=== PATIENT | female | born 1970 | race Caucasian/White ===

== ENCOUNTER 2020-01-05 20:17 | Emergency (ER) | payer OTHER, SELFPAY ==
--- NOTE | 2020-01-05 20:26 | XR_ITS ---
EXAMINATION: XR CHEST CLINICAL INFORMATION: Pain COMPARISON: Chest x-ray 05/19/2011 TECHNIQUE: Frontal view of the chest was obtained. FINDINGS: Cardiac silhouette is normal in size. The lungs are well aerated. There is no lobar consolidation. No pleural effusion or pneumothorax. XR/XR chest 1V IMPRESSION: Stable examination demonstrating no acute pulmonary pathology.
--- NOTE | 2020-01-05 20:27 | ECG_ITS ---
Test Reason : CP Blood Pressure : / mmHG Vent. Rate : 082 BPM Atrial Rate : 082 BPM P-R Int : 112 ms QRS Dur : 080 ms QT Int : 390 ms P-R-T Axes : 057 054 009 degrees QTc Int : 455 ms Normal sinus rhythm ST depression in Inferior leads Abnormal ECG When compared with ECG of 27-MAY-2019 14:55, Heart rate has decreased Referred By: Sudha Rouse Electronically Signed By:REHANA LARSEN MD
[2020-01-05 20:28] VITALS: BP 156/78; BP 170/100; PULSE 81; PULSE 90; RESP 16; TEMP 36.9; O2SAT 100; O2SAT 98; BMI 22.3
--- NOTE | 2020-01-05 20:35 | ED_ITS ---
HPI - SOB/Dyspnea General Chief Complaint: Anxiety Stated Complaint: covid anxiety Time Seen by Provider: 01/05/20 20:26 Source: EMS Mode of arrival: EMS Limitations: other (vague historian) History of Present Illness MD elicited complaint: shortness of breath, cough, chest pain and anxiety Onset (ago): day(s) (3) Context: anxiety and other (very stressed out with multiple family members who have COVID) Timing: constant Severity: moderate Exacerbating factors: stress and talking Relieving factors: nothing Associated symptoms: chest pain Treatment prior to arrival: none Related Data Previous Rx's Medication Instructions Recorded escitalopram oxalate 5 mg tablet 5 mg PO DAILY #30 tab 12/02/19 lorazepam [Ativan] 1 mg PO BID PRN #10 tab 01/05/20 Allergies Allergy/AdvReac Type Severity Reaction Status Date / Time NSAIDS (Non-Steroidal Allergy Intermediate RASH Verified 01/05/20 20:37 Anti-Inflamma [NSAIDS (NON-STEROIDAL ANTI-INFLAMMA] aspirin [ASPIRIN] Allergy Mild HIVES Verified 01/05/20 20:37 ibuprofen Allergy Unknown hives Verified 07/15/19 00:00 Review of Systems Review of Systems: Constitutional : No Weight loss, No Fever, No Chills ENT/Mouth : No sore throat, No Rhinorrhea Eyes: No Eye Pain, No Swelling Cardiovascular : pos Chest Pain, pos SOB, no Dyspnea on Exertion, No Orthopnea, No Edema, No Palpitations Respiratory : No Cough, No Sputum Gastrointestinal : pos Nausea, No Vomiting, No Diarrhea, No abdominal Pain, No Hematochezia, No Melena Genitourinary : No Dysuria, No Urinary Frequency Musculoskeletal : No joint pain, No Myalgias, No Joint Swelling Skin : No Skin Lesions, No rash Neuro : No Weakness, No Numbness, No Dizziness, No Headache Psych : pos Anxiety/Panic, No Depression Heme/Lymph: No Bruising, No Lymphadenopathy Endocrine : No Polyuria, No Polydipsia All other systems reviewed and are negative FOR[facility]LY [facility] Past Medical History Attestation statement: The following information was validated with the patient. Medical History (Updated 01/05/20 @ 21:44 by Sudha Rouse DO) Anxiety Migraines Panic attacks Social History Social History (Updated 01/05/20 @ 20:45 by Sudha Rouse DO) Smoking Status: Current every day smoker Use of substances other than those prescribed or required for medical reasons: No Advance Directives: No Advance Directives Information Provided: No Physical Exam Vital Signs: Vital Signs: Last Vital Signs Temp 98.4 F 01/05/20 20:28 Pulse 81 01/05/20 20:28 Resp 16 01/05/20 20:28 BP 156/78 H 01/05/20 20:28 Pulse Ox 98 01/05/20 20:28 Body Mass Index 22.3 Appearance: Alert. Oriented X3. No acute distress. Anxious Eyes: Pupils equal, round and reactive to light. ENT: Pharynx normal. Neck: Normal inspection. Neck supple. CVS: Normal heart rate and rhythm. Pulses normal. Respiratory: No respiratory distress. Breath sounds normal. Abdomen: Soft and nontender. Skin: Skin warm and dry. Normal skin color. Normal skin turgor. Extremities: No lower extremity edema. No calf ttp Neuro: Oriented X 3. No motor deficit. No sensory deficit. Course Course Course Narrative: no acute findings, feels better, stable for DC MDM - SOB/Dyspnea MDM Narrative Medical decision making narrative: 49 yo female c/o dyspnea and chest pain states that she suffers from panic attacks and this is typical of her presentation she is PERC negative at this time, will need labs, EKG, troponin x 1, CXR and PO ativan for anxiety, dispo per results and findings. Lab Data Result diagrams: 01/05/20 20:45 01/05/20 20:45 Labs: Lab Results 01/05/20 01/05/20 01/05/20 Range/Units 20:45 20:45 20:45 WBC 12.1 H (4.8-10.8) X10*3/uL RBC 3.62 L (4.20-5.50) X10*6/uL Hgb 12.3 (12.0-16.0) g/dl Hct 36.9 L (37-47) % MCV 101.9 H (80-98) fL MCH 34.0 H (27.0-33.0) pg MCHC 33.3 (31.0-35.0) g/dl RDW 13.2 (11.0-16.0) % Plt Count 198 (160-400) X10*3/uL MPV 10.6 (9.4-12.3) fL Immature Gran % (Auto) 0.4 (0.0-0.4) % Neut % (Auto) 70.1 (45-73) % Lymph % (Auto) 17.3 L (20-40) % [place] % (Auto) 11.3 H (2-11) % Eos % (Auto) 0.2 (0-4) % Baso % (Auto) 0.7 (0-2) % Lymph # (Auto) 2.1 (1.2-4.9) X10*3/uL [place] # (Auto) 1.4 H (0.1-1.2) X10*3/uL Eos # (Auto) 0.0 (0.0-0.4) X10*3/uL Baso # (Auto) 0.1 (0.0-0.2) X10*3/uL Abs Immat Gran (auto) 0.05 H (0.00-0.03) X10*3/uL Absolute Neuts (auto) 8.5 H (2.0-8.3) X10*3/uL Absolute Nucleated RBC 0.000 (0.0-0.012) X10*3/uL Nucleated RBC % (auto) 0.0 (0.0-0.2) /100WBC Hold Blue Top SEE NOTE Sodium 145 (135-145) mmol/L Potassium 3.7 (3.3-5.1) mmol/l Chloride 108 (96-108) mmol/L Carbon Dioxide 25 (22-29) mmol/L Anion Gap 16 (12-20) BUN 11 (9-16) mg/dL Creatinine 0.65 (0.5-1.4) mg/dL Estim Creat Clear Calc 87.6 Estimated GFR > 60 Random Glucose 143 H (60-115) mg/dL Calcium 9.1 (8.4-10.2) mg/dL Troponin I High Sens (<3.5-17.0) ng/L Coronavirus (PCR) (Negative) Influenza Type A (PCR) (Negative) Influenza Type B (PCR) (Negative) RSV RNA Qual (PCR) (Negative) 01/05/20 01/05/20 Range/Units 20:45 20:50 WBC (4.8-10.8) X10*3/uL RBC (4.20-5.50) X10*6/uL Hgb (12.0-16.0) g/dl Hct (37-47) % MCV (80-98) fL MCH (27.0-33.0) pg MCHC (31.0-35.0) g/dl RDW (11.0-16.0) % Plt Count (160-400) X10*3/uL MPV (9.4-12.3) fL Immature Gran % (Auto) (0.0-0.4) % Neut % (Auto) (45-73) % Lymph % (Auto) (20-40) % [place] % (Auto) (2-11) % Eos % (Auto) (0-4) % Baso % (Auto) (0-2) % Lymph # (Auto) (1.2-4.9) X10*3/uL [place] # (Auto) (0.1-1.2) X10*3/uL Eos # (Auto) (0.0-0.4) X10*3/uL Baso # (Auto) (0.0-0.2) X10*3/uL Abs Immat Gran (auto) (0.00-0.03) X10*3/uL Absolute Neuts (auto) (2.0-8.3) X10*3/uL Absolute Nucleated RBC (0.0-0.012) X10*3/uL Nucleated RBC % (auto) (0.0-0.2) /100WBC Hold Blue Top Sodium (135-145) mmol/L Potassium (3.3-5.1) mmol/l Chloride (96-108) mmol/L Carbon Dioxide (22-29) mmol/L Anion Gap (12-20) BUN (9-16) mg/dL Creatinine (0.5-1.4) mg/dL Estim Creat Clear Calc Estimated GFR Random Glucose (60-115) mg/dL Calcium (8.4-10.2) mg/dL Troponin I High Sens < 3.5 (<3.5-17.0) ng/L Coronavirus (PCR) NEGATIVE (Negative) Influenza Type A (PCR) NEGATIVE (Negative) Influenza Type B (PCR) NEGATIVE (Negative) RSV RNA Qual (PCR) NEGATIVE (Negative) ECG Data Attestation: I personally reviewed and interpreted this ECG as follows: ECG interpretation date: 01/05/20 ECG interpretation time: 20:45 Interpretation: Rate: 82 Rhythm: NSR Dodge: normal Normal P waves. Normal CHUCKIE. Normal QRS complex. ST T wave : normal qTC: normal prior studies: no acute ischemia The study has been interpreted contemporaneously by me. . Discharge Plan Discharge Clinical Impression: Acute anxiety Chest pain Qualifiers: Chest pain type: unspecified Qualified Code(s): R07.9 - Chest pain, unspecified Patient Disposition: Home, Self-Care Instructions: Chest Pain (ED), Anxiety (ED) Additional Instructions: return to ED for any worsening symptoms or concerns Prescriptions: New lorazepam [Ativan] 1 mg tablet 1 mg PO BID PRN (Reason: anxiety) Qty: 10 RF: 0 No Action escitalopram oxalate 5 mg tablet 5 mg PO DAILY Qty: 30 RF: 5 Referrals: Physician,Unknown [Primary Care Provider] - 5 days Stand Alone Forms: Work/School Release
[2020-01-05] MEDS: LORazepam 1 MG TABLET PO (20:47)
[2020-01-05 20:58] LABS: Basophils Absolute Auto 0.1 X10*3/uL (0.0-0.2); Basophils Percent Auto 0.7 % (0-2); Eosinophils Percent Auto 0.2 % (0-4); Hematocrit 36.9 % (37-47); Hemoglobin 12.3 g/dl (12.0-16.0); Imm Gran Abs Auto 0.05 X10*3/uL (0.00-0.03); Imm Gran Pct Auto 0.4 % (0.0-0.4); Lymphocytes Absolute Auto 2.1 X10*3/uL (1.2-4.9); Lymphocytes Percent Auto 17.3 % (20-40); MANUAL DIFF FLAG NO; Mean Corpuscular HGB Conc 33.3 g/dl (31.0-35.0); Mean Corpuscular Volume 101.9 fL (80-98); Mean Platelet Volume 10.6 fL (9.4-12.3); Monocytes Absolute Auto 1.4 X10*3/uL (0.1-1.2); Monocytes Percent Auto 11.3 % (2-11); Neutrophils Absolute Auto 8.5 X10*3/uL (2.0-8.3); Neutrophils Percent Auto 70.1 % (45-73); Platelet Count 198 X10*3/uL (160-400); Red Blood Count 3.62 X10*6/uL (4.20-5.50); Red Cell Distribution Width 13.2 % (11.0-16.0); White Blood Count 12.1 X10*3/uL (4.8-10.8)
--- NOTE | 2020-01-05 21:04 | PC.NURSE ---
EKG, labs and Covid swab obtained and sent. Pt resting in bed with eyes closed, talking to herself. When this nurse asked pt what she was doing, pt replied praying for my family.
[2020-01-05 21:17] LABS: Anion Gap 16 (12-20); Blood Urea Nitrogen 11 mg/dL (9-16); Calcium 9.1 mg/dL (8.4-10.2); Carbon Dioxide 25 mmol/L (22-29); Chloride 108 mmol/L (96-108); Creatinine Clr Calc Pharmacy 87.6; Estimated Glomerular Filt Rate > 60; Glucose Random 143 mg/dL (60-115); Potassium 3.7 mmol/l (3.3-5.1); Sodium 145 mmol/L (135-145)
[2020-01-05 21:25] LABS: Troponin-I High Sensitivity < 3.5 ng/L (<3.5-17.0)
[2020-01-05 21:38] LABS: Influenza A PCR NEGATIVE (Negative); Influenza B PCR NEGATIVE (Negative); Resp Syncy Virus RNA Qual PCR NEGATIVE (Negative); SARS COV2 PCR INHOUSE NEGATIVE (Negative)
[2020-01-05 22:01] VITALS: BP 126/65; PULSE 97; RESP 16; O2SAT 98
== END 2020-01-05 22:07 | disposition home or self-care (01) ==
PROVIDERS: Emergency Provider Emergency Medicine
DX: F43.0 Acute stress reaction (principal); R07.9 Chest pain, unspecified; Z79.899 Other long term (current) drug therapy
CPT/HCPCS: 0241U; 36415; 71045; 80048; 84484; 85025; 93005; 99283

== ENCOUNTER 2020-04-20 20:41 | Emergency (ER) | payer OTHER, SELFPAY ==
[2020-04-20 20:47] VITALS: BP 129/81; PULSE 105; RESP 18; TEMP 36.5; O2SAT 98
[2020-04-20 20:58] VITALS: BP 108/67; PULSE 107; RESP 16; TEMP 37.2; O2SAT 99; BMI 28.3
--- NOTE | 2020-04-20 21:48 | ED.PSYCH ---
HPI - Psych General Chief Complaint: ETOH/Substance Use Stated Complaint: crisis etoh Time Seen by Provider: 04/20/20 21:48 Source: patient Mode of arrival: EMS Limitations: no limitations History of Present Illness HPI Narrative: Patient had few drinks tonight was at sister's house wanted to take her daughter home started fighting with her sister police came who gave her the choice to be arrested or go to the hospital ,patient chose to come to the hospital complaint: anxiety and substance abuse Related Data Previous Rx's Medication Instructions Recorded escitalopram oxalate 5 mg tablet 5 mg PO DAILY #30 tab 12/02/19 lorazepam [Ativan] 1 mg PO BID PRN #10 tab 01/05/20 Allergies Allergy/AdvReac Type Severity Reaction Status Date / Time NSAIDS (Non-Steroidal Allergy Intermediate RASH Verified 01/05/20 20:37 Anti-Inflamma [NSAIDS (NON-STEROIDAL ANTI-INFLAMMA] aspirin [ASPIRIN] Allergy Mild HIVES Verified 01/05/20 20:37 ibuprofen Allergy Unknown hives Verified 07/15/19 00:00 Review of Systems Review of Systems: Constitutional : No Fever, No Chills ENT/Mouth : No Ear Pain, No Nasal Congestion, No sore throat Eyes: No Eye Pain, No Swelling, No Redness Cardiovascular : No Chest Pain, No SOB Respiratory : No Cough, No Sputum, No Dyspnea Gastrointestinal : No Nausea, No Vomiting, No Diarrhea, No Hematochezia, No Melena Genitourinary : No Dysuria, No Urinary Frequency, No Hematuria Musculoskeletal : No Myalgias Skin : No Skin Lesions, No rash Neuro : No Weakness, No Numbness, No Paresthesias, No Dizziness, No Headache Psych : positive Anxiety, -ve Depression,-ve SI/HI Heme/Lymph: No Lymphadenopathy Endocrine : No Polyuria, No Polydipsia PMFSH Past Medical History Medical History Anxiety Migraines Panic attacks Social History Social History Smoking Status: Current every day smoker Advance Directives: No Physical Exam Vital Signs: Vital Signs: Last Vital Signs Temp 98.9 F 04/20/20 20:58 Pulse 107 H 04/20/20 20:58 Resp 16 04/20/20 20:58 BP 108/67 04/20/20 20:58 Pulse Ox 99 04/20/20 20:58 Body Mass Index 28.3 Appearance: Alert. Oriented X3. No acute distress. Patient, cooperative ETOH+ Eyes: Pupils equal, round and reactive to light. ENT: Pharynx normal. Neck: Normal inspection. Neck supple. CVS: Normal heart rate and rhythm. Pulses normal. Respiratory: No respiratory distress. Breath sounds normal. Abdomen: Soft and nontender. Bowel sounds are present, no mass palpable, no CVA tenderness Skin: Skin warm and dry. Normal skin color. Normal skin turgor. Extremities: No lower extremity edema. Neuro: Oriented X 3. No motor deficit. No sensory deficit. Steady gait MDM - Psych MDM Narrative Medical decision making narrative: Patient with slight alcohol intoxication but walking in steady gait sober clinically, denies any suicidal ideation discharge patient home feels safe to go home Differential Diagnosis Differential diagnosis: Likely acute anxiety and alcohol intoxication Discharge Plan Discharge Clinical Impression: Alcohol abuse Patient Disposition: Home, Self-Care Instructions: Abuse of Alcohol (ED) Additional Instructions: Follow-up with your PCP. Follow up with detox Prescriptions: No Action escitalopram oxalate 5 mg tablet 5 mg PO DAILY Qty: 30 RF: 5 lorazepam [Ativan] 1 mg tablet 1 mg PO BID PRN (Reason: anxiety) Qty: 10 RF: 0
[2020-04-20 22:00] VITALS: BP 110/70; PULSE 90; RESP 16; TEMP 36.7; O2SAT 99
== END 2020-04-20 23:59 | disposition home or self-care (01) ==
PROVIDERS: Emergency Provider Internal Medicine; PCP Internal Medicine
DX: F10.120 Alcohol abuse with intoxication, uncomplicated (principal); Y90.9 Presence of alcohol in blood, level not specified
CPT/HCPCS: 99284

== ENCOUNTER 2020-04-26 17:01 | Inpatient (IN) | payer OTHER, SELFPAY ==
--- NOTE | ~2020-04-26 | CT_ITS ---
EXAMINATION: CT HEAD WITHOUT CONTRAST CLINICAL INFORMATION: Subacute head injury COMPARISON: 01/11/2016 TECHNIQUE: Contiguous axial imaging was performed from the skull base to vertex without intravenous administration of contrast. This CT examination was performed using dose optimization techniques as appropriate, variously including the following: *Automated exposure control *Adjustment of mA and/or kV according to patient size (this includes techniques or standardized protocols for targeted exams where dose is matched to indication/reason for exam; i.e. extremities or head) *Use of iterative reconstruction technique DLP: 606 mGy-cm FINDINGS: There is no evidence of acute intracranial hemorrhage or territorial infarction. No abnormal mass effect or midline shift is seen. Wahl to white matter differentiation is well preserved. No extra-axial fluid collections are identified. The ventricles are normal in size. There is no abnormal attenuation within the brain parenchyma. The osseous structures and soft tissues are normal. The mastoid air cells and visualized portions of the paranasal sinuses are well aerated. CT/CT head/brain wo con IMPRESSION: No acute intracranial pathology.
--- NOTE | ~2020-04-26 | CT_ITS ---
EXAMINATION: CT ABDOMEN AND PELVIS WITHOUT CONTRAST CLINICAL INFORMATION: Bilateral flank pain with nausea. Recent UTI COMPARISON: CT abdomen pelvis 07/17/2009 TECHNIQUE: Multidetector volumetric imaging was performed from the superior aspect of the liver through the pubic symphysis. Sagittal and coronal reformatted images were obtained on the technologist's workstation. This CT examination was performed using dose optimization techniques as appropriate, variously including the following: *Automated exposure control *Adjustment of mA and/or kV according to patient size (this includes techniques or standardized protocols for targeted exams where dose is matched to indication/reason for exam; i.e. extremities or head) *Use of iterative reconstruction technique DLP: 532 mGy-cm FINDINGS: LUNG BASES: The visualized lung bases are unremarkable. LIVER, GALLBLADDER, AND BILIARY TREE: The liver border is nodular with hypertrophy of the left lobe. No bile duct dilatation is seen although evaluation is suboptimal because of lack of IV contrast. A recanalized umbilical vein appears to be present. No liver masses are detected. One tiny punctate punctate calcification seen in the liver which could represent a granuloma. A worrisome liver mass is not seen. Patient status post cholecystectomy with a surgical clips in the gallbladder fossa. PANCREAS: Unremarkable. SPLEEN: Unremarkable. ADRENAL GLANDS: Unremarkable. KIDNEYS AND URETERS: The kidneys are normal in size, shape, and attenuation. No hydronephrosis, hydroureter, or calculi seen. No perinephric stranding. BLADDER: The bladder wall is symmetrically thickened which is consistent with the given history of recent cystitis. GASTROINTESTINAL TRACT: A small hiatal hernia is present. Moderately large stool burden is present in the colon. The small and large bowel are otherwise unremarkable. The appendix is unremarkable. ABDOMINAL WALL: No significant hernia is appreciated. Small periumbilical hernia seen containing only fat. LYMPH NODES: No retroperitoneal lymphadenopathy is seen. VASCULAR: Unremarkable. PELVIC VISCERA: An anteverted uterus is present. An abnormal adnexal mass is not seen. No ascites is present. OSSEOUS STRUCTURES: Unremarkable. Mild degenerative changes present in the spine most marked at L4-L5. CT/CT abdomen pelvis wo con IMPRESSION: 1. An etiology for the patient's bilateral flank pain and nausea is not been found. 2. Evidence of cirrhosis with nodular liver and recanalized umbilical vein. 3. Symmetric thickening of bladder wall consistent with given history of cystitis 4. Other incidental findings as described above.
[2020-04-26 17:15] VITALS: BP 138/88; PULSE 98; RESP 18; TEMP 36.9; O2SAT 100
[2020-04-26 17:18] VITALS: BP 138/88; PULSE 93; RESP 18; TEMP 36.9; O2SAT 100; BMI 24.7
--- NOTE | 2020-04-26 17:50 | ED.PSYCH ---
HPI - Psych General Chief Complaint: Psychiatric Symptoms Stated Complaint: PSYCHOSIS,-SI,-HI,+SELF HARM Time Seen by Provider: 04/26/20 17:18 Source: patient Mode of arrival: EMS Limitations: no limitations History of Present Illness HPI Narrative: Patient is brought to emergency room by EMS. According to EMS, the family called them because the patient has been displaying erratic behavior, violent towards family, talking to herself, sitting in the dark 4 hours, not sleeping or eating. Patient states that she denies suicidal or homicidal ideation. When asked why patient was brought to the emergency room, she states that she had a panic attack. Related Data Previous Rx's Medication Instructions Recorded escitalopram oxalate 5 mg tablet 5 mg PO DAILY #30 tab 12/02/19 lorazepam [Ativan] 1 mg PO BID PRN #10 tab 01/05/20 Allergies Allergy/AdvReac Type Severity Reaction Status Date / Time NSAIDS (Non-Steroidal Allergy Intermediate RASH Verified 01/05/20 20:37 Anti-Inflamma [NSAIDS (NON-STEROIDAL ANTI-INFLAMMA] aspirin [ASPIRIN] Allergy Mild HIVES Verified 01/05/20 20:37 ibuprofen Allergy Unknown hives Verified 07/15/19 00:00 Review of Systems Review of Systems: Constitutional : No Weight loss, No Fever, No Chills, No Night Sweats, No Fatigue, No Malaise ENT/Mouth : No Hearing loss, No Ear Pain, No Nasal Congestion, No Sinus Pain, No Hoarseness, No sore throat, No Rhinorrhea, No Swallowing Difficulty Eyes: No Eye Pain, No Swelling, No Redness, No Foreign Body, No Discharge, No Vision Changes Cardiovascular : No Chest Pain, No SOB, No Dyspnea on Exertion, No Orthopnea, No Edema, No Palpitations Respiratory : No Cough, No Sputum, No Wheezing, No Smoke Exposure, No Dyspnea Gastrointestinal : No Nausea, No Vomiting, No Diarrhea, No Constipation, No abdominal Pain, No Hematochezia, No Melena Genitourinary : no irregular bleeding, No Dysuria, No Urinary Frequency, No Hematuria, No Urinary Incontinence, No Urgency, No Flank Pain, No Urinary Flow Changes, No Hesitancy Musculoskeletal : No joint pain, No Myalgias, No Joint Swelling Skin : No Skin Lesions, No rash Neuro : No Weakness, No Numbness, No Paresthesias, No Loss of Consciousness, No Dizziness, No Headache Psych : Complaining of anxiety, panic attack, denies suicidal homicidal ideation, denies depression Heme/Lymph: No Bruising, No Bleeding,No Lymphadenopathy Endocrine : No Polyuria, No Polydipsia, No Temperature Intolerance PMFSH Past Medical History Medical History Anxiety Migraines Panic attacks Social History Social History Smoking Status: Current every day smoker Advance Directives: No Advance Directives Information Provided: No Physical Exam Vital Signs: Vital Signs: Last Vital Signs Temp 98.5 F 04/26/20 17:18 Pulse 93 04/26/20 17:18 Resp 18 04/26/20 17:18 BP 138/88 04/26/20 17:18 Pulse Ox 100 04/26/20 17:18 Body Mass Index 24.7 Appearance: Alert. Oriented X3. Seems anxious Eyes: Pupils equal, round and reactive to light. ENT: Pharynx normal. Neck: Normal inspection. Neck supple. No lymph nodes noted. No crepitus CVS: Normal heart rate and rhythm. Pulses normal. Normal S1 and S2 Respiratory: No respiratory distress. Breath sounds normal. No Wheezing. No rales Abdomen: Soft and nontender. No rigidity. No distention. good BS x4 Skin: Skin warm and dry. Normal skin color. Normal skin turgor. Extremities: No lower extremity edema. No lower extremity edema. No Lacerations. No Rash Neuro: Oriented X 3. No motor deficit. No sensory deficit. Moving all extermities. No slurred speech Psych: Patient has rapid pressured speech. Discharge Plan Discharge Prescriptions: No Action escitalopram oxalate 5 mg tablet 5 mg PO DAILY Qty: 30 RF: 5 lorazepam [Ativan] 1 mg tablet 1 mg PO BID PRN (Reason: anxiety) Qty: 10 RF: 0
[2020-04-26 18:35] LABS: MANUAL DIFF FLAG NO
[2020-04-26 18:37] LABS: Basophils Percent Auto 0.3 % (0-2); Eosinophils Percent Auto 0.2 % (0-4); Hematocrit 32.8 % (37-47); Hemoglobin 10.9 g/dl (12.0-16.0); Imm Gran Abs Auto 0.04 X10*3/uL (0.00-0.03); Imm Gran Pct Auto 0.3 % (0.0-0.4); Lymphocytes Absolute Auto 1.7 X10*3/uL (1.2-4.9); Lymphocytes Percent Auto 13.4 % (20-40); Mean Corpuscular HGB Conc 33.2 g/dl (31.0-35.0); Mean Corpuscular Hemoglobin 32.5 pg (27.0-33.0); Mean Corpuscular Volume 97.9 fL (80-98); Mean Platelet Volume 9.9 fL (9.4-12.3); Neutrophils Absolute Auto 9.7 X10*3/uL (2.0-8.3); Neutrophils Percent Auto 77.8 % (45-73); Platelet Count 173 X10*3/uL (160-400); Red Blood Count 3.35 X10*6/uL (4.20-5.50); Red Cell Distribution Width 13.5 % (11.0-16.0); White Blood Count 12.5 X10*3/uL (4.8-10.8)
[2020-04-26 18:44] LABS: INTERNATIONAL NORM RATIO 1.3 (0.9-1.1); Prothrombin Time 15.2 SEC (10.8-13.0)
[2020-04-26 18:59] LABS: Ammonia 38 umol/L (13-55)
[2020-04-26 19:06] LABS: Ethanol < 10 mg/dL
[2020-04-26 19:09] LABS: Alanine Aminotransferase 15 U/L (0-31); Albumin Level 3.6 g/dL (3.5-5.0); Alkaline Phosphatase 119 U/L (39-117); Anion Gap 14 (12-20); Aspartate Amino Transferase 31 U/L (5-31); Bilirubin Direct 0.4 mg/dL (0.0-0.5); Blood Urea Nitrogen 23 mg/dL (9-16); Carbon Dioxide 24 mmol/L (22-29); Chloride 108 mmol/L (96-108); Creatinine Clr Calc Pharmacy 80.2; Estimated Glomerular Filt Rate > 60; Glucose Random 101 mg/dL (60-115); Potassium 3.6 mmol/L (3.3-5.1); Sodium 142 mmol/L (135-145); Total Protein 7.1 g/dL (6.5-8.0)
--- NOTE | 2020-04-26 19:52 | PC.NURSE ---
THIS RN SPOKE W/ MARIA FERNANDA AT [facility] WHO ADVISED THEY ARE AWARE OF PT, THIS RN FAXED INFO AND ADVISED PT IS NOW MEDICALLY CLEARED READY FOR EVAL.
[2020-04-26 22:56] VITALS: BP 137/64; PULSE 95; RESP 17; TEMP 36.8; O2SAT 97
[2020-04-26 23:14] LABS: COVID-19 Test Negative (Negative)
--- NOTE | 2020-04-26 23:15 | PC.NURSE ---
Patient just got transferred from main ED, medically cleared per report, patient ambulated without any gait deficit, calm and quiet, attempted provide urine sample but couldn't, covid swabbed pending result, N faxed/called/spoke with Andree, no ETA, will continue to monitor.
--- NOTE | 2020-04-27 07:36 | PC.NURSE ---
Report received from JOSETTE Kaur. Pt resting, resp unlabored.
[2020-04-27 08:47] LABS: Magnesium 1.5 mg/dL (1.6-2.6)
[2020-04-27 08:55] VITALS: BP 113/63; PULSE 86; RESP 15; TEMP 36.7; O2SAT 97
[2020-04-27 10:00] VITALS: RESP 20
[2020-04-27] MEDS: Magnesium Oxide 400 MG TABLET PO (10:07)
--- NOTE | 2020-04-27 11:12 | PC.NURSE ---
CARE team in w/ pt. Pt awakened prior- pt drowsy, pleasant. Denies SI at this time, reports having multiple stressors at home.
[2020-04-27 12:00] VITALS: RESP 20
[2020-04-27 14:00] VITALS: RESP 20
[2020-04-27 16:00] VITALS: RESP 20
--- NOTE | 2020-04-27 17:37 | PC.NURSE ---
Pt awake, alert- went to ct scan and bach w/o concern. Pt able to give urine sample.
[2020-04-27 18:00] VITALS: RESP 20
--- NOTE | 2020-04-27 18:19 | MHC.CARE ---
Patient assessed by the CARE team, will require inpatient psychiatric care. Accepted to [facility] pending insurance authorization. Provider updatd, patient informed of plan.
[2020-04-27 18:56] LABS: Amphetamine Screen Urine Not Detected (Not Detect); Barbiturates, Urine Not Detected (Not Detect); Benzodiazepines Screen Urine Not Detected (Not Detect); Cannabinoid Screen Urine Not Detected (Not Detect); Cocaine Screen Urine Not Detected (Not Detect); Opiate Screen Urine Not Detected (Not Detect); Phencyclidine Screen Urine Not Detected (Not Detect)
--- NOTE | 2020-04-27 19:15 | PC.NURSE ---
Pt notified that she has been accepted to . Pt appears confused, asking 'do I have an infection?' Explained to pt that this will be inpatient psychiatric stay. Pt asked 'have you talked to my sister?' No further concerns or questions at this time.
[2020-04-27 19:29] LABS: Glucose Urine UA NEG (NEG); Leukocyte Esterase Urine NEG (NEG); Nitrite Urine POS (NEG); Specific Gravity - Urine 1.025 (1.005-1.025); Urine Blood NEG (NEG); Urine Ketones NEG (NEG); Urine Protein NEG (NEG-TRACE)
[2020-04-27 19:30] LABS: Appearance Urine HAZY; Color Urine YELLOW
[2020-04-27 19:38] LABS: Bacteria Urine 3+ /LPF; Granular Casts Urine 0-2 /LPF; RBC Urine 0 /HPF (0); Squamous Epithelial Cell Urine 3+ /LPF
[2020-04-27] MEDS: Nitrofurantoin Monohyd/M-Cryst 100 MG CAPSULE PO (22:49)
[2020-04-28] MEDS: hydrOXYzine HCL 25 MG TABLET PO ×2 (00:42→16:13)
[2020-04-28] MEDS: traZODone HCL 50 MG TABLET PO (00:42)
[2020-04-28 00:53] VITALS: BP 123/68; PULSE 70; RESP 16; TEMP 36.1; O2SAT 99
--- NOTE | 2020-04-28 02:07 | PC.ADMIT ---
Pt is a 49 yo female admitted to at 2345 with a dx of brief psychotic disorder after signing a CV. Per CARE Team assessment, pt brought to [facility] ED via ambulance for eval after family called 911 due to pt's erratic behavior. pt has been making threats directed at family members, not sleeping, sitting in dark self dialoguing. Pt's sister provided hx of erratic behavior including loss of custody of pt's daughter, inpatient detox for ETOH abuse in 2019, neglect of personal appearance. Per pt sister, pt experiencing delusions including owning her apartment building. Pt denied current use of ETOH. Pt reported occasional use of cigarettes and requested Nicotine gum. Pt dx with UTI while in ED. Denied HI/SI/SA/AH/VH. Confirmed will seek staff if experiencing HI/SI. Reported hx of panic attacks. VSS. Home meds confirmed with pharmacy. Orders submitted by on-call provider and pt placed on Q15 safety checks.
[2020-04-28 06:20] VITALS: BP 117/67; PULSE 66; RESP 16; TEMP 36.9; O2SAT 97
[2020-04-28] MEDS: Nitrofurantoin Monohyd/M-Cryst 100 MG CAPSULE PO ×2 (08:50→20:30)
[2020-04-28] MEDS: LORazepam 1 MG TABLET PO (16:12)
[2020-04-28] MEDS: OLANZapine 5 MG TABLET PO (16:13)
[2020-04-28 18:00] VITALS: BP 122/66; PULSE 83; TEMP 35.9
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
[2020-04-28] MEDS: Ferrous Sulfate 324 MG TABLET.DR PO (20:29)
[2020-04-28] MEDS: OLANZapine 10 MG TABLET PO (20:30)
[2020-04-28] MEDS: lamoTRIgine 25 MG TABLET PO (20:30)
[2020-04-29 06:25] VITALS: BP 81/50; PULSE 70; RESP 16; TEMP 36.6; O2SAT 98
[2020-04-29 08:37] LABS: Iron 59 mcg/dL (30-160); Percent Iron Saturation 20 % (15-50); Total Iron Binding Capacity 299 mcg/dL (228-428); Unsaturated Iron Binding 240 ug/dL
[2020-04-29 08:58] LABS: Thyroid Stimulating Hormone 2.21 uIU/mL (0.32-4.0)
[2020-04-29] MEDS: Ferrous Sulfate 324 MG TABLET.DR PO (10:13)
[2020-04-29] MEDS: Nitrofurantoin Monohyd/M-Cryst 100 MG CAPSULE PO ×2 (10:13→20:55)
--- NOTE | 2020-04-29 13:08 | P.PNPSI_ITS ---
Subjective Subjective Date of Service: 04/29/20 Reason For Visit: PSYCHOSIS Interim History: Pt slighly more coherent. She denies VH/AH but appears internally preoccupied. She reports feeling tired she reports waking up frequently at night. She denies SI/HI. Per nursing, pt visible in the unit, social with select peers. At times with marked derailment and disorganization, Needs support with ADLs due to gross disorganization. MSE Appearance: casually groomed, poor hygiene, in NAD Behavior: calm, cooperative Psychomotor: no agitation or retardation noted Speech: clear, normal rate/rhythm/volume, spontaneous TP: disorganized TC: guarded, poverty of thought Mood: tired Affect:blunted, constricted AH/VH:+AH Delusions:paranoid Insight/judgment:impaired x 2. Memory/cog: alert, impaired secondary to psychiatric symptoms. Medication Compliance: Yes Side effects from medications: Yes (constipation) Attending Groups: Intermittent Review of Systems Review of Systems Constitutional : No Weight loss, No Fever, No Chills, No Night Sweats, No Fatigue, No Malaise ENT/Mouth : No Hearing loss, No Ear Pain, No Nasal Congestion, No Sinus Pain, No Hoarseness, No sore throat, No Rhinorrhea, No Swallowing Difficulty Eyes: No Eye Pain, No Swelling, No Redness, No Foreign Body, No Discharge, No Vision Changes Cardiovascular : No Chest Pain, No SOB, No Dyspnea on Exertion, No Orthopnea, No Edema, No Palpitations Respiratory : No Cough, No Sputum, No Wheezing, No Smoke Exposure, No Dyspnea Gastrointestinal : No Nausea, No Vomiting, No Diarrhea, No Constipation, No abdominal Pain, No Hematochezia, No Melena Genitourinary : no irregular bleeding, No Dysuria, No Urinary Frequency, No Hematuria, No Urinary Incontinence, No Urgency, No Flank Pain, No Urinary Flow Changes, No Hesitancy Musculoskeletal : No joint pain, No Myalgias, No Joint Swelling Skin : No Skin Lesions, No rash Neuro : No Weakness, No Numbness, No Paresthesias, No Loss of Consciousness, No Dizziness, No Headache Psych : Complaining of anxiety, panic attack, denies suicidal homicidal ideation, denies depression Heme/Lymph: No Bruising, No Bleeding,No Lymphadenopathy Endocrine : No Polyuria, No Polydipsia, No Temperature Intolerance Reports behavioral changes and Reports paresthesias (reports hx paralysi s/parasthesis, questions CVA, TIA-denies hx of care+ TBI) Psychiatric: Reports abnormal sleep pattern, Reports anxiety, Reports behavioral changes, Reports depression, Reports difficulty concentrating, Reports auditory hallucinations, Reports panic attacks and Reports paranoia Diagnostics Vital Signs (24Hr): Vital Signs - 24 hr 04/28/20 18:00 04/29/20 06:25 Temperature 96.7 F L 98 F Pulse Rate 83 70 Respiratory Rate 16 Blood Pressure 122/66 81/50 L Pulse Oximetry 98 Body Mass Index 24.7 Labs Results: 04/26/20 18:30 04/26/20 18:31 Labs: Laboratory Results - last 48 hr 04/27/20 04/27/20 04/29/20 17:26 17:26 07:57 Iron 59 TIBC 299 % Saturation 20 Unsat Iron Binding 240 TSH 2.21 Urine Color YELLOW Urine Appearance HAZY Urine pH 6.0 Ur Specific [place] 1.025 Urine Protein NEG Urine Glucose (UA) NEG Urine Ketones NEG Urine Blood NEG Urine Nitrite POS H Ur Leukocyte Esterase NEG Urine RBC 0 Urine WBC 5-9 H Ur Squamous Epith Cells 3+ Urine Bacteria 3+ Granular Casts 0-2 Urine Opiates Screen Not Detected Ur Barbiturates Screen Not Detected Ur Phencyclidine Scrn Not Detected Ur Amphetamines Screen Not Detected U Benzodiazepines Scrn Not Detected Urine Cocaine Screen Not Detected U Marijuana (THC) Screen Not Detected Imaging Radiology Impressions: ITS Impressions Head CT 04/27/20 16:47 IMPRESSION: No acute intracranial pathology. Medications Medications Current Medications Generic Name Dose Route Start Last Admin Trade Name Traeq PRN Reason Stop Dose Admin Acetaminophen 650 mg 04/27/20 23:01 Acetaminophen 325 Mg Tablet PO Q6H PRN Headache/Pain Mild Scale (1-3) Al Hydroxide/Mg Hydroxide 30 ml 04/27/20 23:01 Magnesium Hydrox/Alum Hydrox 30 Ml Oral.Susp PO Q6H PRN Heartburn/Nausea Docusate Sodium 100 mg 04/28/20 18:35 Docusate Sodium 100 Mg Capsule PO BID PRN Constipation Ferrous Sulfate 324 mg 04/28/20 18:45 04/29/20 10:13 Ferrous Sulfate 324 Mg Tablet.Dr PO 324 mg DAILY ANANT Administration Hydroxyzine HCl 25 mg 04/27/20 23:01 04/28/20 16:13 Hydroxyzine Hcl 25 Mg Tablet PO 25 mg Q6H PRN Administration Anxiety Lamotrigine 25 mg 04/28/20 21:00 04/28/20 20:30 Lamotrigine 25 Mg Tablet PO 25 mg BEDTIME ANANT Administration Lorazepam 1 mg 04/28/20 12:51 04/28/20 16:12 Lorazepam 1 Mg Tablet PO 1 mg Q4H PRN Administration agitation Magnesium Hydroxide 30 ml 04/27/20 23:01 Milk Of Magnesia 30 Ml Oral.Susp PO DAILY PRN Constipation Multivitamins/Minerals 1 tab 04/29/20 09:00 04/29/20 10:13 Multivitamin With Minerals Tablet PO 1 tab DAILY ANANT Administration Nicotine Polacrilex 4 mg 04/28/20 18:41 Nicotine Polacrilex 2 Mg Gum BUCCAL Q2H PRN Nicotine Cravings Nitrofurantoin Macrocrystals 100 mg 04/27/20 22:45 04/29/20 10:13 Nitrofurantoin Monohyd/M-Cryst 100 Mg Capsule PO 05/04/20 09:01 100 mg BID ANANT Administration Olanzapine 5 mg 04/28/20 12:51 04/28/20 16:13 Olanzapine 5 Mg Tablet PO 5 mg Q4H PRN Administration psychosis, agitation Olanzapine 10 mg 04/28/20 21:00 04/28/20 20:30 Olanzapine 10 Mg Tablet PO 10 mg BEDTIME ANANT Administration Trazodone HCl 50 mg 04/27/20 23:01 04/28/20 00:42 Trazodone Hcl 50 Mg Tablet PO 50 mg BEDTIME PRN Administration Insomnia Allergies Allergies Allergy/AdvReac Type Severity Reaction Status Date / Time NSAIDS (Non-Steroidal Allergy Intermediate RASH Verified 01/05/20 20:37 Anti-Inflamma [NSAIDS (NON-STEROIDAL ANTI-INFLAMMA] aspirin [ASPIRIN] Allergy Mild HIVES Verified 01/05/20 20:37 ibuprofen Allergy Unknown hives Verified 07/15/19 00:00 Assessment & Plan Assessment & Plan (1) Bipolar disorder with psychotic features: Status: Acute Code(s): F31.9 - Bipolar disorder, unspecified Assessment and Plan: Continue per primary team: Lamictal 25 mg daily- to help pt calm during the day Olanzapine 10 mg HS- to help pt calm during the day, mgt of anxiety Greater than 50% of the session was spent on counseling and/or coordination of care Reason for contiued inpatient stay Substantial Risk for: inability to function
[2020-04-29] MEDS: polyethylene glycoL 3350 17 GM POWD.PACK PO (14:27)
[2020-04-29 19:00] VITALS: BP 123/70; PULSE 106; TEMP 36.6
[2020-04-29] MEDS: Milk of Magnesia 30 ML ORAL.SUSP PO (19:31)
[2020-04-29] MEDS: Nicotine Polacrilex 2 MG GUM 4 MG BUCCAL (19:46)
[2020-04-29] MEDS: OLANZapine 10 MG TABLET PO (20:55)
[2020-04-29] MEDS: lamoTRIgine 25 MG TABLET PO (20:55)
[2020-04-29] MEDS: traZODone HCL 50 MG TABLET PO (20:59)
[2020-04-30 06:35] VITALS: BP 107/56; PULSE 86; RESP 16; TEMP 36.7; O2SAT 97
[2020-04-30] MEDS: polyethylene glycoL 3350 17 GM POWD.PACK PO (09:38)
[2020-04-30] MEDS: OLANZapine 5 MG TABLET PO (09:38)
[2020-04-30] MEDS: Nitrofurantoin Monohyd/M-Cryst 100 MG CAPSULE PO ×2 (09:39→22:02)
[2020-04-30] MEDS: Ferrous Sulfate 324 MG TABLET.DR PO (09:39)
--- NOTE | 2020-04-30 10:54 | P.PNPSI_ITS ---
Subjective Subjective Date of Service: 04/30/20 Reason For Visit: PSYCHOSIS Interim History: Pt continues to present slighly more coherent in that thought process is more linear. She denies VH/AH but appears internally preoccupied. She reports feeling tired she reports waking up frequently at night. She denies SI/HI. Per nursing, pt visible in the unit, social with select peers. At times with marked derailment and disorganization, Needs support with ADLs due to gross disorganization. MSE Appearance: casually groomed, poor hygiene, in NAD Behavior: calm, cooperative Psychomotor: no agitation or retardation noted Speech: clear, normal rate/rhythm/volume, spontaneous TP: disorganized TC: guarded, poverty of thought Mood: tired Affect:blunted, constricted AH/VH:+AH Delusions:paranoid Insight/judgment:impaired x 2. Memory/cog: alert, impaired secondary to psychiatric symptoms. Review of Systems Review of Systems Constitutional : No Weight loss, No Fever, No Chills, No Night Sweats, No Fatigue, No Malaise ENT/Mouth : No Hearing loss, No Ear Pain, No Nasal Congestion, No Sinus Pain, No Hoarseness, No sore throat, No Rhinorrhea, No Swallowing Difficulty Eyes: No Eye Pain, No Swelling, No Redness, No Foreign Body, No Discharge, No Vision Changes Cardiovascular : No Chest Pain, No SOB, No Dyspnea on Exertion, No Orthopnea, No Edema, No Palpitations Respiratory : No Cough, No Sputum, No Wheezing, No Smoke Exposure, No Dyspnea Gastrointestinal : No Nausea, No Vomiting, No Diarrhea, No Constipation, No abdominal Pain, No Hematochezia, No Melena Genitourinary : no irregular bleeding, No Dysuria, No Urinary Frequency, No Hematuria, No Urinary Incontinence, No Urgency, No Flank Pain, No Urinary Flow Changes, No Hesitancy Musculoskeletal : No joint pain, No Myalgias, No Joint Swelling Skin : No Skin Lesions, No rash Neuro : No Weakness, No Numbness, No Paresthesias, No Loss of Consciousness, No Dizziness, No Headache Psych : Complaining of anxiety, panic attack, denies suicidal homicidal gurinder ation, denies depression Heme/Lymph: No Bruising, No Bleeding,No Lymphadenopathy Endocrine : No Polyuria, No Polydipsia, No Temperature Intolerance Reports behavioral changes and Reports paresthesias (reports hx paralysis/parasthesis, questions CVA, TIA-denies hx of care+ TBI) Psychiatric: Reports abnormal sleep pattern, Reports anxiety, Reports behavioral changes, Reports depression, Reports difficulty concentrating, Reports auditory hallucinations, Reports panic attacks and Reports paranoia Diagnostics Vital Signs (24Hr): Vital Signs - 24 hr 04/29/20 19:00 04/30/20 06:35 Temperature 97.9 F 98.0 F Pulse Rate 106 H 86 Respiratory Rate 16 Blood Pressure 123/70 107/56 L Pulse Oximetry 97 Body Mass Index 24.7 Labs Results: 04/26/20 18:30 04/26/20 18:31 Labs: Laboratory Results - last 48 hr 04/29/20 07:57 Iron 59 TIBC 299 % Saturation 20 Unsat Iron Binding 240 TSH 2.21 Imaging Radiology Impressions: ITS Impressions Head CT 04/27/20 16:47 IMPRESSION: No acute intracranial pathology. Medications Medications Current Medications Generic Name Dose Route Start Last Admin Trade Name Freq PRN Reason Stop Dose Admin Acetaminophen 650 mg 04/27/20 23:01 Acetaminophen 325 Mg Tablet PO Q6H PRN Headache/Pain Mild Scale (1-3) Al Hydroxide/Mg Hydroxide 30 ml 04/27/20 23:01 Magnesium Hydrox/Alum Hydrox 30 Ml Oral.Susp PO Q6H PRN Heartburn/Nausea Docusate Sodium 100 mg 04/28/20 18:35 Docusate Sodium 100 Mg Capsule PO BID PRN Constipation Ferrous Sulfate 324 mg 04/28/20 18:45 04/30/20 09:39 Ferrous Sulfate 324 Mg Tablet.Dr PO 324 mg DAILY ANANT Administration Hydroxyzine HCl 25 mg 04/27/20 23:01 04/28/20 16:13 Hydroxyzine Hcl 25 Mg Tablet PO 25 mg Q6H PRN Administration Anxiety Lamotrigine 25 mg 04/28/20 21:00 04/29/20 20:55 Lamotrigine 25 Mg Tablet PO 25 mg BEDTIME ANANT Administration Lorazepam 1 mg 04/28/20 12:51 04/28/20 16:12 Lorazepam 1 Mg Tablet PO 1 mg Q4H PRN Administration agitation Magnesium Hydroxide 30 ml 04/27/20 23:01 04/29/20 19:31 Milk Of Magnesia 30 Ml Oral.Susp PO 30 ml DAILY PRN Administration Constipation Multivitamins/Minerals 1 tab 04/29/20 09:00 04/30/20 09:39 Multivitamin With Minerals Tablet PO 1 tab DAILY ANANT Administration Nicotine Polacrilex 4 mg 04/28/20 18:41 04/29/20 19:46 Nicotine Polacrilex 2 Mg Gum BUCCAL 4 mg Q2H PRN Administration Nicotine Cravings Nitrofurantoin Macrocrystals 100 mg 04/27/20 22:45 04/30/20 09:39 Nitrofurantoin Monohyd/M-Cryst 100 Mg Capsule PO 05/04/20 09:01 100 mg BID ANANT Administration Olanzapine 5 mg 04/28/20 12:51 04/28/20 16:13 Olanzapine 5 Mg Tablet PO 5 mg Q4H PRN Administration psychosis, agitation Olanzapine 10 mg 04/28/20 21:00 04/29/20 20:55 Olanzapine 10 Mg Tablet PO 10 mg BEDTIME ANANT Administration Olanzapine 5 mg 04/30/20 09:00 04/30/20 09:38 Olanzapine 5 Mg Tablet PO 5 mg DAILY ANANT Administration Polyethylene Glycol 17 gm 04/29/20 13:15 04/30/20 09:38 Polyethylene Glycol 3350 17 Gm Powd.Pack PO 17 gm DAILY ANANT Administration Trazodone HCl 50 mg 04/27/20 23:01 04/29/20 20:59 Trazodone Hcl 50 Mg Tablet PO 50 mg BEDTIME PRN Administration Insomnia Allergies Allergies Allergy/AdvReac Type Severity Reaction Status Date / Time NSAIDS (Non-Steroidal Allergy Intermediate RASH Verified 01/05/20 20:37 Anti-Inflamma [NSAIDS (NON-STEROIDAL ANTI-INFLAMMA] aspirin [ASPIRIN] Allergy Mild HIVES Verified 01/05/20 20:37 ibuprofen Allergy Unknown hives Verified 07/15/19 00:00 Assessment & Plan Assessment & Plan (1) Bipolar disorder with psychotic features: Status: Acute Code(s): F31.9 - Bipolar disorder, unspecified Assessment and Plan: Continue per primary team: Lamictal 25 mg daily- to help pt calm during the day Olanzapine 10 mg HS- to help pt calm during the day, mgt of anxiety Greater than 50% of the session was spent on counseling and/or coordination of care Reason for contiued inpatient stay Substantial Risk for: harm to self and inability to function
[2020-04-30] MEDS: Nicotine Polacrilex 2 MG GUM 4 MG BUCCAL (13:04)
[2020-04-30] MEDS: hydrOXYzine HCL 25 MG TABLET PO (13:31)
[2020-04-30 18:20] VITALS: BP 137/77; PULSE 99; TEMP 36.7
[2020-04-30] MEDS: OLANZapine 10 MG TABLET PO (22:01)
[2020-04-30] MEDS: traZODone HCL 50 MG TABLET PO (22:01)
[2020-04-30] MEDS: lamoTRIgine 25 MG TABLET PO (22:02)
[2020-05-01 04:06] LABS: Folate 12.2 ng/mL (> or = 4.0); Vitamin B12 574 pg/mL (200-900)
[2020-05-01 06:20] VITALS: BP 110/57; PULSE 85; RESP 16; TEMP 36.8; O2SAT 97
[2020-05-01] MEDS: Nitrofurantoin Monohyd/M-Cryst 100 MG CAPSULE PO ×2 (08:32→21:16)
[2020-05-01] MEDS: polyethylene glycoL 3350 17 GM POWD.PACK PO (08:32)
[2020-05-01] MEDS: Ferrous Sulfate 324 MG TABLET.DR PO ×2 (08:32→21:15)
[2020-05-01] MEDS: OLANZapine 5 MG TABLET PO (08:32)
[2020-05-01] MEDS: Acetaminophen 325 MG TABLET 650 MG PO (08:36)
--- NOTE | 2020-05-01 11:28 | PC.NURSE ---
Pt signed a 3-Day Notice on Monday 05/01 up on 05/04.
[2020-05-01] MEDS: Nicotine Polacrilex 2 MG GUM 4 MG BUCCAL ×2 (12:22→14:27)
--- NOTE | 2020-05-01 17:32 | HO.PSYCHPN ---
Subjective Subjective Date of Service: 05/01/20 Reason For Visit: PSYCHOSIS Subjective Notes: 3 Day (05/04/20) Interim History: Three day notice filed. Reports she needs prescriptions for Ambien, Klonopin, Percocet for sleep, anxiety and pain mgt. She will share minimal detail regarding symptoms. Guarded, difficult to understand at times, speech is soft.Appears to be placing effort into symptom mgt, stating that she needs to prove to her family that she is OK in leaving on . Medication Compliance: Yes Side effects from medications: No Attending Groups: No Review of Systems Review of Systems Yes all other systems are reviewed and are negative (reports pain but not specific) Reports behavioral changes and Reports confusion Psychiatric: Reports anxiety, Reports behavioral changes, Reports confusion, Reports depression, Reports difficulty concentrating, Reports anhedonia, Reports mood swings, Reports paranoia and Reports suicidal ideation (denies) Mental Status Exam Mental Status Exam Patient Appearance: Fatigued Patient Orientation: Person and Place Level of Consciousness: Alert Patient Behavior: Guarded, Talkative, Suspicious, Anxious, Fearful, Resistive to Care, Avoidant, Fatigued, Distractible, Isolative and Good Eye Contact Mood Description: Suspicious, Withdrawn, Constricted, Fearful, Anxious, Blunted, Nervous and Apprehensive Affect Description: Blunted Patient Cognition Impaired: No Ability to Follow Directions: Fair Speech Pattern: Spontaneous Speech and Soft-Spoken Memory Description: Episodic Impaired Hallucinations: Auditory Delusions: Paranoid Ideation Thought Process: Distracted Thought Content: positive for Circumstantial and positive for Preoccupation Depressive Symptoms: Increased Irritability, Isolating-Friends/Family, Increased Fatigue and Loss of Energy Abnormal Motor Activity Signs and Symptoms: Restlessness Judgement: Fair Diagnostics Vital Signs (24Hr): Vital Signs - 24 hr 04/30/20 18:20 05/01/20 06:20 Temperature 98.0 F 98.3 F Pulse Rate 99 85 Respiratory Rate 16 Blood Pressure 137/77 110/57 L Pulse Oximetry 97 Body Mass Index 24.7 Labs Results: 04/26/20 18:30 04/26/20 18:31 Labs: Laboratory Results - last 48 hr 04/29/20 07:57 Vitamin B12 574 Folate 12.2 Imaging Radiology Impressions: [facility] Impressions Head CT 04/27/20 16:47 IMPRESSION: No acute intracranial pathology. Medications Medications Current Medications Generic Name Dose Route Start Last Admin Trade Name Traeq PRN Reason Stop Dose Admin Acetaminophen 650 mg 04/27/20 23:01 05/01/20 08:36 Acetaminophen 325 Mg Tablet PO 650 mg Q6H PRN Administration Headache/Pain Mild Scale (1-3) Al Hydroxide/Mg Hydroxide 30 ml 04/27/20 23:01 Magnesium Hydrox/Alum Hydrox 30 Ml Oral.Susp PO Q6H PRN Heartburn/Nausea Docusate Sodium 100 mg 04/28/20 18:35 Docusate Sodium 100 Mg Capsule PO BID PRN Constipation Ferrous Sulfate 324 mg 04/28/20 18:45 05/01/20 08:32 Ferrous Sulfate 324 Mg Tablet. PO 324 mg DAILY ANANT Administration Hydroxyzine HCl 25 mg 04/27/20 23:01 04/30/20 13:31 Hydroxyzine Hcl 25 Mg Tablet PO 25 mg Q6H PRN Administration Anxiety Lamotrigine 25 mg 04/28/20 21:00 04/30/20 22:02 Lamotrigine 25 Mg Tablet PO 25 mg BEDTIME ANANT Administration Lorazepam 1 mg 04/28/20 12:51 04/28/20 16:12 Lorazepam 1 Mg Tablet PO 1 mg Q4H PRN Administration agitation Magnesium Hydroxide 30 ml 04/27/20 23:01 04/29/20 19:31 Milk Of Magnesia 30 Ml Oral.Susp PO 30 ml DAILY PRN Administration Constipation Multivitamins/Minerals 1 tab 04/29/20 09:00 05/01/20 08:32 Multivitamin With Minerals Tablet PO 1 tab DAILY ANANT Administration Nicotine Polacrilex 4 mg 04/28/20 18:41 05/01/20 14:27 Nicotine Polacrilex 2 Mg Gum BUCCAL 4 mg Q2H PRN Administration Nicotine Cravings Nitrofurantoin Macrocrystals 100 mg 04/27/20 22:45 05/01/20 08:32 Nitrofurantoin Monohyd/M-Cryst 100 Mg Capsule PO 05/04/20 09:01 100 mg BID ANANT Administration Olanzapine 5 mg 04/28/20 12:51 04/28/20 16:13 Olanzapine 5 Mg Tablet PO 5 mg Q4H PRN Administration psychosis, agitation Olanzapine 10 mg 04/28/20 21:00 04/30/20 22:01 Olanzapine 10 Mg Tablet PO 10 mg BEDTIME ANANT Administration Olanzapine 5 mg 04/30/20 09:00 05/01/20 08:32 Olanzapine 5 Mg Tablet PO 5 mg DAILY ANANT Administration Polyethylene Glycol 17 gm 04/29/20 13:15 05/01/20 08:32 Polyethylene Glycol 3350 17 Gm Powd.Pack PO 17 gm DAILY ANANT Administration Trazodone HCl 50 mg 04/27/20 23:01 04/30/20 22:01 Trazodone Hcl 50 Mg Tablet PO 50 mg BEDTIME PRN Administration Insomnia Allergies Allergies Allergy/AdvReac Type Severity Reaction Status Date / Time NSAIDS (Non-Steroidal Allergy Intermediate RASH Verified 01/05/20 20:37 Anti-Inflamma [NSAIDS (NON-STEROIDAL ANTI-INFLAMMA] aspirin [ASPIRIN] Allergy Mild HIVES Verified 01/05/20 20:37 ibuprofen Allergy Unknown hives Verified 07/15/19 00:00 Assessment & Plan Assessment & Plan (1) Bipolar disorder with psychotic features: Status: Acute Code(s): F31.9 - Bipolar disorder, unspecified Assessment and Plan: -Increase Olanzapine to 15 mg hs -Gabapentin 300 mg bid for anxiety mgt. Greater than 50% of the session was spent on counseling and/or coordination of care Reason for contiued inpatient stay Substantial Risk for: harm to self, harm to others, inability to function and rapid decompensation
[2020-05-01 19:40] VITALS: BP 152/72; PULSE 100; TEMP 36.8
[2020-05-01] MEDS: lamoTRIgine 25 MG TABLET PO (21:15)
[2020-05-01] MEDS: traZODone HCL 50 MG TABLET PO (21:15)
[2020-05-01] MEDS: Docusate Sodium 100 MG CAPSULE PO (21:15)
[2020-05-01] MEDS: Gabapentin 300 MG CAPSULE PO (21:16)
[2020-05-01] MEDS: OLANZapine 7.5 MG TABLET 15 MG PO (21:16)
[2020-05-01] MEDS: Milk of Magnesia 30 ML ORAL.SUSP PO (21:19)
[2020-05-02 06:25] VITALS: BP 136/64; PULSE 97; RESP 16; TEMP 36.9; O2SAT 99
[2020-05-02] MEDS: Nitrofurantoin Monohyd/M-Cryst 100 MG CAPSULE PO ×2 (09:00→22:02)
[2020-05-02] MEDS: OLANZapine 5 MG TABLET PO (09:00)
[2020-05-02] MEDS: Ferrous Sulfate 324 MG TABLET.DR PO ×2 (09:00→16:44)
[2020-05-02] MEDS: Gabapentin 300 MG CAPSULE PO ×2 (09:00→22:02)
[2020-05-02] MEDS: polyethylene glycoL 3350 17 GM POWD.PACK PO (09:00)
[2020-05-02] MEDS: Nicotine Polacrilex 2 MG GUM 4 MG BUCCAL ×2 (09:10→13:15)
[2020-05-02] MEDS: Acetaminophen 325 MG TABLET 650 MG PO ×2 (09:10→16:44)
--- NOTE | 2020-05-02 16:00 | HO.PSYCHPN ---
Subjective Subjective Date of Service: 05/02/20 Reason For Visit: PSYCHOSIS Interim History: Reports increases in anxiety, depression and insomnia-continues to request Ambien, Klonopin, percocet. Reports walking helps anxiety sx. On a scale of 10, reports anxiety is 10/10 and depression 5/10. Also report arthritis pain. Difficult to understand at times. No overt psychosis noted. Denies SI, HI. Reports appetite is intact. Medication Compliance: Yes Side effects from medications: No Attending Groups: No Review of Systems Musculoskeletal: Reports other (arthritis pain) Reports behavioral changes Psychiatric: Reports abnormal sleep pattern, Reports anxiety, Reports behavioral changes, Reports depression, Reports difficulty concentrating and Reports suicidal ideation (denies) Mental Status Exam Mental Status Exam Patient Appearance: Disheveled Patient Orientation: Person, Place and Situation Level of Consciousness: Alert Patient Behavior: Guarded, Talkative, Cooperative, Passive, Suspicious and Good Eye Contact Mood Description: Withdrawn, Depressed and Anxious Affect Description: Flat Patient Cognition Impaired: No Ability to Follow Directions: Good Speech Pattern: Spontaneous Speech, Soft-Spoken and Mumbled Memory Description: Episodic Impaired Hallucinations: None Delusions: Paranoid Ideation Thought Process: Rumination Thought Content: positive for [place] and positive for Circumstantial Depressive Symptoms: Increased Anxiety, Increased Irritability, Difficulty Sleeping, Muscle Pain, Isolating-Friends/Family, Thoughts of /Suicide (denies SI plan, intent) and Loss of Energy Judgement: Fair Diagnostics Vital Signs (24Hr): Vital Signs - 24 hr 05/01/20 19:40 05/02/20 06:25 Temperature 98.2 F 98.5 F Pulse Rate 100 97 Respiratory Rate 16 Blood Pressure 152/72 H 136/64 Pulse Oximetry 99 Body Mass Index 24.7 Labs Results: 04/26/20 18:30 04/26/20 18:31 Labs: Laboratory Results - last 48 hr 04/29/20 07:57 Vitamin B12 574 Folate 12.2 Imaging Radiology Impressions: [facility] Impressions Head CT 04/27/20 16:47 IMPRESSION: No acute intracranial pathology. Medications Medications Current Medications Generic Name Dose Route Start Last Admin Trade Name Freq PRN Reason Stop Dose Admin Acetaminophen 650 mg 04/27/20 23:01 05/02/20 09:10 Acetaminophen 325 Mg Tablet PO 650 mg Q6H PRN Administration Headache/Pain Mild Scale (1-3) Al Hydroxide/Mg Hydroxide 30 ml 04/27/20 23:01 Magnesium Hydrox/Alum Hydrox 30 Ml Oral.Susp PO Q6H PRN Heartburn/Nausea Docusate Sodium 100 mg 04/28/20 18:35 05/01/20 21:15 Docusate Sodium 100 Mg Capsule PO 100 mg BID PRN Administration Constipation Ferrous Sulfate 324 mg 05/01/20 18:15 05/02/20 09:00 Ferrous Sulfate 324 Mg Tablet.Dr PO 324 mg BIDWM ANANT Administration Gabapentin 300 mg 05/01/20 21:00 05/02/20 09:00 Gabapentin 300 Mg Capsule PO 300 mg BID ANANT Administration Hydroxyzine HCl 25 mg 04/27/20 23:01 04/30/20 13:31 Hydroxyzine Hcl 25 Mg Tablet PO 25 mg Q6H PRN Administration Anxiety Lamotrigine 25 mg 04/28/20 21:00 05/01/20 21:15 Lamotrigine 25 Mg Tablet PO 25 mg BEDTIME ANANT Administration Lorazepam 1 mg 04/28/20 12:51 04/28/20 16:12 Lorazepam 1 Mg Tablet PO 1 mg Q4H PRN Administration agitation Magnesium Hydroxide 30 ml 04/27/20 23:01 05/01/20 21:19 Milk Of Magnesia 30 Ml Oral.Susp PO 30 ml DAILY PRN Administration Constipation Multivitamins/Minerals 1 tab 04/29/20 09:00 05/02/20 09:00 Multivitamin With Minerals Tablet PO 1 tab DAILY ANANT Administration Nicotine Polacrilex 4 mg 04/28/20 18:41 05/02/20 13:15 Nicotine Polacrilex 2 Mg Gum BUCCAL 4 mg Q2H PRN Administration Nicotine Cravings Nitrofurantoin Macrocrystals 100 mg 04/27/20 22:45 05/02/20 09:00 Nitrofurantoin Monohyd/M-Cryst 100 Mg Capsule PO 05/04/20 09:01 100 mg BID ANANT Administration Olanzapine 5 mg 04/28/20 12:51 04/28/20 16:13 Olanzapine 5 Mg Tablet PO 5 mg Q4H PRN Administration psychosis, agitation Olanzapine 5 mg 04/30/20 09:00 05/02/20 09:00 Olanzapine 5 Mg Tablet PO 5 mg DAILY ANANT Administration Olanzapine 15 mg 05/01/20 21:00 05/01/20 21:16 Olanzapine 7.5 Mg Tablet PO 15 mg BEDTIME ANANT Administration Polyethylene Glycol 17 gm 04/29/20 13:15 05/02/20 09:00 Polyethylene Glycol 3350 17 Gm Powd.Pack PO 17 gm DAILY ANANT Administration Trazodone HCl 50 mg 04/27/20 23:01 05/01/20 21:15 Trazodone Hcl 50 Mg Tablet PO 50 mg BEDTIME PRN Administration Insomnia Allergies Allergies Allergy/AdvReac Type Severity Reaction Status Date / Time NSAIDS (Non-Steroidal Allergy Intermediate RASH Verified 01/05/20 20:37 Anti-Inflamma [NSAIDS (NON-STEROIDAL ANTI-INFLAMMA] aspirin [ASPIRIN] Allergy Mild HIVES Verified 01/05/20 20:37 ibuprofen Allergy Unknown hives Verified 07/15/19 00:00 Assessment & Plan Assessment & Plan (1) Bipolar disorder with psychotic features: Status: Acute Code(s): F31.9 - Bipolar disorder, unspecified Assessment and Plan: -Klonopin 0.5 mg bid -Mirtazapine 7.5 mg hs Greater than 50% of the session was spent on counseling and/or coordination of care Reason for contiued inpatient stay Substantial Risk for: harm to self, harm to others, inability to function and rapid decompensation
[2020-05-02] MEDS: LORazepam 1 MG TABLET PO (16:44)
[2020-05-02] MEDS: hydrOXYzine HCL 25 MG TABLET PO (18:52)
[2020-05-02 19:56] VITALS: BP 122/69; PULSE 109; TEMP 37.2
[2020-05-02] MEDS: clonazePAM 0.5 MG TABLET PO (22:01)
[2020-05-02] MEDS: OLANZapine 7.5 MG TABLET 15 MG PO (22:01)
[2020-05-02] MEDS: lamoTRIgine 25 MG TABLET PO (22:01)
[2020-05-02] MEDS: Mirtazapine 7.5 MG TABLET PO (22:01)
[2020-05-03 06:00] VITALS: BP 100/56; PULSE 95; TEMP 36.4
[2020-05-03] MEDS: polyethylene glycoL 3350 17 GM POWD.PACK PO (08:43)
[2020-05-03] MEDS: Nitrofurantoin Monohyd/M-Cryst 100 MG CAPSULE PO ×2 (08:44→20:32)
[2020-05-03] MEDS: Gabapentin 300 MG CAPSULE PO ×2 (08:44→20:32)
[2020-05-03] MEDS: clonazePAM 0.5 MG TABLET PO ×2 (08:44→20:32)
[2020-05-03] MEDS: Ferrous Sulfate 324 MG TABLET.DR PO ×2 (08:44→17:29)
[2020-05-03] MEDS: OLANZapine 5 MG TABLET PO (08:44)
[2020-05-03] MEDS: Ibuprofen 800 MG TABLET PO (12:52)
[2020-05-03] MEDS: Nicotine Polacrilex 2 MG GUM 4 MG BUCCAL ×2 (14:22→19:06)
--- NOTE | 2020-05-03 17:05 | HO.PSYCHPN ---
Subjective Subjective Date of Service: 05/03/20 Reason For Visit: PSYCHOSIS Subjective Notes: 3 Day Interim History: Pt reports she is considering remaining in hospital to complete treatment. She is beginning to experience relief with current regime, albeit complex (lamictal, olanzapine, gabapentin, mirtazapine, klonopin in small doses). Believes her brother will come to pick her up tomorrow-wants his opinion as to if she should remain. Believes she has an apartment to go to, however, family states this is not the case. Today pain is the issue-asked team for ibuprofen with documented allergy-calls to PCP validates allergy with hives-discussed with pt who reports she takes ibuprofen at home and takes benadryl with it to manage allergic sx. Education provided as to risks of potentiating an allergic response once know. Pt will reconsider. Order for ibuprofen discontinued. Soft spoken, clearer today with tangential content, appears to have fixed delusions. TDN expires 05/04. Medication Compliance: Yes Side effects from medications: No Attending Groups: No Review of Systems Musculoskeletal: Reports myalgias and Reports other (reports generalized pain) Reports behavioral changes and Reports confusion Psychiatric: Reports anxiety, Reports behavioral changes, Reports confusion, Reports depression, Reports difficulty concentrating, Reports irritability, Reports mood swings, Reports paranoia, Reports hallucinations and Reports suicidal ideation (denies) Mental Status Exam Mental Status Exam Patient Appearance: Fatigued and Disheveled Patient Orientation: Person, Place, Time and Situation Level of Consciousness: Alert Patient Behavior: Cooperative, Anxious, Fearful, Fatigued, Distractible and Good Eye Contact Mood Description: Anxious Affect Description: Flat Patient Cognition Impaired: No Ability to Follow Directions: Good Speech Pattern: Spontaneous Speech, Soft-Spoken and Mumbled Memory Description: Episodic Impaired Hallucinations: None (denies) Delusions: Paranoid Ideation and Present Thought Process: Illogical, Distracted, Rumination and Goal Oriented Thought Content: positive for [place], positive for Circumstantial, positive for Perseveration, positive for Preoccupation, positive for Thought Blocking and positive for Suicidal Ideation (denies) Depressive Symptoms: Increased Anxiety, Diff. Making Decisions, Difficulty Sleeping, Sleeping More Than Usual, Loss of Int. in Activity and Low Self Esteem Abnormal Motor Activity Signs and Symptoms: Restlessness Judgement: Fair Diagnostics Vital Signs (24Hr): Vital Signs - 24 hr 05/02/20 19:56 05/03/20 06:00 Temperature 98.9 F 97.6 F Pulse Rate 109 H 95 Blood Pressure 122/69 100/56 L Body Mass Index 24.7 Labs Results: 04/26/20 18:30 04/26/20 18:31 Imaging Radiology Impressions: [facility] Impressions Head CT 04/27/20 16:47 IMPRESSION: No acute intracranial pathology. Medications Medications Current Medications Generic Name Dose Route Start Last Admin Trade Name Fremiguelina PRN Reason Stop Dose Admin Acetaminophen 650 mg 04/27/20 23:01 05/02/20 16:44 Acetaminophen 325 Mg Tablet PO 650 mg Q6H PRN Administration Headache/Pain Mild Scale (1-3) Al Hydroxide/Mg Hydroxide 30 ml 04/27/20 23:01 Magnesium Hydrox/Alum Hydrox 30 Ml Oral.Susp PO Q6H PRN Heartburn/Nausea Clonazepam 0.5 mg 05/02/20 21:00 05/03/20 08:44 Clonazepam 0.5 Mg Tablet PO 0.5 mg BID ANANT Administration Docusate Sodium 100 mg 04/28/20 18:35 05/01/20 21:15 Docusate Sodium 100 Mg Capsule PO 100 mg BID PRN Administration Constipation Ferrous Sulfate 324 mg 05/01/20 18:15 05/03/20 08:44 Ferrous Sulfate 324 Mg Tablet.Dr PO 324 mg BIDWM ANANT Administration Gabapentin 300 mg 05/01/20 21:00 05/03/20 08:44 Gabapentin 300 Mg Capsule PO 300 mg BID ANANT Administration Hydroxyzine HCl 25 mg 04/27/20 23:01 05/02/20 18:52 Hydroxyzine Hcl 25 Mg Tablet PO 25 mg Q6H PRN Administration Anxiety Ibuprofen 800 mg 05/03/20 11:03 05/03/20 12:52 Ibuprofen 800 Mg Tablet PO 800 mg Q8H PRN Administration Pain, Mild (Pain Scale 1-3) Lamotrigine 25 mg 04/28/20 21:00 05/02/20 22:01 Lamotrigine 25 Mg Tablet PO 25 mg BEDTIME ANANT Administration Lorazepam 1 mg 04/28/20 12:51 05/02/20 16:44 Lorazepam 1 Mg Tablet PO 1 mg Q4H PRN Administration agitation Magnesium Hydroxide 30 ml 04/27/20 23:01 05/01/20 21:19 Milk Of Magnesia 30 Ml Oral.Susp PO 30 ml DAILY PRN Administration Constipation Mirtazapine 7.5 mg 05/02/20 21:00 05/02/20 22:01 Mirtazapine 7.5 Mg Tablet PO 7.5 mg BEDTIME ANANT Administration Multivitamins/Minerals 1 tab 04/29/20 09:00 05/03/20 08:43 Multivitamin With Minerals Tablet PO 1 tab DAILY ANANT Administration Nicotine Polacrilex 4 mg 04/28/20 18:41 05/03/20 14:22 Nicotine Polacrilex 2 Mg Gum BUCCAL 4 mg Q2H PRN Administration Nicotine Cravings Nitrofurantoin Macrocrystals 100 mg 04/27/20 22:45 05/03/20 08:44 Nitrofurantoin Monohyd/M-Cryst 100 Mg Capsule PO 05/04/20 09:01 100 mg BID ANANT Administration Olanzapine 5 mg 04/28/20 12:51 04/28/20 16:13 Olanzapine 5 Mg Tablet PO 5 mg Q4H PRN Administration psychosis, agitation Olanzapine 5 mg 04/30/20 09:00 05/03/20 08:44 Olanzapine 5 Mg Tablet PO 5 mg DAILY ANANT Administration Olanzapine 15 mg 05/01/20 21:00 05/02/20 22:01 Olanzapine 7.5 Mg Tablet PO 15 mg BEDTIME ANANT Administration Polyethylene Glycol 17 gm 04/29/20 13:15 05/03/20 08:43 Polyethylene Glycol 3350 17 Gm Powd.Pack PO 17 gm DAILY ANANT Administration Trazodone HCl 50 mg 04/27/20 23:01 05/01/20 21:15 Trazodone Hcl 50 Mg Tablet PO 50 mg BEDTIME PRN Administration Insomnia Allergies Allergies Allergy/AdvReac Type Severity Reaction Status Date / Time NSAIDS (Non-Steroidal Allergy Intermediate RASH Verified 01/05/20 20:37 Anti-Inflamma [NSAIDS (NON-STEROIDAL ANTI-INFLAMMA] aspirin [ASPIRIN] Allergy Mild HIVES Verified 01/05/20 20:37 ibuprofen Allergy Unknown hives Verified 07/15/19 00:00 Assessment & Plan Assessment & Plan (1) Bipolar disorder with psychotic features: Status: Acute Code(s): F31.9 - Bipolar disorder, unspecified Assessment and Plan: Encouraged pt to remain in hospital and complete her course of care. No changes today. Greater than 50% of the session was spent on counseling and/or coordination of care Reason for contiued inpatient stay Substantial Risk for: harm to self, inability to function, rapid decompensation and med/psych decompensation
[2020-05-03 18:00] VITALS: BP 115/58; PULSE 107; RESP 18; TEMP 36.7; O2SAT 97
[2020-05-03] MEDS: Mirtazapine 7.5 MG TABLET PO (20:32)
[2020-05-03] MEDS: lamoTRIgine 25 MG TABLET PO (20:32)
[2020-05-03] MEDS: OLANZapine 7.5 MG TABLET 15 MG PO (20:32)
[2020-05-03] MEDS: traZODone HCL 50 MG TABLET PO ×2 (20:37→21:49)
[2020-05-04] MEDS: traZODone HCL 50 MG TABLET PO ×2 (00:36→20:39)
[2020-05-04] MEDS: hydrOXYzine HCL 25 MG TABLET PO (00:36)
[2020-05-04 06:20] VITALS: BP 105/51; PULSE 109; RESP 16; TEMP 37.2; O2SAT 98
[2020-05-04] MEDS: Gabapentin 300 MG CAPSULE PO ×2 (09:10→20:27)
[2020-05-04] MEDS: Nitrofurantoin Monohyd/M-Cryst 100 MG CAPSULE PO (09:11)
[2020-05-04] MEDS: Ferrous Sulfate 324 MG TABLET.DR PO ×2 (09:11→16:21)
[2020-05-04] MEDS: polyethylene glycoL 3350 17 GM POWD.PACK PO (09:11)
[2020-05-04] MEDS: clonazePAM 0.5 MG TABLET PO ×2 (09:11→20:28)
[2020-05-04] MEDS: OLANZapine 5 MG TABLET PO (09:11)
[2020-05-04] MEDS: Acetaminophen 325 MG TABLET 650 MG PO ×2 (09:22→20:46)
[2020-05-04] MEDS: Nicotine Polacrilex 2 MG GUM 4 MG BUCCAL (09:24)
[2020-05-04 15:23] LABS: Alanine Aminotransferase 26 U/L (0-31); Albumin Level 3.1 g/dL (3.5-5.0); Alkaline Phosphatase 110 U/L (39-117); Anion Gap 13 (12-20); Aspartate Amino Transferase 48 U/L (5-31); Bilirubin Total 0.4 mg/dL (0.0-1.0); Blood Urea Nitrogen 9 mg/dL (9-16); Calcium 8.1 mg/dL (8.4-10.2); Carbon Dioxide 25 mmol/L (22-29); Chloride 106 mmol/L (96-108); Creatinine Clr Calc Pharmacy 82.3; Estimated Glomerular Filt Rate > 60; Glucose Random 199 mg/dL (60-115); Sodium 140 mmol/L (135-145); Total Protein 5.9 g/dL (6.5-8.0)
[2020-05-04] MEDS: LORazepam 1 MG TABLET PO (16:20)
[2020-05-04 16:30] VITALS: BP 142/67; PULSE 96; TEMP 36.7
--- NOTE | 2020-05-04 17:47 | P.PNPSI_ITS ---
Subjective Subjective Date of Service: 05/04/20 Reason For Visit: PSYCHOSIS Subjective Notes: Section 7 Interim History: Pt reports wanting to go home. Believes her brother will pick her up today, however, she has not seen her brother in a few years. Reality testing is poor. Believes she still has custody of her daughter and lives with her. Met with pt and Cheri Roth reveiwed pt's family concerns about her symptoms and resulting behaviors which pt denies and believes are misinterpretations. Discussion of retraction of TDN and option for civil commitment hearing. Pt prefers to have a foot and ankle surgeon involved. As a result will file paperwork for consideration of civil commitment Medication Compliance: Yes Side effects from medications: No Attending Groups: No Review of Systems Musculoskeletal: Reports back pain Reports behavioral changes Psychiatric: Reports anxiety (reports some relief with medicine changes), Reports behavioral changes, Reports panic attacks and Reports hallucinations Mental Status Exam Mental Status Exam Patient Appearance: Disheveled Patient Orientation: Person and Place Level of Consciousness: Alert Patient Behavior: Talkative, Cooperative, Suspicious, Anxious, Fatigued, Distractible, Confused and Good Eye Contact Mood Description: Withdrawn, Anxious and Flat Affect Description: Flat Patient Cognition Impaired: Yes Ability to Follow Directions: Good Speech Pattern: Spontaneous Speech, Soft-Spoken and Mumbled Memory Description: Episodic Impaired Hallucinations: None (no sx observed in meeting today) Delusions: Present Perceptual Disturbances: Derealization Thought Process: Distracted and Rumination Thought Content: positive for [place], positive for Circumstantial and positive for Thought Blocking Depressive Symptoms: Increased Anxiety, Difficulty Sleeping (reports some improvement), Increased Fatigue and Difficulty Concentrating Judgement: Poor Diagnostics Vital Signs (24Hr): Vital Signs - 24 hr 05/03/20 18:00 05/04/20 06:20 Temperature 98.1 F 98.9 F Pulse Rate 107 H 109 H Respiratory Rate 18 16 Blood Pressure 115/58 L 105/51 L Pulse Oximetry 97 98 Body Mass Index 24.7 Labs Results: 04/26/20 18:30 05/04/20 14:40 Labs: Laboratory Results - last 48 hr 05/04/20 14:40 Sodium 140 Potassium 4.0 Chloride 106 Carbon Dioxide 25 Anion Gap 13 BUN 9 D Creatinine 0.75 Estim Creat Clear Calc 82.3 Estimated GFR > 60 Random Glucose 199 H D Calcium 8.1 L D Total Bilirubin 0.4 AST 48 H D ALT 26 Alkaline Phosphatase 110 Total Protein 5.9 L Albumin 3.1 L Imaging Radiology Impressions: ITS Impressions Head CT 04/27/20 16:47 IMPRESSION: No acute intracranial pathology. Medications Medications Current Medications Generic Name Dose Route Start Last Admin Trade Name Freq PRN Reason Stop Dose Admin Acetaminophen 650 mg 04/27/20 23:01 05/04/20 09:22 Acetaminophen 325 Mg Tablet PO 650 mg Q6H PRN Administration Headache/Pain Mild Scale (1-3) Al Hydroxide/Mg Hydroxide 30 ml 04/27/20 23:01 Magnesium Hydrox/Alum Hydrox 30 Ml Oral.Susp PO Q6H PRN Heartburn/Nausea Clonazepam 0.5 mg 05/02/20 21:00 05/04/20 09:11 Clonazepam 0.5 Mg Tablet PO 0.5 mg BID ANANT Administration Docusate Sodium 100 mg 04/28/20 18:35 05/01/20 21:15 Docusate Sodium 100 Mg Capsule PO 100 mg BID PRN Administration Constipation Ferrous Sulfate 324 mg 05/01/20 18:15 05/04/20 16:21 Ferrous Sulfate 324 Mg Tablet. PO 324 mg BIDWM ANANT Administration Gabapentin 300 mg 05/01/20 21:00 05/04/20 09:10 Gabapentin 300 Mg Capsule PO 300 mg BID ANANT Administration Hydroxyzine HCl 25 mg 04/27/20 23:01 05/04/20 00:36 Hydroxyzine Hcl 25 Mg Tablet PO 25 mg Q6H PRN Administration Anxiety Lamotrigine 25 mg 04/28/20 21:00 05/03/20 20:32 Lamotrigine 25 Mg Tablet PO 25 mg BEDTIME ANANT Administration Lorazepam 1 mg 04/28/20 12:51 05/04/20 16:20 Lorazepam 1 Mg Tablet PO 1 mg Q4H PRN Administration agitation Magnesium Hydroxide 30 ml 04/27/20 23:01 05/01/20 21:19 Milk Of Magnesia 30 Ml Oral.Susp PO 30 ml DAILY PRN Administration Constipation Mirtazapine 7.5 mg 05/02/20 21:00 05/03/20 20:32 Mirtazapine 7.5 Mg Tablet PO 7.5 mg BEDTIME ANANT Administration Multivitamins/Minerals 1 tab 04/29/20 09:00 05/04/20 09:11 Multivitamin With Minerals Tablet PO 1 tab DAILY ANANT Administration Nicotine Polacrilex 4 mg 04/28/20 18:41 05/04/20 09:24 Nicotine Polacrilex 2 Mg Gum BUCCAL 4 mg Q2H PRN Administration Nicotine Cravings Olanzapine 5 mg 04/28/20 12:51 04/28/20 16:13 Olanzapine 5 Mg Tablet PO 5 mg Q4H PRN Administration psychosis, agitation Olanzapine 5 mg 04/30/20 09:00 05/04/20 09:11 Olanzapine 5 Mg Tablet PO 5 mg DAILY ANANT Administration Olanzapine 15 mg 05/01/20 21:00 05/03/20 20:32 Olanzapine 7.5 Mg Tablet PO 15 mg BEDTIME ANANT Administration Polyethylene Glycol 17 gm 04/29/20 13:15 05/04/20 09:11 Polyethylene Glycol 3350 17 Gm Powd.Pack PO 17 gm DAILY ANANT Administration Trazodone HCl 50 mg 04/27/20 23:01 05/04/20 00:36 Trazodone Hcl 50 Mg Tablet PO 50 mg BEDTIME PRN Administration Insomnia Allergies Allergies Allergy/AdvReac Type Severity Reaction Status Date / Time NSAIDS (Non-Steroidal Allergy Intermediate RASH Verified 01/05/20 20:37 Anti-Inflamma [NSAIDS (NON-STEROIDAL ANTI-INFLAMMA] aspirin [ASPIRIN] Allergy Mild HIVES Verified 01/05/20 20:37 ibuprofen Allergy Unknown hives Verified 07/15/19 00:00 Assessment & Plan Assessment & Plan (1) Bipolar disorder with psychotic features: Status: Acute Code(s): F31.9 - Bipolar disorder, unspecified Greater than 50% of the session was spent on counseling and/or coordination of care Reason for contiued inpatient stay Substantial Risk for: harm to self, harm to others, inability to function, rapid decompensation and med/psych decompensation
[2020-05-04] MEDS: Mirtazapine 7.5 MG TABLET PO (20:27)
[2020-05-04] MEDS: lamoTRIgine 25 MG TABLET PO (20:28)
[2020-05-04] MEDS: OLANZapine 7.5 MG TABLET 15 MG PO (20:30)
[2020-05-05 06:40] VITALS: BP 101/53; PULSE 98; RESP 20; TEMP 37.1; O2SAT 98
[2020-05-05] MEDS: polyethylene glycoL 3350 17 GM POWD.PACK PO (09:52)
[2020-05-05] MEDS: clonazePAM 0.5 MG TABLET PO ×2 (09:52→21:20)
[2020-05-05] MEDS: Gabapentin 300 MG CAPSULE PO ×2 (09:52→21:20)
[2020-05-05] MEDS: Ferrous Sulfate 324 MG TABLET.DR PO ×2 (09:52→16:35)
[2020-05-05] MEDS: OLANZapine 5 MG TABLET PO (09:53)
[2020-05-05 14:26] LABS: MANUAL DIFF FLAG NO
[2020-05-05 14:30] LABS: Basophils Percent Auto 0.4 % (0-2); Eosinophils Absolute Auto 0.3 X10*3/uL (0.0-0.4); Eosinophils Percent Auto 3.8 % (0-4); Hematocrit 29.6 % (37-47); Hemoglobin 9.7 g/dl (12.0-16.0); Imm Gran Abs Auto 0.05 X10*3/uL (0.00-0.03); Imm Gran Pct Auto 0.6 % (0.0-0.4); Lymphocytes Absolute Auto 1.4 X10*3/uL (1.2-4.9); Lymphocytes Percent Auto 15.5 % (20-40); Mean Corpuscular HGB Conc 32.8 g/dl (31.0-35.0); Mean Corpuscular Hemoglobin 33.1 pg (27.0-33.0); Mean Platelet Volume 10.7 fL (9.4-12.3); Monocytes Absolute Auto 1.3 X10*3/uL (0.1-1.2); Monocytes Percent Auto 14.6 % (2-11); Neutrophils Absolute Auto 5.8 X10*3/uL (2.0-8.3); Neutrophils Percent Auto 65.1 % (45-73); Platelet Count 120 X10*3/uL (160-400); Red Blood Count 2.93 X10*6/uL (4.20-5.50); Red Cell Distribution Width 13.6 % (11.0-16.0); White Blood Count 8.9 X10*3/uL (4.8-10.8)
[2020-05-05] MEDS: Nicotine Polacrilex 2 MG GUM 4 MG BUCCAL (15:24)
--- NOTE | 2020-05-05 15:52 | P.PNPSI_ITS ---
Subjective Subjective Date of Service: 05/05/20 Reason For Visit: PSYCHOSIS Subjective Notes: Section 7 Interim History: Focus today is concern for her daughter. She states she does not recall not living with her child. She reviews her responsibilities as a mother. She reports her family has not been truthful regarding what they have said regarding her behaviors/symptoms/issues of concern, citing jealousy and spite for these reports. Rationale is that she is wealthy, famous, with famous contacts which they do not have. Reports back/flank pain-recent UTI-labs and consult from hospitalist ordered. Medication Compliance: Yes Side effects from medications: No Attending Groups: No Review of Systems Genitourinary: Reports flank pain Musculoskeletal: Reports back pain Reports behavioral changes, Reports confusion and Reports memory loss Psychiatric: Reports abnormal sleep pattern, Reports anxiety, Reports behavioral changes, Reports confusion, Reports depression, Reports difficulty concentrating, Reports auditory hallucinations, Reports memory loss and Reports paranoia Mental Status Exam Mental Status Exam Patient Appearance: Disheveled Patient Orientation: Person, Place and Time Level of Consciousness: Alert Patient Behavior: Cooperative, Suspicious, Restless, Anxious, Fatigued, Distrac tible, Isolative and Good Eye Contact Mood Description: Depressed and Anxious Affect Description: Flat Patient Cognition Impaired: Yes Ability to Follow Directions: Good Speech Pattern: Perseverating, Garbled, Spontaneous Speech and Soft-Spoken Memory Description: Remote Impaired and Episodic Impaired Hallucinations: None Delusions: Being Controlled, Paranoid Ideation, Grandiose and Present Perceptual Disturbances: Derealization Thought Process: Racing, Illogical, Distracted and Rumination Thought Content: positive for [place], positive for Circumstantial, positive for Perseveration, positive for Preoccupation and positive for Thought Blocking Depressive Symptoms: Increased Anxiety, Loss of Int. in Activity, Isolating- Friends/Family, Unhappiness, Increased Fatigue, Low Self Esteem and Difficulty Concentrating Abnormal Motor Activity Signs and Symptoms: Restlessness Judgement: Poor Diagnostics Vital Signs (24Hr): Vital Signs - 24 hr 05/04/20 16:30 05/05/20 06:40 Temperature 98.0 F 98.7 F Pulse Rate 96 98 Respiratory Rate 20 Blood Pressure 142/67 H 101/53 L Pulse Oximetry 98 Body Mass Index 24.7 Labs Results: 05/05/20 14:19 05/04/20 14:40 Labs: Laboratory Results - last 48 hr 05/04/20 05/05/20 14:40 14:19 WBC 8.9 RBC 2.93 L Hgb 9.7 L Hct 29.6 L MCV 101.0 H MCH 33.1 H MCHC 32.8 RDW 13.6 Plt Count 120 L D MPV 10.7 Immature Gran % (Auto) 0.6 H Neut % (Auto) 65.1 Lymph % (Auto) 15.5 L [place] % (Auto) 14.6 H Eos % (Auto) 3.8 Baso % (Auto) 0.4 Lymph # (Auto) 1.4 [place] # (Auto) 1.3 H Eos # (Auto) 0.3 Baso # (Auto) 0.0 Abs Immat Gran (auto) 0.05 H Absolute Neuts (auto) 5.8 Absolute Nucleated RBC 0.000 Nucleated RBC % (auto) 0.0 Sodium 140 Potassium 4.0 Chloride 106 Carbon Dioxide 25 Anion Gap 13 BUN 9 D Creatinine 0.75 Estim Creat Clear Calc 82.3 Estimated GFR > 60 Random Glucose 199 H D Calcium 8.1 L D Total Bilirubin 0.4 AST 48 H D ALT 26 Alkaline Phosphatase 110 Total Protein 5.9 L Albumin 3.1 L Imaging Radiology Impressions: ITS Impressions Head CT 04/27/20 16:47 IMPRESSION: No acute intracranial pathology. Medications Medications Current Medications Generic Name Dose Route Start Last Admin Trade Name Freq PRN Reason Stop Dose Admin Acetaminophen 650 mg 04/27/20 23:01 05/04/20 20:46 Acetaminophen 325 Mg Tablet PO 650 mg Q6H PRN Administration Headache/Pain Mild Scale (1-3) Al Hydroxide/Mg Hydroxide 30 ml 04/27/20 23:01 Magnesium Hydrox/Alum Hydrox 30 Ml Oral.Susp PO Q6H PRN Heartburn/Nausea Clonazepam 0.5 mg 05/02/20 21:00 05/05/20 09:52 Clonazepam 0.5 Mg Tablet PO 0.5 mg BID ANANT Administration Docusate Sodium 100 mg 04/28/20 18:35 05/01/20 21:15 Docusate Sodium 100 Mg Capsule PO 100 mg BID PRN Administration Constipation Ferrous Sulfate 324 mg 05/01/20 18:15 05/05/20 09:52 Ferrous Sulfate 324 Mg Tablet.Dr PO 324 mg BIDWM ANANT Administration Gabapentin 300 mg 05/01/20 21:00 05/05/20 09:52 Gabapentin 300 Mg Capsule PO 300 mg BID ANANT Administration Hydroxyzine HCl 25 mg 04/27/20 23:01 05/04/20 00:36 Hydroxyzine Hcl 25 Mg Tablet PO 25 mg Q6H PRN Administration Anxiety Lamotrigine 25 mg 04/28/20 21:00 05/04/20 20:28 Lamotrigine 25 Mg Tablet PO 25 mg BEDTIME ANANT Administration Lorazepam 1 mg 04/28/20 12:51 05/04/20 16:20 Lorazepam 1 Mg Tablet PO 1 mg Q4H PRN Administration agitation Magnesium Hydroxide 30 ml 04/27/20 23:01 05/01/20 21:19 Milk Of Magnesia 30 Ml Oral.Susp PO 30 ml DAILY PRN Administration Constipation Mirtazapine 7.5 mg 05/02/20 21:00 05/04/20 20:27 Mirtazapine 7.5 Mg Tablet PO 7.5 mg BEDTIME ANANT Administration Multivitamins/Minerals 1 tab 04/29/20 09:00 05/05/20 09:52 Multivitamin With Minerals Tablet PO 1 tab DAILY ANANT Administration Nicotine Polacrilex 4 mg 04/28/20 18:41 05/05/20 15:24 Nicotine Polacrilex 2 Mg Gum BUCCAL 4 mg Q2H PRN Administration Nicotine Cravings Olanzapine 5 mg 04/28/20 12:51 04/28/20 16:13 Olanzapine 5 Mg Tablet PO 5 mg Q4H PRN Administration psychosis, agitation Olanzapine 5 mg 04/30/20 09:00 05/05/20 09:53 Olanzapine 5 Mg Tablet PO 5 mg DAILY ANANT Administration Olanzapine 15 mg 05/01/20 21:00 05/04/20 20:30 Olanzapine 7.5 Mg Tablet PO 15 mg BEDTIME ANANT Administration Polyethylene Glycol 17 gm 04/29/20 13:15 05/05/20 09:52 Polyethylene Glycol 3350 17 Gm Powd.Pack PO 17 gm DAILY ANANT Administration Trazodone HCl 50 mg 04/27/20 23:01 05/04/20 20:39 Trazodone Hcl 50 Mg Tablet PO 50 mg BEDTIME PRN Administration Insomnia Allergies Allergies Allergy/AdvReac Type Severity Reaction Status Date / Time NSAIDS (Non-Steroidal Allergy Intermediate RASH Verified 01/05/20 20:37 Anti-Inflamma [NSAIDS (NON-STEROIDAL ANTI-INFLAMMA] aspirin [ASPIRIN] Allergy Mild HIVES Verified 01/05/20 20:37 ibuprofen Allergy Unknown hives Verified 07/15/19 00:00 Assessment & Plan Assessment & Plan (1) Bipolar disorder with psychotic features: Status: Acute Code(s): F31.9 - Bipolar disorder, unspecified Assessment and Plan: - Medical eval for flank pain, hospitalist consult, labs. Greater than 50% of the session was spent on counseling and/or coordination of care Patient educated on: medication risk/benefits and therapeutic strategies Informed Consent: further education needed Reason for contiued inpatient stay Substantial Risk for: harm to self, harm to others, inability to function, rapid decompensation and med/psych decompensation
[2020-05-05] MEDS: LORazepam 1 MG TABLET PO (16:35)
[2020-05-05] MEDS: Acetaminophen 325 MG TABLET 650 MG PO (16:35)
--- NOTE | 2020-05-05 16:59 | P.CONIM_ITS ---
History of Present Illness Data of Consult Service Date: 05/05/20 Requesting physician: Catherine Portillo Primary Care Provider: Arielle Jon MD [facility] Reason for consult: Flank pain, recent UTI This is a 49-year-old female admitted to for management of psychosis. The hospitalists were asked to see her in consultation due to flank pain. She had a urinalysis done on April 27 which was suggestive of UTI. Her urine culture grew pansensitive E coli. She was treated with a 7 day course of nitrofurantoin. She states that she never had dysuria or polyuria but that she noticed a strong odor of her urine. Since yesterday she reports bilateral upper abdominal pain radiating around to her back. She has had some nausea and an episode of vomiting. She has been afebrile. CBC drawn today shows no leukocytosis. Review of Systems Review of Systems: Yes all other systems are reviewed and are negative Constitutional: Constitutional: Denies chills and Denies fever(s) Comments: sometimes feels hot at night Cardiovascular: Cardiovascular: Denies chest pain and Denies palpitations Respiratory: Respiratory: Denies cough Gastrointestinal: Gastrointestinal: Reports nausea and Reports vomiting Endocrine: Endocrine: Denies palpitations ON LICENSE OF [facility] Medical History (Updated 05/05/20 @ 17:13 by SUSAN Hebert) Anemia Anxiety Bipolar disorder with psychotic features Migraines Panic attacks TBI (traumatic brain injury) Urinary tract infection Functional capacity: independent ambulation Family History (Updated 05/05/20 @ 17:07 by SUSAN Hebert) Other Heart disease Family history: reviewed and not pertinent Surgical History (Updated 05/05/20 @ 17:07 by SUSAN Hebert) Hx laparoscopic cholecystectomy Social History Household Members: Other Housing: Apartment Smoking Status: Light tobacco smoker Tobacco Type: Cigarette Packs Per Day: 0 Cigarettes Per Day: 2 Second Hand Smoke Exposure: Yes service: No Sexual orientation: Straight/Heterosexual Meds Allergies Allergy/AdvReac Type Severity Reaction Status Date / Time NSAIDS (Non-Steroidal Allergy Intermediate RASH Verified 01/05/20 20:37 Anti-Inflamma [NSAIDS (NON-STEROIDAL ANTI-INFLAMMA] aspirin [ASPIRIN] Allergy Mild HIVES Verified 01/05/20 20:37 ibuprofen Allergy Unknown hives Verified 07/15/19 00:00 Active Medications: Current Medications Generic Name Dose Route Start Last Admin Trade Name Isabell PRN Reason Stop Dose Admin Acetaminophen 650 mg 04/27/20 23:01 05/05/20 16:35 Acetaminophen 325 Mg Tablet PO 650 mg Q6H PRN Administration Headache/Pain Mild Scale (1-3) Al Hydroxide/Mg Hydroxide 30 ml 04/27/20 23:01 Magnesium Hydrox/Alum Hydrox 30 Ml Oral.Susp PO Q6H PRN Heartburn/Nausea Clonazepam 0.5 mg 05/02/20 21:00 05/05/20 09:52 Clonazepam 0.5 Mg Tablet PO 0.5 mg BID ANANT Administration Docusate Sodium 100 mg 04/28/20 18:35 05/01/20 21:15 Docusate Sodium 100 Mg Capsule PO 100 mg BID PRN Administration Constipation Ferrous Sulfate 324 mg 05/01/20 18:15 05/05/20 16:35 Ferrous Sulfate 324 Mg Tablet.Dr PO 324 mg BIDWM ANANT Administration Gabapentin 300 mg 05/01/20 21:00 05/05/20 09:52 Gabapentin 300 Mg Capsule PO 300 mg BID ANANT Administration Hydroxyzine HCl 25 mg 04/27/20 23:01 05/04/20 00:36 Hydroxyzine Hcl 25 Mg Tablet PO 25 mg Q6H PRN Administration Anxiety Lamotrigine 25 mg 04/28/20 21:00 05/04/20 20:28 Lamotrigine 25 Mg Tablet PO 25 mg BEDTIME ANANT Administration Lorazepam 1 mg 04/28/20 12:51 05/05/20 16:35 Lorazepam 1 Mg Tablet PO 1 mg Q4H PRN Administration agitation Magnesium Hydroxide 30 ml 04/27/20 23:01 05/01/20 21:19 Milk Of Magnesia 30 Ml Oral.Susp PO 30 ml DAILY PRN Administration Constipation Mirtazapine 7.5 mg 05/02/20 21:00 05/04/20 20:27 Mirtazapine 7.5 Mg Tablet PO 7.5 mg BEDTIME ANANT Administration Multivitamins/Minerals 1 tab 04/29/20 09:00 05/05/20 09:52 Multivitamin With Minerals Tablet PO 1 tab DAILY ANANT Administration Nicotine Polacrilex 4 mg 04/28/20 18:41 05/05/20 15:24 Nicotine Polacrilex 2 Mg Gum BUCCAL 4 mg Q2H PRN Administration Nicotine Cravings Olanzapine 5 mg 04/28/20 12:51 04/28/20 16:13 Olanzapine 5 Mg Tablet PO 5 mg Q4H PRN Administration psychosis, agitation Olanzapine 5 mg 04/30/20 09:00 05/05/20 09:53 Olanzapine 5 Mg Tablet PO 5 mg DAILY ANANT Administration Olanzapine 15 mg 05/01/20 21:00 05/04/20 20:30 Olanzapine 7.5 Mg Tablet PO 15 mg BEDTIME ANANT Administration Polyethylene Glycol 17 gm 04/29/20 13:15 05/05/20 09:52 Polyethylene Glycol 3350 17 Gm Powd.Pack PO 17 gm DAILY ANANT Administration Trazodone HCl 50 mg 04/27/20 23:01 05/04/20 20:39 Trazodone Hcl 50 Mg Tablet PO 50 mg BEDTIME PRN Administration Insomnia Physical Exam Vital Signs and Narrative: Vital Signs: Last Vital Signs Temp 98.7 F 05/05/20 06:40 Pulse 98 05/05/20 06:40 Resp 20 05/05/20 06:40 BP 101/53 L 05/05/20 06:40 Pulse Ox 98 05/05/20 06:40 Body Mass Index 24.7 Const: General: alert and awake Nutritional Appearance: well nourished Orientation/consciousness: patient oriented x3 HENMT: Head: Yes normocephalic and Yes atraumatic Eyes: Sclerae: sclerae normal Chest: Chest palpation & inspection: normal inspection of the chest Resp: Effort & Inspection: normal respiratory effort and no respiratory distress Auscultation: clear to auscultation bilaterally Cardio: Rate: regular rate Rhythm: regular rhythm Heart sounds: Murmur heart sound present systolic GI: Other: abdomen is soft and non-distended, no guarding, no rebound, pt Palpation (GI): Soft to palpation : Other: does not flinch/withdraw to pain, but verbalizes pain bilaterally when assessing for CVAT Skin: General skin exam: no rashes or lesions noted Neuro: General: patient oriented x3 Cranial nerves: Yes CN's II-XII intact bilaterally and Yes Bilaterally intact EOM present Extrem: General: Yes normal to inspection Results Labs CBC and Chem 7: 05/05/20 14:19 05/04/20 14:40 Labs: Laboratory Results - last 24 hr 05/05/20 14:19 MCV 101.0 H MCH 33.1 H MCHC 32.8 RDW 13.6 Plt Count 120 L D MPV 10.7 Immature Gran % (Auto) 0.6 H Neut % (Auto) 65.1 Lymph % (Auto) 15.5 L [place] % (Auto) 14.6 H Eos % (Auto) 3.8 Baso % (Auto) 0.4 Lymph # (Auto) 1.4 [place] # (Auto) 1.3 H Eos # (Auto) 0.3 Baso # (Auto) 0.0 Abs Immat Gran (auto) 0.05 H Absolute Neuts (auto) 5.8 Absolute Nucleated RBC 0.000 Nucleated RBC % (auto) 0.0 Assessment and Plan (1) Flank pain: Status: Acute This is a 49-year-old female admitted to for management of psychosis recently treated for UTI now with flank pain Flank pain Recent UTI treated appropriately No fever or leukocytosis. Kidney function wnl -tylenol for pain control -will get CT to r/o kidney stones Thank you for allowing us to participate in the care of this patient.
[2020-05-05 18:00] VITALS: BP 132/74; PULSE 117; RESP 16; TEMP 36.5
[2020-05-05 18:39] LABS: Albumin Level 3.1 g/dL (3.5-5.0); Anion Gap 15 (12-20); Blood Urea Nitrogen 9 mg/dL (9-16); C Reactive Protein 0.37 mg/dL (< or = 0.50); Calcium 8.3 mg/dL (8.4-10.2); Carbon Dioxide 23 mmol/L (22-29); Chloride 105 mmol/L (96-108); Creatinine Clr Calc Pharmacy 90.8; Estimated Glomerular Filt Rate > 60; Glucose Random 168 mg/dL (60-115); Phosphorus 4.2 mg/dL (2.7-4.5); Sodium 139 mmol/L (135-145); Uric Acid 3.9 mg/dL (2.4-5.7)
[2020-05-05 19:32] LABS: Erythrocyte Sedimentation Rate 30 MM/HR (0-20)
[2020-05-05] MEDS: lamoTRIgine 25 MG TABLET PO (21:20)
[2020-05-05] MEDS: Mirtazapine 7.5 MG TABLET PO (21:20)
[2020-05-05] MEDS: OLANZapine 7.5 MG TABLET 15 MG PO (21:20)
[2020-05-05] MEDS: traZODone HCL 50 MG TABLET PO (21:22)
[2020-05-05] MEDS: Milk of Magnesia 30 ML ORAL.SUSP PO (22:03)
--- NOTE | 2020-05-06 | ECG_ITS ---
Test Reason : tachycardia Blood Pressure : / mmHG Vent. Rate : 125 BPM Atrial Rate : 125 BPM P-R Int : 124 ms QRS Dur : 080 ms QT Int : 328 ms P-R-T Axes : 059 038 -09 degrees QTc Int : 473 ms Sinus tachycardia Possible Left atrial enlargement Nonspecific ST and T wave abnormality Borderline ECG No significant changes when compared with the previous EKG of 05 jan 2020 Referred By: Catherine Portillo Electronically Signed By:ELIER LOPEZ
[2020-05-06 09:16] VITALS: BP 149/65; PULSE 133; RESP 18; TEMP 36.7; O2SAT 99
[2020-05-06] MEDS: Gabapentin 300 MG CAPSULE PO ×2 (09:17→21:37)
[2020-05-06] MEDS: polyethylene glycoL 3350 17 GM POWD.PACK PO (09:17)
[2020-05-06] MEDS: Ferrous Sulfate 324 MG TABLET.DR PO ×2 (09:17→20:05)
[2020-05-06] MEDS: OLANZapine 5 MG TABLET PO (09:17)
[2020-05-06] MEDS: clonazePAM 0.5 MG TABLET PO ×2 (09:17→21:37)
[2020-05-06 10:06] VITALS: BP 142/80; PULSE 130; RESP 16
[2020-05-06] MEDS: Nicotine Polacrilex 2 MG GUM 4 MG BUCCAL ×3 (10:06→21:46)
--- NOTE | 2020-05-06 15:36 | P.PNPSI_ITS ---
Subjective Subjective Date of Service: 05/06/20 Reason For Visit: PSYCHOSIS Subjective Notes: Section 7 Interim History: Visable on the unit-Interactive with peers and team. Wanting to go home. Discussed court process and she verabalized understanding. Does not recall that she does not have custody of her daughter and does not recall process with DCF-asking questions about this and wanting to have her sister give information as well. Medication Compliance: Yes Side effects from medications: No Attending Groups: No Review of Systems Cardiovascular: Reports other (tachycardia 125 QTc 473) Reports behavioral changes and Reports memory loss Psychiatric: Reports anxiety, Reports behavioral changes, Reports depression, Reports difficulty concentrating, Reports auditory hallucinations, Reports hopelessness, Reports irritability, Reports memory loss, Reports visual hallucinations and Reports hallucinations Mental Status Exam Mental Status Exam Patient Appearance: Fatigued Patient Orientation: Person, Place and Situation Level of Consciousness: Alert Patient Behavior: Talkative, Passive and Anxious Mood Description: Anxious Affect Description: Anxious Patient Cognition Impaired: No Ability to Follow Directions: Good Speech Pattern: Spontaneous Speech Memory Description: Remote Impaired and Episodic Impaired Hallucinations: None (denies) Delusions: Present Thought Process: Distracted and Rumination Thought Content: positive for [place], positive for Circumstantial and positive for Perseveration Depressive Symptoms: Increased Anxiety Judgement: Poor Diagnostics Vital Signs (24Hr): Vital Signs - 24 hr 05/05/20 18:00 05/06/20 09:16 05/06/20 10:06 Temperature 97.7 F 98.0 F Pulse Rate 117 H 133 H 130 H Respiratory Rate 16 18 16 Blood Pressure 132/74 149/65 H 142/80 H Pulse Oximetry 99 Body Mass Index 24.7 Labs Results: 05/06/20 17:34 05/05/20 17:54 Labs: Laboratory Results - last 48 hr 05/05/20 05/05/20 05/05/20 14:19 17:54 17:54 WBC 8.9 RBC 2.93 L Hgb 9.7 L Hct 29.6 L MCV 101.0 H MCH 33.1 H MCHC 32.8 RDW 13.6 Plt Count 120 L D MPV 10.7 Immature Gran % (Auto) 0.6 H Neut % (Auto) 65.1 Lymph % (Auto) 15.5 L [place] % (Auto) 14.6 H Eos % (Auto) 3.8 Baso % (Auto) 0.4 Lymph # (Auto) 1.4 [place] # (Auto) 1.3 H Eos # (Auto) 0.3 Baso # (Auto) 0.0 Abs Immat Gran (auto) 0.05 H Absolute Neuts (auto) 5.8 Absolute Nucleated RBC 0.000 Nucleated RBC % (auto) 0.0 ESR 30 H Sodium 139 Potassium 4.0 Chloride 105 Carbon Dioxide 23 Anion Gap 15 BUN 9 Creatinine 0.68 Estim Creat Clear Calc 90.8 Estimated GFR > 60 Random Glucose 168 H Uric Acid 3.9 Calcium 8.3 L Phosphorus 4.2 Total Creatine Kinase 87 C-Reactive Protein 0.37 Albumin 3.1 L Imaging Radiology Impressions: ITS Impressions Head CT 04/27/20 16:47 IMPRESSION: No acute intracranial pathology. Abdomen/Pelvis CT 05/05/20 19:04 IMPRESSION: 1. An etiology for the patient's bilateral flank pain and nausea is not been found. 2. Evidence of cirrhosis with nodular liver and recanalized umbilical vein. 3. Symmetric thickening of bladder wall consistent with given history of cystitis 4. Other incidental findings as described above. Medications Medications Current Medications Generic Name Dose Route Start Last Admin Trade Name Freq PRN Reason Stop Dose Admin Acetaminophen 650 mg 04/27/20 23:01 05/05/20 16:35 Acetaminophen 325 Mg Tablet PO 650 mg Q6H PRN Administration Headache/Pain Mild Scale (1-3) Al Hydroxide/Mg Hydroxide 30 ml 04/27/20 23:01 Magnesium Hydrox/Alum Hydrox 30 Ml Oral.Susp PO Q6H PRN Heartburn/Nausea Clonazepam 0.5 mg 05/02/20 21:00 05/06/20 09:17 Clonazepam 0.5 Mg Tablet PO 0.5 mg BID ANANT Administration Docusate Sodium 100 mg 04/28/20 18:35 05/01/20 21:15 Docusate Sodium 100 Mg Capsule PO 100 mg BID PRN Administration Constipation Ferrous Sulfate 324 mg 05/01/20 18:15 05/06/20 09:17 Ferrous Sulfate 324 Mg Tablet. PO 324 mg BIDWM ANANT Administration Gabapentin 300 mg 05/01/20 21:00 05/06/20 09:17 Gabapentin 300 Mg Capsule PO 300 mg BID ANANT Administration Hydroxyzine HCl 25 mg 04/27/20 23:01 05/04/20 00:36 Hydroxyzine Hcl 25 Mg Tablet PO 25 mg Q6H PRN Administration Anxiety Lamotrigine 25 mg 04/28/20 21:00 05/05/20 21:20 Lamotrigine 25 Mg Tablet PO 25 mg BEDTIME ANANT Administration Lorazepam 1 mg 04/28/20 12:51 05/05/20 16:35 Lorazepam 1 Mg Tablet PO 1 mg Q4H PRN Administration agitation Magnesium Hydroxide 30 ml 04/27/20 23:01 05/05/20 22:03 Milk Of Magnesia 30 Ml Oral.Susp PO 30 ml DAILY PRN Administration Constipation Mirtazapine 7.5 mg 05/02/20 21:00 05/05/20 21:20 Mirtazapine 7.5 Mg Tablet PO 7.5 mg BEDTIME ANANT Administration Multivitamins/Minerals 1 tab 04/29/20 09:00 05/06/20 09:17 Multivitamin With Minerals Tablet PO 1 tab DAILY ANANT Administration Nicotine Polacrilex 4 mg 04/28/20 18:41 05/06/20 14:32 Nicotine Polacrilex 2 Mg Gum BUCCAL 4 mg Q2H PRN Administration Nicotine Cravings Olanzapine 5 mg 04/28/20 12:51 04/28/20 16:13 Olanzapine 5 Mg Tablet PO 5 mg Q4H PRN Administration psychosis, agitation Olanzapine 5 mg 04/30/20 09:00 05/06/20 09:17 Olanzapine 5 Mg Tablet PO 5 mg DAILY ANANT Administration Olanzapine 15 mg 05/01/20 21:00 05/05/20 21:20 Olanzapine 7.5 Mg Tablet PO 15 mg BEDTIME ANANT Administration Polyethylene Glycol 17 gm 04/29/20 13:15 05/06/20 09:17 Polyethylene Glycol 3350 17 Gm Powd.Pack PO 17 gm DAILY ANANT Administration Trazodone HCl 50 mg 04/27/20 23:01 05/05/20 21:22 Trazodone Hcl 50 Mg Tablet PO 50 mg BEDTIME PRN Administration Insomnia Allergies Allergies Allergy/AdvReac Type Severity Reaction Status Date / Time NSAIDS (Non-Steroidal Allergy Intermediate RASH Verified 01/05/20 20:37 Anti-Inflamma [NSAIDS (NON-STEROIDAL ANTI-INFLAMMA] aspirin [ASPIRIN] Allergy Mild HIVES Verified 01/05/20 20:37 ibuprofen Allergy Unknown hives Verified 07/15/19 00:00 Assessment & Plan Assessment & Plan (1) Bipolar disorder with psychotic features: Status: Acute Code(s): F31.9 - Bipolar disorder, unspecified Greater than 50% of the session was spent on counseling and/or coordination of care Reason for contiued inpatient stay Substantial Risk for: harm to self, harm to others, inability to function, rapid decompensation and med/psych decompensation
[2020-05-06 17:42] LABS: Basophils Absolute Auto 0.1 X10*3/uL (0.0-0.2); Basophils Percent Auto 0.5 % (0-2); Eosinophils Absolute Auto 0.3 X10*3/uL (0.0-0.4); Hematocrit 26.7 % (37-47); Hemoglobin 8.8 g/dl (12.0-16.0); Imm Gran Abs Auto 0.04 X10*3/uL (0.00-0.03); Imm Gran Pct Auto 0.4 % (0.0-0.4); Lymphocytes Absolute Auto 1.4 X10*3/uL (1.2-4.9); Lymphocytes Percent Auto 13.9 % (20-40); MANUAL DIFF FLAG SCAN; Mean Platelet Volume 10.4 fL (9.4-12.3); Monocytes Absolute Auto 1.5 X10*3/uL (0.1-1.2); Monocytes Percent Auto 15.8 % (2-11); Neutrophils Absolute Auto 6.4 X10*3/uL (2.0-8.3); Neutrophils Percent Auto 66.4 % (45-73); Platelet Count 127 X10*3/uL (160-400); Red Blood Count 2.67 X10*6/uL (4.20-5.50); Red Cell Distribution Width 13.7 % (11.0-16.0); SCAN SMEAR FLAG 1; White Blood Count 9.7 X10*3/uL (4.8-10.8)
[2020-05-06 18:00] VITALS: BP 144/72; PULSE 123; RESP 18; TEMP 36.9; O2SAT 100
[2020-05-06 18:29] LABS: SLIDE REVIEW VERIFIED
[2020-05-06] MEDS: OLANZapine 7.5 MG TABLET 15 MG PO (21:37)
[2020-05-06] MEDS: lamoTRIgine 25 MG TABLET PO (21:37)
[2020-05-06] MEDS: Mirtazapine 7.5 MG TABLET PO (21:37)
[2020-05-07 06:00] VITALS: BP 114/86; PULSE 75; RESP 16; TEMP 36.3; O2SAT 96
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
[2020-05-07] MEDS: Ferrous Sulfate 324 MG TABLET.DR PO ×2 (09:13→16:45)
[2020-05-07] MEDS: OLANZapine 5 MG TABLET PO (09:13)
[2020-05-07] MEDS: clonazePAM 0.5 MG TABLET PO ×2 (09:13→21:43)
[2020-05-07] MEDS: Gabapentin 300 MG CAPSULE PO ×2 (09:13→21:43)
[2020-05-07] MEDS: polyethylene glycoL 3350 17 GM POWD.PACK PO (09:13)
[2020-05-07] MEDS: Docusate Sodium 100 MG CAPSULE PO ×2 (09:19→21:55)
[2020-05-07] MEDS: Nicotine Polacrilex 2 MG GUM 4 MG BUCCAL ×3 (10:45→21:56)
[2020-05-07] MEDS: Milk of Magnesia 30 ML ORAL.SUSP PO (13:44)
[2020-05-07] MEDS: Acetaminophen 325 MG TABLET 650 MG PO ×2 (13:45→21:43)
[2020-05-07 16:18] LABS: UPreg QC Valid YES; Urine Pregnancy NEGATIVE (NEGATIVE)
[2020-05-07 16:37] LABS: Amphetamine Screen Urine Not Detected (Not Detect); Barbiturates, Urine Not Detected (Not Detect); Benzodiazepines Screen Urine Not Detected (Not Detect); Cannabinoid Screen Urine Not Detected (Not Detect); Cocaine Screen Urine Not Detected (Not Detect); Opiate Screen Urine Not Detected (Not Detect); Phencyclidine Screen Urine Not Detected (Not Detect)
[2020-05-07] MEDS: LORazepam 1 MG TABLET PO (16:45)
--- NOTE | 2020-05-07 17:37 | PM.EVENT ---
Event Note Date of Service: 05/07/20 Event Note: Follow up H/H trending down. h/o anemia by history. no active bleeding noted. Macrocytic anemia. will check b12, folate thrombocytopenia cirrhosis on ct scan documented h/o etoh use outpatient GI eval for cirrhosis if not done in past
[2020-05-07 18:00] VITALS: BP 158/82; PULSE 96; TEMP 36.8
[2020-05-07] MEDS: Mirtazapine 7.5 MG TABLET PO (21:43)
[2020-05-07] MEDS: lamoTRIgine 25 MG TABLET PO (21:43)
[2020-05-07] MEDS: OLANZapine 7.5 MG TABLET 15 MG PO (21:44)
[2020-05-07] MEDS: traZODone HCL 50 MG TABLET PO (21:45)
[2020-05-08 06:20] VITALS: BP 102/51; PULSE 114; RESP 18; TEMP 36.9; O2SAT 96
[2020-05-08] MEDS: OLANZapine 5 MG TABLET PO (09:11)
[2020-05-08] MEDS: Ferrous Sulfate 324 MG TABLET.DR PO ×2 (09:11→18:16)
[2020-05-08] MEDS: Gabapentin 300 MG CAPSULE PO ×2 (09:11→21:58)
[2020-05-08] MEDS: polyethylene glycoL 3350 17 GM POWD.PACK PO (09:11)
[2020-05-08] MEDS: clonazePAM 0.5 MG TABLET PO ×2 (09:11→21:59)
[2020-05-08] MEDS: Acetaminophen 325 MG TABLET 650 MG PO ×2 (09:26→22:01)
[2020-05-08 09:55] LABS: Folate > 20.0 ng/mL (> or = 4.0); Vitamin B12 542 pg/mL (200-900)
--- NOTE | 2020-05-08 17:49 | P.PNPSI_ITS ---
Subjective Subjective Date of Service: 05/08/20 Reason For Visit: PSYCHOSIS Subjective Notes: Conditional Voluntary Interim History: Pt reporting relief of anxiety, improved sleep. Medical eval continues for anemia-macrocytic, thrombocytopenia, ?cirrhosis per hospitalist thoughts. Continues with delusions regarding family. Denies flank pain today Medication Compliance: Yes Side effects from medications: No Attending Groups: No Review of Systems Reports confusion and Reports memory loss Psychiatric: Reports confusion, Reports depression, Reports difficulty concentrating, Reports memory loss, Reports paranoia and Reports suicidal idea tion (denies) Mental Status Exam Mental Status Exam Patient Appearance: Fatigued Patient Orientation: Person and Place Level of Consciousness: Alert Patient Behavior: Talkative, Suspicious and Good Eye Contact Mood Description: Depressed Affect Description: Flat Patient Cognition Impaired: Yes Ability to Follow Directions: Good Speech Pattern: Perseverating, Spontaneous Speech, Soft-Spoken, Mumbled and Poor Articulation Memory Description: Remote Impaired and Episodic Impaired Hallucinations: None Delusions: Paranoid Ideation and Present Thought Process: Illogical, Distracted and Rumination Thought Content: positive for [place], positive for Circumstantial, positive for Perseveration, positive for Preoccupation, positive for Thought Blocking and positive for Suicidal Ideation (denies) Depressive Symptoms: Isolating-Friends/Family, Unhappiness and Back Pain Judgement: Poor Diagnostics Vital Signs (24Hr): Vital Signs - 24 hr 05/07/20 18:00 05/08/20 06:20 Temperature 98.3 F 98.4 F Pulse Rate 96 114 H Respiratory Rate 18 Blood Pressure 158/82 H 102/51 L Pulse Oximetry 96 Body Mass Index 24.7 Labs Results: 05/06/20 17:34 05/05/20 17:54 Labs: Laboratory Results - last 48 hr 05/06/20 05/07/20 05/07/20 17:34 15:59 15:59 Smear Tech's Comments VERIFIED Vitamin B12 Folate Urine Test NEGATIVE Urine Opiates Screen Not Detected Ur Barbiturates Screen Not Detected Ur Phencyclidine Scrn Not Detected Ur Amphetamines Screen Not Detected U Benzodiazepines Scrn Not Detected Urine Cocaine Screen Not Detected U Marijuana (THC) Screen Not Detected 05/07/20 18:04 Smear Tech's Comments Vitamin B12 542 Folate > 20.0 Urine Test Urine Opiates Screen Ur Barbiturates Screen Ur Phencyclidine Scrn Ur Amphetamines Screen U Benzodiazepines Scrn Urine Cocaine Screen U Marijuana (THC) Screen Imaging Radiology Impressions: ITS Impressions Head CT 04/27/20 16:47 IMPRESSION: No acute intracranial pathology. Abdomen/Pelvis CT 05/05/20 19:04 IMPRESSION: 1. An etiology for the patient's bilateral flank pain and nausea is not been found. 2. Evidence of cirrhosis with nodular liver and recanalized umbilical vein. 3. Symmetric thickening of bladder wall consistent with given history of cystitis 4. Other incidental findings as described above. Medications Medications Current Medications Generic Name Dose Route Start Last Admin Trade Name Freq PRN Reason Stop Dose Admin Acetaminophen 650 mg 04/27/20 23:01 05/08/20 09:26 Acetaminophen 325 Mg Tablet PO 650 mg Q6H PRN Administration Headache/Pain Mild Scale (1-3) Al Hydroxide/Mg Hydroxide 30 ml 04/27/20 23:01 Magnesium Hydrox/Alum Hydrox 30 Ml Oral.Susp PO Q6H PRN Heartburn/Nausea Clonazepam 0.5 mg 05/02/20 21:00 05/08/20 09:11 Clonazepam 0.5 Mg Tablet PO 0.5 mg BID ANANT Administration Docusate Sodium 100 mg 04/28/20 18:35 05/07/20 21:55 Docusate Sodium 100 Mg Capsule PO 100 mg BID PRN Administration Constipation Ferrous Sulfate 324 mg 05/01/20 18:15 05/08/20 09:11 Ferrous Sulfate 324 Mg Tablet.Dr PO 324 mg BIDWM ANANT Administration Gabapentin 300 mg 05/01/20 21:00 05/08/20 09:11 Gabapentin 300 Mg Capsule PO 300 mg BID ANANT Administration Hydroxyzine HCl 25 mg 04/27/20 23:01 05/04/20 00:36 Hydroxyzine Hcl 25 Mg Tablet PO 25 mg Q6H PRN Administration Anxiety Lamotrigine 25 mg 04/28/20 21:00 05/07/20 21:43 Lamotrigine 25 Mg Tablet PO 25 mg BEDTIME ANANT Administration Lorazepam 1 mg 04/28/20 12:51 05/07/20 16:45 Lorazepam 1 Mg Tablet PO 1 mg Q4H PRN Administration agitation Magnesium Hydroxide 30 ml 04/27/20 23:01 05/07/20 13:44 Milk Of Magnesia 30 Ml Oral.Susp PO 30 ml DAILY PRN Administration Constipation Mirtazapine 7.5 mg 05/02/20 21:00 05/07/20 21:43 Mirtazapine 7.5 Mg Tablet PO 7.5 mg BEDTIME ANANT Administration Multivitamins/Minerals 1 tab 04/29/20 09:00 05/08/20 09:11 Multivitamin With Minerals Tablet PO 1 tab DAILY ANANT Administration Nicotine Polacrilex 4 mg 04/28/20 18:41 05/07/20 21:56 Nicotine Polacrilex 2 Mg Gum BUCCAL 4 mg Q2H PRN Administration Nicotine Cravings Olanzapine 5 mg 04/28/20 12:51 04/28/20 16:13 Olanzapine 5 Mg Tablet PO 5 mg Q4H PRN Administration psychosis, agitation Olanzapine 5 mg 04/30/20 09:00 05/08/20 09:11 Olanzapine 5 Mg Tablet PO 5 mg DAILY ANANT Administration Olanzapine 15 mg 05/01/20 21:00 05/07/20 21:44 Olanzapine 7.5 Mg Tablet PO 15 mg BEDTIME ANANT Administration Polyethylene Glycol 17 gm 04/29/20 13:15 05/08/20 09:11 Polyethylene Glycol 3350 17 Gm Powd.Pack PO 17 gm DAILY ANANT Administration Trazodone HCl 50 mg 04/27/20 23:01 05/07/20 21:45 Trazodone Hcl 50 Mg Tablet PO 50 mg BEDTIME PRN Administration Insomnia Allergies Allergies Allergy/AdvReac Type Severity Reaction Status Date / Time NSAIDS (Non-Steroidal Allergy Intermediate RASH Verified 01/05/20 20:37 Anti-Inflamma [NSAIDS (NON-STEROIDAL ANTI-INFLAMMA] aspirin [ASPIRIN] Allergy Mild HIVES Verified 01/05/20 20:37 ibuprofen Allergy Unknown hives Verified 07/15/19 00:00 Assessment & Plan Assessment & Plan (1) Bipolar disorder with psychotic features: Status: Acute Code(s): F31.9 - Bipolar disorder, unspecified (2) Anemia: Status: Acute Code(s): D64.9 - Anemia, unspecified Greater than 50% of the session was spent on counseling and/or coordination of care Reason for contiued inpatient stay Substantial Risk for: harm to self, harm to others, inability to function and rapid decompensation
[2020-05-08 18:00] VITALS: BP 139/77; PULSE 120; TEMP 36.8
[2020-05-08] MEDS: Mirtazapine 7.5 MG TABLET PO (21:58)
[2020-05-08] MEDS: lamoTRIgine 25 MG TABLET PO (21:58)
[2020-05-08] MEDS: OLANZapine 7.5 MG TABLET 15 MG PO (21:58)
[2020-05-08] MEDS: traZODone HCL 50 MG TABLET PO (22:06)
[2020-05-08] MEDS: Milk of Magnesia 30 ML ORAL.SUSP PO (22:43)
[2020-05-09 06:45] VITALS: BP 98/50; PULSE 108; RESP 20; TEMP 36; O2SAT 95
[2020-05-09] MEDS: polyethylene glycoL 3350 17 GM POWD.PACK PO (08:45)
[2020-05-09] MEDS: OLANZapine 5 MG TABLET PO (08:46)
[2020-05-09] MEDS: clonazePAM 0.5 MG TABLET PO ×2 (08:46→20:07)
[2020-05-09] MEDS: Ferrous Sulfate 324 MG TABLET.DR PO ×2 (08:46→17:27)
[2020-05-09] MEDS: Gabapentin 300 MG CAPSULE PO ×2 (08:46→20:07)
[2020-05-09] MEDS: Acetaminophen 325 MG TABLET 650 MG PO ×2 (09:54→16:01)
--- NOTE | 2020-05-09 13:21 | P.CNGI_ITS ---
History of Present Illness Data of Consult Service Date: 05/09/20 Primary Care Provider: Arielle Jon MD HPI Reason for consult: anemia 49 yr old f initially admitted with erratic behavior and psychosis, also found to have UTI During admission HGB noted to go down from 10 to around 8-9 g/dl, imaging with evidence of nodular liver suggestive of cirrhosis iron sat normal, B12 and folate also normal LFT minimally raised transaminases she takes motrin most days for many years for pain, not on PPI she has mild nausea and epigastric pain and discomfort for months denies dysphagia weight is stable appetite is good food does not affect symptoms she has noted dark stools last few dasy, no rectal bleeding denies alcohol abuse Review of Systems Review of Systems: Constitutional : No Weight loss, No Fever, No Chills, No Night Sweats, No Fatigue, No Malaise ENT/Mouth : No Hearing loss, No Ear Pain, No Nasal Congestion, No Sinus Pain, No Hoarseness, No sore throat, No Rhinorrhea, No Swallowing Difficulty Eyes: No Eye Pain, No Swelling, No Redness, No Foreign Body, No Discharge, No Vision Changes Cardiovascular : No Chest Pain, No SOB, No Dyspnea on Exertion, No Orthopnea, No Edema, No Palpitations Respiratory : No Cough, No Sputum, No Wheezing, No Smoke Exposure, No Dyspnea Gastrointestinal : No Nausea, No Vomiting, No Diarrhea, No Constipation, No abdominal Pain, No Hematochezia, No Melena Genitourinary : no irregular bleeding, No Dysuria, No Urinary Frequency, No Hematuria, No Urinary Incontinence, No Urgency, No Flank Pain, No Urinary Flow Changes, No Hesitancy Musculoskeletal : No joint pain, No Myalgias, No Joint Swelling Skin : No Skin Lesions, No rash Neuro : No Weakness, No Numbness, No Paresthesias, No Loss of Consciousness, No Dizziness, No Headache Psych : Complaining of anxiety, panic attack, denies suicidal homicidal ideation, denies depression Heme/Lymph: No Bruising, No Bleeding,No Lymphadenopathy Endocrine : No Polyuria, No Polydipsia, No Temperature Intolerance Yes all other systems are reviewed and are negative Constitutional: Constitutional: Reports body ache(s), Denies chills, Reports difficulty sleeping, Reports fatigue, Denies fever(s) and Reports lethargy Cardiovascular: Cardiovascular: Denies chest pain, Reports pedal edema, Denies palpitations and Reports other (resolved tachycardia from 05/06/20) Respiratory: Respiratory: Denies cough Gastrointestinal: Gastrointestinal: Reports nausea and Reports vomiting Musculoskeletal: Musculoskeletal: Reports back pain, Reports myalgias and Reports other (reports generalized pain) Neurologic: Reports behavioral changes, Reports confusion, Reports memory loss and Reports paresthesias (reports hx paralysis/parasthesis, questions CVA, TIA- denies hx of care+ TBI) Psychiatric: Psychiatric: Reports abnormal sleep pattern (reports improvement), Reports anxiety, Reports behavioral changes, Reports confusion, Reports depression, Reports difficulty concentrating, Reports auditory hallucinations, Reports hopelessness, Reports irritability, Reports anhedonia, Reports memory loss, Reports mood swings, Reports panic attacks, Reports paranoia, Reports visual hallucinations, Reports hallucinations and Reports suicidal ideation (denies) Endocrine: Endocrine: Reports fatigue and Denies palpitations PMFSH Past Medical History Medical History Anemia Anxiety Bipolar disorder with psychotic features Migraines Panic attacks TBI (traumatic brain injury) Urinary tract infection Functional capacity: independent ambulation Family History Family History Other Heart disease Family history: reviewed and not pertinent Surgical History Surgical History Hx laparoscopic cholecystectomy Social History Social History Household Members: Other Housing: Apartment Smoking Status: Light tobacco smoker Tobacco Type: Cigarette Packs Per Day: 0 Cigarettes Per Day: 2 Second Hand Smoke Exposure: Yes service: No Sexual orientation: Straight/Heterosexual Meds Allergies Allergy/AdvReac Type Severity Reaction Status Date / Time NSAIDS (Non-Steroidal Allergy Intermediate RASH Verified 01/05/20 20:37 Anti-Inflamma [NSAIDS (NON-STEROIDAL ANTI-INFLAMMA] aspirin [ASPIRIN] Allergy Mild HIVES Verified 01/05/20 20:37 ibuprofen Allergy Unknown hives Verified 07/15/19 00:00 Active Medications: Current Medications Generic Name Dose Route Start Last Admin Trade Name Freq PRN Reason Stop Dose Admin Acetaminophen 650 mg 04/27/20 23:01 05/09/20 09:54 Acetaminophen 325 Mg Tablet PO 650 mg Q6H PRN Administration Headache/Pain Mild Scale (1-3) Al Hydroxide/Mg Hydroxide 30 ml 04/27/20 23:01 Magnesium Hydrox/Alum Hydrox 30 Ml Oral.Susp PO Q6H PRN Heartburn/Nausea Benzocaine 1 appl 05/08/20 19:36 05/08/20 22:01 Benzocaine 10 % Oral Gel 9 Gm Tube MUCOUS MEM 1 appl QID PRN Administration Pain, Moderate (Pain Scale 4-6 Protocol Clonazepam 0.5 mg 05/02/20 21:00 05/09/20 08:46 Clonazepam 0.5 Mg Tablet PO 0.5 mg BID ANANT Administration Docusate Sodium 100 mg 04/28/20 18:35 05/07/20 21:55 Docusate Sodium 100 Mg Capsule PO 100 mg BID PRN Administration Constipation Ferrous Sulfate 324 mg 05/01/20 18:15 05/09/20 08:46 Ferrous Sulfate 324 Mg Tablet.Dr PO 324 mg BIDWM ANANT Administration Gabapentin 300 mg 05/01/20 21:00 05/09/20 08:46 Gabapentin 300 Mg Capsule PO 300 mg BID ANANT Administration Hydroxyzine HCl 25 mg 04/27/20 23:01 05/04/20 00:36 Hydroxyzine Hcl 25 Mg Tablet PO 25 mg Q6H PRN Administration Anxiety Lamotrigine 25 mg 04/28/20 21:00 05/08/20 21:58 Lamotrigine 25 Mg Tablet PO 25 mg BEDTIME ANANT Administration Lorazepam 1 mg 04/28/20 12:51 05/07/20 16:45 Lorazepam 1 Mg Tablet PO 1 mg Q4H PRN Administration agitation Magnesium Hydroxide 30 ml 04/27/20 23:01 05/08/20 22:43 Milk Of Magnesia 30 Ml Oral.Susp PO 30 ml DAILY PRN Administration Constipation Mirtazapine 7.5 mg 05/02/20 21:00 05/08/20 21:58 Mirtazapine 7.5 Mg Tablet PO 7.5 mg BEDTIME ANANT Administration Multivitamins/Minerals 1 tab 04/29/20 09:00 05/09/20 08:46 Multivitamin With Minerals Tablet PO 1 tab DAILY ANANT Administration Nicotine Polacrilex 4 mg 04/28/20 18:41 05/07/20 21:56 Nicotine Polacrilex 2 Mg Gum BUCCAL 4 mg Q2H PRN Administration Nicotine Cravings Olanzapine 5 mg 04/28/20 12:51 04/28/20 16:13 Olanzapine 5 Mg Tablet PO 5 mg Q4H PRN Administration psychosis, agitation Olanzapine 5 mg 04/30/20 09:00 05/09/20 08:46 Olanzapine 5 Mg Tablet PO 5 mg DAILY ANANT Administration Olanzapine 15 mg 05/01/20 21:00 05/08/20 21:58 Olanzapine 7.5 Mg Tablet PO 15 mg BEDTIME ANANT Administration Polyethylene Glycol 17 gm 04/29/20 13:15 05/09/20 08:45 Polyethylene Glycol 3350 17 Gm Powd.Pack PO 17 gm DAILY ANANT Administration Trazodone HCl 50 mg 04/27/20 23:01 05/08/20 22:06 Trazodone Hcl 50 Mg Tablet PO 50 mg BEDTIME PRN Administration Insomnia Physical Exam Vital Signs: Vital Signs: Last Vital Signs Temp 96.8 F 05/09/20 06:45 Pulse 108 H 05/09/20 06:45 Resp 20 05/09/20 06:45 BP 98/50 L 05/09/20 06:45 Pulse Ox 95 05/09/20 06:45 Body Mass Index 24.7 Const: General: alert, awake and confusion Nutritional Appearance: well nourished Orientation/consciousness: patient oriented x3 and confusion HENMT: Head: Yes normocephalic and Yes atraumatic Eyes: Sclerae: sclerae normal Chest: Chest palpation & inspection: normal inspection of the chest Resp: Effort & Inspection: normal respiratory effort and no respiratory distress Auscultation: clear to auscultation bilaterally Cardio: Rate: regular rate Rhythm: regular rhythm Heart sounds: Murmur heart sound present systolic GI: Other: abdomen is soft and non-distended, no guarding, no rebound, mild epigastirc tenderness Palpation (GI): Soft to palpation Skin: General skin exam: no rashes or lesions noted Neuro: General: patient oriented x3 and confusion Cranial nerves: Yes CN's II-XII intact bilaterally and Yes Bilaterally intact EOM present Extrem: General: Yes normal to inspection Results Labs CBC & Chem 7: 05/06/20 17:34 05/05/20 17:54 Microbiology Microbiology Results: Microbiology 05/07/20 15:59 Urine clean catch - Clean Catch Midstream Urine Culture - Final 05/04/20 Unknown Urine clean catch - Clean Catch Midstream Urine Culture - Final 04/27/20 17:26 Urine clean catch - Clean Catch Midstream Urine Culture - Final Escherichia coli Assessment and Plan (1) Anemia: Status: Acute 1/ Macrocytic anemia, possible cirrhosis 2/ possible melena and epigastric pain, may have PUD, gastritis PLAN: 1/ EGD tomorrow for assessment of sx, NPO after midnight 2/ o/p w/u of cirrhosis inlc viral screens etc-can f/u with me in the office after d/c and EGD tomorrow
--- NOTE | 2020-05-09 14:55 | HO.PSYCHPN ---
Subjective Subjective Date of Service: 05/09/20 Reason For Visit: PSYCHOSIS Subjective Notes: Section 7 Interim History: Pt reports dental pain, Left side, molar. Afebrile. Seen by GI team will have EGD on 05/10. Discussed with pt possible retraction of TDN. She reports she did talk with an personal injury attorney today and wants to go to court to prove to her family she is not ill-but is accepting of all treatment. Remains fixed on custody of her daughter, stating custody was never changed-she does not recall this ever happening. Reports ongoing improvement with sleep and anxiety. Satisfied with medications and their efficacy at this point she reports. Review of Systems Reports dental pain Comments: Endoscopy scheduled for 05/10/20. Mental Status Exam Mental Status Exam Patient Appearance: Fatigued and Disheveled Patient Orientation: Person, Place, Time and Situation Level of Consciousness: Alert Patient Behavior: Appropriate, Talkative, Cooperative, Suspicious, Fatigued, Distractible and Good Eye Contact Diagnostics Vital Signs (24Hr): Vital Signs - 24 hr 05/08/20 18:00 05/09/20 06:45 Temperature 98.2 F 96.8 F Pulse Rate 120 H 108 H Respiratory Rate 20 Blood Pressure 139/77 98/50 L Pulse Oximetry 95 Body Mass Index 24.7 Labs Results: 05/06/20 17:34 05/05/20 17:54 Labs: Laboratory Results - last 48 hr 05/07/20 05/07/20 05/07/20 15:59 15:59 18:04 Vitamin B12 542 Folate > 20.0 Urine Test NEGATIVE Urine Opiates Screen Not Detected Ur Barbiturates Screen Not Detected Ur Phencyclidine Scrn Not Detected Ur Amphetamines Screen Not Detected U Benzodiazepines Scrn Not Detected Urine Cocaine Screen Not Detected U Marijuana (THC) Screen Not Detected Imaging Radiology Impressions: ITS Impressions Head CT 04/27/20 16:47 IMPRESSION: No acute intracranial pathology. Abdomen/Pelvis CT 05/05/20 19:04 IMPRESSION: 1. An etiology for the patient's bilateral flank pain and nausea is not been found. 2. Evidence of cirrhosis with nodular liver and recanalized umbilical vein. 3. Symmetric thickening of bladder wall consistent with given history of cystitis 4. Other incidental findings as described above. Medications Medications Current Medications Generic Name Dose Route Start Last Admin Trade Name Freq PRN Reason Stop Dose Admin Acetaminophen 650 mg 04/27/20 23:01 05/09/20 09:54 Acetaminophen 325 Mg Tablet PO 650 mg Q6H PRN Administration Headache/Pain Mild Scale (1-3) Al Hydroxide/Mg Hydroxide 30 ml 04/27/20 23:01 Magnesium Hydrox/Alum Hydrox 30 Ml Oral.Susp PO Q6H PRN Heartburn/Nausea Benzocaine 1 appl 05/08/20 19:36 05/08/20 22:01 Benzocaine 10 % Oral Gel 9 Gm Tube MUCOUS MEM 1 appl QID PRN Administration Pain, Moderate (Pain Scale 4-6 Protocol Clonazepam 0.5 mg 05/02/20 21:00 05/09/20 08:46 Clonazepam 0.5 Mg Tablet PO 0.5 mg BID ANANT Administration Docusate Sodium 100 mg 04/28/20 18:35 05/07/20 21:55 Docusate Sodium 100 Mg Capsule PO 100 mg BID PRN Administration Constipation Ferrous Sulfate 324 mg 05/01/20 18:15 05/09/20 08:46 Ferrous Sulfate 324 Mg Tablet. PO 324 mg BIDWM ANANT Administration Gabapentin 300 mg 05/01/20 21:00 05/09/20 08:46 Gabapentin 300 Mg Capsule PO 300 mg BID ANANT Administration Hydroxyzine HCl 25 mg 04/27/20 23:01 05/04/20 00:36 Hydroxyzine Hcl 25 Mg Tablet PO 25 mg Q6H PRN Administration Anxiety Lamotrigine 25 mg 04/28/20 21:00 05/08/20 21:58 Lamotrigine 25 Mg Tablet PO 25 mg BEDTIME ANANT Administration Lorazepam 1 mg 04/28/20 12:51 05/07/20 16:45 Lorazepam 1 Mg Tablet PO 1 mg Q4H PRN Administration agitation Magnesium Hydroxide 30 ml 04/27/20 23:01 05/08/20 22:43 Milk Of Magnesia 30 Ml Oral.Susp PO 30 ml DAILY PRN Administration Constipation Mirtazapine 7.5 mg 05/02/20 21:00 05/08/20 21:58 Mirtazapine 7.5 Mg Tablet PO 7.5 mg BEDTIME ANANT Administration Multivitamins/Minerals 1 tab 04/29/20 09:00 05/09/20 08:46 Multivitamin With Minerals Tablet PO 1 tab DAILY ANANT Administration Nicotine Polacrilex 4 mg 04/28/20 18:41 05/07/20 21:56 Nicotine Polacrilex 2 Mg Gum BUCCAL 4 mg Q2H PRN Administration Nicotine Cravings Olanzapine 5 mg 04/28/20 12:51 04/28/20 16:13 Olanzapine 5 Mg Tablet PO 5 mg Q4H PRN Administration psychosis, agitation Olanzapine 5 mg 04/30/20 09:00 05/09/20 08:46 Olanzapine 5 Mg Tablet PO 5 mg DAILY ANANT Administration Olanzapine 15 mg 05/01/20 21:00 05/08/20 21:58 Olanzapine 7.5 Mg Tablet PO 15 mg BEDTIME ANANT Administration Polyethylene Glycol 17 gm 04/29/20 13:15 05/09/20 08:45 Polyethylene Glycol 3350 17 Gm Powd.Pack PO 17 gm DAILY ANANT Administration Trazodone HCl 50 mg 04/27/20 23:01 05/08/20 22:06 Trazodone Hcl 50 Mg Tablet PO 50 mg BEDTIME PRN Administration Insomnia Allergies Allergies Allergy/AdvReac Type Severity Reaction Status Date / Time NSAIDS (Non-Steroidal Allergy Intermediate RASH Verified 01/05/20 20:37 Anti-Inflamma [NSAIDS (NON-STEROIDAL ANTI-INFLAMMA] aspirin [ASPIRIN] Allergy Mild HIVES Verified 01/05/20 20:37 ibuprofen Allergy Unknown hives Verified 07/15/19 00:00 Assessment & Plan Assessment & Plan (1) Bipolar disorder with psychotic features: Status: Acute Code(s): F31.9 - Bipolar disorder, unspecified Assessment and Plan: Continue current medications (2) Anemia: Status: Acute Code(s): D64.9 - Anemia, unspecified Assessment and Plan: Seen by GI delivery consultant which is appreciated- endoscopy scheduled for 05/10. (3) Pain, dental: Status: Acute Code(s): K08.89 - Other specified disorders of teeth and supporting structures Assessment and Plan: Tylenol prn Amoxicillin 500 mg bid x 5 days Greater than 50% of the session was spent on counseling and/or coordination of care Reason for contiued inpatient stay Substantial Risk for: harm to others, inability to function, rapid decompensation and med/psych decompensation
[2020-05-09] MEDS: Docusate Sodium 100 MG CAPSULE PO (15:07)
[2020-05-09] MEDS: Nicotine Polacrilex 2 MG GUM 4 MG BUCCAL (15:07)
[2020-05-09] MEDS: Amoxicillin 500 MG CAPSULE PO (17:26)
[2020-05-09 18:00] VITALS: BP 126/60; PULSE 105; TEMP 37.1
[2020-05-09] MEDS: lamoTRIgine 25 MG TABLET PO (20:07)
[2020-05-09] MEDS: traZODone HCL 50 MG TABLET PO ×2 (20:07→21:43)
[2020-05-09] MEDS: OLANZapine 7.5 MG TABLET 15 MG PO (20:07)
[2020-05-09] MEDS: Mirtazapine 7.5 MG TABLET PO (20:07)
[2020-05-10 06:35] VITALS: BP 127/65; PULSE 122; RESP 18; TEMP 36.2; O2SAT 95
[2020-05-10] MEDS: Acetaminophen 325 MG TABLET 650 MG PO ×2 (06:54→21:34)
[2020-05-10] MEDS: Amoxicillin 500 MG CAPSULE PO ×2 (09:10→21:23)
[2020-05-10] MEDS: clonazePAM 0.5 MG TABLET PO ×2 (09:10→21:23)
[2020-05-10] MEDS: Ferrous Sulfate 324 MG TABLET.DR PO ×2 (09:10→17:24)
[2020-05-10] MEDS: Gabapentin 300 MG CAPSULE PO ×2 (09:10→21:23)
[2020-05-10] MEDS: OLANZapine 5 MG TABLET PO (09:10)
[2020-05-10] MEDS: Lidocaine 4 % Patch ADH..PATCH 1 PATCH TRANSDERMA (09:13)
[2020-05-10] MEDS: Nicotine Polacrilex 2 MG GUM 4 MG BUCCAL ×3 (09:30→23:58)
--- NOTE | 2020-05-10 12:24 | P.PNPSI_ITS ---
Subjective Subjective Date of Service: 05/10/20 Reason For Visit: PSYCHOSIS Subjective Notes: Section 7 Interim History: Court date postponed until 05/23/20. Endoscopy completed. Pt remains delusional-asking to go home-believes she lives in an apartment with her daughter. Reality testing attempted-pt states we are mistaken, family is mistaken. Believes she has an apartment, is , and her daughter lives with her. Attending groups prior to endoscopy. Reports some improvement in symptoms-sleep has increased. Anxiety decreased. Medication Compliance: Yes Side effects from medications: No Attending Groups: Yes Review of Systems Gastrointestinal: Reports other (endoscopy today) Reports memory loss Psychiatric: Reports abnormal sleep pattern, Reports anxiety, Reports depression, Reports memory loss, Reports hallucinations and Reports suicidal ideation (denies) Mental Status Exam Mental Status Exam Patient Appearance: Fatigued Patient Orientation: Person, Place, Time and Situation Level of Consciousness: Alert Patient Behavior: Talkative Mood Description: Withdrawn and Anxious Affect Description: Flat Patient Cognition Impaired: No Ability to Follow Directions: Good Speech Pattern: Spontaneous Speech, Soft-Spoken and Mumbled Memory Description: Remote Impaired and Episodic Impaired Hallucinations: None Delusions: Present Thought Process: Illogical, Distracted and Rumination Thought Content: positive for [place], positive for Circumstantial, positive for Perseveration, positive for Preoccupation and positive for Disorganized Depressive Symptoms: Difficulty Sleeping and Thoughts of /Suicide (denies) Abnormal Motor Activity Signs and Symptoms: Restlessness Judgement: Poor Diagnostics Vital Signs (24Hr): Vital Signs - 24 hr 05/09/20 18:00 05/10/20 06:35 Temperature 98.7 F 97.2 F Pulse Rate 105 H 122 H Respiratory Rate 18 Blood Pressure 126/60 127/65 Pulse Oximetry 95 Body Mass Index 24.7 Labs Results: 05/06/20 17:34 05/05/20 17:54 Imaging Radiology Impressions: ITS Impressions Head CT 04/27/20 16:47 IMPRESSION: No acute intracranial pathology. Abdomen/Pelvis CT 05/05/20 19:04 IMPRESSION: 1. An etiology for the patient's bilateral flank pain and nausea is not been found. 2. Evidence of cirrhosis with nodular liver and recanalized umbilical vein. 3. Symmetric thickening of bladder wall consistent with given history of cystitis 4. Other incidental findings as described above. Medications Medications Current Medications Generic Name Dose Route Start Last Admin Trade Name Isabell PRN Reason Stop Dose Admin Acetaminophen 650 mg 04/27/20 23:01 05/10/20 06:54 Acetaminophen 325 Mg Tablet PO 650 mg Q6H PRN Administration Headache/Pain Mild Scale (1-3) Al Hydroxide/Mg Hydroxide 30 ml 04/27/20 23:01 Magnesium Hydrox/Alum Hydrox 30 Ml Oral.Susp PO Q6H PRN Heartburn/Nausea Amoxicillin 500 mg 05/10/20 08:00 05/10/20 09:10 Amoxicillin 500 Mg Capsule PO 05/15/20 19:59 500 mg Q12H ANANT Administration Benzocaine 1 appl 05/08/20 19:36 05/08/20 22:01 Benzocaine 10 % Oral Gel 9 Gm Tube MUCOUS MEM 1 appl QID PRN Administration Pain, Moderate (Pain Scale 4-6 Protocol Clonazepam 0.5 mg 05/02/20 21:00 05/10/20 09:10 Clonazepam 0.5 Mg Tablet PO 0.5 mg BID ANANT Administration Docusate Sodium 100 mg 04/28/20 18:35 05/09/20 15:07 Docusate Sodium 100 Mg Capsule PO 100 mg BID PRN Administration Constipation Ferrous Sulfate 324 mg 05/01/20 18:15 05/10/20 09:10 Ferrous Sulfate 324 Mg Tablet.Dr PO 324 mg BIDWM ANANT Administration Gabapentin 300 mg 05/01/20 21:00 05/10/20 09:10 Gabapentin 300 Mg Capsule PO 300 mg BID ANANT Administration Hydroxyzine HCl 25 mg 04/27/20 23:01 05/04/20 00:36 Hydroxyzine Hcl 25 Mg Tablet PO 25 mg Q6H PRN Administration Anxiety Lamotrigine 25 mg 04/28/20 21:00 05/09/20 20:07 Lamotrigine 25 Mg Tablet PO 25 mg BEDTIME ANANT Administration Lidocaine 1 patch 05/10/20 09:00 05/10/20 09:13 Lidocaine 4 % Patch Adh..Patch TRANSDERMA 1 patch DAILY ANANT Administration Protocol Lorazepam 1 mg 04/28/20 12:51 05/07/20 16:45 Lorazepam 1 Mg Tablet PO 1 mg Q4H PRN Administration agitation Magnesium Hydroxide 30 ml 04/27/20 23:01 05/08/20 22:43 Milk Of Magnesia 30 Ml Oral.Susp PO 30 ml DAILY PRN Administration Constipation Mirtazapine 7.5 mg 05/02/20 21:00 05/09/20 20:07 Mirtazapine 7.5 Mg Tablet PO 7.5 mg BEDTIME ANANT Administration Multivitamins/Minerals 1 tab 04/29/20 09:00 05/10/20 09:10 Multivitamin With Minerals Tablet PO 1 tab DAILY ANANT Administration Nicotine Polacrilex 4 mg 04/28/20 18:41 05/10/20 09:30 Nicotine Polacrilex 2 Mg Gum BUCCAL 4 mg Q2H PRN Administration Nicotine Cravings Olanzapine 5 mg 04/28/20 12:51 04/28/20 16:13 Olanzapine 5 Mg Tablet PO 5 mg Q4H PRN Administration psychosis, agitation Olanzapine 5 mg 04/30/20 09:00 05/10/20 09:10 Olanzapine 5 Mg Tablet PO 5 mg DAILY ANANT Administration Olanzapine 15 mg 05/01/20 21:00 05/09/20 20:07 Olanzapine 7.5 Mg Tablet PO 15 mg BEDTIME ANANT Administration Polyethylene Glycol 17 gm 04/29/20 13:15 05/10/20 09:14 Polyethylene Glycol 3350 17 Gm Powd.Pack PO Not Given DAILY ANANT Trazodone HCl 50 mg 04/27/20 23:01 05/09/20 21:43 Trazodone Hcl 50 Mg Tablet PO 50 mg BEDTIME PRN Administration Insomnia Allergies Allergies Allergy/AdvReac Type Severity Reaction Status Date / Time NSAIDS (Non-Steroidal Allergy Intermediate RASH Verified 01/05/20 20:37 Anti-Inflamma [NSAIDS (NON-STEROIDAL ANTI-INFLAMMA] aspirin [ASPIRIN] Allergy Mild HIVES Verified 01/05/20 20:37 ibuprofen Allergy Unknown hives Verified 07/15/19 00:00 Assessment & Plan Assessment & Plan (1) Bipolar disorder with psychotic features: Status: Acute Code(s): F31.9 - Bipolar disorder, unspecified (2) Anemia: Status: Acute Code(s): D64.9 - Anemia, unspecified Greater than 50% of the session was spent on counseling and/or coordination of care Reason for contiued inpatient stay Substantial Risk for: harm to others, inability to function and rapid decompe nsation
--- NOTE | 2020-05-10 13:20 | P.CONAN_ITS ---
[facility] Active Problems Active Problems: All Active Problems (Updated 05/09/20 @ 17:16 by Catherine Smiley APRN) Pain, dental (Acute) Flank pain (Acute) Bipolar disorder with psychotic features (Acute) Anemia (Acute) Brief psychotic disorder (Acute) Past Medical History Medical History Anemia Anxiety Bipolar disorder with psychotic features Migraines Panic attacks TBI (traumatic brain injury) Urinary tract infection Functional capacity: independent ambulation Family History Family History Other Heart disease Surgical History Surgical History Hx laparoscopic cholecystectomy Social History Social History Household Members: Other Housing: Apartment Smoking Status: Current some day smoker Tobacco Type: Cigarette Packs Per Day: 0 Cigarettes Per Day: 1 Second Hand Smoke Exposure: Yes Use of substances other than those prescribed or required for medical reasons: No service: No Sexual orientation: Straight/Heterosexual Meds Allergies Allergy/AdvReac Type Severity Reaction Status Date / Time NSAIDS (Non-Steroidal Allergy Intermediate RASH Verified 01/05/20 20:37 Anti-Inflamma [NSAIDS (NON-STEROIDAL ANTI-INFLAMMA] aspirin [ASPIRIN] Allergy Mild HIVES Verified 01/05/20 20:37 ibuprofen Allergy Unknown hives Verified 07/15/19 00:00 Active Medications: Current Medications Generic Name Dose Route Start Last Admin Trade Name Traeq PRN Reason Stop Dose Admin Acetaminophen 650 mg 04/27/20 23:01 05/10/20 06:54 Acetaminophen 325 Mg Tablet PO 650 mg Q6H PRN Administration Headache/Pain Mild Scale (1-3) Al Hydroxide/Mg Hydroxide 30 ml 04/27/20 23:01 Magnesium Hydrox/Alum Hydrox 30 Ml Oral.Susp PO Q6H PRN Heartburn/Nausea Amoxicillin 500 mg 05/10/20 08:00 05/10/20 09:10 Amoxicillin 500 Mg Capsule PO 05/15/20 19:59 500 mg Q12H ANANT Administration Benzocaine 1 appl 05/08/20 19:36 05/08/20 22:01 Benzocaine 10 % Oral Gel 9 Gm Tube MUCOUS MEM 1 appl QID PRN Administration Pain, Moderate (Pain Scale 4-6 Protocol Clonazepam 0.5 mg 05/02/20 21:00 05/10/20 09:10 Clonazepam 0.5 Mg Tablet PO 0.5 mg BID ANANT Administration Docusate Sodium 100 mg 04/28/20 18:35 05/09/20 15:07 Docusate Sodium 100 Mg Capsule PO 100 mg BID PRN Administration Constipation Ferrous Sulfate 324 mg 05/01/20 18:15 05/10/20 09:10 Ferrous Sulfate 324 Mg Tablet.Dr PO 324 mg BIDWM ANANT Administration Gabapentin 300 mg 05/01/20 21:00 05/10/20 09:10 Gabapentin 300 Mg Capsule PO 300 mg BID ANANT Administration Hydroxyzine HCl 25 mg 04/27/20 23:01 05/04/20 00:36 Hydroxyzine Hcl 25 Mg Tablet PO 25 mg Q6H PRN Administration Anxiety Lamotrigine 25 mg 04/28/20 21:00 05/09/20 20:07 Lamotrigine 25 Mg Tablet PO 25 mg BEDTIME ANANT Administration Lidocaine 1 patch 05/10/20 09:00 05/10/20 09:13 Lidocaine 4 % Patch Adh..Patch TRANSDERMA 1 patch DAILY ANANT Administration Protocol Lorazepam 1 mg 04/28/20 12:51 05/07/20 16:45 Lorazepam 1 Mg Tablet PO 1 mg Q4H PRN Administration agitation Magnesium Hydroxide 30 ml 04/27/20 23:01 05/08/20 22:43 Milk Of Magnesia 30 Ml Oral.Susp PO 30 ml DAILY PRN Administration Constipation Mirtazapine 7.5 mg 05/02/20 21:00 05/09/20 20:07 Mirtazapine 7.5 Mg Tablet PO 7.5 mg BEDTIME ANANT Administration Multivitamins/Minerals 1 tab 04/29/20 09:00 05/10/20 09:10 Multivitamin With Minerals Tablet PO 1 tab DAILY ANANT Administration Nicotine Polacrilex 4 mg 04/28/20 18:41 05/10/20 09:30 Nicotine Polacrilex 2 Mg Gum BUCCAL 4 mg Q2H PRN Administration Nicotine Cravings Olanzapine 5 mg 04/28/20 12:51 04/28/20 16:13 Olanzapine 5 Mg Tablet PO 5 mg Q4H PRN Administration psychosis, agitation Olanzapine 5 mg 04/30/20 09:00 05/10/20 09:10 Olanzapine 5 Mg Tablet PO 5 mg DAILY ANANT Administration Olanzapine 15 mg 05/01/20 21:00 05/09/20 20:07 Olanzapine 7.5 Mg Tablet PO 15 mg BEDTIME ANANT Administration Polyethylene Glycol 17 gm 04/29/20 13:15 05/10/20 09:14 Polyethylene Glycol 3350 17 Gm Powd.Pack PO Not Given DAILY ANANT Trazodone HCl 50 mg 04/27/20 23:01 05/09/20 21:43 Trazodone Hcl 50 Mg Tablet PO 50 mg BEDTIME PRN Administration Insomnia Exam Exam Date and Time: May 10, 2020 1320 Height,Weight and Vital Signs: Height 5 ft 3 in Weight 63.503 kg Last Vital Signs Temp 97.2 F 05/10/20 06:35 Pulse 122 H 05/10/20 06:35 Resp 18 05/10/20 06:35 BP 127/65 05/10/20 06:35 Pulse Ox 95 05/10/20 06:35 Pertinent Lab Results Pertinent Lab Results: Laboratory Tests 04/26/20 04/26/20 04/26/20 18:30 18:30 18:31 WBC 12.5 H RBC 3.35 L Hgb 10.9 L Hct 32.8 L MCV 97.9 MCH 32.5 MCHC 33.2 RDW 13.5 Plt Count 173 MPV 9.9 Immature Gran % (Auto) 0.3 Neut % (Auto) 77.8 H Lymph % (Auto) 13.4 L [place] % (Auto) 8.0 Eos % (Auto) 0.2 Baso % (Auto) 0.3 Lymph # (Auto) 1.7 [place] # (Auto) 1.0 Eos # (Auto) 0.0 Baso # (Auto) 0.0 Abs Immat Gran (auto) 0.04 H Absolute Neuts (auto) 9.7 H Absolute Nucleated RBC 0.000 Nucleated RBC % (auto) 0.0 Smear Tech's Comments ESR PT 15.2 H INR 1.3 H Sodium 142 Potassium 3.6 Chloride 108 Carbon Dioxide 24 Anion Gap 14 BUN 23 H D Creatinine 0.77 Estim Creat Clear Calc 80.2 Estimated GFR > 60 Random Glucose 101 Uric Acid Calcium 9.0 Phosphorus Magnesium 1.5 L Iron TIBC % Saturation Unsat Iron Binding Total Bilirubin 1.0 Direct Bilirubin 0.4 AST 31 ALT 15 Alkaline Phosphatase 119 H Ammonia Total Creatine Kinase C-Reactive Protein Total Protein 7.1 Albumin 3.6 Vitamin B12 Folate TSH Urine Color Urine Appearance Urine pH Ur Specific [place] Urine Protein Urine Glucose (UA) Urine Ketones Urine Blood Urine Nitrite Ur Leukocyte Esterase Urine RBC Urine WBC Ur Squamous Epith Cells Urine Bacteria Granular Casts Urine Test Urine Opiates Screen Ur Barbiturates Screen Ur Phencyclidine Scrn Ur Amphetamines Screen U Benzodiazepines Scrn Urine Cocaine Screen U Marijuana (THC) Screen Ethyl Alcohol COVID-19 ([facility]) COVID-19 Clin Com 04/26/20 04/26/20 04/26/20 18:31 18:31 22:50 WBC RBC Hgb Hct MCV MCH MCHC RDW Plt Count MPV Immature Gran % (Auto) Neut % (Auto) Lymph % (Auto) [place] % (Auto) Eos % (Auto) Baso % (Auto) Lymph # (Auto) [place] # (Auto) Eos # (Auto) Baso # (Auto) Abs Immat Gran (auto) Absolute Neuts (auto) Absolute Nucleated RBC Nucleated RBC % (auto) Smear Tech's Comments ESR PT INR Sodium Potassium Chloride Carbon Dioxide Anion Gap BUN Creatinine Estim Creat Clear Calc Estimated GFR Random Glucose Uric Acid Calcium Phosphorus Magnesium Iron TIBC % Saturation Unsat Iron Binding Total Bilirubin Direct Bilirubin AST ALT Alkaline Phosphatase Ammonia 38 Total Creatine Kinase C-Reactive Protein Total Protein Albumin Vitamin B12 Folate TSH Urine Color Urine Appearance Urine pH Ur Specific [place] Urine Protein Urine Glucose (UA) Urine Ketones Urine Blood Urine Nitrite Ur Leukocyte Esterase Urine RBC Urine WBC Ur Squamous Epith Cells Urine Bacteria Granular Casts Urine Test Urine Opiates Screen Ur Barbiturates Screen Ur Phencyclidine Scrn Ur Amphetamines Screen U Benzodiazepines Scrn Urine Cocaine Screen U Marijuana (THC) Screen Ethyl Alcohol < 10 COVID-19 ([facility]) Negative COVID-19 Clin Com See Note 04/27/20 04/27/20 04/29/20 17:26 17:26 07:57 WBC RBC Hgb Hct MCV MCH MCHC RDW Plt Count MPV Immature Gran % (Auto) Neut % (Auto) Lymph % (Auto) [place] % (Auto) Eos % (Auto) Baso % (Auto) Lymph # (Auto) [place] # (Auto) Eos # (Auto) Baso # (Auto) Abs Immat Gran (auto) Absolute Neuts (auto) Absolute Nucleated RBC Nucleated RBC % (auto) Smear Tech's Comments ESR PT INR Sodium Potassium Chloride Carbon Dioxide Anion Gap BUN Creatinine Estim Creat Clear Calc Estimated GFR Random Glucose Uric Acid Calcium Phosphorus Magnesium Iron 59 TIBC 299 % Saturation 20 Unsat Iron Binding 240 Total Bilirubin Direct Bilirubin AST ALT Alkaline Phosphatase Ammonia Total Creatine Kinase C-Reactive Protein Total Protein Albumin Vitamin B12 Folate TSH 2.21 Urine Color YELLOW Urine Appearance HAZY Urine pH 6.0 Ur Specific [place] 1.025 Urine Protein NEG Urine Glucose (UA) NEG Urine Ketones NEG Urine Blood NEG Urine Nitrite POS H Ur Leukocyte Esterase NEG Urine RBC 0 Urine WBC 5-9 H Ur Squamous Epith Cells 3+ Urine Bacteria 3+ Granular Casts 0-2 Urine Test Urine Opiates Screen Not Detected Ur Barbiturates Screen Not Detected Ur Phencyclidine Scrn Not Detected Ur Amphetamines Screen Not Detected U Benzodiazepines Scrn Not Detected Urine Cocaine Screen Not Detected U Marijuana (THC) Screen Not Detected Ethyl Alcohol COVID-19 ([facility]OL[place]) COVID-19 PositiveID Com 04/29/20 05/04/20 05/05/20 07:57 14:40 14:19 WBC 8.9 RBC 2.93 L Hgb 9.7 L Hct 29.6 L MCV 101.0 H MCH 33.1 H MCHC 32.8 RDW 13.6 Plt Count 120 L D MPV 10.7 Immature Gran % (Auto) 0.6 H Neut % (Auto) 65.1 Lymph % (Auto) 15.5 L [place] % (Auto) 14.6 H Eos % (Auto) 3.8 Baso % (Auto) 0.4 Lymph # (Auto) 1.4 [place] # (Auto) 1.3 H Eos # (Auto) 0.3 Baso # (Auto) 0.0 Abs Immat Gran (auto) 0.05 H Absolute Neuts (auto) 5.8 Absolute Nucleated RBC 0.000 Nucleated RBC % (auto) 0.0 Smear Tech's Comments ESR PT INR Sodium 140 Potassium 4.0 Chloride 106 Carbon Dioxide 25 Anion Gap 13 BUN 9 D Creatinine 0.75 Estim Creat Clear Calc 82.3 Estimated GFR > 60 Random Glucose 199 H D Uric Acid Calcium 8.1 L D Phosphorus Magnesium Iron TIBC % Saturation Unsat Iron Binding Total Bilirubin 0.4 Direct Bilirubin AST 48 H D ALT 26 Alkaline Phosphatase 110 Ammonia Total Creatine Kinase C-Reactive Protein Total Protein 5.9 L Albumin 3.1 L Vitamin B12 574 Folate 12.2 TSH Urine Color Urine Appearance Urine pH Ur Specific [place] Urine Protein Urine Glucose (UA) Urine Ketones Urine Blood Urine Nitrite Ur Leukocyte Esterase Urine RBC Urine WBC Ur Squamous Epith Cells Urine Bacteria Granular Casts Urine Test Urine Opiates Screen Ur Barbiturates Screen Ur Phencyclidine Scrn Ur Amphetamines Screen U Benzodiazepines Scrn Urine Cocaine Screen U Marijuana (THC) Screen Ethyl Alcohol COVID-19 ([facility]) COVID-19 Clin Com 05/05/20 05/05/20 05/06/20 17:54 17:54 17:34 WBC 9.7 RBC 2.67 L Hgb 8.8 L Hct 26.7 L MCV 100.0 H MCH 33.0 MCHC 33.0 RDW 13.7 Plt Count 127 L MPV 10.4 Immature Gran % (Auto) 0.4 Neut % (Auto) 66.4 Lymph % (Auto) 13.9 L [place] % (Auto) 15.8 H Eos % (Auto) 3.0 Baso % (Auto) 0.5 Lymph # (Auto) 1.4 [place] # (Auto) 1.5 H Eos # (Auto) 0.3 Baso # (Auto) 0.1 Abs Immat Gran (auto) 0.04 H Absolute Neuts (auto) 6.4 Absolute Nucleated RBC 0.000 Nucleated RBC % (auto) 0.0 Smear Tech's Comments VERIFIED ESR 30 H PT INR Sodium 139 Potassium 4.0 Chloride 105 Carbon Dioxide 23 Anion Gap 15 BUN 9 Creatinine 0.68 Estim Creat Clear Calc 90.8 Estimated GFR > 60 Random Glucose 168 H Uric Acid 3.9 Calcium 8.3 L Phosphorus 4.2 Magnesium Iron TIBC % Saturation Unsat Iron Binding Total Bilirubin Direct Bilirubin AST ALT Alkaline Phosphatase Ammonia Total Creatine Kinase 87 C-Reactive Protein 0.37 Total Protein Albumin 3.1 L Vitamin B12 Folate TSH Urine Color Urine Appearance Urine pH Ur Specific [place] Urine Protein Urine Glucose (UA) Urine Ketones Urine Blood Urine Nitrite Ur Leukocyte Esterase Urine RBC Urine WBC Ur Squamous Epith Cells Urine Bacteria Granular Casts Urine Test Urine Opiates Screen Ur Barbiturates Screen Ur Phencyclidine Scrn Ur Amphetamines Screen U Benzodiazepines Scrn Urine Cocaine Screen U Marijuana (THC) Screen Ethyl Alcohol COVID-19 ([facility]) COVID-19 Clin Com 05/07/20 05/07/2005/07/21 15:59 15:59 18:04 WBC RBC Hgb Hct MCV MCH MCHC RDW Plt Count MPV Immature Gran % (Auto) Neut % (Auto) Lymph % (Auto) [place] % (Auto) Eos % (Auto) Baso % (Auto) Lymph # (Auto) [place] # (Auto) Eos # (Auto) Baso # (Auto) Abs Immat Gran (auto) Absolute Neuts (auto) Absolute Nucleated RBC Nucleated RBC % (auto) Smear Tech's Comments ESR PT INR Sodium Potassium Chloride Carbon Dioxide Anion Gap BUN Creatinine Estim Creat Clear Calc Estimated GFR Random Glucose Uric Acid Calcium Phosphorus Magnesium Iron TIBC % Saturation Unsat Iron Binding Total Bilirubin Direct Bilirubin AST ALT Alkaline Phosphatase Ammonia Total Creatine Kinase C-Reactive Protein Total Protein Albumin Vitamin B12 542 Folate > 20.0 TSH Urine Color Urine Appearance Urine pH Ur Specific [place] Urine Protein Urine Glucose (UA) Urine Ketones Urine Blood Urine Nitrite Ur Leukocyte Esterase Urine RBC Urine WBC Ur Squamous Epith Cells Urine Bacteria Granular Casts Urine Test NEGATIVE Urine Opiates Screen Not Detected Ur Barbiturates Screen Not Detected Ur Phencyclidine Scrn Not Detected Ur Amphetamines Screen Not Detected U Benzodiazepines Scrn Not Detected Urine Cocaine Screen Not Detected U Marijuana (THC) Screen Not Detected Ethyl Alcohol COVID-19 (ABIMBOL[place]) COVID-19 Clin Com
[2020-05-10] MEDS: LORazepam 1 MG TABLET PO (17:24)
[2020-05-10 17:30] VITALS: BP 120/65; PULSE 106; TEMP 36.5; O2SAT 98
[2020-05-10] MEDS: OLANZapine 7.5 MG TABLET 15 MG PO (21:23)
[2020-05-10] MEDS: Mirtazapine 7.5 MG TABLET PO (21:23)
[2020-05-10] MEDS: lamoTRIgine 25 MG TABLET PO (21:23)
[2020-05-10] MEDS: Docusate Sodium 100 MG CAPSULE PO (21:34)
[2020-05-10] MEDS: Milk of Magnesia 30 ML ORAL.SUSP PO (21:34)
[2020-05-10] MEDS: traZODone HCL 50 MG TABLET PO ×2 (21:38→23:55)
[2020-05-11 06:26] VITALS: BP 97/59; PULSE 106; RESP 18; TEMP 35.7; O2SAT 97
[2020-05-11] MEDS: OLANZapine 5 MG TABLET PO (08:53)
[2020-05-11] MEDS: Ferrous Sulfate 324 MG TABLET.DR PO ×2 (08:53→16:04)
[2020-05-11] MEDS: clonazePAM 0.5 MG TABLET PO ×2 (08:53→20:29)
[2020-05-11] MEDS: Gabapentin 300 MG CAPSULE PO ×2 (08:53→20:29)
[2020-05-11] MEDS: Amoxicillin 500 MG CAPSULE PO ×2 (08:54→20:28)
[2020-05-11] MEDS: Lidocaine 4 % Patch ADH..PATCH 1 PATCH TRANSDERMA (09:43)
[2020-05-11] MEDS: polyethylene glycoL 3350 17 GM POWD.PACK PO (10:05)
[2020-05-11] MEDS: LORazepam 1 MG TABLET PO (14:50)
[2020-05-11] MEDS: Acetaminophen 325 MG TABLET 650 MG PO (14:50)
[2020-05-11] MEDS: hydrOXYzine HCL 25 MG TABLET PO (16:04)
[2020-05-11 18:00] VITALS: BP 131/61; PULSE 121; TEMP 36.6
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
[2020-05-11] MEDS: OLANZapine 7.5 MG TABLET 15 MG PO (20:28)
[2020-05-11] MEDS: Mirtazapine 7.5 MG TABLET PO (20:29)
[2020-05-11] MEDS: lamoTRIgine 25 MG TABLET PO (20:29)
[2020-05-11] MEDS: traZODone HCL 50 MG TABLET PO (21:58)
[2020-05-12 06:00] VITALS: BP 123/60; PULSE 109; TEMP 36.6
[2020-05-12] MEDS: Acetaminophen 325 MG TABLET 650 MG PO ×2 (06:36→17:15)
[2020-05-12] MEDS: Ferrous Sulfate 324 MG TABLET.DR PO ×2 (09:05→16:27)
[2020-05-12] MEDS: OLANZapine 5 MG TABLET PO (09:05)
[2020-05-12] MEDS: Lidocaine 4 % Patch ADH..PATCH 1 PATCH TRANSDERMA (09:05)
[2020-05-12] MEDS: Amoxicillin 500 MG CAPSULE PO ×2 (09:05→20:57)
[2020-05-12] MEDS: Gabapentin 300 MG CAPSULE PO ×2 (09:05→20:57)
[2020-05-12] MEDS: polyethylene glycoL 3350 17 GM POWD.PACK PO (09:05)
--- NOTE | 2020-05-12 12:44 | P.PNPSI_ITS ---
Subjective Subjective Date of Service: 05/12/20 Reason For Visit: PSYCHOSIS Subjective Notes: Section 7 Interim History: Anxiety 08/19-focus is on welfare of her daughter, going home. Denies depressive sx, denies perceptual alterations. Sleeping with Trazodone. Discussed medication changes. For anxiety, Klonopin 0.5 mg bid, increase Lamictal to 50 mg daily, Haldol 2 mg hs. Review of GI testing-initiated Omeprazole 20 mg daily, sucralfate 1 gram bid ac, propranolol 5 mg bid. Pt concurs with changes-focus is on wanting to go home to see her daughter. She has no recollection of not having custody and not living with her daughter along with no recollection of not having an apartment any longer. Medication Compliance: Yes Side effects from medications: No Attending Groups: No Review of Systems Musculoskeletal: Reports other (L foot cramps she reports once in a while.) Psychiatric: Reports anxiety, Reports difficulty concentrating, Reports panic attacks, Reports homicidal ideation (denies) and Reports suicidal ideation (denies) Mental Status Exam Mental Status Exam Patient Appearance: Fatigued Patient Orientation: Person, Place, Time and Situation Level of Consciousness: Alert Patient Behavior: Talkative Mood Description: Withdrawn Affect Description: Flat Patient Cognition Impaired: Yes Ability to Follow Directions: Good Speech Pattern: Garbled, Spontaneous Speech, Soft-Spoken and Mumbled Memory Description: Remote Impaired and Episodic Impaired Hallucinations: None Delusions: Present (fixed) Thought Process: Distracted Thought Content: positive for [place], positive for Circumstantial, positive for Suicidal Ideation (denies) and positive for Homicidal Ideation (denies) Depressive Symptoms: Increased Anxiety, Muscle Pain (foot cramping) and Back Pain Judgement: Fair Diagnostics Vital Signs (24Hr): Vital Signs - 24 hr 05/11/20 18:00 05/12/20 06:00 Temperature 98 F 97.8 F Pulse Rate 121 H 109 H Blood Pressure 131/61 123/60 Body Mass Index 24.7 Labs Results: 05/06/20 17:34 05/05/20 17:54 Imaging Radiology Impressions: ITS Impressions Head CT 04/27/20 16:47 IMPRESSION: No acute intracranial pathology. Abdomen/Pelvis CT 05/05/20 19:04 IMPRESSION: 1. An etiology for the patient's bilateral flank pain and nausea is not been found. 2. Evidence of cirrhosis with nodular liver and recanalized umbilical vein. 3. Symmetric thickening of bladder wall consistent with given history of cystitis 4. Other incidental findings as described above. Medications Medications Current Medications Generic Name Dose Route Start Last Admin Trade Name Freq PRN Reason Stop Dose Admin Acetaminophen 650 mg 04/27/20 23:01 05/12/20 06:36 Acetaminophen 325 Mg Tablet PO 650 mg Q6H PRN Administration Headache/Pain Mild Scale (1-3) Al Hydroxide/Mg Hydroxide 30 ml 04/27/20 23:01 Magnesium Hydrox/Alum Hydrox 30 Ml Oral.Susp PO Q6H PRN Heartburn/Nausea Amoxicillin 500 mg 05/10/20 08:00 05/12/20 09:05 Amoxicillin 500 Mg Capsule PO 05/15/20 19:59 500 mg Q12H ANANT Administration Benzocaine 1 appl 05/08/20 19:36 05/10/20 21:41 Benzocaine 10 % Oral Gel 9 Gm Tube MUCOUS MEM 1 appl QID PRN Administration Pain, Moderate (Pain Scale 4-6 Protocol Docusate Sodium 100 mg 04/28/20 18:35 05/10/20 21:34 Docusate Sodium 100 Mg Capsule PO 100 mg BID PRN Administration Constipation Ferrous Sulfate 324 mg 05/01/20 18:15 05/12/20 09:05 Ferrous Sulfate 324 Mg Tablet. PO 324 mg BIDWM ANANT Administration Gabapentin 300 mg 05/01/20 21:00 05/12/20 09:05 Gabapentin 300 Mg Capsule PO 300 mg BID ANANT Administration Hydroxyzine HCl 25 mg 04/27/20 23:01 05/11/20 16:04 Hydroxyzine Hcl 25 Mg Tablet PO 25 mg Q6H PRN Administration Anxiety Lactated Ringer's 1,000 mls @ 50 mls/hr 05/10/20 13:30 05/12/20 09:06 Lr IVCONT Not Given .Q20H ANANT Lamotrigine 25 mg 04/28/20 21:00 05/11/20 20:29 Lamotrigine 25 Mg Tablet PO 25 mg BEDTIME ANANT Administration Lidocaine 1 patch 05/10/20 09:00 05/12/20 09:05 Lidocaine 4 % Patch Adh..Patch TRANSDERMA 1 patch DAILY ANANT Administration Protocol Magnesium Hydroxide 30 ml 04/27/20 23:01 05/10/20 21:34 Milk Of Magnesia 30 Ml Oral.Susp PO 30 ml DAILY PRN Administration Constipation Mirtazapine 7.5 mg 05/02/20 21:00 05/11/20 20:29 Mirtazapine 7.5 Mg Tablet PO 7.5 mg BEDTIME ANANT Administration Multivitamins/Minerals 1 tab 04/29/20 09:00 05/12/20 09:05 Multivitamin With Minerals Tablet PO 1 tab DAILY ANANT Administration Nicotine Polacrilex 4 mg 04/28/20 18:41 05/10/20 23:58 Nicotine Polacrilex 2 Mg Gum BUCCAL 4 mg Q2H PRN Administration Nicotine Cravings Olanzapine 5 mg 04/28/20 12:51 04/28/20 16:13 Olanzapine 5 Mg Tablet PO 5 mg Q4H PRN Administration psychosis, agitation Olanzapine 5 mg 04/30/20 09:00 05/12/20 09:05 Olanzapine 5 Mg Tablet PO 5 mg DAILY ANANT Administration Olanzapine 15 mg 05/01/20 21:00 05/11/20 20:28 Olanzapine 7.5 Mg Tablet PO 15 mg BEDTIME ANANT Administration Polyethylene Glycol 17 gm 04/29/20 13:15 05/12/20 09:05 Polyethylene Glycol 3350 17 Gm Powd.Pack PO 17 gm DAILY ANANT Administration Trazodone HCl 50 mg 04/27/20 23:01 05/11/20 21:58 Trazodone Hcl 50 Mg Tablet PO 50 mg BEDTIME PRN Administration Insomnia Allergies Allergies Allergy/AdvReac Type Severity Reaction Status Date / Time NSAIDS (Non-Steroidal Allergy Intermediate RASH Verified 01/05/20 20:37 Anti-Inflamma [NSAIDS (NON-STEROIDAL ANTI-INFLAMMA] aspirin [ASPIRIN] Allergy Mild HIVES Verified 01/05/20 20:37 ibuprofen Allergy Unknown hives Verified 07/15/19 00:00 Assessment & Plan Assessment & Plan (1) Schizoaffective disorder: Status: Acute Code(s): F25.9 - Schizoaffective disorder, unspecified Greater than 50% of the session was spent on counseling and/or coordination of care Reason for contiued inpatient stay Substantial Risk for: harm to others and rapid decompensation
[2020-05-12] MEDS: clonazePAM 0.5 MG TABLET PO ×2 (13:38→20:58)
[2020-05-12] MEDS: Nicotine Polacrilex 2 MG GUM 4 MG BUCCAL (13:41)
[2020-05-12] MEDS: Sucralfate 1 GM TABLET PO (16:27)
[2020-05-12] MEDS: Milk of Magnesia 30 ML ORAL.SUSP PO (17:18)
[2020-05-12 19:10] VITALS: BP 130/62; PULSE 113; TEMP 36.9
[2020-05-12] MEDS: Mirtazapine 7.5 MG TABLET PO (20:57)
[2020-05-12] MEDS: OLANZapine 7.5 MG TABLET 15 MG PO (20:57)
[2020-05-12] MEDS: HaloperidoL 1 MG TABLET 2 MG PO (20:57)
[2020-05-12] MEDS: traZODone HCL 50 MG TABLET PO (21:05)
[2020-05-12 21:09] VITALS: BP 90/53; PULSE 118
[2020-05-13 06:25] VITALS: BP 103/58; PULSE 105; RESP 16; TEMP 37.2; O2SAT 98
[2020-05-13] MEDS: Omeprazole 20 MG CAPSULE.DR PO (06:50)
[2020-05-13 08:36] VITALS: BP 142/68; PULSE 112
[2020-05-13] MEDS: Propranolol HCL 10 MG TABLET 5 MG PO ×2 (08:36→20:23)
[2020-05-13] MEDS: Gabapentin 300 MG CAPSULE PO ×2 (08:36→20:26)
[2020-05-13] MEDS: OLANZapine 5 MG TABLET PO (08:36)
[2020-05-13] MEDS: Ferrous Sulfate 324 MG TABLET.DR PO ×2 (08:37→17:10)
[2020-05-13] MEDS: clonazePAM 0.5 MG TABLET PO ×2 (08:37→20:25)
[2020-05-13] MEDS: Lidocaine 4 % Patch ADH..PATCH 1 PATCH TRANSDERMA (08:37)
[2020-05-13] MEDS: Amoxicillin 500 MG CAPSULE PO ×2 (08:37→20:24)
[2020-05-13] MEDS: Sucralfate 1 GM TABLET PO ×2 (08:37→17:10)
[2020-05-13] MEDS: lamoTRIgine 25 MG TABLET 50 MG PO (08:37)
[2020-05-13] MEDS: polyethylene glycoL 3350 17 GM POWD.PACK PO (08:38)
[2020-05-13] MEDS: Acetaminophen 325 MG TABLET 650 MG PO ×2 (09:32→17:16)
[2020-05-13] MEDS: Nicotine Polacrilex 2 MG GUM 4 MG BUCCAL ×2 (13:38→15:42)
[2020-05-13] MEDS: hydrOXYzine HCL 25 MG TABLET PO (17:16)
[2020-05-13 20:15] VITALS: BP 121/73; PULSE 101; TEMP 36.9
[2020-05-13 20:23] VITALS: BP 121/73; PULSE 101
[2020-05-13] MEDS: OLANZapine 7.5 MG TABLET 15 MG PO (20:24)
[2020-05-13] MEDS: HaloperidoL 1 MG TABLET 2 MG PO (20:25)
[2020-05-13] MEDS: Mirtazapine 7.5 MG TABLET PO (20:25)
[2020-05-13] MEDS: traZODone HCL 50 MG TABLET PO (20:26)
[2020-05-13] MEDS: Docusate Sodium 100 MG CAPSULE PO (20:30)
[2020-05-13] MEDS: Milk of Magnesia 30 ML ORAL.SUSP PO (20:30)
--- NOTE | 2020-05-13 20:52 | HO.PSYCHPN ---
Subjective Subjective Date of Service: 05/13/20 Reason For Visit: PSYCHOSIS Subjective Notes: Section 7 Interim History: Angie kept largely to herself with no acute concerns. She was in behavioral control. Medication Compliance: Yes Side effects from medications: No Attending Groups: No Review of Systems Acute medical concerns: No Medical Review of Systems: unchanged Review of Systems Review of Systems Yes all other systems are reviewed and are negative Mental Status Exam Mental Status Exam Patient Appearance: Disheveled Level of Consciousness: Appropriate Patient Behavior: Suspicious Mood Description: Suspicious and Withdrawn Affect Description: Suspicious and Withdrawn Patient Cognition Impaired: No Ability to Follow Directions: Fair Speech Pattern: Clear Memory Description: Intact Hallucinations: None Delusions: Present Thought Process: Rumination Thought Content: positive for Circumstantial, positive for Perseveration, negative for Suicidal Ideation and negative for Homicidal Ideation Judgement: Poor Diagnostics Vital Signs (24Hr): Vital Signs - 24 hr 05/12/20 21:09 05/13/20 06:25 05/13/20 08:36 Temperature 98.9 F Pulse Rate 118 H 105 H 112 H Respiratory Rate 16 Blood Pressure 90/53 L 103/58 L 142/68 H Pulse Oximetry 98 05/13/20 20:23 Temperature Pulse Rate 101 H Respiratory Rate Blood Pressure 121/73 Pulse Oximetry Body Mass Index 24.7 Labs Results: 05/06/20 17:34 05/05/20 17:54 Imaging Radiology Impressions: ITS Impressions Head CT 04/27/20 16:47 IMPRESSION: No acute intracranial pathology. Abdomen/Pelvis CT 05/05/20 19:04 IMPRESSION: 1. An etiology for the patient's bilateral flank pain and nausea is not been found. 2. Evidence of cirrhosis with nodular liver and recanalized umbilical vein. 3. Symmetric thickening of bladder wall consistent with given history of cystitis 4. Other incidental findings as described above. Medications Medications Current Medications Generic Name Dose Route Start Last Admin Trade Name Freq PRN Reason Stop Dose Admin Acetaminophen 650 mg 04/27/20 23:01 05/13/20 17:16 Acetaminophen 325 Mg Tablet PO 650 mg Q6H PRN Administration Headache/Pain Mild Scale (1-3) Al Hydroxide/Mg Hydroxide 30 ml 04/27/20 23:01 Magnesium Hydrox/Alum Hydrox 30 Ml Oral.Susp PO Q6H PRN Heartburn/Nausea Amoxicillin 500 mg 05/10/20 08:00 05/13/20 20:24 Amoxicillin 500 Mg Capsule PO 05/15/20 19:59 500 mg Q12H ANANT Administration Benzocaine 1 appl 05/08/20 19:36 05/13/20 09:33 Benzocaine 10 % Oral Gel 9 Gm Tube MUCOUS MEM 1 appl QID PRN Administration Pain, Moderate (Pain Scale 4-6 Protocol Clonazepam 0.5 mg 05/12/20 13:30 05/13/20 20:25 Clonazepam 0.5 Mg Tablet PO 0.5 mg BID ANANT Administration Docusate Sodium 100 mg 04/28/20 18:35 05/13/20 20:30 Docusate Sodium 100 Mg Capsule PO 100 mg BID PRN Administration Constipation Ferrous Sulfate 324 mg 05/01/20 18:15 05/13/20 17:10 Ferrous Sulfate 324 Mg Tablet.Dr PO 324 mg BIDWM ANANT Administration Gabapentin 300 mg 05/01/20 21:00 05/13/20 20:26 Gabapentin 300 Mg Capsule PO 300 mg BID ANANT Administration Haloperidol 2 mg 05/12/20 21:00 05/13/20 20:25 Haloperidol 1 Mg Tablet PO 2 mg BEDTIME ANANT Administration Hydroxyzine HCl 25 mg 04/27/20 23:01 05/13/20 17:16 Hydroxyzine Hcl 25 Mg Tablet PO 25 mg Q6H PRN Administration Anxiety Lamotrigine 50 mg 05/13/20 09:00 05/13/20 08:37 Lamotrigine 25 Mg Tablet PO 50 mg DAILY ANANT Administration Lidocaine 1 patch 05/10/20 09:00 05/13/20 08:37 Lidocaine 4 % Patch Adh..Patch TRANSDERMA 1 patch DAILY ANANT Administration Protocol Magnesium Hydroxide 30 ml 04/27/20 23:01 05/13/20 20:30 Milk Of Magnesia 30 Ml Oral.Susp PO 30 ml DAILY PRN Administration Constipation Mirtazapine 7.5 mg 05/02/20 21:00 05/13/20 20:25 Mirtazapine 7.5 Mg Tablet PO 7.5 mg BEDTIME ANANT Administration Multivitamins/Minerals 1 tab 04/29/20 09:00 05/13/20 08:37 Multivitamin With Minerals Tablet PO 1 tab DAILY ANANT Administration Nicotine Polacrilex 4 mg 04/28/20 18:41 05/13/20 15:42 Nicotine Polacrilex 2 Mg Gum BUCCAL 4 mg Q2H PRN Administration Nicotine Cravings Olanzapine 5 mg 04/28/20 12:51 04/28/20 16:13 Olanzapine 5 Mg Tablet PO 5 mg Q4H PRN Administration psychosis, agitation Olanzapine 5 mg 04/30/20 09:00 05/13/20 08:36 Olanzapine 5 Mg Tablet PO 5 mg DAILY ANANT Administration Olanzapine 15 mg 05/01/20 21:00 05/13/20 20:24 Olanzapine 7.5 Mg Tablet PO 15 mg BEDTIME ANANT Administration Omeprazole 20 mg 05/13/20 06:30 05/13/20 06:50 Omeprazole 20 Mg Capsule.Dr PO 20 mg DAILY@0630 ANANT Administration Polyethylene Glycol 17 gm 04/29/20 13:15 05/13/20 08:38 Polyethylene Glycol 3350 17 Gm Powd.Pack PO 17 gm DAILY ANANT Administration Propranolol HCl 5 mg 05/12/20 21:00 05/13/20 20:23 Propranolol Hcl 10 Mg Tablet PO 5 mg BID ANANT Administration Protocol Sucralfate 1 gm 05/12/20 16:30 05/13/20 17:10 Sucralfate 1 Gm Tablet PO 1 gm BIDAC ANANT Administration Trazodone HCl 50 mg 04/27/20 23:01 05/13/20 20:26 Trazodone Hcl 50 Mg Tablet PO 50 mg BEDTIME PRN Administration Insomnia Allergies Allergies Allergy/AdvReac Type Severity Reaction Status Date / Time NSAIDS (Non-Steroidal Allergy Intermediate RASH Verified 01/05/20 20:37 Anti-Inflamma [NSAIDS (NON-STEROIDAL ANTI-INFLAMMA] aspirin [ASPIRIN] Allergy Mild HIVES Verified 01/05/20 20:37 ibuprofen Allergy Unknown hives Verified 07/15/19 00:00 Assessment & Plan Assessment & Plan (1) Schizoaffective disorder: Status: Acute Code(s): F25.9 - Schizoaffective disorder, unspecified Assessment and Plan: CT current treatment plan with no changes Greater than 50% of the session was spent on counseling and/or coordination of care Patient educated on: diagnosis and medication risk/benefits Informed Consent: does not understand Reason for contiued inpatient stay Substantial Risk for: inability to function and rapid decompensation
[2020-05-14] MEDS: Omeprazole 20 MG CAPSULE.DR PO (06:42)
[2020-05-14 06:45] VITALS: BP 101/55; PULSE 99; RESP 18; TEMP 37.1; O2SAT 97
[2020-05-14 08:33] VITALS: BP 127/70; PULSE 98
[2020-05-14] MEDS: OLANZapine 5 MG TABLET PO (08:33)
[2020-05-14] MEDS: Propranolol HCL 10 MG TABLET 5 MG PO (08:33)
[2020-05-14] MEDS: Ferrous Sulfate 324 MG TABLET.DR PO ×2 (08:33→17:46)
[2020-05-14] MEDS: clonazePAM 0.5 MG TABLET PO ×2 (08:33→20:41)
[2020-05-14] MEDS: Amoxicillin 500 MG CAPSULE PO ×2 (08:33→20:41)
[2020-05-14] MEDS: Gabapentin 300 MG CAPSULE PO ×2 (08:33→20:41)
[2020-05-14] MEDS: Sucralfate 1 GM TABLET PO ×2 (08:33→17:46)
[2020-05-14] MEDS: Lidocaine 4 % Patch ADH..PATCH 1 PATCH TRANSDERMA (08:34)
[2020-05-14] MEDS: polyethylene glycoL 3350 17 GM POWD.PACK PO (08:34)
[2020-05-14] MEDS: lamoTRIgine 25 MG TABLET 50 MG PO (08:43)
[2020-05-14] MEDS: Nicotine Polacrilex 2 MG GUM 4 MG BUCCAL (11:56)
[2020-05-14 12:08] LABS: Basophils Absolute Auto 0.1 X10*3/uL (0.0-0.2); Basophils Percent Auto 0.5 % (0-2); Eosinophils Absolute Auto 0.5 X10*3/uL (0.0-0.4); Eosinophils Percent Auto 5.5 % (0-4); Hematocrit 28.4 % (37-47); Hemoglobin 9.3 g/dl (12.0-16.0); Imm Gran Abs Auto 0.04 X10*3/uL (0.00-0.03); Imm Gran Pct Auto 0.4 % (0.0-0.4); Lymphocytes Absolute Auto 1.8 X10*3/uL (1.2-4.9); Lymphocytes Percent Auto 18.3 % (20-40); MANUAL DIFF FLAG SCAN; Mean Corpuscular HGB Conc 32.7 g/dl (31.0-35.0); Mean Corpuscular Hemoglobin 32.9 pg (27.0-33.0); Mean Corpuscular Volume 100.4 fL (80-98); Mean Platelet Volume 9.5 fL (9.4-12.3); Monocytes Absolute Auto 1.5 X10*3/uL (0.1-1.2); Monocytes Percent Auto 15.6 % (2-11); Neutrophils Absolute Auto 5.8 X10*3/uL (2.0-8.3); Neutrophils Percent Auto 59.7 % (45-73); Platelet Count 221 X10*3/uL (160-400); Red Blood Count 2.83 X10*6/uL (4.20-5.50); Red Cell Distribution Width 13.9 % (11.0-16.0); SCAN SMEAR FLAG 1; White Blood Count 9.7 X10*3/uL (4.8-10.8)
[2020-05-14 12:28] LABS: SLIDE REVIEW VERIFIED
[2020-05-14 12:38] LABS: Alanine Aminotransferase 20 U/L (0-31); Alkaline Phosphatase 120 U/L (39-117); Anion Gap 10 (12-20); Aspartate Amino Transferase 39 U/L (5-31); Bilirubin Total 0.4 mg/dL (0.0-1.0); Blood Urea Nitrogen 14 mg/dL (9-16); Calcium 8.4 mg/dL (8.4-10.2); Carbon Dioxide 25 mmol/L (22-29); Chloride 107 mmol/L (96-108); Creatinine Clr Calc Pharmacy 83.4; Estimated Glomerular Filt Rate > 60; Glucose Random 95 mg/dL (60-115); Potassium 4.3 mmol/L (3.3-5.1); Sodium 138 mmol/L (135-145); Total Protein 6.1 g/dL (6.5-8.0)
--- NOTE | 2020-05-14 17:24 | HO.PSYCHPN ---
Subjective Subjective Date of Service: 05/14/20 Reason For Visit: PSYCHOSIS Subjective Notes: Section 7 Interim History: Angie kept largely to herself with no acute concerns. She was in behavioral control. She complains of bilateral swelling of her legs. She has no CP, SOB, and no joint pain. She has pitting edema to knees. There is no tenderness in the calf. There is no inflammation. Albumin was low on admission. Medication Compliance: Yes Side effects from medications: No Attending Groups: Intermittent Review of Systems Acute medical concerns: Yes Leg edema Review of Systems Review of Systems Yes all other systems are reviewed and are negative Constitutional: Reports body ache(s), Denies chills, Reports difficulty sleeping, Reports fatigue, Denies fever(s) and Reports lethargy Reports dental pain Cardiovascular: Denies chest pain, Reports pedal edema, Denies palpitations and Reports other (resolved tachycardia from 05/06/20) Respiratory: Denies cough Gastrointestinal: Reports nausea, Reports vomiting and Reports other (endoscopy today) Musculoskeletal: Reports back pain, Reports myalgias and Reports other (L foot cramps she reports once in a while.) Reports behavioral changes, Reports confusion, Reports memory loss and Reports paresthesias (reports hx paralysis/parasthesis, questions CVA, TIA-denies hx of care+ TBI) Psychiatric: Reports abnormal sleep pattern, Reports anxiety, Reports behavioral changes, Reports confusion, Reports depression, Reports difficulty concentrating, Reports auditory hallucinations, Reports hopelessness, Reports irritability, Reports anhedonia, Reports memory loss, Reports mood swings, Reports panic attacks, Reports paranoia, Reports visual hallucinations, Reports hallucinations, Reports homicidal ideation (denies) and Reports suicidal ideation (denies) Endocrine: Reports fatigue and Denies palpitations Mental Status Exam Mental Status Exam Patient Appearance: Well Grooomed Patient Orientation: Person, Place, Time and Situation Level of Consciousness: Appropriate Patient Behavior: Appropriate and Suspicious Mood Description: Calm, Suspicious and Withdrawn Affect Description: Calm, Suspicious and Withdrawn Patient Cognition Impaired: No Ability to Follow Directions: Fair Speech Pattern: Clear Memory Description: Intact Delusions: Present Thought Content: positive for Circumstantial, negative for Suicidal Ideation and negative for Homicidal Ideation Diagnostics Vital Signs (24Hr): Vital Signs - 24 hr 05/13/20 20:15 05/13/20 20:23 05/14/20 06:45 Temperature 98.4 F 98.8 F Pulse Rate 101 H 101 H 99 Respiratory Rate 18 Blood Pressure 121/73 121/73 101/55 L Pulse Oximetry 97 05/14/20 08:33 Temperature Pulse Rate 98 Respiratory Rate Blood Pressure 127/70 Pulse Oximetry Body Mass Index 24.7 Labs Results: 05/14/20 11:52 05/14/20 11:52 Labs: Laboratory Results - last 48 hr 05/14/20 05/14/20 11:52 11:52 WBC 9.7 RBC 2.83 L Hgb 9.3 L Hct 28.4 L MCV 100.4 H MCH 32.9 MCHC 32.7 RDW 13.9 Plt Count 221 D MPV 9.5 Immature Gran % (Auto) 0.4 Neut % (Auto) 59.7 Lymph % (Auto) 18.3 L Nicholas % (Auto) 15.6 H Eos % (Auto) 5.5 H Baso % (Auto) 0.5 Lymph # (Auto) 1.8 Nicholas # (Auto) 1.5 H Eos # (Auto) 0.5 H Baso # (Auto) 0.1 Abs Immat Gran (auto) 0.04 H Absolute Neuts (auto) 5.8 Absolute Nucleated RBC 0.000 Nucleated RBC % (auto) 0.0 Smear Tech's Comments VERIFIED Sodium 138 Potassium 4.3 Chloride 107 Carbon Dioxide 25 Anion Gap 10 L BUN 14 D Creatinine 0.74 Estim Creat Clear Calc 83.4 Estimated GFR > 60 Random Glucose 95 D Calcium 8.4 Total Bilirubin 0.4 AST 39 H ALT 20 Alkaline Phosphatase 120 H Total Protein 6.1 L Albumin 3.0 L Imaging Radiology Impressions: ITS Impressions Head CT 04/27/20 16:47 IMPRESSION: No acute intracranial pathology. Abdomen/Pelvis CT 05/05/20 19:04 IMPRESSION: 1. An etiology for the patient's bilateral flank pain and nausea is not been found. 2. Evidence of cirrhosis with nodular liver and recanalized umbilical vein. 3. Symmetric thickening of bladder wall consistent with given history of cystitis 4. Other incidental findings as described above. Medications Medications Current Medications Generic Name Dose Route Start Last Admin Trade Name Freq PRN Reason Stop Dose Admin Acetaminophen 650 mg 04/27/20 23:01 05/13/20 17:16 Acetaminophen 325 Mg Tablet PO 650 mg Q6H PRN Administration Headache/Pain Mild Scale (1-3) Al Hydroxide/Mg Hydroxide 30 ml 04/27/20 23:01 Magnesium Hydrox/Alum Hydrox 30 Ml Oral.Susp PO Q6H PRN Heartburn/Nausea Amoxicillin 500 mg 05/10/20 08:00 05/14/20 08:33 Amoxicillin 500 Mg Capsule PO 05/15/20 19:59 500 mg Q12H ANANT Administration Benzocaine 1 appl 05/08/20 19:36 05/13/20 09:33 Benzocaine 10 % Oral Gel 9 Gm Tube MUCOUS MEM 1 appl QID PRN Administration Pain, Moderate (Pain Scale 4-6 Protocol Clonazepam 0.5 mg 05/12/20 13:30 05/14/20 08:33 Clonazepam 0.5 Mg Tablet PO 0.5 mg BID ANANT Administration Docusate Sodium 100 mg 04/28/20 18:35 05/13/20 20:30 Docusate Sodium 100 Mg Capsule PO 100 mg BID PRN Administration Constipation Ferrous Sulfate 324 mg 05/01/20 18:15 05/14/20 08:33 Ferrous Sulfate 324 Mg Tablet. PO 324 mg BIDWM ANANT Administration Gabapentin 300 mg 05/01/20 21:00 05/14/20 08:33 Gabapentin 300 Mg Capsule PO 300 mg BID ANANT Administration Haloperidol 2 mg 05/12/20 21:00 05/13/20 20:25 Haloperidol 1 Mg Tablet PO 2 mg BEDTIME ANANT Administration Hydroxyzine HCl 25 mg 04/27/20 23:01 05/13/20 17:16 Hydroxyzine Hcl 25 Mg Tablet PO 25 mg Q6H PRN Administration Anxiety Lamotrigine 50 mg 05/13/20 09:00 05/14/20 08:43 Lamotrigine 25 Mg Tablet PO 50 mg DAILY ANANT Administration Lidocaine 1 patch 05/10/20 09:00 05/14/20 08:34 Lidocaine 4 % Patch Adh..Patch TRANSDERMA 1 patch DAILY ANANT Administration Protocol Magnesium Hydroxide 30 ml 04/27/20 23:01 05/13/20 20:30 Milk Of Magnesia 30 Ml Oral.Susp PO 30 ml DAILY PRN Administration Constipation Mirtazapine 7.5 mg 05/02/20 21:00 05/13/20 20:25 Mirtazapine 7.5 Mg Tablet PO 7.5 mg BEDTIME ANANT Administration Multivitamins/Minerals 1 tab 04/29/20 09:00 05/14/20 08:33 Multivitamin With Minerals Tablet PO 1 tab DAILY ANANT Administration Nicotine Polacrilex 4 mg 04/28/20 18:41 05/14/20 11:56 Nicotine Polacrilex 2 Mg Gum BUCCAL 4 mg Q2H PRN Administration Nicotine Cravings Olanzapine 5 mg 04/28/20 12:51 04/28/20 16:13 Olanzapine 5 Mg Tablet PO 5 mg Q4H PRN Administration psychosis, agitation Olanzapine 5 mg 04/30/20 09:00 05/14/20 08:33 Olanzapine 5 Mg Tablet PO 5 mg DAILY ANANT Administration Olanzapine 15 mg 05/01/20 21:00 05/13/20 20:24 Olanzapine 7.5 Mg Tablet PO 15 mg BEDTIME ANANT Administration Omeprazole 20 mg 05/13/20 06:30 05/14/20 06:42 Omeprazole 20 Mg Capsule. PO 20 mg DAILY@0630 ANANT Administration Polyethylene Glycol 17 gm 04/29/20 13:15 05/14/20 08:34 Polyethylene Glycol 3350 17 Gm Powd.Pack PO 17 gm DAILY ANANT Administration Propranolol HCl 5 mg 05/12/20 21:00 05/14/20 08:33 Propranolol Hcl 10 Mg Tablet PO 5 mg BID ANANT Administration Protocol Sucralfate 1 gm 05/12/20 16:30 05/14/20 08:33 Sucralfate 1 Gm Tablet PO 1 gm BIDAC ANANT Administration Trazodone HCl 50 mg 04/27/20 23:01 05/13/20 20:26 Trazodone Hcl 50 Mg Tablet PO 50 mg BEDTIME PRN Administration Insomnia Allergies Allergies Allergy/AdvReac Type Severity Reaction Status Date / Time NSAIDS (Non-Steroidal Allergy Intermediate RASH Verified 01/05/20 20:37 Anti-Inflamma [NSAIDS (NON-STEROIDAL ANTI-INFLAMMA] aspirin [ASPIRIN] Allergy Mild HIVES Verified 01/05/20 20:37 ibuprofen Allergy Unknown hives Verified 07/15/19 00:00 Assessment & Plan Assessment & Plan (1) Schizoaffective disorder: Status: Acute Code(s): F25.9 - Schizoaffective disorder, unspecified Assessment and Plan: CT current treatment plan with no changes Check labs TASNEEM stockings Greater than 50% of the session was spent on counseling and/or coordination of care Patient educated on: diagnosis and medication risk/benefits Informed Consent: further education needed Reason for contiued inpatient stay Substantial Risk for: inability to function, rapid decompensation and med/psych decompensation
[2020-05-14] MEDS: Acetaminophen 325 MG TABLET 650 MG PO (17:50)
[2020-05-14 20:35] VITALS: BP 98/52; PULSE 101; TEMP 36.9
[2020-05-14] MEDS: OLANZapine 7.5 MG TABLET 15 MG PO (20:40)
[2020-05-14] MEDS: HaloperidoL 1 MG TABLET 2 MG PO (20:41)
[2020-05-14] MEDS: Mirtazapine 7.5 MG TABLET PO (20:42)
[2020-05-14] MEDS: traZODone HCL 50 MG TABLET PO (20:47)
[2020-05-15] MEDS: Omeprazole 20 MG CAPSULE.DR PO (06:11)
[2020-05-15 06:20] VITALS: BP 103/56; PULSE 102; RESP 16; TEMP 36.6; O2SAT 98
[2020-05-15] MEDS: Acetaminophen 325 MG TABLET 650 MG PO ×3 (06:31→20:43)
[2020-05-15] MEDS: hydrOXYzine HCL 25 MG TABLET PO (06:31)
[2020-05-15] MEDS: OLANZapine 5 MG TABLET PO ×2 (06:31→09:08)
[2020-05-15 08:49] VITALS: BP 121/59
[2020-05-15] MEDS: polyethylene glycoL 3350 17 GM POWD.PACK PO (09:07)
[2020-05-15] MEDS: Lidocaine 4 % Patch ADH..PATCH 1 PATCH TRANSDERMA (09:07)
[2020-05-15] MEDS: Amoxicillin 500 MG CAPSULE PO (09:07)
[2020-05-15] MEDS: Gabapentin 300 MG CAPSULE PO ×2 (09:07→20:42)
[2020-05-15] MEDS: Sucralfate 1 GM TABLET PO ×2 (09:07→16:43)
[2020-05-15] MEDS: Propranolol HCL 10 MG TABLET 5 MG PO (09:08)
[2020-05-15] MEDS: Ferrous Sulfate 324 MG TABLET.DR PO ×2 (09:08→16:43)
[2020-05-15] MEDS: lamoTRIgine 25 MG TABLET 50 MG PO (09:08)
[2020-05-15] MEDS: clonazePAM 0.5 MG TABLET PO ×2 (09:08→20:42)
[2020-05-15] MEDS: Nicotine Polacrilex 2 MG GUM 4 MG BUCCAL ×2 (14:20→19:27)
--- NOTE | 2020-05-15 15:35 | P.PNPSI_ITS ---
Subjective Subjective Date of Service: 05/15/20 Reason For Visit: PSYCHOSIS Subjective Notes: Section 7 Interim History: Angie has declined a family meeting to begin to sort out issues with family and identify needs which she will require family involvement. She believes she will be able to live with her daughter and sister, which appears to be a fixed delusion. Family has decided that she cannot return to any of their homes, so she is essentially homeless at this time. Several medical complaints- dental pain, believes she may have gout, hernia, BLE declined to wear TEDS. Compliant with medications, reports regime is helpful, useful and she is finding relief with this, however, asking for Ambien and increase in benzodiazepine for sleep/anxiety mgt. Medication Compliance: Yes Side effects from medications: No (denies) Attending Groups: Intermittent Review of Systems Reports dental pain Cardiovascular: Reports leg edema (BLE Edema) and Reports other (hypotension 98/52-will discontinue Propranolol trial) Reports behavioral changes and Reports memory loss Psychiatric: Reports anxiety, Reports behavioral changes, Reports difficulty concentrating, Reports irritability and Reports memory loss Mental Status Exam Mental Status Exam Patient Appearance: Disheveled Patient Orientation: Person and Place Level of Consciousness: Alert Patient Behavior: Talkative, Anxious, Fatigued, Distractible and Good Eye Contact Mood Description: Calm, Withdrawn and Anxious Affect Description: Flat Patient Cognition Impaired: No Ability to Follow Directions: Good Speech Pattern: Perseverating, Garbled, Monotone, Spontaneous Speech, Soft- Spoken, Mumbled and Poor Articulation Memory Description: Intermediate Impaired and Episodic Impaired Hallucinations: None Delusions: Present Thought Process: Illogical Thought Content: positive for [place], positive for Circumstantial, positive for Perseveration, positive for Poverty of Content, positive for Suicidal Ideation (denies) and positive for Homicidal Ideation (denies) Depressive Symptoms: Increased Anxiety, Diff. Making Decisions, Loss of Int. in Activity, Isolating-Friends/Family and Loss of Energy Abnormal Motor Activity Signs and Symptoms: Restlessness Judgement: Poor Diagnostics Vital Signs (24Hr): Vital Signs - 24 hr 05/14/20 20:35 05/15/20 06:20 05/15/20 08:49 Temperature 98.4 F 98 F Pulse Rate 101 H 102 H Respiratory Rate 16 Blood Pressure 98/52 L 103/56 L 121/59 L Pulse Oximetry 98 Body Mass Index 24.7 Labs Results: 05/14/20 11:52 05/14/20 11:52 Labs: Laboratory Results - last 48 hr 05/14/20 05/14/20 11:52 11:52 WBC 9.7 RBC 2.83 L Hgb 9.3 L Hct 28.4 L MCV 100.4 H MCH 32.9 MCHC 32.7 RDW 13.9 Plt Count 221 D MPV 9.5 Immature Gran % (Auto) 0.4 Neut % (Auto) 59.7 Lymph % (Auto) 18.3 L [place] % (Auto) 15.6 H Eos % (Auto) 5.5 H Baso % (Auto) 0.5 Lymph # (Auto) 1.8 [place] # (Auto) 1.5 H Eos # (Auto) 0.5 H Baso # (Auto) 0.1 Abs Immat Gran (auto) 0.04 H Absolute Neuts (auto) 5.8 Absolute Nucleated RBC 0.000 Nucleated RBC % (auto) 0.0 Smear Tech's Comments VERIFIED Sodium 138 Potassium 4.3 Chloride 107 Carbon Dioxide 25 Anion Gap 10 L BUN 14 D Creatinine 0.74 Estim Creat Clear Calc 83.4 Estimated GFR > 60 Random Glucose 95 D Calcium 8.4 Total Bilirubin 0.4 AST 39 H ALT 20 Alkaline Phosphatase 120 H Total Protein 6.1 L Albumin 3.0 L Imaging Radiology Impressions: ITS Impressions Head CT 04/27/20 16:47 IMPRESSION: No acute intracranial pathology. Abdomen/Pelvis CT 05/05/20 19:04 IMPRESSION: 1. An etiology for the patient's bilateral flank pain and nausea is not been found. 2. Evidence of cirrhosis with nodular liver and recanalized umbilical vein. 3. Symmetric thickening of bladder wall consistent with given history of cystitis 4. Other incidental findings as described above. Medications Medications Current Medications Generic Name Dose Route Start Last Admin Trade Name Freq PRN Reason Stop Dose Admin Acetaminophen 650 mg 04/27/20 23:01 05/15/20 14:47 Acetaminophen 325 Mg Tablet PO 650 mg Q6H PRN Administration Headache/Pain Mild Scale (1-3) Al Hydroxide/Mg Hydroxide 30 ml 04/27/20 23:01 Magnesium Hydrox/Alum Hydrox 30 Ml Oral.Susp PO Q6H PRN Heartburn/Nausea Amoxicillin 500 mg 05/10/20 08:00 05/15/20 09:07 Amoxicillin 500 Mg Capsule PO 05/15/20 19:59 500 mg Q12H ANANT Administration Benzocaine 1 appl 05/08/20 19:36 05/13/20 09:33 Benzocaine 10 % Oral Gel 9 Gm Tube MUCOUS MEM 1 appl QID PRN Administration Pain, Moderate (Pain Scale 4-6 Protocol Clonazepam 0.5 mg 05/12/20 13:30 05/15/20 09:08 Clonazepam 0.5 Mg Tablet PO 0.5 mg BID ANANT Administration Docusate Sodium 100 mg 04/28/20 18:35 05/13/20 20:30 Docusate Sodium 100 Mg Capsule PO 100 mg BID PRN Administration Constipation Ferrous Sulfate 324 mg 05/01/20 18:15 05/15/20 09:08 Ferrous Sulfate 324 Mg Tablet. PO 324 mg BIDWM ANANT Administration Gabapentin 300 mg 05/01/20 21:00 05/15/20 09:07 Gabapentin 300 Mg Capsule PO 300 mg BID ANANT Administration Haloperidol 2 mg 05/12/20 21:00 05/14/20 20:41 Haloperidol 1 Mg Tablet PO 2 mg BEDTIME ANANT Administration Hydroxyzine HCl 25 mg 04/27/20 23:01 05/15/20 06:31 Hydroxyzine Hcl 25 Mg Tablet PO 25 mg Q6H PRN Administration Anxiety Lamotrigine 50 mg 05/13/20 09:00 05/15/20 09:08 Lamotrigine 25 Mg Tablet PO 50 mg DAILY ANANT Administration Lidocaine 1 patch 05/10/20 09:00 05/15/20 09:07 Lidocaine 4 % Patch Adh..Patch TRANSDERMA 1 patch DAILY ANANT Administration Protocol Magnesium Hydroxide 30 ml 04/27/20 23:01 05/13/20 20:30 Milk Of Magnesia 30 Ml Oral.Susp PO 30 ml DAILY PRN Administration Constipation Mirtazapine 7.5 mg 05/02/20 21:00 05/14/20 20:42 Mirtazapine 7.5 Mg Tablet PO 7.5 mg BEDTIME ANANT Administration Multivitamins/Minerals 1 tab 04/29/20 09:00 05/15/20 09:07 Multivitamin With Minerals Tablet PO 1 tab DAILY ANANT Administration Nicotine Polacrilex 4 mg 04/28/20 18:41 05/15/20 14:20 Nicotine Polacrilex 2 Mg Gum BUCCAL 4 mg Q2H PRN Administration Nicotine Cravings Olanzapine 5 mg 04/28/20 12:51 05/15/20 06:31 Olanzapine 5 Mg Tablet PO 5 mg Q4H PRN Administration psychosis, agitation Olanzapine 5 mg 04/30/20 09:00 05/15/20 09:08 Olanzapine 5 Mg Tablet PO 5 mg DAILY ANANT Administration Olanzapine 15 mg 05/01/20 21:00 05/14/20 20:40 Olanzapine 7.5 Mg Tablet PO 15 mg BEDTIME ANANT Administration Omeprazole 20 mg 05/13/20 06:30 05/15/20 06:11 Omeprazole 20 Mg Capsule. PO 20 mg DAILY@0630 ANANT Administration Polyethylene Glycol 17 gm 04/29/20 13:15 05/15/20 09:07 Polyethylene Glycol 3350 17 Gm Powd.Pack PO 17 gm DAILY ANANT Administration Propranolol HCl 5 mg 05/12/20 21:00 05/15/20 09:08 Propranolol Hcl 10 Mg Tablet PO 5 mg BID ANANT Administration Protocol Sucralfate 1 gm 05/12/20 16:30 05/15/20 09:07 Sucralfate 1 Gm Tablet PO 1 gm BIDAC ANANT Administration Trazodone HCl 50 mg 04/27/20 23:01 05/14/20 20:47 Trazodone Hcl 50 Mg Tablet PO 50 mg BEDTIME PRN Administration Insomnia Allergies Allergies Allergy/AdvReac Type Severity Reaction Status Date / Time NSAIDS (Non-Steroidal Allergy Intermediate RASH Verified 01/05/20 20:37 Anti-Inflamma [NSAIDS (NON-STEROIDAL ANTI-INFLAMMA] aspirin [ASPIRIN] Allergy Mild HIVES Verified 01/05/20 20:37 ibuprofen Allergy Unknown hives Verified 07/15/19 00:00 Assessment & Plan Assessment & Plan (1) Schizoaffective disorder: Status: Acute Code(s): F25.9 - Schizoaffective disorder, unspecified Assessment and Plan: Today, pt has several medical issues she has discussed-dental pain-currently on antibiotic treatment; hernia-will follow with OP GI appt, concern about having gout-uric acid level WNL, BLE Edema-agrees to wear TASNEEM Stockings. Continue current regime. Greater than 50% of the session was spent on counseling and/or coordination of care Reason for contiued inpatient stay Substantial Risk for: harm to self, harm to others, inability to function and rapid decompensation
[2020-05-15 16:40] LABS: Uric Acid 5.3 mg/dL (2.4-5.7)
[2020-05-15 16:45] VITALS: BP 127/64; PULSE 97; TEMP 36.8
[2020-05-15] MEDS: HaloperidoL 1 MG TABLET 2 MG PO (20:42)
[2020-05-15] MEDS: Mirtazapine 7.5 MG TABLET PO (20:42)
[2020-05-15] MEDS: OLANZapine 7.5 MG TABLET 15 MG PO (20:42)
[2020-05-15] MEDS: traZODone HCL 50 MG TABLET PO (20:48)
[2020-05-15] MEDS: Magnesium Hydrox/Alum Hydrox 30 ML ORAL.SUSP PO (21:10)
[2020-05-16] MEDS: traZODone HCL 50 MG TABLET PO ×2 (03:15→22:31)
[2020-05-16] MEDS: Omeprazole 20 MG CAPSULE.DR PO (06:17)
[2020-05-16 06:30] VITALS: BP 101/51; PULSE 106; RESP 20; TEMP 37.4; O2SAT 96
[2020-05-16 08:46] LABS: Estimated Average Glucose 91 mg/dL; Hemoglobin A1c % 4.8 %
[2020-05-16 09:09] LABS: Cholesterol 132 mg/dL; Glucose Fasting 135 mg/dL (60-99); HDL Cholesterol 50 mg/dL; LDL Cholesterol Calculated 64 mg/dl; Triglycerides 92 mg/dL
[2020-05-16] MEDS: OLANZapine 5 MG TABLET PO (09:18)
[2020-05-16] MEDS: Sucralfate 1 GM TABLET PO ×2 (09:19→19:42)
[2020-05-16] MEDS: polyethylene glycoL 3350 17 GM POWD.PACK PO (09:19)
[2020-05-16] MEDS: clonazePAM 0.5 MG TABLET PO ×2 (09:19→22:29)
[2020-05-16] MEDS: lamoTRIgine 25 MG TABLET 50 MG PO (09:19)
[2020-05-16] MEDS: Lidocaine 4 % Patch ADH..PATCH 1 PATCH TRANSDERMA (09:19)
[2020-05-16] MEDS: Ferrous Sulfate 324 MG TABLET.DR PO ×2 (09:19→19:43)
[2020-05-16] MEDS: Gabapentin 300 MG CAPSULE PO ×2 (09:19→22:30)
[2020-05-16] MEDS: Acetaminophen 325 MG TABLET 650 MG PO (09:24)
[2020-05-16] MEDS: Nicotine Polacrilex 2 MG GUM 4 MG BUCCAL (14:21)
[2020-05-16] MEDS: hydrOXYzine HCL 25 MG TABLET PO (14:23)
--- NOTE | 2020-05-16 17:02 | HO.PSYCHPN ---
Subjective Subjective Date of Service: 05/16/20 Reason For Visit: PSYCHOSIS Subjective Notes: Section 7 Interim History: Pt discussed wanting discharge and planning to live with sister Yessica and her daughter. Reviewed with pt that Yessica has custody of her daughter and will not be able to allow her to live there and other relatives have declined to have her stay with them. Pt unaccepting of this-discussed court process for 05/23-pt states her consumer attorney told her she may leave the hospital and return for court. Education provided. Pt denies SI, HI. She reports anxiety 11/19 due to not being with her daughter. Denies depressive sx. Review of labs-uric acid level is WNL-pt compliant with TEDS stockings. Discussed potential discharge and pt being homeless. With current psychiatric and medical issues needing care encouraged pt to remain to complete her care and attempt to negotiate with her family. She declines. Medication Compliance: Yes Side effects from medications: No Attending Groups: No Review of Systems Reports behavioral changes Psychiatric: Reports anxiety, Reports behavioral changes, Reports irritability, Reports hallucinations, Reports homicidal ideation (denies) and Reports suicidal ideation (denies) Mental Status Exam Mental Status Exam Patient Appearance: Disheveled Patient Orientation: Person and Place Level of Consciousness: Alert Patient Behavior: Guarded, Talkative, Suspicious, Anxious, Fatigued and Isolative Mood Description: Withdrawn and Depressed Affect Description: Flat Patient Cognition Impaired: Yes Ability to Follow Directions: Fair Speech Pattern: Spontaneous Speech, Soft-Spoken and Mumbled Memory Description: Remote Impaired and Episodic Impaired Delusions: Paranoid Ideation and Present Thought Process: Illogical Thought Content: positive for [place], positive for Circumstantial and positive for Perseveration Depressive Symptoms: Increased Anxiety, Isolating-Friends/Family, Increased Fatigue and Loss of Energy Judgement: Poor Diagnostics Vital Signs (24Hr): Vital Signs - 24 hr 05/16/20 06:30 Temperature 99.3 F Pulse Rate 106 H Respiratory Rate 20 Blood Pressure 101/51 L Pulse Oximetry 96 Body Mass Index 24.7 Labs Results: 05/14/20 11:52 05/14/20 11:52 Labs: Laboratory Results - last 48 hr 05/15/20 05/16/20 05/16/20 16:07 08:07 08:07 Fasting Glucose 135 H Estimat Average Glucose 91 Hemoglobin A1c % 4.8 Uric Acid 5.3 Triglycerides 92 Cholesterol 132 LDL Cholesterol, Calc 64 HDL Cholesterol 50 Imaging Radiology Impressions: ITS Impressions Head CT 04/27/20 16:47 IMPRESSION: No acute intracranial pathology. Abdomen/Pelvis CT 05/05/20 19:04 IMPRESSION: 1. An etiology for the patient's bilateral flank pain and nausea is not been found. 2. Evidence of cirrhosis with nodular liver and recanalized umbilical vein. 3. Symmetric thickening of bladder wall consistent with given history of cystitis 4. Other incidental findings as described above. Medications Medications Current Medications Generic Name Dose Route Start Last Admin Trade Name Freq PRN Reason Stop Dose Admin Acetaminophen 650 mg 04/27/20 23:01 05/16/20 09:24 Acetaminophen 325 Mg Tablet PO 650 mg Q6H PRN Administration Headache/Pain Mild Scale (1-3) Al Hydroxide/Mg Hydroxide 30 ml 04/27/20 23:01 05/15/20 21:10 Magnesium Hydrox/Alum Hydrox 30 Ml Oral.Susp PO 30 ml Q6H PRN Administration Heartburn/Nausea Benzocaine 1 appl 05/08/20 19:36 05/13/20 09:33 Benzocaine 10 % Oral Gel 9 Gm Tube MUCOUS MEM 1 appl QID PRN Administration Pain, Moderate (Pain Scale 4-6 Protocol Clonazepam 0.5 mg 05/12/20 13:30 05/16/20 09:19 Clonazepam 0.5 Mg Tablet PO 0.5 mg BID ANANT Administration Docusate Sodium 100 mg 04/28/20 18:35 05/13/20 20:30 Docusate Sodium 100 Mg Capsule PO 100 mg BID PRN Administration Constipation Ferrous Sulfate 324 mg 05/01/20 18:15 05/16/20 09:19 Ferrous Sulfate 324 Mg Tablet. PO 324 mg BIDWM ANANT Administration Gabapentin 300 mg 05/01/20 21:00 05/16/20 09:19 Gabapentin 300 Mg Capsule PO 300 mg BID ANANT Administration Haloperidol 2 mg 05/12/20 21:00 05/15/20 20:42 Haloperidol 1 Mg Tablet PO 2 mg BEDTIME ANANT Administration Hydroxyzine HCl 25 mg 04/27/20 23:01 05/16/20 14:23 Hydroxyzine Hcl 25 Mg Tablet PO 25 mg Q6H PRN Administration Anxiety Lamotrigine 50 mg 05/13/20 09:00 05/16/20 09:19 Lamotrigine 25 Mg Tablet PO 50 mg DAILY ANANT Administration Lidocaine 1 patch 05/10/20 09:00 05/16/20 09:19 Lidocaine 4 % Patch Adh..Patch TRANSDERMA 1 patch DAILY ANANT Administration Protocol Magnesium Hydroxide 30 ml 04/27/20 23:01 05/13/20 20:30 Milk Of Magnesia 30 Ml Oral.Susp PO 30 ml DAILY PRN Administration Constipation Mirtazapine 7.5 mg 05/02/20 21:00 05/15/20 20:42 Mirtazapine 7.5 Mg Tablet PO 7.5 mg BEDTIME ANANT Administration Multivitamins/Minerals 1 tab 04/29/20 09:00 05/16/20 09:18 Multivitamin With Minerals Tablet PO 1 tab DAILY ANANT Administration Nicotine Polacrilex 4 mg 04/28/20 18:41 05/16/20 14:21 Nicotine Polacrilex 2 Mg Gum BUCCAL 4 mg Q2H PRN Administration Nicotine Cravings Olanzapine 5 mg 04/28/20 12:51 05/15/20 06:31 Olanzapine 5 Mg Tablet PO 5 mg Q4H PRN Administration psychosis, agitation Olanzapine 5 mg 04/30/20 09:00 05/16/20 09:18 Olanzapine 5 Mg Tablet PO 5 mg DAILY ANANT Administration Olanzapine 15 mg 05/01/20 21:00 05/15/20 20:42 Olanzapine 7.5 Mg Tablet PO 15 mg BEDTIME ANANT Administration Omeprazole 20 mg 05/13/20 06:30 05/16/20 06:17 Omeprazole 20 Mg Capsule. PO 20 mg DAILY@0630 ANANT Administration Polyethylene Glycol 17 gm 04/29/20 13:15 05/16/20 09:19 Polyethylene Glycol 3350 17 Gm Powd.Pack PO 17 gm DAILY ANANT Administration Sucralfate 1 gm 05/12/20 16:30 05/16/20 09:19 Sucralfate 1 Gm Tablet PO 1 gm BIDAC ANANT Administration Trazodone HCl 50 mg 04/27/20 23:01 05/16/20 03:15 Trazodone Hcl 50 Mg Tablet PO 50 mg BEDTIME PRN Administration Insomnia Allergies Allergies Allergy/AdvReac Type Severity Reaction Status Date / Time NSAIDS (Non-Steroidal Allergy Intermediate RASH Verified 01/05/20 20:37 Anti-Inflamma [NSAIDS (NON-STEROIDAL ANTI-INFLAMMA] aspirin [ASPIRIN] Allergy Mild HIVES Verified 01/05/20 20:37 ibuprofen Allergy Unknown hives Verified 07/15/19 00:00 Assessment & Plan Assessment & Plan (1) Schizoaffective disorder: Status: Acute Code(s): F25.9 - Schizoaffective disorder, unspecified Greater than 50% of the session was spent on counseling and/or coordination of care Reason for contiued inpatient stay Substantial Risk for: harm to others, inability to function and rapid decompensation
[2020-05-16] MEDS: diphenhydrAMINE HCL 25 MG TABLET 50 MG PO (21:56)
[2020-05-16 22:09] VITALS: BP 123/57; PULSE 68; TEMP 36.8; O2SAT 98
[2020-05-16] MEDS: HaloperidoL 1 MG TABLET 2 MG PO (22:28)
[2020-05-16] MEDS: Mirtazapine 7.5 MG TABLET PO (22:29)
[2020-05-16] MEDS: OLANZapine 7.5 MG TABLET 15 MG PO (22:29)
[2020-05-17 06:20] VITALS: BP 105/56; PULSE 104; RESP 20; TEMP 37.4
[2020-05-17] MEDS: hydrOXYzine HCL 25 MG TABLET PO (08:25)
[2020-05-17] MEDS: OLANZapine 5 MG TABLET PO ×2 (08:25→15:55)
[2020-05-17] MEDS: Sucralfate 1 GM TABLET PO ×2 (08:25→16:17)
[2020-05-17] MEDS: Omeprazole 20 MG CAPSULE.DR PO (08:25)
[2020-05-17] MEDS: Ferrous Sulfate 324 MG TABLET.DR PO ×2 (08:25→16:16)
[2020-05-17] MEDS: clonazePAM 0.5 MG TABLET PO ×2 (08:25→20:16)
[2020-05-17] MEDS: Lidocaine 4 % Patch ADH..PATCH 1 PATCH TRANSDERMA (08:38)
[2020-05-17] MEDS: polyethylene glycoL 3350 17 GM POWD.PACK PO (08:38)
[2020-05-17] MEDS: Gabapentin 300 MG CAPSULE PO ×2 (08:38→20:15)
--- NOTE | 2020-05-17 12:05 | HO.PSYCHPN ---
Subjective Subjective Date of Service: 05/17/20 Reason For Visit: PSYCHOSIS Diagnostics Vital Signs (24Hr): Vital Signs - 24 hr 05/16/20 22:09 05/17/20 06:20 Temperature 98.2 F 99.4 F Pulse Rate 68 104 H Respiratory Rate 20 Blood Pressure 123/57 L 105/56 L Pulse Oximetry 98 Body Mass Index 24.7 Labs Results: 05/14/20 11:52 05/14/20 11:52 Labs: Laboratory Results - last 48 hr 05/15/20 05/16/20 05/16/20 16:07 08:07 08:07 Fasting Glucose 135 H Estimat Average Glucose 91 Hemoglobin A1c % 4.8 Uric Acid 5.3 Triglycerides 92 Cholesterol 132 LDL Cholesterol, Calc 64 HDL Cholesterol 50 Imaging Radiology Impressions: ITS Impressions Head CT 04/27/20 16:47 IMPRESSION: No acute intracranial pathology. Abdomen/Pelvis CT 05/05/20 19:04 IMPRESSION: 1. An etiology for the patient's bilateral flank pain and nausea is not been found. 2. Evidence of cirrhosis with nodular liver and recanalized umbilical vein. 3. Symmetric thickening of bladder wall consistent with given history of cystitis 4. Other incidental findings as described above. Medications Medications Current Medications Generic Name Dose Route Start Last Admin Trade Name Freq PRN Reason Stop Dose Admin Acetaminophen 650 mg 04/27/20 23:01 05/16/20 09:24 Acetaminophen 325 Mg Tablet PO 650 mg Q6H PRN Administration Headache/Pain Mild Scale (1-3) Al Hydroxide/Mg Hydroxide 30 ml 04/27/20 23:01 05/15/20 21:10 Magnesium Hydrox/Alum Hydrox 30 Ml Oral.Susp PO 30 ml Q6H PRN Administration Heartburn/Nausea Benzocaine 1 appl 05/08/20 19:36 05/16/20 22:30 Benzocaine 10 % Oral Gel 9 Gm Tube MUCOUS MEM 1 appl QID PRN Administration Pain, Moderate (Pain Scale 4-6 Protocol Clonazepam 0.5 mg 05/12/20 13:30 05/17/20 08:25 Clonazepam 0.5 Mg Tablet PO 0.5 mg BID ANANT Administration Docusate Sodium 100 mg 04/28/20 18:35 05/13/20 20:30 Docusate Sodium 100 Mg Capsule PO 100 mg BID PRN Administration Constipation Ferrous Sulfate 324 mg 05/01/20 18:15 05/17/20 08:25 Ferrous Sulfate 324 Mg Tablet. PO 324 mg BIDWM ANANT Administration Gabapentin 300 mg 05/01/20 21:00 05/17/20 08:38 Gabapentin 300 Mg Capsule PO 300 mg BID ANANT Administration Haloperidol 2 mg 05/12/20 21:00 05/16/20 22:28 Haloperidol 1 Mg Tablet PO 2 mg BEDTIME ANANT Administration Hydroxyzine HCl 25 mg 04/27/20 23:01 05/17/20 08:25 Hydroxyzine Hcl 25 Mg Tablet PO 25 mg Q6H PRN Administration Anxiety Lidocaine 1 patch 05/10/20 09:00 05/17/20 08:38 Lidocaine 4 % Patch Adh..Patch TRANSDERMA 1 patch DAILY ANANT Administration Protocol Magnesium Hydroxide 30 ml 04/27/20 23:01 05/13/20 20:30 Milk Of Magnesia 30 Ml Oral.Susp PO 30 ml DAILY PRN Administration Constipation Mirtazapine 7.5 mg 05/02/20 21:00 05/16/20 22:29 Mirtazapine 7.5 Mg Tablet PO 7.5 mg BEDTIME ANANT Administration Multivitamins/Minerals 1 tab 04/29/20 09:00 05/17/20 08:25 Multivitamin With Minerals Tablet PO 1 tab DAILY ANANT Administration Nicotine Polacrilex 4 mg 04/28/20 18:41 05/16/20 14:21 Nicotine Polacrilex 2 Mg Gum BUCCAL 4 mg Q2H PRN Administration Nicotine Cravings Olanzapine 5 mg 04/28/20 12:51 05/15/20 06:31 Olanzapine 5 Mg Tablet PO 5 mg Q4H PRN Administration psychosis, agitation Olanzapine 5 mg 04/30/20 09:00 05/17/20 08:25 Olanzapine 5 Mg Tablet PO 5 mg DAILY ANNAT Administration Olanzapine 15 mg 05/01/20 21:00 05/16/20 22:29 Olanzapine 7.5 Mg Tablet PO 15 mg BEDTIME ANANT Administration Omeprazole 20 mg 05/13/20 06:30 05/17/20 08:25 Omeprazole 20 Mg Capsule. PO 20 mg DAILY@0630 ANANT Administration Polyethylene Glycol 17 gm 04/29/20 13:15 05/17/20 08:38 Polyethylene Glycol 3350 17 Gm Powd.Pack PO 17 gm DAILY ANANT Administration Sucralfate 1 gm 05/12/20 16:30 05/17/20 08:25 Sucralfate 1 Gm Tablet PO 1 gm BIDAC ANANT Administration Trazodone HCl 50 mg 04/27/20 23:01 05/16/20 22:31 Trazodone Hcl 50 Mg Tablet PO 50 mg BEDTIME PRN Administration Insomnia Allergies Allergies Allergy/AdvReac Type Severity Reaction Status Date / Time NSAIDS (Non-Steroidal Allergy Intermediate RASH Verified 01/05/20 20:37 Anti-Inflamma [NSAIDS (NON-STEROIDAL ANTI-INFLAMMA] aspirin [ASPIRIN] Allergy Mild HIVES Verified 01/05/20 20:37 ibuprofen Allergy Unknown hives Verified 07/15/19 00:00 Assessment & Plan Assessment & Plan (1) Schizoaffective disorder: Status: Acute Code(s): F25.9 - Schizoaffective disorder, unspecified (2) Flank pain: Status: Acute Code(s): R10.9 - Unspecified abdominal pain Greater than 50% of the session was spent on counseling and/or coordination of care
--- NOTE | 2020-05-17 12:29 | P.PNPSI_ITS ---
Subjective Subjective Date of Service: 05/17/20 Reason For Visit: PSYCHOSIS Subjective Notes: Section 7 and Conditional Voluntary Interim History: Pt hopes to discharge on 05/19. She has a chronic fixed delusion that she has an apartment with her daughter and has custody. When reality testing is attempted she does not acknowledge, stating family has given incorrect information. She reports tooth pain, foot pain. Lamictal is stopped as pt had an allergic response last evening, however, it appears the precipitant to this was the use of lotion which had perfume on it which she used on her face. Speech remains difficult to understand at times. Section VII unable to be validated in court as pt is not presenting an overt danger to self or others. She is accepting meds, treatment, follow up appointments, medical care-she only disagrees on custody of her child (pt per family does not know where her daughter lives at this time) and housing. Medication Compliance: Yes Side effects from medications: No (Lamictal D/C due to rash, it appears rx to perfumed lotion.) Attending Groups: Intermittent Review of Systems Psychiatric: Reports anxiety, Reports homicidal ideation (denies) and Reports suicidal ideation (denies) Mental Status Exam Mental Status Exam Patient Appearance: Disheveled Patient Orientation: Person, Place and Time Level of Consciousness: Alert Patient Behavior: Appropriate, Talkative and Cooperative Mood Description: Constricted Affect Description: Constricted Patient Cognition Impaired: No Ability to Follow Directions: Good Speech Pattern: Monotone, Spontaneous Speech, Soft-Spoken and Mumbled Memory Description: Remote Impaired and Episodic Impaired Hallucinations: None Delusions: Present (believes she has custody of her daughter and they have an apartment) Thought Process: Intact Thought Content: positive for Intact, positive for Circumstantial, positive for Suicidal Ideation (denies) and positive for Homicidal Ideation (denies) Depressive Symptoms: Increased Anxiety Judgement: Good Diagnostics Vital Signs (24Hr): Vital Signs - 24 hr 05/16/20 22:09 05/17/20 06:20 Temperature 98.2 F 99.4 F Pulse Rate 68 104 H Respiratory Rate 20 Blood Pressure 123/57 L 105/56 L Pulse Oximetry 98 Body Mass Index 24.7 Labs Results: 05/14/20 11:52 05/14/20 11:52 Labs: Laboratory Results - last 48 hr 04/06/3005/16/20 05/16/20 16:07 08:07 08:07 Fasting Glucose 135 H Estimat Average Glucose 91 Hemoglobin A1c % 4.8 Uric Acid 5.3 Triglycerides 92 Cholesterol 132 LDL Cholesterol, Calc 64 HDL Cholesterol 50 Imaging Radiology Impressions: ITS Impressions Head CT 04/27/20 16:47 IMPRESSION: No acute intracranial pathology. Abdomen/Pelvis CT 05/05/20 19:04 IMPRESSION: 1. An etiology for the patient's bilateral flank pain and nausea is not been found. 2. Evidence of cirrhosis with nodular liver and recanalized umbilical vein. 3. Symmetric thickening of bladder wall consistent with given history of cystitis 4. Other incidental findings as described above. Medications Medications Current Medications Generic Name Dose Route Start Last Admin Trade Name Freq PRN Reason Stop Dose Admin Acetaminophen 650 mg 04/27/20 23:01 05/16/20 09:24 Acetaminophen 325 Mg Tablet PO 650 mg Q6H PRN Administration Headache/Pain Mild Scale (1-3) Al Hydroxide/Mg Hydroxide 30 ml 04/27/20 23:01 05/15/20 21:10 Magnesium Hydrox/Alum Hydrox 30 Ml Oral.Susp PO 30 ml Q6H PRN Administration Heartburn/Nausea Benzocaine 1 appl 05/08/20 19:36 05/16/20 22:30 Benzocaine 10 % Oral Gel 9 Gm Tube MUCOUS MEM 1 appl QID PRN Administration Pain, Moderate (Pain Scale 4-6 Protocol Clonazepam 0.5 mg 05/12/20 13:30 05/17/20 08:25 Clonazepam 0.5 Mg Tablet PO 0.5 mg BID ANANT Administration Docusate Sodium 100 mg 04/28/20 18:35 05/13/20 20:30 Docusate Sodium 100 Mg Capsule PO 100 mg BID PRN Administration Constipation Ferrous Sulfate 324 mg 05/01/20 18:15 05/17/20 08:25 Ferrous Sulfate 324 Mg Tablet. PO 324 mg BIDWM ANANT Administration Gabapentin 300 mg 05/01/20 21:00 05/17/20 08:38 Gabapentin 300 Mg Capsule PO 300 mg BID ANANT Administration Haloperidol 2 mg 05/12/20 21:00 05/16/20 22:28 Haloperidol 1 Mg Tablet PO 2 mg BEDTIME ANANT Administration Hydroxyzine HCl 25 mg 04/27/20 23:01 05/17/20 08:25 Hydroxyzine Hcl 25 Mg Tablet PO 25 mg Q6H PRN Administration Anxiety Lidocaine 1 patch 05/10/20 09:00 05/17/20 08:38 Lidocaine 4 % Patch Adh..Patch TRANSDERMA 1 patch DAILY ANANT Administration Protocol Magnesium Hydroxide 30 ml 04/27/20 23:01 05/13/20 20:30 Milk Of Magnesia 30 Ml Oral.Susp PO 30 ml DAILY PRN Administration Constipation Mirtazapine 7.5 mg 05/02/20 21:00 05/16/20 22:29 Mirtazapine 7.5 Mg Tablet PO 7.5 mg BEDTIME ANANT Administration Multivitamins/Minerals 1 tab 04/29/20 09:00 05/17/20 08:25 Multivitamin With Minerals Tablet PO 1 tab DAILY ANANT Administration Nicotine Polacrilex 4 mg 04/28/20 18:41 05/16/20 14:21 Nicotine Polacrilex 2 Mg Gum BUCCAL 4 mg Q2H PRN Administration Nicotine Cravings Olanzapine 5 mg 04/28/20 12:51 05/15/20 06:31 Olanzapine 5 Mg Tablet PO 5 mg Q4H PRN Administration psychosis, agitation Olanzapine 5 mg 04/30/20 09:00 05/17/20 08:25 Olanzapine 5 Mg Tablet PO 5 mg DAILY ANANT Administration Olanzapine 15 mg 05/01/20 21:00 05/16/20 22:29 Olanzapine 7.5 Mg Tablet PO 15 mg BEDTIME ANANT Administration Omeprazole 20 mg 05/13/20 06:30 05/17/20 08:25 Omeprazole 20 Mg Capsule. PO 20 mg DAILY@0630 ANANT Administration Polyethylene Glycol 17 gm 04/29/20 13:15 05/17/20 08:38 Polyethylene Glycol 3350 17 Gm Powd.Pack PO 17 gm DAILY ANANT Administration Sucralfate 1 gm 05/12/20 16:30 05/17/20 08:25 Sucralfate 1 Gm Tablet PO 1 gm BIDAC ANANT Administration Trazodone HCl 50 mg 04/27/20 23:01 05/16/20 22:31 Trazodone Hcl 50 Mg Tablet PO 50 mg BEDTIME PRN Administration Insomnia Allergies Allergies Allergy/AdvReac Type Severity Reaction Status Date / Time NSAIDS (Non-Steroidal Allergy Intermediate RASH Verified 01/05/20 20:37 Anti-Inflamma [NSAIDS (NON-STEROIDAL ANTI-INFLAMMA] aspirin [ASPIRIN] Allergy Mild HIVES Verified 01/05/20 20:37 ibuprofen Allergy Unknown hives Verified 07/15/19 00:00 Assessment & Plan Assessment & Plan (1) Schizoaffective disorder: Status: Acute Code(s): F25.9 - Schizoaffective disorder, unspecified Assessment and Plan: -Fixed delusion regarding custody of her daughter and having an apartment. -Compliant with medications and treatment -Continue current regime -Not currently a candidate for Civil Commitment (2) Pain, dental: Status: Acute Code(s): K08.89 - Other specified disorders of teeth and supporting structures Assessment and Plan: -Antibiotic course completed -Tramadol 25 mg bid prn pain -Out pt referral to dental (3) Bipolar disorder with psychotic features: Status: Acute Code(s): F31.9 - Bipolar disorder, unspecified Assessment and Plan: Mood, affect are constricted. No overt sx of philip. Continue current regime Pt agrees to out pt follow up (4) Gastritis: Status: Acute Code(s): K29.70 - Gastritis, unspecified, without bleeding Assessment and Plan: OP follow up upon discharge- pt agrees Continue omeprazole Greater than 50% of the session was spent on counseling and/or coordination of care Reason for contiued inpatient stay Substantial Risk for: harm to others, inability to function and rapid decom pensation
[2020-05-17 16:45] VITALS: BP 137/75; PULSE 73; TEMP 37.2
[2020-05-17] MEDS: traZODone HCL 50 MG TABLET PO (20:15)
[2020-05-17] MEDS: OLANZapine 7.5 MG TABLET 15 MG PO (20:16)
[2020-05-17] MEDS: Mirtazapine 7.5 MG TABLET PO (20:16)
[2020-05-17] MEDS: HaloperidoL 1 MG TABLET 2 MG PO (20:16)
[2020-05-17] MEDS: Magnesium Hydrox/Alum Hydrox 30 ML ORAL.SUSP PO (20:53)
[2020-05-18 06:20] VITALS: BP 110/57; PULSE 111; RESP 18; TEMP 37.1; O2SAT 96
[2020-05-18] MEDS: Omeprazole 20 MG CAPSULE.DR PO (06:35)
[2020-05-18] MEDS: Acetaminophen 325 MG TABLET 650 MG PO ×2 (06:38→20:46)
[2020-05-18] MEDS: hydrOXYzine HCL 25 MG TABLET PO (06:39)
[2020-05-18] MEDS: polyethylene glycoL 3350 17 GM POWD.PACK PO (08:56)
[2020-05-18] MEDS: OLANZapine 5 MG TABLET PO (08:56)
[2020-05-18] MEDS: Ferrous Sulfate 324 MG TABLET.DR PO ×2 (08:56→16:08)
[2020-05-18] MEDS: clonazePAM 0.5 MG TABLET PO ×2 (08:56→20:41)
[2020-05-18] MEDS: Sucralfate 1 GM TABLET PO ×2 (08:56→16:08)
[2020-05-18] MEDS: Gabapentin 300 MG CAPSULE PO ×2 (08:56→20:42)
[2020-05-18] MEDS: Lidocaine 4 % Patch ADH..PATCH 1 PATCH TRANSDERMA (09:20)
[2020-05-18] MEDS: traMADoL HCL 50 MG TABLET PO (16:08)
[2020-05-18 18:00] VITALS: BP 138/68; PULSE 99; TEMP 36.5
--- NOTE | 2020-05-18 19:06 | P.PNPSI_ITS ---
Subjective Subjective Date of Service: 05/18/20 Reason For Visit: PSYCHOSIS Subjective Notes: Section 7 Interim History: Asking for discharge. Discussed team attempting to connect her with a retirement. She will accept the referral but asks that her daughter be referred as well. Reviewed that her sister has guardianship of daughter- you keep saying that-have I missed something? Explained that sister is taking care of pt's daughter due to pt being ill. Discussed referrals-PCP, Dr. Tamez (), [facility], psychotherapy, psychopharmacology and [facility]. Pt states she will follow up with all appointments- and I will come back here if I need to, I promise. Reports feeling better since her hospitalization, but feeling ready to leave and live her life. States she has a partner and will reunite with him upon discharge. Medication Compliance: Yes Side effects from medications: No (denies) Attending Groups: Intermittent Review of Systems Musculoskeletal: Reports back pain (using prn Tramadol) Psychiatric: Reports anxiety Mental Status Exam Mental Status Exam Patient Appearance: Disheveled Patient Orientation: Person, Place, Time and Situation Level of Consciousness: Alert Patient Behavior: Appropriate, Talkative, Cooperative, Passive and Anxious Mood Description: Calm Affect Description: Calm Patient Cognition Impaired: No Ability to Follow Directions: Good Speech Pattern: Monotone, Spontaneous Speech, Soft-Spoken and Mumbled Memory Description: Episodic Impaired Hallucinations: None (denies) Delusions: Present (fixed-today some ability to question guardianship of her daughter) Thought Process: Illogical (regarding fixed delusion content) and Goal Oriented Thought Content: positive for [place], positive for Circumstantial, positive for Goal Oriented, positive for Suicidal Ideation (denies) and positive for Homi cidal Ideation (denies) Depressive Symptoms: Increased Anxiety Judgement: Good Diagnostics Vital Signs (24Hr): Vital Signs - 24 hr 05/18/20 06:20 Temperature 98.8 F Pulse Rate 111 H Respiratory Rate 18 Blood Pressure 110/57 L Pulse Oximetry 96 Body Mass Index 24.7 Labs Results: 05/14/20 11:52 05/14/20 11:52 Imaging Radiology Impressions: ITS Impressions Head CT 04/27/20 16:47 IMPRESSION: No acute intracranial pathology. Abdomen/Pelvis CT 05/05/20 19:04 IMPRESSION: 1. An etiology for the patient's bilateral flank pain and nausea is not been found. 2. Evidence of cirrhosis with nodular liver and recanalized umbilical vein. 3. Symmetric thickening of bladder wall consistent with given history of cystitis 4. Other incidental findings as described above. Medications Medications Current Medications Generic Name Dose Route Start Last Admin Trade Name Freq PRN Reason Stop Dose Admin Acetaminophen 650 mg 04/27/20 23:01 05/18/20 06:38 Acetaminophen 325 Mg Tablet PO 650 mg Q6H PRN Administration Headache/Pain Mild Scale (1-3) Al Hydroxide/Mg Hydroxide 30 ml 04/27/20 23:01 05/17/20 20:53 Magnesium Hydrox/Alum Hydrox 30 Ml Oral.Susp PO 30 ml Q6H PRN Administration Heartburn/Nausea Benzocaine 1 appl 05/08/20 19:36 05/16/20 22:30 Benzocaine 10 % Oral Gel 9 Gm Tube MUCOUS MEM 1 appl QID PRN Administration Pain, Moderate (Pain Scale 4-6 Protocol Clonazepam 0.5 mg 05/12/20 13:30 05/18/20 08:56 Clonazepam 0.5 Mg Tablet PO 0.5 mg BID ANANT Administration Docusate Sodium 100 mg 04/28/20 18:35 05/13/20 20:30 Docusate Sodium 100 Mg Capsule PO 100 mg BID PRN Administration Constipation Ferrous Sulfate 324 mg 05/01/20 18:15 05/18/20 16:08 Ferrous Sulfate 324 Mg Tablet.Dr PO 324 mg BIDWM ANANT Administration Gabapentin 300 mg 05/01/20 21:00 05/18/20 08:56 Gabapentin 300 Mg Capsule PO 300 mg BID ANANT Administration Haloperidol 2 mg 05/12/20 21:00 05/17/20 20:16 Haloperidol 1 Mg Tablet PO 2 mg BEDTIME ANANT Administration Hydroxyzine HCl 25 mg 04/27/20 23:01 05/18/20 06:39 Hydroxyzine Hcl 25 Mg Tablet PO 25 mg Q6H PRN Administration Anxiety Lidocaine 1 patch 05/10/20 09:00 05/18/20 09:20 Lidocaine 4 % Patch Adh..Patch TRANSDERMA 1 patch DAILY ANANT Administration Protocol Magnesium Hydroxide 30 ml 04/27/20 23:01 05/13/20 20:30 Milk Of Magnesia 30 Ml Oral.Susp PO 30 ml DAILY PRN Administration Constipation Mirtazapine 7.5 mg 05/02/20 21:00 05/17/20 20:16 Mirtazapine 7.5 Mg Tablet PO 7.5 mg BEDTIME ANANT Administration Multivitamins/Minerals 1 tab 04/29/20 09:00 05/18/20 08:56 Multivitamin With Minerals Tablet PO 1 tab DAILY ANANT Administration Nicotine Polacrilex 4 mg 04/28/20 18:41 05/16/20 14:21 Nicotine Polacrilex 2 Mg Gum BUCCAL 4 mg Q2H PRN Administration Nicotine Cravings Olanzapine 5 mg 04/28/20 12:51 05/17/20 15:55 Olanzapine 5 Mg Tablet PO 5 mg Q4H PRN Administration psychosis, agitation Olanzapine 5 mg 04/30/20 09:00 05/18/20 08:56 Olanzapine 5 Mg Tablet PO 5 mg DAILY ANANT Administration Olanzapine 15 mg 05/01/20 21:00 05/17/20 20:16 Olanzapine 7.5 Mg Tablet PO 15 mg BEDTIME ANANT Administration Omeprazole 20 mg 05/13/20 06:30 05/18/20 06:35 Omeprazole 20 Mg Capsule.Dr PO 20 mg DAILY@0630 ANANT Administration Polyethylene Glycol 17 gm 04/29/20 13:15 05/18/20 08:56 Polyethylene Glycol 3350 17 Gm Powd.Pack PO 17 gm DAILY ANANT Administration Sucralfate 1 gm 05/12/20 16:30 05/18/20 16:08 Sucralfate 1 Gm Tablet PO 1 gm BIDAC ANANT Administration Tramadol HCl 50 mg 05/18/20 11:50 05/18/20 16:08 Tramadol Hcl 50 Mg Tablet PO 50 mg BID PRN Administration Pain, Mild (Pain Scale 1-3) Trazodone HCl 50 mg 04/27/20 23:01 05/17/20 20:15 Trazodone Hcl 50 Mg Tablet PO 50 mg BEDTIME PRN Administration Insomnia Allergies Allergies Allergy/AdvReac Type Severity Reaction Status Date / Time NSAIDS (Non-Steroidal Allergy Intermediate RASH Verified 01/05/20 20:37 Anti-Inflamma [NSAIDS (NON-STEROIDAL ANTI-INFLAMMA] aspirin [ASPIRIN] Allergy Mild HIVES Verified 01/05/20 20:37 ibuprofen Allergy Unknown hives Verified 07/15/19 00:00 Assessment & Plan Assessment & Plan (1) Schizoaffective disorder: Status: Acute Code(s): F25.9 - Schizoaffective disorder, unspecified Assessment and Plan: -Continue current regime with discontinuation of Remeron as pt prefers trazodone -Discharge tentative 05/19/20. -At this time pt does not meet civil commitment criteria. She is non suicidal, non homicidal, non manic. She has a fixed delusion that she has custody of her daughter and that she has an apartment which today she is beginning to question validity of. She has accepted all treatment and agrees to all follow up care and is very willing and interested in participating in treatment. She has agreed to retirement placement and the team is working on this. She states she will return to [facility] as needed for care and reports her medication regime has been helpful. (2) Pain, dental: Status: Acute Code(s): K08.89 - Other specified disorders of teeth and supporting structures Assessment and Plan: OP Follow up with [facility] [phone]. (3) Gastritis: Status: Acute Code(s): K29.70 - Gastritis, unspecified, without bleeding Assessment and Plan: Continue Carafate, Omeprazole, Ferrous Sulfate. Follow up with Dr. Tamez for further treatment (4) Anemia: Status: Acute Code(s): D64.9 - Anemia, unspecified Assessment and Plan: Continue Ferrous Sulfate Follow up with Dr. Tamez for further treatment. Greater than 50% of the session was spent on counseling and/or coordination of care Reason for contiued inpatient stay Substantial Risk for: stable for discharge
[2020-05-18] MEDS: OLANZapine 7.5 MG TABLET 15 MG PO (20:42)
[2020-05-18] MEDS: Mirtazapine 7.5 MG TABLET PO (20:42)
[2020-05-18] MEDS: HaloperidoL 1 MG TABLET 2 MG PO (20:42)
[2020-05-18] MEDS: Magnesium Hydrox/Alum Hydrox 30 ML ORAL.SUSP PO (20:45)
[2020-05-18] MEDS: traZODone HCL 50 MG TABLET PO (20:45)
[2020-05-19] MEDS: Omeprazole 20 MG CAPSULE.DR PO (05:52)
[2020-05-19 06:35] VITALS: BP 88/51; PULSE 108; RESP 18; TEMP 37; O2SAT 98
[2020-05-19] MEDS: Lidocaine 4 % Patch ADH..PATCH 1 PATCH TRANSDERMA (09:03)
[2020-05-19] MEDS: Ferrous Sulfate 324 MG TABLET.DR PO (09:04)
[2020-05-19] MEDS: clonazePAM 0.5 MG TABLET PO (09:04)
[2020-05-19] MEDS: OLANZapine 5 MG TABLET PO (09:04)
[2020-05-19] MEDS: Gabapentin 300 MG CAPSULE PO (09:04)
[2020-05-19] MEDS: polyethylene glycoL 3350 17 GM POWD.PACK PO (09:04)
[2020-05-19] MEDS: Sucralfate 1 GM TABLET PO (09:04)
[2020-05-19] MEDS: Acetaminophen 325 MG TABLET 650 MG PO ×2 (09:46→16:09)
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
== END 2020-05-19 16:46 | disposition home or self-care (01) | DRG 750 ==
LOC: HO.ED 04-27 19:04 → HO.PM5 04-27 23:16
PROVIDERS: Physician Assistant; Physician Assistant Medical; Psychiatry & Neurology Psychiatry; Admitting Provider Psychiatry & Neurology Psychiatry; Emergency Provider Emergency Medicine; PCP Internal Medicine; Visit Provider Clinical Nurse Specialist Psychiatric/Mental Health, Adult
DX: F25.9 Schizoaffective disorder, unspecified (principal); R45.851 Suicidal ideations; D64.9 Anemia, unspecified; K08.89 Other specified disorders of teeth and supporting structures; K29.70 Gastritis, unspecified, without bleeding; Z20.822 Contact with and (suspected) exposure to COVID-19; Z87.820 Personal history of traumatic brain injury; F17.210 Nicotine dependence, cigarettes, uncomplicated; Z71.6 Tobacco abuse counseling; Z88.6 Allergy status to analgesic agent; Z79.899 Other long term (current) drug therapy
CPT/HCPCS: 36415; 70450; 74176; 80048; 80053; 80061; 80076; 80307; 80320; 81001; 81003; 81025; 82040; 82140; 82550; 82607; 82746; 82947; 83036; 83540; 83735; 84100; 84443; 84550; 85025; 85610; 85652; 86140; 87086; 87088; 87186; 87635; 93005; 99285; Q0163

== ENCOUNTER → 2020-05-10 12:35 | Day surgery (SDC) | payer OTHER, SELFPAY ==
[2020-05-10 13:06] VITALS: BP 101/58; PULSE 109; RESP 18; TEMP 36.6; O2SAT 98; BMI 23.9
--- NOTE | 2020-05-10 14:08 | MHC.SHP ---
Pre-Procedural Eval Section A The patient is an INPATIENT: Yes The History & Physical has been completed within 30 days and I have reviewed it.: Yes Section B Chief Complaint: anemia Allergies: Allergies Allergy/AdvReac Type Severity Reaction Status Date / Time NSAIDS (Non-Steroidal Allergy Intermediate RASH Verified 01/05/20 20:37 Anti-Inflamma [NSAIDS (NON-STEROIDAL ANTI-INFLAMMA] aspirin [ASPIRIN] Allergy Mild HIVES Verified 01/05/20 20:37 ibuprofen Allergy Unknown hives Verified 07/15/19 00:00 Plan Diagnosis/Plan: Unchanged I have reviewed the history and physical and performed a pertinent physical examination on my patient. No changes have occurred unless specified.
--- NOTE | 2020-05-10 14:08 | PM.OP ---
Brief Operative Note Date of Service: 05/10/20 Pre-op diagnosis: anemia Post-op diagnosis: same Procedure: see op note Surgeon: Damian Tamez MD Anesthesia: MAC Estimated blood loss (mL): 0 Condition: stable Disposition: PACU
--- NOTE | 2020-05-10 14:09 | W.PM.OPN ---
Operative Note Operative Note Date of Service: 05/10/20 Narrative: Procedure Description: EGD FLEXIBLE TRANSORAL UPPER GASTROINTESTINAL ENDOSCOPY UPPER ENDOSCOPY Consent: Indications for the procedure and potential complications of bleeding, perforation, reaction to medications and missed diagnosis were discussed with the patient and informed consent was obtained. Instrument: Olympus GIF H 190 J mid size upper endoscope Monitoring: Vital signs and clinical assessment, continuous EKG monitoring, Pulse oximetry, Carbon Dioxide monitoring and blood pressure monitoring were done throughout the procedure. Procedure: The patient was placed in the left lateral decubitis position and pre-procedure medications were administered and a bite block was placed. The endoscope was inserted into the mouth and advanced under direct vision to the third part of duodenum. A careful inspection was made as the upper endoscope was withdrawn including a retroflexed examination of the proximal stomach; Findings and interventions are described below. Findings: Larynx:normal Esophagus: GE junction at 35 cm, diaphragm hiatus at 35 cm, x 2 columns of grade I varices with no high risk silva collapsed easily with air insufflation. Stomach: Patchy gastric erythema mauricio in proximal stomach and fundus. Biopsies were obtained. Grade 2 flap valve on retroflexed examination of the cardia. No gastric varices. there appeared to be a submucosal swelling in the distal stomach body on the greater curve. Tunneled bx taken and 3 clips applied due to oozing. Duodenum: Normal bulb and descending duodenum, bx taken Overall mucosa bled easily, could be nutritional deficiencies, plts ok, INR only mildly raised. Intervention: Biopsies as noted above Impression/Findings: small esophageal varices gastritis submucosal lesion PLAN: await bx PPI e.g pantoprazole 40 mg OD and sucralfate consider further imaging of abdomen vs referral for EUS o/p colonoscopy for completion of work up. would benefit from beta henry but her BP is borderline, might consider adding as o/p along with some midodrine. f/u office in 2 weeks
[2020-05-10 14:51] VITALS: BP 84/46; PULSE 106; RESP 16; TEMP 36.2; O2SAT 96
[2020-05-10 14:56] VITALS: BP 81/50
[2020-05-10 15:01] VITALS: BP 96/61
[2020-05-10 15:06] VITALS: BP 118/67; PULSE 108; RESP 16; TEMP 37.3; O2SAT 98
== END ==
PROVIDERS: PCP Internal Medicine; Visit Provider Internal Medicine Gastroenterology
PROC: 0DJ08ZZ Inspection of Upper Intestinal Tract, Via Natural or Artificial Opening Endoscopic (ICD-10-PCS; CPT 43235; principal; 2020-05-10 14:00)
DX: D64.9 Anemia, unspecified (principal); K92.1 Melena; K29.50 Unspecified chronic gastritis without bleeding; B96.81 Helicobacter pylori [H. pylori] as the cause of diseases classified elsewhere; I85.00 Esophageal varices without bleeding; K31.82 Dieulafoy lesion (hemorrhagic) of stomach and duodenum; K44.9 Diaphragmatic hernia without obstruction or gangrene; F31.9 Bipolar disorder, unspecified; Z87.820 Personal history of traumatic brain injury; Z90.49 Acquired absence of other specified parts of digestive tract; F17.210 Nicotine dependence, cigarettes, uncomplicated; Z79.899 Other long term (current) drug therapy; Z88.0 Allergy status to penicillin
CPT/HCPCS: 43239; 88305; 88342

== ENCOUNTER → 2020-06-27 08:50 | Outpatient (BNVA) | payer OTHER, SELFPAY | PROVIDERS: PCP Internal Medicine; Visit Provider Internal Medicine Gastroenterology | DX: D64.9 Anemia, unspecified (principal); K74.60 Unspecified cirrhosis of liver | CPT/HCPCS: 99212 ==

== ENCOUNTER 2020-07-19 10:12 | Outpatient (REF) | payer OTHER, SELFPAY ==
[2020-07-19 12:03] LABS: MANUAL DIFF FLAG NO
[2020-07-19 12:08] LABS: Basophils Absolute Auto 0.1 X10*3/uL (0.0-0.2); Basophils Percent Auto 0.6 % (0-2); Eosinophils Absolute Auto 0.3 X10*3/uL (0.0-0.4); Eosinophils Percent Auto 3.2 % (0-4); Hematocrit 30.8 % (37-47); Hemoglobin 10.4 g/dl (12.0-16.0); Imm Gran Abs Auto 0.03 X10*3/uL (0.00-0.03); Imm Gran Pct Auto 0.3 % (0.0-0.4); Lymphocytes Absolute Auto 2.3 X10*3/uL (1.2-4.9); Lymphocytes Percent Auto 25.9 % (20-40); Mean Corpuscular HGB Conc 33.8 g/dl (31.0-35.0); Mean Corpuscular Hemoglobin 31.6 pg (27.0-33.0); Mean Corpuscular Volume 93.6 fL (80-98); Mean Platelet Volume 9.7 fL (9.4-12.3); Monocytes Percent Auto 11.3 % (2-11); Neutrophils Absolute Auto 5.3 X10*3/uL (2.0-8.3); Neutrophils Percent Auto 58.7 % (45-73); Platelet Count 188 X10*3/uL (160-400); Red Blood Count 3.29 X10*6/uL (4.20-5.50)
[2020-07-19 12:17] LABS: INTERNATIONAL NORM RATIO 1.2 (0.9-1.1); Prothrombin Time 14.5 SEC (10.8-13.0)
[2020-07-19 12:57] LABS: Alanine Aminotransferase 11 U/L (0-31); Albumin Level 3.3 g/dL (3.5-5.0); Alkaline Phosphatase 129 U/L (39-117); Anion Gap 9 (12-20); Aspartate Amino Transferase 25 U/L (5-31); Bilirubin Total 0.4 mg/dL (0.0-1.0); Blood Urea Nitrogen 9 mg/dL (9-16); C Reactive Protein 0.37 mg/dL (< or = 0.50); Calcium 9.2 mg/dL (8.4-10.2); Carbon Dioxide 25 mmol/L (22-29); Chloride 110 mmol/L (96-108); Estimated Glomerular Filt Rate > 60; Glucose Random 83 mg/dL (60-115); Potassium 4.1 mmol/L (3.3-5.1); Sodium 140 mmol/L (135-145); Total Protein 6.6 g/dL (6.5-8.0)
[2020-07-19 13:03] LABS: HBS Num1 0.43 mIU/mL (0-7.99); Hepatitis A Antibody IgM 0.35 Index (0-0.79); ~Hepatitis A Antibody IgM Nonreactive (Nonreactive); ~Hepatitis B Surface Antibody NONREACTIVE (Nonreactive)
[2020-07-19 13:06] LABS: Vitamin D 25-OH Total 14.5 ng/mL (>30)
[2020-07-19 13:12] LABS: Erythrocyte Sedimentation Rate 29 MM/HR (0-20)
[2020-07-19 13:21] LABS: Folate 18.6 ng/mL (> or = 4.0); Vitamin B12 715 pg/mL (200-900)
[2020-07-19 13:34] LABS: Ferritin 45 ng/mL (10-250)
[2020-07-19 13:35] LABS: HBc Num1 0.16 S/CO (0.00-0.79); HBsAGNum1 0.21 S/CO (0.00-0.99); Hepatitis B Core Antibody Nonreactive (Nonreactive); Hepatitis B Surface Antigen Negative (Negative); ~HepC Num1 0.39 S/CO (0.00-0.79); ~Hepatitis C Antibody Nonreactive (Nonreactive)
[2020-07-19 14:00] LABS: CT PCR NOT DETECTED (Not Detect.); NG PCR NOT DETECTED (Not Detect.)
[2020-07-20 09:40] LABS: BV Int Neg Control Negative (Negative); BV Int Pos Control Positive (Positive)
[2020-07-20 14:22] LABS: Alpha 1 Anti-trypsin 162 mg/dL (83-199); Mitochondrial Antibodies NEGATIVE (NEGATIVE)
[2020-07-20 21:42] LABS: Immunoglobulin G Subclass 1 633 mg/dL (382-929); Immunoglobulin G Subclass 2 636 mg/dL (241-700); Immunoglobulin G Subclass 3 98 mg/dL (22-178); Immunoglobulin G Subclass 4 78.9 mg/dL (4-86); Immunoglobulin G Total 1443 mg/dL (600-1640)
[2020-07-21 00:06] LABS: IgA 565 mg/dL (47-310); IgG 1482 mg/dL (600-1640); IgM 152 mg/dL (50-300)
[2020-07-21 12:16] LABS: Anti Nuclear Antibody Screen NEGATIVE (NEGATIVE); Transglutaminase Ab IgG 3 U/mL; Transglutaminase IgA 1 U/mL
[2020-07-21 19:37] LABS: Gliadin Deamidated IgA Ab 5 Units; Gliadin Deamidated IgG Ab 2 Units
[2020-07-22 01:36] LABS: Zinc 48 mcg/dL (60-130)
[2020-07-22 04:27] LABS: HPV mRNA E6/E7 rflx Not Detected (Not Detected)
[2020-07-22 13:46] LABS: Soluble Liver Ag Autoantibody <20.1 U (0.0-20.0); Vitamin B6 15.1 ng/mL (2.1-21.7)
[2020-07-22 20:57] LABS: Vitamin K1 318 pg/mL (130-1500)
[2020-07-22 23:02] LABS: Vitamin C 0.8 mg/dL (0.3-2.7)
[2020-07-24 15:27] LABS: Alpha-Tocopherol 11.4 mg/L (5.7-19.9); Beta-Gamma Tocopherol 1.8 mg/L (<=4.3); Vitamin A 20 mcg/dL (38-98); Vitamin B5 (Pantothenic Acid) <40 ng/mL (<275)
[2020-07-24 17:32] LABS: Nicotinamide <20 ng/mL; Vit B3 - Nicotinic Acid <20 ng/mL
[2020-07-24 22:22] LABS: Smooth Muscle Antibody <20 U (<20)
[2020-07-25 21:23] LABS: Aldolase 4.7 U/L (<=8.1)
== END 2020-07-19 10:13 | disposition home or self-care (01) ==
LOC: HO.LAB 10:12
PROVIDERS: Absent Provider Internal Medicine Gastroenterology; PCP Internal Medicine; Visit Provider Advanced Practice Midwife
DX: Z01.419 Encounter for gynecological examination (general) (routine) without abnormal findings (principal); Z11.51 Encounter for screening for human papillomavirus (HPV); N89.8 Other specified noninflammatory disorders of vagina; R79.82 Elevated C-reactive protein (CRP); D64.9 Anemia, unspecified; K74.60 Unspecified cirrhosis of liver; K75.81 Nonalcoholic steatohepatitis (NASH); Z20.2 Contact with and (suspected) exposure to infections with a predominantly sexual mode of transmission
CPT/HCPCS: 36415; 80053; 82085; 82103; 82180; 82306; 82550; 82607; 82728; 82746; 82784; 83516; 83520; 84207; 84446; 84590; 84591; 84597; 84630; 85025; 85610; 85652; 86038; 86039; 86140; 86255; 86256; 86704; 86706; 86709; 86803; 87340; 87480; 87491; 87510; 87591; 87624; 87660; 88142

== ENCOUNTER → 2020-07-27 13:03 | Outpatient (REF) | payer OTHER, SELFPAY ==
--- NOTE | 2020-07-27 13:10 | CA_ITS ---
Transthoracic Echocardiogram Patient (Last, First, Middle): Angie Saldaña Ana Gender: Female Date of : 1970 Age: 50 Procedure Date: 07/27/2020 Procedure Type: Transthoracic Echocardiogram Location: OP Height: 160.02 cm Weight: 66.68 kg BSA: 1.70 m2 Heart Rate: bpm BP: 105 / 72 mmHg Superintendent Meters: BOB Referring MD: Arielle Jon MD Symptoms: R01.1 - Cardiac murmur, unspecified Study Quality: Fair ECG Rhythm: Sinus tachycardia Conclusions: - The left ventricular systolic function is normal. The visually estimated ejection fraction is between 60-65%. - No obvious valvular pathology seen on this study. Findings Left Ventricle Normal left ventricular cavity size. There is normal left ventricular wall thickness. The left ventricular systolic function is normal. The visually estimated ejection fraction is between 60-65%. There is no evidence of regional wall motion abnormalities. E/E prime ratio is between 8 and 15 consistent with indeterminate filling pressures. Evidence suggests grade I (mild) diastolic dysfunction. Right Ventricle Normal right ventricular cavity size and systolic function. Atria Both atria are normal in size. Aortic Valve There is a normal trileaflet aortic valve. There is no aortic valve stenosis. There is no aortic valve regurgitation. Mitral Valve The mitral valve appears normal. There is trace mitral valve regurgitation. There is no mitral valve stenosis. Pulmonic Valve The pulmonic valve is likely normal. Tricuspid Valve Normal tricuspid valve structure. There is trace tricuspid valve regurgitation. The pulmonary artery systolic pressure is normal. Great Vessels The aortic annulus, sinuses of valsalva, and asc aorta are normal in size. Venous The inferior vena cava is normal in size and collapses greater than 50% with inspiration. Pericardium/Pleural There is no evidence of pericardial effusion. Prior Study Comparison No prior study available for comparison. Recommendations, Care & Conclusions No obvious valvular pathology seen on this study. Measurements 2D Linear Measurements IVSd: 1.09 0.6-0.9/0.6-1.0 cm LVIDd: 3.85 3.9-5.3/4.2-5.9 cm LVIDd Index: 2.26 2.4-3.2/2.2-3.1 cm/m2 LVIDs: 2.71 2.0-3.6 cm LVPWd: 0.92 0.7-1.1 cm Ao Root: 2.50 2.1-3.5 cm LA Diam: 3.60 2.7-3.8/3.0-4.0 cm LAIDs Index: 2.12 1.5-2.3 cm/m2 LV Mass: 149.72 67-162/88-224 g LV Mass Index: 88.07 43-95/49-115 g/m2 LVOT Diam: 1.90 3.0+(-)1.3 cm 2D Systolic Function EF 4C: 60.50 >55% Mitral Valve MV Pk E: 0.70 MV PK A: 0.93 MV Decel Time: 85.00 E/A: 0.80 E'Lateral: 4.90 E'Medial: 5.66 E/E' Med: 12.40 E/E' Lat: 14.30 PHT: 25.00 MVA PHT: 8.80 Decel [place]: 8.26 Aortic Valve AoV Pk [place]: 1.48 AoV Pk Grad: 9.00 LVOT LVOT Pk [place]: 1.16 LVOT Mn [place]: 0.78 LVOT VTI: 0.20 LVOT Pk Grad: 5.00 LVOT Mn Grad: 3.00 LVOT Diam: 1.90 LVOT Area: 2.84 Diastolic Function MV Pk E: 0.70 MV Pk A: 0.93 E/A: 0.80 E'Medial: 5.66 E/E' Med: 12.40 E' Laterial: 4.90 E/E' Lat: 14.30 Tricuspid Valve TR Pk [place]: 1.71 TR Pk Grad: 12.00 RA Press: 3.00 RVSP: 15.00 Great Vessels Aorta Ao Root-2D: 2.50 2.0-3.7 cm Ao Asc: 3.10 2.1-3.4 cm Updated in Other Vendor System with Status of Final Deejay Kidd MD electronically signed on 07/29/2020 1:50:11 PM with status of Final
== END ==
LOC: HO.CARD 13:03
PROVIDERS: PCP Internal Medicine; Visit Provider Internal Medicine
DX: R01.1 Cardiac murmur, unspecified (principal); R00.2 Palpitations; R22.43 Localized swelling, mass and lump, lower limb, bilateral
CPT/HCPCS: 93306

== ENCOUNTER 2020-08-01 12:52 | Outpatient (REF) | payer OTHER, SELFPAY | END 2020-08-01 12:53 | disposition home or self-care (01) | LOC: HO.LAB 12:52 | PROVIDERS: PCP Internal Medicine; Visit Provider Internal Medicine | DX: Z20.822 Contact with and (suspected) exposure to COVID-19 (principal) | CPT/HCPCS: C9803; U0003; U0005 ==

== ENCOUNTER 2020-08-07 14:15 | Inpatient (IN) | payer OTHER, SELFPAY ==
[2020-08-07] VITALS (7 sets, daily range): BP systolic 113–170; BP diastolic 67–90; PULSE 71–126; RESP 16–24; TEMP 37.1–37.2; O2SAT 85–97; BMI 26.0
--- NOTE | ~2020-08-07 | CT_ITS ---
EXAMINATION: CT ANGIOGRAM CHEST WITH AND WITHOUT CONTRAST (CT PULMONARY ANGIOGRAM FOR PE) CLINICAL INFORMATION: COVID pneumonia, question PE. COMPARISON: Chest x-ray of 08/07/2020, 01/05/2020. TECHNIQUE: Prior to contrast administration, noncontrast localization images were obtained. Subsequently, multidetector volumetric imaging was performed from the thoracic inlet to below the diaphragms following the administration of 80 mL Omnipaque 350 intravenous contrast. No contrast reaction reported. Sagittal, coronal, and MIP oblique sagittal reformatted images were obtained on the CT workstation, uploaded to PACS, and reviewed. This CT examination was performed using dose optimization techniques as appropriate, variously including the following: *Automated exposure control. *Adjustment of mA and/or kV according to patient size (this includes techniques or standardized protocols for targeted exams where dose is matched to indication/reason for exam; i.e. extremities or head). *Use of iterative reconstruction technique. Total exam dose-length product 253 mGy-cm. FINDINGS: QUALITY OF STUDY/CONTRAST BOLUS: Respiratory motion artifacts are present somewhat limiting evaluation. PULMONARY ARTERIES: No central or segmental pulmonary emboli. THORACIC AORTA: No aneurysm or dissection. LUNG: Diffusely scattered ground-glass and airspace opacities are noted, predominantly in the peripheral distribution as well as perihilar distribution. PLEURA: No pleural effusion or pneumothorax. MEDIASTINUM: Normal heart size. No pericardial effusion. No hilar or mediastinal lymphadenopathy. No evidence of septal bowing or right heart strain. A 0.8 cm coarse calcification is noted in the visualized left thyroid lobe. CHEST WALL/AXILLA: No axillary or internal mammary lymphadenopathy. OSSEOUS STRUCTURES: No acute or suspicious osseous abnormality. Intraosseous hemangioma is noted in the body of the T9. UPPER ABDOMEN: Cirrhotic morphology of the liver is noted with caudate lobe and left hepatic lobe hypertrophy and liver contour nodularity. Postsurgical changes of cholecystectomy are noted. No reflux of contrast into the hepatic veins to suggest elevated right heart pressures. CT/CT angio chest PE protocol IMPRESSION: 1. Although evaluation is somewhat limited due to respiratory motion artifact, there is no definite evidence of central or segmental pulmonary emboli. 2. Diffusely scattered ground-glass and airspace opacities, most consistent with multifocal pneumonia. Imaging features can be seen with COVID-19 pneumonia, though are nonspecific and can occur with a variety of infectious and non-infectious processes. 3. Cirrhotic morphology of the liver. VTE: Negative.
--- NOTE | ~2020-08-07 | XR_ITS ---
EXAMINATION: XR CHEST CLINICAL INFORMATION: Shortness of breath. Question Covid pneumonia COMPARISON: Previous chest x-ray most recent December 2019 TECHNIQUE: Frontal view of the chest was obtained. FINDINGS: The cardiac and mediastinal contours are normal. There is central bronchial wall thickening and bilateral perihilar infiltrates, left greater than right, suggestive of pneumonia. Central location is atypical for Covid infection. There is no pleural effusion or pneumothorax. Bony structures are unremarkable. XR/XR chest 1V IMPRESSION: Central bronchial wall thickening and bilateral infiltrates, left greater than right, suggestive of pneumonia.
--- NOTE | 2020-08-07 15:56 | ED.SOB ---
HPI - SOB/Dyspnea General Chief Complaint: Dyspnea Stated Complaint: RECENT +COVID,SOB,WT LOSS,LOSS OF APETITE Time Seen by Provider: 08/07/20 15:05 Source: patient Mode of arrival: ambulatory Limitations: no limitations History of Present Illness HPI Narrative: patient recently diagnosed with COVID presents to ED for shortness of breath on exertion, loss of taste, loss of smell. Patient states also coughing. patient states history of asthma MD elicited complaint: shortness of breath and cough Related Data Home Medications Medication Instructions Recorded Confirmed escitalopram oxalate 5 mg tablet 5 mg PO DAILY 07/05/20 08/02/20 lorazepam 1 mg tablet 1 mg PO BID PRN 07/05/20 08/02/20 clonazepam 1 tab PO DAILY PRN 08/02/20 08/02/20 docusate sodium 1 cap PO BID PRN 08/02/20 08/02/20 multivitamin with minerals 1 tab PO DAILY 08/02/20 08/02/20 olanzapine 1 tab PO BEDTIME 08/02/20 08/02/20 Previous Rx's Medication Instructions Recorded clonazepam 0.5 mg PO BID #14 tab 05/19/20 gabapentin 300 mg PO BID #14 cap 05/19/20 haloperidol 2 mg PO BEDTIME #14 tab 05/19/20 lidocaine [Lidocaine Pain Relief] 1 patch TRANSDERMAL DAILY #15 ea 05/19/20 omeprazole 20 mg PO DAILY@0630 #30 cap 05/19/20 trazodone 100 mg PO BEDTIME PRN #14 tab 05/19/20 ferrous sulfate 324 mg (65 mg 324 mg PO BIDWM #60 tab 05/29/20 iron) tablet,delayed release haloperidol 2 mg PO BEDTIME #14 tab 06/01/20 bisacodyl 5 mg tablet,delayed 10 mg PO ONCE 1 Days #2 tab 07/17/20 release polyethylene glycol 3350 17 238 g PO ONCE 1 Days #238 g 07/17/20 gram/dose oral powder metronidazole 500 mg tablet 500 mg PO BID 7 Days #14 tab 07/21/20 Allergies Allergy/AdvReac Type Severity Reaction Status Date / Time NSAIDS (Non-Steroidal Allergy Intermediate RASH Verified 07/19/20 10:40 Anti-Inflamma [NSAIDS (NON-STEROIDAL ANTI-INFLAMMA] aspirin [ASPIRIN] Allergy Mild HIVES Verified 07/19/20 10:40 ibuprofen Allergy Unknown hives Verified 07/19/20 10:40 Review of Systems Review of Systems: Yes all other systems are reviewed and are negative Constitutional: Constitutional: Reports as per HPI and Reports no additional constitutional complaints Eyes: Eyes: Reports as per HPI and Reports no additional eye complaints ENT: Reports system reviewed and no additional complaints, except as documented and Reports as per HPI Cardiovascular: Cardiovascular: Reports as per HPI, Reports no additional cardiovascular complaints, Denies chest pain, Reports dyspnea and Reports dyspnea on exertion Respiratory: Respiratory: Reports as per HPI, Reports no additional respiratory complaints, Reports dyspnea and Reports dyspnea on exertion Gastrointestinal: Gastrointestinal: Reports as per HPI and Reports no additional gastrointestinal complaints Genitourinary: Genitourinary: Reports no additional female genitourinary complaints and Reports as per HPI Musculoskeletal: Musculoskeletal: Reports no additional musculoskeletal complaints and Reports as per HPI Neurologic: Reports system reviewed and no additional complaints, except as documented and Reports as per HPI Psychiatric: Psychiatric: Reports no additional psychiatric complaints and Reports as per HPI [facility] Past Medical History Medical History (Updated 08/07/20 @ 20:43 by SUSAN Lemon) Alcohol abuse Anemia Bipolar 1 disorder Cirrhosis of liver Depression with anxiety Holosystolic murmur Myalgia Vitamin D deficiency Surgical History (Updated 08/02/20 @ 15:52 by Virginie Roach) History of esophagogastroduodenoscopy (EGD) Hx laparoscopic cholecystectomy Hx of section Family History Family History (Updated 07/19/20 @ 11:00 by Sue Hernadez) Sister Breast cancer Other Unknown family medical history Social History Social History Household Members: Other Household Members Other:: 2 sisters and teenage children Housing: Apartment Do you presently have visiting nurse or other home services: No Alcohol intake: former Cigarette Packs Per Day: 0 Cigarettes Per Day: 1 Second Hand Smoke Exposure: Yes Advance Directives: No Advance Directives Information Provided: No service: No Sexual orientation: Straight/Heterosexual Physical Exam Vital Signs: Vital Signs: Last Vital Signs Temp 98.9 F 08/07/20 20:36 Pulse 78 08/07/20 20:36 Resp 16 08/07/20 20:36 BP 113/71 08/07/20 20:36 Pulse Ox 94 08/07/20 20:36 Oxygen Flow Rate 3 08/07/20 14:25 Body Mass Index 26.0 Const: General: cooperative, healthy appearing, comfortable, no acute distress, well developed, alert, awake and Physically active Orientation/consciousness: patient oriented x3 HENMT: Head: Yes normal to inspection, Yes No palpable skull fracture present, Yes normocephalic and Yes atraumatic Eyes: General: appearance normal, both eyes and all related structures Neck: Neck: Yes normal visual inspection, Yes full ROM, Yes no lymphadenopathy, Yes no meningeal signs, Yes trachea midline, Yes supple and No tender Chest: Chest palpation & inspection: normal inspection of the chest and normal palpation of entire chest wall Resp: Effort & Inspection: normal respiratory effort and labored Auscultation: diminished lung sounds Cardio: Jugular venous distension: no JVD Heart sounds: S1 normal heart sound present and S2 normal heart sound present GI: Inspection: Yes normal to inspection and No abdominal wall ecchymosis Palpation (GI): Soft to palpation, not firm, nontender, no guarding and not rigid : General: No CVA tenderness and Yes no CVA tenderness Back/Spine/Pelvis: Back: no CVA tenderness, No CVA tenderness and No back tenderness Skin: General skin exam: no rashes or lesions noted and elasticity normal Neuro: General: patient oriented x3, gait normal, no meningeal signs and CN's II-XI intact bilaterally Cranial nerves: Yes CN's II-XII intact bilaterally Extrem: Other: lower extremities negative for swelling, pitting edema, calf tenderness General: Yes normal to inspection and Yes full ROM Psych: Appearance: grossly normal, well kempt and not disheveled Course Course Course Narrative: patient in mild distress with recent COVID positive diagnosis was sent for chest x-ray and labs. Patient initial oxygen was 88% on room air now 92 on 2 L. Reevaluation(s) Reevaluation #1: x-ray shows pneumonia will start patient antibiotics and dexamethasone. Lasting blood culture ordered. Time: 16:05 Reevaluation #2: Patient will be sent for chest CT to rule out PE caused by COVID. D-dimer elevated Time: 17:31 Reevaluation #3: chest CT came back negative for PE. Chest CTA shows bilateral pneumonia. Case presented to hospitalist for admission.Dr. Wiggins accepted the case Time: 20:43 MDM - SOB/Dyspnea MDM Narrative Medical decision making narrative: COVID pneumonia exacerbation Lab Data Result diagrams: 08/07/20 16:42 08/07/20 16:42 Labs: Lab Results 08/07/20 08/07/20 08/07/20 Range/Units 16:42 16:42 16:42 WBC 8.4 (4.8-10.8) X10*3/uL RBC 3.68 L (4.20-5.50) X10*6/uL Hgb 11.6 L (12.0-16.0) g/dl Hct 33.8 L (37-47) % MCV 91.8 (80-98) fL MCH 31.5 (27.0-33.0) pg MCHC 34.3 (31.0-35.0) g/dl RDW 13.5 (11.0-16.0) % Plt Count 161 (160-400) X10*3/uL MPV 9.7 (9.4-12.3) fL Immature Gran % (Auto) 0.6 H (0.0-0.4) % Neut % (Auto) 80.4 H (45-73) % Lymph % (Auto) 12.1 L (20-40) % [place] % (Auto) 6.8 (2-11) % Eos % (Auto) 0.0 (0-4) % Baso % (Auto) 0.1 (0-2) % Lymph # (Auto) 1.0 L (1.2-4.9) X10*3/uL [place] # (Auto) 0.6 (0.1-1.2) X10*3/uL Eos # (Auto) 0.0 (0.0-0.4) X10*3/uL Baso # (Auto) 0.0 (0.0-0.2) X10*3/uL Abs Immat Gran (auto) 0.05 H (0.00-0.03) X10*3/uL Absolute Neuts (auto) 6.7 (2.0-8.3) X10*3/uL Absolute Nucleated RBC 0.000 (0.0-0.012) X10*3/uL Nucleated RBC % (auto) 0.0 (0.0-0.2) /100WBC PT 17.5 H D (10.8-13.0) SEC INR 1.5 H (0.9-1.1) APTT 39.9 H (24.1-38.0) SEC D-Dimer 550 NG/ML Sodium 142 (135-145) mmol/L Potassium 3.5 (3.3-5.1) mmol/L Chloride 108 (96-108) mmol/L Carbon Dioxide 23 (22-29) mmol/L Anion Gap 15 (12-20) BUN 17 H D (9-16) mg/dL Creatinine 0.83 (0.5-1.4) mg/dL Estim Creat Clear Calc 75.1 Estimated GFR > 60 Random Glucose 102 (60-115) mg/dL Lactic Acid (0.5-2.0) mmol/L Calcium 8.4 D (8.4-10.2) mg/dL Ferritin 484 H (10-250) ng/mL Total Bilirubin 0.9 (0.0-1.0) mg/dL AST 53 H (5-31) U/L ALT 15 (0-31) U/L Alkaline Phosphatase 149 H (39-117) U/L Lactate Dehydrogenase 455 H (122-220) U/L Troponin I High Sens (<3.5-17.0) ng/L Total Protein 7.4 (6.5-8.0) g/dL Albumin 3.6 (3.5-5.0) g/dL Procalcitonin ng/mL 08/07/20 08/07/20 08/07/20 Range/Units 16:42 16:42 16:42 WBC (4.8-10.8) X10*3/uL RBC (4.20-5.50) X10*6/uL Hgb (12.0-16.0) g/dl Hct (37-47) % MCV (80-98) fL MCH (27.0-33.0) pg MCHC (31.0-35.0) g/dl RDW (11.0-16.0) % Plt Count (160-400) X10*3/uL MPV (9.4-12.3) fL Immature Gran % (Auto) (0.0-0.4) % Neut % (Auto) (45-73) % Lymph % (Auto) (20-40) % [place] % (Auto) (2-11) % Eos % (Auto) (0-4) % Baso % (Auto) (0-2) % Lymph # (Auto) (1.2-4.9) X10*3/uL [place] # (Auto) (0.1-1.2) X10*3/uL Eos # (Auto) (0.0-0.4) X10*3/uL Baso # (Auto) (0.0-0.2) X10*3/uL Abs Immat Gran (auto) (0.00-0.03) X10*3/uL Absolute Neuts (auto) (2.0-8.3) X10*3/uL Absolute Nucleated RBC (0.0-0.012) X10*3/uL Nucleated RBC % (auto) (0.0-0.2) /100WBC PT (10.8-13.0) SEC INR (0.9-1.1) APTT (24.1-38.0) SEC D-Dimer NG/ML Sodium (135-145) mmol/L Potassium (3.3-5.1) mmol/L Chloride (96-108) mmol/L Carbon Dioxide (22-29) mmol/L Anion Gap (12-20) BUN (9-16) mg/dL Creatinine (0.5-1.4) mg/dL Estim Creat Clear Calc Estimated GFR Random Glucose (60-115) mg/dL Lactic Acid 1.8 (0.5-2.0) mmol/L Calcium (8.4-10.2) mg/dL Ferritin (10-250) ng/mL Total Bilirubin (0.0-1.0) mg/dL AST (5-31) U/L ALT (0-31) U/L Alkaline Phosphatase (39-117) U/L Lactate Dehydrogenase (122-220) U/L Troponin I High Sens 6.7 (<3.5-17.0) ng/L Total Protein (6.5-8.0) g/dL Albumin (3.5-5.0) g/dL Procalcitonin 0.56 ng/mL ECG Data Interpretation: sinus tachycardia. Ventricular rate 116. Pr interval 126. QRS 78. QTC 461. Negative STEMI Discharge Plan Discharge Clinical Impression: COVID-19 Patient Disposition: Admitted As Inpatient
--- NOTE | 2020-08-07 15:57 | ECG_ITS ---
Test Reason : SOB Blood Pressure : / mmHG Vent. Rate : 116 BPM Atrial Rate : 116 BPM P-R Int : 126 ms QRS Dur : 078 ms QT Int : 332 ms P-R-T Axes : 059 063 -04 degrees QTc Int : 461 ms Sinus tachycardia Possible Left atrial enlargement Nonspecific ST abnormality Abnormal QRS-T angle, consider primary T wave abnormality Abnormal ECG When compared with ECG of 06-MAY-2020 15:24, No significant change was found Referred By: Juvenal Barber Electronically Signed By:CHOCO GAMA MD
[2020-08-07 16:50] LABS: MANUAL DIFF FLAG NO
[2020-08-07 16:53] LABS: Basophils Percent Auto 0.1 % (0-2); Hematocrit 33.8 % (37-47); Hemoglobin 11.6 g/dl (12.0-16.0); Imm Gran Abs Auto 0.05 X10*3/uL (0.00-0.03); Imm Gran Pct Auto 0.6 % (0.0-0.4); Lymphocytes Percent Auto 12.1 % (20-40); Mean Corpuscular HGB Conc 34.3 g/dl (31.0-35.0); Mean Corpuscular Hemoglobin 31.5 pg (27.0-33.0); Mean Corpuscular Volume 91.8 fL (80-98); Mean Platelet Volume 9.7 fL (9.4-12.3); Monocytes Absolute Auto 0.6 X10*3/uL (0.1-1.2); Monocytes Percent Auto 6.8 % (2-11); Neutrophils Absolute Auto 6.7 X10*3/uL (2.0-8.3); Neutrophils Percent Auto 80.4 % (45-73); Platelet Count 161 X10*3/uL (160-400); Red Blood Count 3.68 X10*6/uL (4.20-5.50); Red Cell Distribution Width 13.5 % (11.0-16.0); White Blood Count 8.4 X10*3/uL (4.8-10.8)
[2020-08-07] MEDS: dexAMETHasone sod phosphate 10 MG/ML VIAL IVPUSH (17:02)
[2020-08-07 17:03] LABS: INTERNATIONAL NORM RATIO 1.5 (0.9-1.1); Prothrombin Time 17.5 SEC (10.8-13.0)
[2020-08-07] MEDS: Magnesium Sulfate/H2O 2 GM/50 ML PIGGYBACK IV (17:04)
[2020-08-07 17:06] LABS: D Dimer 550 NG/ML; Partial Thromboplastin Time 39.9 SEC (24.1-38.0)
[2020-08-07] MEDS: Albuterol Sulfate 90 MCG 8 GM INHALER 4 PUFF INHALE (17:07)
--- NOTE | 2020-08-07 17:08 | PC.NURSE ---
Pt calm and cooperative resting in bed in NAD. Pt given inhailer, mag, and iv steroid. Will trial off of o2 and document.
[2020-08-07 17:21] LABS: Lactic Acid 1.8 mmol/L (0.5-2.0)
[2020-08-07 17:25] LABS: Alanine Aminotransferase 15 U/L (0-31); Albumin Level 3.6 g/dL (3.5-5.0); Alkaline Phosphatase 149 U/L (39-117); Anion Gap 15 (12-20); Aspartate Amino Transferase 53 U/L (5-31); Bilirubin Total 0.9 mg/dL (0.0-1.0); Blood Urea Nitrogen 17 mg/dL (9-16); Calcium 8.4 mg/dL (8.4-10.2); Carbon Dioxide 23 mmol/L (22-29); Chloride 108 mmol/L (96-108); Creatinine Clr Calc Pharmacy 75.1; Estimated Glomerular Filt Rate > 60; Glucose Random 102 mg/dL (60-115); Lactate Dehydrogenase 455 U/L (122-220); Potassium 3.5 mmol/L (3.3-5.1); Sodium 142 mmol/L (135-145); Total Protein 7.4 g/dL (6.5-8.0)
[2020-08-07 17:33] LABS: Troponin-I High Sensitivity 6.7 ng/L (<3.5-17.0)
[2020-08-07 17:43] LABS: Procalcitonin 0.56 ng/mL
[2020-08-07] MEDS: cefTRIAXone sodium 1 GM in 0.9 % Sodium Chloride 50 ML IV (17:44)
--- NOTE | 2020-08-07 17:44 | PC.NURSE ---
Pt resting in bed in NAD. Sats 95% on 3liters
[2020-08-07 17:47] LABS: Ferritin 484 ng/mL (10-250)
[2020-08-07] MEDS: iohexoL 350 MG/ML 100 ML INFUS..BTL IV (18:27)
[2020-08-07] MEDS: Azithromycin 500 MG in 0.9 % Sodium Chloride 250 ML 125 MG IV (18:37)
[2020-08-07 22:14] LABS: COVID-19 Test Positive (Negative); IDNOW Serial# 9DD0AD1C
--- NOTE | 2020-08-07 22:33 | PM.IMHP ---
History of Present Illness Date of Service: 08/07/20 Chief Complaint: cough, sob 50-year-old female with past medical history of schizoaffective disorder, cirrhosis, depression anxiety who presents to the hospital with complaints of shortness of breath and cough. Patient reports that about 4 days ago she was tested for COVID after her sister and [id number] tested positive, and she also tested positive for COVID. At that time she had no symptoms but 3 days ago she developed shortness of breath, loss of appetite, loss of taste and smell, nausea, and fever. Patient also has a cough that is is productive. She denies any headache, change in vision, no chest pain, no palpitations, no abdominal pain, she has no constipation but has had diarrhea for 3 days, no urinary symptoms and no lower extremity edema on arrival to the ED patient vitals significant for temp of 98.8?, heart rate of 110, respiratory rate of 16, blood pressure 132/80, satting 87% on room air, patient placed on 3 L of oxygen now satting 93% labs are significant for WBC count of 8.4, hemoglobin of 11.6, PT of 17.5, INR of 1.5, BUN of 17, AST of 53, alk-phos of 149, LDH of 455, D-dimer elevated, COVID-[address] chest angiogram shows no definite evidence of central segment or pulmonary embol, diffusely scattered ground-glass and airspace opacities, most consistent with multifocal pneumonia imaging features can be seen with COVID-19 pneumonia. past medical history as below on confirmed patient Patient will be admitted for the management Review of Systems Review of Systems: Yes all other systems are reviewed and are negative FOR[facility], [facility] Medical History Alcohol abuse Anemia Bipolar 1 disorder Cirrhosis of liver Depression with anxiety Holosystolic murmur Myalgia Vitamin D deficiency Family History Sister Breast cancer Other Unknown family medical history Surgical History History of esophagogastroduodenoscopy (EGD) Hx laparoscopic cholecystectomy Hx of section Social History Household Members: Other Household Members Other:: 2 sisters and teenage children Housing: Apartment Do you presently have visiting nurse or other home services: No Alcohol intake: never Patient Tobacco Use Status: Current someday Tobacco user Cigarette Packs Per Day: 0 Cigarettes Per Day: 1 Second Hand Smoke Exposure: Yes Use of substances other than those prescribed or required for medical reasons: No Advance Directives: No Advance Directives Information Provided: No service: No Sexual orientation: Straight/Heterosexual Meds Allergies Allergy/AdvReac Type Severity Reaction Status Date / Time NSAIDS (Non-Steroidal Allergy Intermediate RASH Verified 08/07/20 21:09 Anti-Inflamma [NSAIDS (NON-STEROIDAL ANTI-INFLAMMA] aspirin [ASPIRIN] Allergy Mild HIVES Verified 08/07/20 21:09 ibuprofen Allergy Unknown hives Verified 08/07/20 21:09 Home Medications Medication Instructions Recorded Confirmed Last Taken Type bisacodyl 5 mg PO 08/07/20 Unknown History clonazepam 1 tab PO DAILY PRN 08/07/20 08/07/20 Unknown History escitalopram oxalate 1 tab PO DAILY 08/07/20 08/07/20 Unknown History ferrous sulfate 1 tab PO BID 08/07/20 08/07/20 Unknown History gabapentin 300 mg PO 08/07/20 Unknown History haloperidol 1 tab PO BEDTIME 08/07/20 08/07/20 Unknown History olanzapine 1 tab PO BEDTIME 08/07/20 08/07/20 Unknown History polyethylene glycol 3350 [Gavilax] PO 08/07/20 Unknown History polyethylene glycol 3350 [Purelax] PO 08/07/20 Unknown History trazodone 1 tab PO BEDTIME 08/07/20 08/07/20 Unknown History Physical Exam Vital Signs and Narrative: Vital Signs: Last Vital Signs Temp 99.0 F 08/07/20 21:08 Pulse 77 08/07/20 21:50 Resp 19 08/07/20 21:50 BP 138/76 08/07/20 21:50 Pulse Ox 96 08/07/20 21:50 Oxygen Flow Rate 3 08/07/20 14:25 Body Mass Index 26.0 Const: Other: patient appears comfortable in no respiratory distress General: cooperative and no acute distress Orientation/consciousness: patient oriented x3 Eyes: General: appearance normal, both eyes and all related structures Pupils: Equal, round and reactive pupils present Resp: Other: rhonchi bilaterally Effort & Inspection: normal respiratory effort and able to speak in complete sentences Cardio: Rate: regular rate Rhythm: regular rhythm GI: Palpation (GI): Soft to palpation Auscultation: normal bowel sounds Skin: General skin exam: no rashes or lesions noted Neuro: General: patient oriented x3 Cranial nerves: Yes Equal, round and reactive pupils present Cognition (Neuro): normal cognition Extrem: General: Yes normal to inspection and Yes no pedal edema Results Labs CBC and Chem 7: 08/07/20 16:42 08/07/20 16:42 Labs: Laboratory Results - last 24 hr 08/07/20 08/07/20 08/07/20 16:42 16:42 16:42 MCV 91.8 MCH 31.5 MCHC 34.3 RDW 13.5 Plt Count 161 MPV 9.7 Immature Gran % (Auto) 0.6 H Neut % (Auto) 80.4 H Lymph % (Auto) 12.1 L [place] % (Auto) 6.8 Eos % (Auto) 0.0 Baso % (Auto) 0.1 Lymph # (Auto) 1.0 L [place] # (Auto) 0.6 Eos # (Auto) 0.0 Baso # (Auto) 0.0 Abs Immat Gran (auto) 0.05 H Absolute Neuts (auto) 6.7 Absolute Nucleated RBC 0.000 Nucleated RBC % (auto) 0.0 PT 17.5 H D INR 1.5 H APTT 39.9 H D-Dimer 550 Anion Gap 15 Estim Creat Clear Calc 75.1 Estimated GFR > 60 Random Glucose 102 Lactic Acid Calcium 8.4 D Ferritin 484 H Total Bilirubin 0.9 AST 53 H ALT 15 Alkaline Phosphatase 149 H Lactate Dehydrogenase 455 H Troponin I High Sens Total Protein 7.4 Albumin 3.6 Procalcitonin COVID-19 ([facility]) COVID-19 Clin Com 08/07/20 08/07/20 08/07/20 16:42 16:42 16:42 MCV MCH MCHC RDW Plt Count MPV Immature Gran % (Auto) Neut % (Auto) Lymph % (Auto) [place] % (Auto) Eos % (Auto) Baso % (Auto) Lymph # (Auto) [place] # (Auto) Eos # (Auto) Baso # (Auto) Abs Immat Gran (auto) Absolute Neuts (auto) Absolute Nucleated RBC Nucleated RBC % (auto) PT INR APTT D-Dimer Anion Gap Estim Creat Clear Calc Estimated GFR Random Glucose Lactic Acid 1.8 Calcium Ferritin Total Bilirubin AST ALT Alkaline Phosphatase Lactate Dehydrogenase Troponin I High Sens 6.7 Total Protein Albumin Procalcitonin 0.56 COVID-19 ([facility]) COVID-19 Clin Com 08/07/20 21:52 MCV MCH MCHC RDW Plt Count MPV Immature Gran % (Auto) Neut % (Auto) Lymph % (Auto) [place] % (Auto) Eos % (Auto) Baso % (Auto) Lymph # (Auto) [place] # (Auto) Eos # (Auto) Baso # (Auto) Abs Immat Gran (auto) Absolute Neuts (auto) Absolute Nucleated RBC Nucleated RBC % (auto) PT INR APTT D-Dimer Anion Gap Estim Creat Clear Calc Estimated GFR Random Glucose Lactic Acid Calcium Ferritin Total Bilirubin AST ALT Alkaline Phosphatase Lactate Dehydrogenase Troponin I High Sens Total Protein Albumin Procalcitonin COVID-19 ([facility]) Positive A COVID-19 Clin Com See Note Imaging Radiologist's Impressions: Impressions Chest X-Ray 08/07/20 15:15 IMPRESSION: Central bronchial wall thickening and bilateral infiltrates, left greater than right, suggestive of pneumonia. Chest CTA 08/07/20 17:27 IMPRESSION: 1. Although evaluation is somewhat limited due to respiratory motion artifact, there is no definite evidence of central or segmental pulmonary emboli. 2. Diffusely scattered ground-glass and airspace opacities, most consistent with multifocal pneumonia. Imaging features can be seen with COVID-19 pneumonia, though are nonspecific and can occur with a variety of infectious and non-infectious processes. 3. Cirrhotic morphology of the liver. VTE: Negative. Assessment and Plan (1) Acute respiratory failure with hypoxia: Status: Acute (2) Pneumonia due to COVID-19 virus: Status: Acute 50-year-old female who tested positive for COVID-19 4 days ago presents with shortness of breath and cough found to have hypoxia on room air # acute hypoxic respiratory failure - secondary to COVID-19 pneumonia - 87% on room air currently placed on 3 L of oxygen - will start her on dexamethasone given her hypoxia - consult infectious disease from-severe given her symptom onset - follow cultures # pneumonia due to COVID-19 - unlikely to be secondary to bacteria given COVID-19 positive and presentation on CT typical of COVID-19 infection - dexamethasone daily - id consult for endoscopy # mood disorder including schizoaffective, depression anxiety - continue her home medications DVT prophylaxis: Lovenox Quality Stroke Does the patient have a stroke diagnosis?: No VTE Prior VTE?: No VTE Risk Level:: Medical - moderate - high VTE Device Contraindication: Treatment Not Indicated VTE Drug Contraindication: N/A - Med Ordered
[2020-08-08] VITALS (7 sets, daily range): BP systolic 108–153; BP diastolic 65–91; PULSE 64–110; RESP 18–78; TEMP 36.5–37; O2SAT 91–100; BMI 27.3
[2020-08-08] MEDS: 0.9 % Sodium Chloride Flush 3 ML SYRINGE IVFLUSH ×4 (01:29→20:09)
[2020-08-08] MEDS: OLANZapine 10 MG TABLET 20 MG PO ×2 (01:30→20:08)
[2020-08-08] MEDS: traZODone HCL 100 MG TABLET PO ×2 (01:30→20:08)
[2020-08-08] MEDS: Enoxaparin Sodium 40 MG/0.4 ML SYRINGE SUBCUT ×2 (01:35→20:08)
[2020-08-08] MEDS: HaloperidoL 1 MG TABLET PO ×2 (01:43→20:07)
[2020-08-08] MEDS: Acetaminophen 325 MG TABLET 650 MG PO ×2 (04:11→18:17)
[2020-08-08 07:09] LABS: MANUAL DIFF FLAG NO
[2020-08-08 07:14] LABS: Hemoglobin 10.8 g/dl (12.0-16.0); Imm Gran Abs Auto 0.02 X10*3/uL (0.00-0.03); Imm Gran Pct Auto 0.4 % (0.0-0.4); Lymphocytes Absolute Auto 0.9 X10*3/uL (1.2-4.9); Lymphocytes Percent Auto 16.4 % (20-40); Mean Corpuscular HGB Conc 34.8 g/dl (31.0-35.0); Mean Corpuscular Hemoglobin 32.2 pg (27.0-33.0); Mean Corpuscular Volume 92.5 fL (80-98); Mean Platelet Volume 10.3 fL (9.4-12.3); Monocytes Absolute Auto 0.3 X10*3/uL (0.1-1.2); Monocytes Percent Auto 5.5 % (2-11); Neutrophils Absolute Auto 4.2 X10*3/uL (2.0-8.3); Neutrophils Percent Auto 77.7 % (45-73); Platelet Count 162 X10*3/uL (160-400); Red Blood Count 3.35 X10*6/uL (4.20-5.50); Red Cell Distribution Width 13.6 % (11.0-16.0); White Blood Count 5.4 X10*3/uL (4.8-10.8)
[2020-08-08] MEDS: Escitalopram Oxalate 5 MG TABLET PO (07:33)
[2020-08-08] MEDS: Ferrous Sulfate 324 MG TABLET.DR PO ×2 (07:33→20:08)
[2020-08-08] MEDS: dexAMETHasone sod phosphate 4 MG/ML VIAL 6 MG IVPUSH (07:33)
[2020-08-08 07:37] LABS: Anion Gap 12 (12-20); Blood Urea Nitrogen 18 mg/dL (9-16); Calcium 8.4 mg/dL (8.4-10.2); Carbon Dioxide 22 mmol/L (22-29); Chloride 110 mmol/L (96-108); Creatinine Clr Calc Pharmacy 89.9; Estimated Glomerular Filt Rate > 60; Glucose Random 153 mg/dL (60-115); Potassium 4.2 mmol/L (3.3-5.1); Sodium 140 mmol/L (135-145)
--- NOTE | 2020-08-08 09:52 | MHC.CM.PN ---
Patient is Covid (+); CM spoke with sister/Selam @ [phone].Patient lives with Selam and extended family and the goal for dc is to return home with daily VNA (unsure of agency) for med management. CM has initiated and will follow for dc planning. PCP is Dr. Arielle Jon.
--- NOTE | 2020-08-08 14:18 | PM.IMPN ---
Subjective Subjective Date of Service: 08/08/20 Interval History: follow-up acute hypoxic respiratory failure secondary to COVID-19 no shortness of breath or cough no fever resting in bed Physical Exam Vital Signs: Vital Signs: Last Vital Signs Temp 98.0 F 08/08/20 11:15 Pulse 82 08/08/20 11:15 Resp 18 08/08/20 11:15 BP 110/83 08/08/20 11:15 Pulse Ox 94 08/08/20 11:15 Oxygen Flow Rate 3 08/07/20 14:25 Body Mass Index 27.3 Appearing in no acute distress head is normocephalic atraumatic eyes pupils are PERRLA sclera is anicteric mouth throat mucous membranes are intact and moist neck is supple no lymphadenopathy, no JVD noted lung sounds normal lung expansion heart regular rate rhythm, clear S1, S2 positive bowel sounds, abdomen is soft, nontender neuro patient is alert x3, no focal deficits Objective Data Current Medications Generic Name Dose Route Start Last Admin Trade Name Freq PRN Reason Stop Dose Admin Acetaminophen 650 mg 08/07/20 23:01 08/08/20 04:11 Acetaminophen 325 Mg Tablet PO 650 mg Q6H PRN Administration Pain, Mild (Pain Scale 1-3) Benzonatate 200 mg 08/08/20 04:24 Benzonatate 100 Mg Capsule PO TID PRN Cough Clonazepam 0.5 mg 08/08/20 00:55 Clonazepam 0.5 Mg Tablet PO DAILY PRN anxiety Dexamethasone Sodium Phosphate 6 mg 08/08/20 09:00 08/08/20 07:33 Dexamethasone Sod Phosphate 4 Mg/Ml Vial IVPUSH 6 mg DAILY ANANT Administration Docusate Sodium 100 mg 08/07/20 23:01 Docusate Sodium 100 Mg Capsule PO DAILY PRN Constipation Enoxaparin Sodium 40 mg 08/08/20 01:00 08/08/20 01:35 Enoxaparin Sodium 40 Mg/0.4 Ml Syringe SUBCUT 40 mg BEDTIME ANANT Administration Escitalopram Oxalate 5 mg 08/08/20 09:00 08/08/20 07:33 Escitalopram Oxalate 5 Mg Tablet PO 5 mg DAILY ANANT Administration Ferrous Sulfate 324 mg 08/08/20 09:00 08/08/20 07:33 Ferrous Sulfate 324 Mg Tablet. PO 324 mg BID ANANT Administration Haloperidol 1 mg 08/08/20 01:15 08/08/20 01:43 Haloperidol 1 Mg Tablet PO 1 mg BEDTIME ANANT Administration Olanzapine 20 mg 08/08/20 01:00 08/08/20 01:30 Olanzapine 10 Mg Tablet PO 20 mg BEDTIME ANANT Administration Ondansetron HCl 4 mg 08/07/20 23:01 Ondansetron Hcl 4 Mg/2 Ml Vial IVPUSH Q8H PRN Nausea and Vomiting Sodium Chloride 3 ml 08/08/20 00:00 08/08/20 07:33 0.9 % Sodium Chloride Flush 3 Ml Syringe IVFLUSH 3 ml QSHIFT ANANT Administration Trazodone HCl 100 mg 08/08/20 01:00 08/08/20 01:30 Trazodone Hcl 100 Mg Tablet PO 100 mg BEDTIME ANANT Administration Labs CBC & Chem 7: 08/08/20 06:57 08/08/20 06:57 Labs: Laboratory Results - last 24 hr 08/07/20 08/07/20 08/07/20 16:42 16:42 16:42 MCV 91.8 MCH 31.5 MCHC 34.3 RDW 13.5 Plt Count 161 MPV 9.7 Immature Gran % (Auto) 0.6 H Neut % (Auto) 80.4 H Lymph % (Auto) 12.1 L [place] % (Auto) 6.8 Eos % (Auto) 0.0 Baso % (Auto) 0.1 Lymph # (Auto) 1.0 L [place] # (Auto) 0.6 Eos # (Auto) 0.0 Baso # (Auto) 0.0 Abs Immat Gran (auto) 0.05 H Absolute Neuts (auto) 6.7 Absolute Nucleated RBC 0.000 Nucleated RBC % (auto) 0.0 PT 17.5 H D INR 1.5 H APTT 39.9 H D-Dimer 550 Anion Gap 15 Estim Creat Clear Calc 75.1 Estimated GFR > 60 Random Glucose 102 Lactic Acid Calcium 8.4 D Ferritin 484 H Total Bilirubin 0.9 AST 53 H ALT 15 Alkaline Phosphatase 149 H Lactate Dehydrogenase 455 H Troponin I High Sens Total Protein 7.4 Albumin 3.6 Procalcitonin COVID-19 ([facility]) COVID-19 Clin Com 08/07/20 08/07/20 08/07/20 16:42 16:42 16:42 MCV MCH MCHC RDW Plt Count MPV Immature Gran % (Auto) Neut % (Auto) Lymph % (Auto) [place] % (Auto) Eos % (Auto) Baso % (Auto) Lymph # (Auto) [place] # (Auto) Eos # (Auto) Baso # (Auto) Abs Immat Gran (auto) Absolute Neuts (auto) Absolute Nucleated RBC Nucleated RBC % (auto) PT INR APTT D-Dimer Anion Gap Estim Creat Clear Calc Estimated GFR Random Glucose Lactic Acid 1.8 Calcium Ferritin Total Bilirubin AST ALT Alkaline Phosphatase Lactate Dehydrogenase Troponin I High Sens 6.7 Total Protein Albumin Procalcitonin 0.56 COVID-19 ([facility]) COVID-19 Clin Com 08/07/20 08/08/20 08/08/20 21:52 06:57 06:57 MCV 92.5 MCH 32.2 MCHC 34.8 RDW 13.6 Plt Count 162 MPV 10.3 Immature Gran % (Auto) 0.4 Neut % (Auto) 77.7 H Lymph % (Auto) 16.4 L [place] % (Auto) 5.5 Eos % (Auto) 0.0 Baso % (Auto) 0.0 Lymph # (Auto) 0.9 L [place] # (Auto) 0.3 Eos # (Auto) 0.0 Baso # (Auto) 0.0 Abs Immat Gran (auto) 0.02 Absolute Neuts (auto) 4.2 Absolute Nucleated RBC 0.000 Nucleated RBC % (auto) 0.0 PT INR APTT D-Dimer Anion Gap 12 Estim Creat Clear Calc 89.9 Estimated GFR > 60 Random Glucose 153 H D Lactic Acid Calcium 8.4 Ferritin Total Bilirubin AST ALT Alkaline Phosphatase Lactate Dehydrogenase Troponin I High Sens Total Protein Albumin Procalcitonin COVID-19 ([facility]) Positive A COVID-19 Clin Com See Note Progress Note: A&P (1) Pneumonia due to COVID-19 virus: Status: Acute Assessment and Plan: 50-year-old female who tested positive for COVID-19 4 days ago presents with shortness of breath and cough found to have hypoxia on room air Acute hypoxic respiratory failure, secondary to COVID-19 pneumonia 87% on room air currently placed on 3 L of oxygen elevated ferritin, LDH, procalcitonin 0.56 - will start her on dexamethasone given her hypoxia - consult infectious disease - follow cultures Pneumonia due to COVID-19 - unlikely to be secondary to bacteria given COVID-19 positive and presentation on CT typical of COVID-19 infection - dexamethasone daily Mood disorder including schizoaffective, depression anxiety - continue her home medications DVT prophylaxis: [place]ale attending: Dr. Li Full code Quality Stroke Does the patient have a stroke diagnosis?: No VTE Prior VTE?: No VTE Risk Level:: Medical - moderate - high VTE Device Contraindication: Treatment Not Indicated VTE Drug Contraindication: N/A - Med Ordered
[2020-08-08 15:39] LABS: Lactate Dehydrogenase 363 U/L (122-220)
--- NOTE | 2020-08-08 15:54 | PC.NURSE ---
Skin assessment completed today. No skin issues found, skin dry and intact. All documentation matches.
[2020-08-08 16:01] LABS: Ferritin 410 ng/mL (10-250)
--- NOTE | 2020-08-08 16:33 | W.PM.IDCN ---
History of Present Illness Data of Consult Service Date: 08/08/20 Requesting physician: Carlos A Li Primary Care Provider: Arielle Jon MD HPI Reason for consult: COVID She presents with fatigue and cough for 3 days and is positive for COVID She is on 2l oxygen Review of Systems Review of Systems: Yes all other systems are reviewed and are negative PMFSH Past Medical History Medical History Alcohol abuse Anemia Bipolar 1 disorder Cirrhosis of liver Depression with anxiety Holosystolic murmur Myalgia Vitamin D deficiency Family History Family History Sister Breast cancer Other Unknown family medical history Family history: reviewed and not pertinent Surgical History Surgical History History of esophagogastroduodenoscopy (EGD) Hx laparoscopic cholecystectomy Hx of section Social History Social History Household Members: Other Household Members Other:: 2 sisters and teenage children Housing: Apartment Do you presently have visiting nurse or other home services: No Alcohol intake: never Patient Tobacco Use Status: Current someday Tobacco user Cigarette Packs Per Day: 0 Cigarettes Per Day: 1 Second Hand Smoke Exposure: Yes Use of substances other than those prescribed or required for medical reasons: No Currently Displaying Signs/Symptoms of Drug Intoxication Withdrawal: No Advance Directives: No Advance Directives Information Provided: No Do you have thoughts of harming others: None Do you have a plan to hurt others: No Plan service: No Current occupational status: unemployed Sexual orientation: Straight/Heterosexual Meds Allergies Allergy/AdvReac Type Severity Reaction Status Date / Time NSAIDS (Non-Steroidal Allergy Intermediate RASH Verified 08/07/20 21:09 Anti-Inflamma [NSAIDS (NON-STEROIDAL ANTI-INFLAMMA] aspirin [ASPIRIN] Allergy Mild HIVES Verified 08/07/20 21:09 ibuprofen Allergy Unknown hives Verified 08/07/20 21:09 Active Medications: Current Medications Generic Name Dose Route Start Last Admin Trade Name Freq PRN Reason Stop Dose Admin Acetaminophen 650 mg 08/07/20 23:01 08/08/20 04:11 Acetaminophen 325 Mg Tablet PO 650 mg Q6H PRN Administration Pain, Mild (Pain Scale 1-3) Benzonatate 200 mg 08/08/20 04:24 Benzonatate 100 Mg Capsule PO TID PRN Cough Clonazepam 0.5 mg 08/08/20 00:55 Clonazepam 0.5 Mg Tablet PO DAILY PRN anxiety Dexamethasone Sodium Phosphate 6 mg 08/08/20 09:00 08/08/20 07:33 Dexamethasone Sod Phosphate 4 Mg/Ml Vial IVPUSH 6 mg DAILY ANANT Administration Docusate Sodium 100 mg 08/07/20 23:01 Docusate Sodium 100 Mg Capsule PO DAILY PRN Constipation Enoxaparin Sodium 40 mg 08/08/20 01:00 08/08/20 01:35 Enoxaparin Sodium 40 Mg/0.4 Ml Syringe SUBCUT 40 mg BEDTIME ANANT Administration Escitalopram Oxalate 5 mg 08/08/20 09:00 08/08/20 07:33 Escitalopram Oxalate 5 Mg Tablet PO 5 mg DAILY ANANT Administration Ferrous Sulfate 324 mg 08/08/20 09:00 08/08/20 07:33 Ferrous Sulfate 324 Mg Tablet.Dr PO 324 mg BID ANANT Administration Haloperidol 1 mg 08/08/20 01:15 08/08/20 01:43 Haloperidol 1 Mg Tablet PO 1 mg BEDTIME ANANT Administration Olanzapine 20 mg 08/08/20 01:00 08/08/20 01:30 Olanzapine 10 Mg Tablet PO 20 mg BEDTIME ANANT Administration Ondansetron HCl 4 mg 08/07/20 23:01 Ondansetron Hcl 4 Mg/2 Ml Vial IVPUSH Q8H PRN Nausea and Vomiting Sodium Chloride 3 ml 08/08/20 00:00 08/08/20 07:33 0.9 % Sodium Chloride Flush 3 Ml Syringe IVFLUSH 3 ml QSHIFT ANANT Administration Trazodone HCl 100 mg 08/08/20 01:00 08/08/20 01:30 Trazodone Hcl 100 Mg Tablet PO 100 mg BEDTIME ANANT Administration Home Medications Medication Instructions Recorded Confirmed Last Taken Type clonazepam 1 tab PO DAILY PRN 08/07/20 08/07/20 Unknown History escitalopram oxalate 1 tab PO DAILY 08/07/20 08/07/20 Unknown History ferrous sulfate 1 tab PO BID 08/07/20 08/07/20 Unknown History gabapentin 300 mg PO BID 08/07/20 08/08/20 Unknown History haloperidol 1 tab PO BEDTIME 08/07/20 08/07/20 Unknown History olanzapine 1 tab PO BEDTIME 08/07/20 08/07/20 Unknown History polyethylene glycol 3350 [Purelax] 17 g PO DAILY PRN 08/07/20 08/08/20 Unknown History trazodone 1 tab PO BEDTIME 08/07/20 08/07/20 Unknown History Physical Exam Vital Signs: Vital Signs: Last Vital Signs Temp 97.7 F 08/08/20 15:10 Pulse 64 08/08/20 15:10 Resp 18 08/08/20 15:10 BP 144/77 H 08/08/20 15:10 Pulse Ox 100 08/08/20 15:10 Oxygen Flow Rate 3 08/07/20 14:25 Body Mass Index 27.3 Const: General: cooperative HENMT: Head: Yes normal to inspection Resp: Effort & Inspection: normal respiratory effort and able to speak in complete sentences Cardio: Rate: regular rate Rhythm: regular rhythm GI: Palpation (GI): nontender Results Labs CBC & Chem 7: 08/08/20 06:57 08/08/20 06:57 Labs: Short CBC 08/07/20 08/08/20 Range/Units 16:42 06:57 WBC 8.4 5.4 (4.8-10.8) X10*3/uL Hgb 11.6 L 10.8 L (12.0-16.0) g/dl Hct 33.8 L 31.0 L (37-47) % Plt Count 161 162 (160-400) X10*3/uL BMP 08/07/20 08/08/20 16:42 06:57 Sodium 142 140 Potassium 3.5 4.2 Chloride 108 110 H Carbon Dioxide 23 22 BUN 17 H D 18 H Creatinine 0.83 0.71 Calcium 8.4 D 8.4 Liver Function 08/07/20 Range/Units 16:42 Total Bilirubin 0.9 (0.0-1.0) mg/dL AST 53 H (5-31) U/L ALT 15 (0-31) U/L Alkaline Phosphatase 149 H (39-117) U/L Albumin 3.6 (3.5-5.0) g/dL Assessment and Plan (1) Pneumonia due to COVID-19 virus: Status: Acute She has hypoxia SHe has symptoms COVID less than a week Suggest Remdesivir if able Dexamethasone Oxygen as needed
[2020-08-08] MEDS: Remdesivir 200 MG in 0.9 % Sodium Chloride 210 ML 105 MG IV (18:13)
[2020-08-09] VITALS (8 sets, daily range): BP systolic 120–148; BP diastolic 61–83; PULSE 60–82; RESP 18–20; TEMP 36.1–37; O2SAT 93–97
[2020-08-09 07:11] LABS: Hematocrit 30.3 % (37-47); Hemoglobin 10.4 g/dl (12.0-16.0); Mean Corpuscular HGB Conc 34.3 g/dl (31.0-35.0); Mean Corpuscular Hemoglobin 31.1 pg (27.0-33.0); Mean Corpuscular Volume 90.7 fL (80-98); Mean Platelet Volume 10.2 fL (9.4-12.3); Platelet Count 221 X10*3/uL (160-400); Red Blood Count 3.34 X10*6/uL (4.20-5.50); Red Cell Distribution Width 13.2 % (11.0-16.0); White Blood Count 12.2 X10*3/uL (4.8-10.8)
[2020-08-09 08:00] LABS: Blood Urea Nitrogen 20 mg/dL (9-16); Calcium 8.3 mg/dL (8.4-10.2); Creatinine Clr Calc Pharmacy 98.2; Estimated Glomerular Filt Rate > 60; Glucose Random 127 mg/dL (60-115)
[2020-08-09] MEDS: Escitalopram Oxalate 5 MG TABLET PO (08:04)
[2020-08-09] MEDS: Benzonatate 100 MG CAPSULE 200 MG PO ×2 (08:04)
[2020-08-09] MEDS: dexAMETHasone sod phosphate 4 MG/ML VIAL 6 MG IVPUSH (08:04)
[2020-08-09] MEDS: Ferrous Sulfate 324 MG TABLET.DR PO ×2 (08:06→20:42)
[2020-08-09] MEDS: 0.9 % Sodium Chloride Flush 3 ML SYRINGE IVFLUSH ×3 (08:06→20:42)
[2020-08-09 08:22] LABS: Anion Gap 15 (12-20); Carbon Dioxide 19 mmol/L (22-29); Chloride 110 mmol/L (96-108); Potassium 3.3 mmol/L (3.3-5.1); Sodium 141 mmol/L (135-145)
[2020-08-09 08:48] LABS: Alanine Aminotransferase 17 U/L (0-31); Albumin Level 3.2 g/dL (3.5-5.0); Alkaline Phosphatase 120 U/L (39-117); Aspartate Amino Transferase 34 U/L (5-31); Bilirubin Direct 0.4 mg/dL (0.0-0.5); Bilirubin Total 0.5 mg/dL (0.0-1.0); C Reactive Protein 2.89 mg/dL (< or = 0.50); Total Protein 6.6 g/dL (6.5-8.0)
[2020-08-09 09:28] LABS: Procalcitonin 0.28 ng/mL
--- NOTE | 2020-08-09 12:05 | HO.PM.IMPN ---
Subjective Subjective Date of Service: 08/09/20 Interval History: seen and examined this morning, follow up for COVID-19 shortness of breath improving, ongoing cough productive clear phlegm Desaturating with exertion Review of Systems Review of Systems: Yes all other systems are reviewed and are negative Constitutional Constitutional: Denies chills and Denies fever(s) Cardiovascular Cardiovascular: Denies chest pain Respiratory Respiratory: Reports cough Gastrointestinal Gastrointestinal: Denies abdominal pain Physical Exam Vital Signs: Vital Signs: Last Vital Signs Temp 97.7 F 08/09/20 11:11 Pulse 82 08/09/20 11:11 Resp 20 08/09/20 11:11 BP 128/76 08/09/20 11:11 Pulse Ox 97 08/09/20 11:11 Oxygen Flow Rate 3 08/07/20 14:25 Body Mass Index 27.3 Const: General: alert and awake Nutritional Appearance: well nourished HENMT: Head: Yes normocephalic and Yes atraumatic Eyes: Sclerae: sclerae normal Chest: Chest palpation & inspection: normal inspection of the chest Resp: Effort & Inspection: normal respiratory effort and no respiratory distress Cardio: Rate: regular rate Rhythm: regular rhythm GI: Palpation (GI): Soft to palpation and nontender Neuro: Cranial nerves: Yes CN's II-XII intact bilaterally and Yes Bilaterally intact EOM present Objective Data Current Medications Generic Name Dose Route Start Last Admin Trade Name Freq PRN Reason Stop Dose Admin Acetaminophen 650 mg 08/07/20 23:01 08/08/20 18:17 Acetaminophen 325 Mg Tablet PO 650 mg Q6H PRN Administration Pain, Mild (Pain Scale 1-3) Benzonatate 200 mg 08/08/20 04:24 08/09/20 08:04 Benzonatate 100 Mg Capsule PO 200 mg TID PRN Administration Cough Clonazepam 0.5 mg 08/08/20 00:55 Clonazepam 0.5 Mg Tablet PO DAILY PRN anxiety Dexamethasone Sodium Phosphate 6 mg 08/08/20 09:00 08/09/20 08:04 Dexamethasone Sod Phosphate 4 Mg/Ml Vial IVPUSH 6 mg DAILY ANANT Administration Docusate Sodium 100 mg 08/07/20 23:01 Docusate Sodium 100 Mg Capsule PO DAILY PRN Constipation Enoxaparin Sodium 40 mg 08/08/20 01:00 08/08/20 20:08 Enoxaparin Sodium 40 Mg/0.4 Ml Syringe SUBCUT 40 mg BEDTIME ANANT Administration Escitalopram Oxalate 5 mg 08/08/20 09:00 08/09/20 08:04 Escitalopram Oxalate 5 Mg Tablet PO 5 mg DAILY ANANT Administration Ferrous Sulfate 324 mg 08/08/20 09:00 08/09/20 08:06 Ferrous Sulfate 324 Mg Tablet. PO 324 mg BID ANANT Administration Haloperidol 1 mg 08/08/20 01:15 08/08/20 20:07 Haloperidol 1 Mg Tablet PO 1 mg BEDTIME ANANT Administration Remdesivir 100 mg/ Sodium 230 mls @ 115 mls/hr 08/09/20 18:00 Chloride IV 08/12/20 19:59 Q24H ANANT Olanzapine 20 mg 08/08/20 01:00 08/08/20 20:08 Olanzapine 10 Mg Tablet PO 20 mg BEDTIME ANANT Administration Ondansetron HCl 4 mg 08/07/20 23:01 Ondansetron Hcl 4 Mg/2 Ml Vial IVPUSH Q8H PRN Nausea and Vomiting Sodium Chloride 3 ml 08/08/20 00:00 08/09/20 08:06 0.9 % Sodium Chloride Flush 3 Ml Syringe IVFLUSH 3 ml QSHIFT ANANT Administration Trazodone HCl 100 mg 08/08/20 01:00 08/08/20 20:08 Trazodone Hcl 100 Mg Tablet PO 100 mg BEDTIME ANANT Administration Labs CBC & Chem 7: 08/09/20 06:22 08/09/20 06:22 Labs: Laboratory Results - last 24 hr 08/08/20 08/09/20 08/09/20 15:07 06:22 06:22 WBC 12.2 H RBC 3.34 L Hgb 10.4 L Hct 30.3 L MCV 90.7 MCH 31.1 MCHC 34.3 RDW 13.2 Plt Count 221 D MPV 10.2 Absolute Nucleated RBC 0.000 Nucleated RBC % (auto) 0.0 Sodium 141 Potassium 3.3 D Chloride 110 H Carbon Dioxide 19 L Anion Gap 15 BUN 20 H Creatinine 0.65 Estim Creat Clear Calc 98.2 Estimated GFR > 60 Random Glucose 127 H Calcium 8.3 L Ferritin 410 H Total Bilirubin 0.5 Direct Bilirubin 0.4 AST 34 H ALT 17 Alkaline Phosphatase 120 H Lactate Dehydrogenase 363 H C-Reactive Protein 2.89 H Total Protein 6.6 Albumin 3.2 L Procalcitonin 08/09/20 06:22 WBC RBC Hgb Hct MCV MCH MCHC RDW Plt Count MPV Absolute Nucleated RBC Nucleated RBC % (auto) Sodium Potassium Chloride Carbon Dioxide Anion Gap BUN Creatinine Estim Creat Clear Calc Estimated GFR Random Glucose Calcium Ferritin Total Bilirubin Direct Bilirubin AST ALT Alkaline Phosphatase Lactate Dehydrogenase C-Reactive Protein Total Protein Albumin Procalcitonin 0.28 Microbiology Microbiology Results: Microbiology 08/07/20 16:42 Blood Culture - Preliminary Blood - Venous No growth after 24 hours. 08/07/20 16:25 Blood Culture - Preliminary Blood - Venous No growth after 24 hours. Quality Stroke Does the patient have a stroke diagnosis?: No VTE Prior VTE?: No VTE Risk Level:: Medical - moderate - high VTE Device Contraindication: Treatment Not Indicated VTE Drug Contraindication: N/A - Med Ordered Assessment and Plan (1) Pneumonia due to COVID-19 virus: Status: Acute Assessment and Plan: 50-year-old female who tested positive for COVID-19 4 days ago presents with shortness of breath and cough found to have hypoxia on room air Acute hypoxic respiratory failure, secondary to COVID-19 pneumonia intermittently requiring oxygen, desaturates with movement elevated ferritin, LDH, procalcitonin 0.56 - continue dexamethasone started 08/08 - seen by ID, started on remdesivir, follow LFTs in am Pneumonia due to COVID-19 - unlikely to be secondary to bacteria given COVID-19 positive and presentation on CT typical of COVID-19 infection - dexamethasone daily Mood - continue her home medications DVT prophylaxis: Lovenox attending: Dr. Li Full code
[2020-08-09] MEDS: Acetaminophen 325 MG TABLET 650 MG PO (13:00)
[2020-08-09] MEDS: traMADoL HCL 50 MG TABLET 25 MG PO (15:01)
--- NOTE | 2020-08-09 15:03 | MHC.CM.PN ---
Female 50 DX Covid acute resp failure DP resume Home health services with [facility]. May need assit w transport. CM will follow for change in discharge needs.
[2020-08-09] MEDS: Remdesivir 100 MG in 0.9 % Sodium Chloride 230 ML 115 MG IV (17:24)
[2020-08-09] MEDS: clonazePAM 0.5 MG TABLET PO (17:24)
[2020-08-09] MEDS: HaloperidoL 1 MG TABLET PO (20:42)
[2020-08-09] MEDS: traZODone HCL 100 MG TABLET PO (20:42)
[2020-08-09] MEDS: OLANZapine 10 MG TABLET 20 MG PO (20:42)
[2020-08-10 03:47] VITALS: BP 145/72; PULSE 58; RESP 18; TEMP 36.9; O2SAT 96
[2020-08-10 07:50] LABS: Alanine Aminotransferase 17 U/L (0-31); Albumin Level 3.3 g/dL (3.5-5.0); Alkaline Phosphatase 118 U/L (39-117); Aspartate Amino Transferase 32 U/L (5-31); Bilirubin Direct 0.4 mg/dL (0.0-0.5); Bilirubin Total 0.7 mg/dL (0.0-1.0); Total Protein 6.9 g/dL (6.5-8.0)
[2020-08-10 08:00] VITALS: BP 122/74; PULSE 105; RESP 24; TEMP 36.4; O2SAT 96
[2020-08-10] MEDS: Ferrous Sulfate 324 MG TABLET.DR PO ×2 (08:30→20:24)
[2020-08-10] MEDS: dexAMETHasone sod phosphate 4 MG/ML VIAL 6 MG IVPUSH (08:30)
[2020-08-10] MEDS: Escitalopram Oxalate 5 MG TABLET PO (08:30)
[2020-08-10] MEDS: 0.9 % Sodium Chloride Flush 3 ML SYRINGE IVFLUSH ×2 (08:30→16:19)
[2020-08-10] MEDS: Gabapentin 300 MG CAPSULE PO ×2 (08:30→20:24)
--- NOTE | 2020-08-10 10:26 | HO.PM.IMPN ---
Subjective Subjective Date of Service: 08/10/20 Interval History: seen and examined this AM feeling better per RN report, patient tachycardic with ambulation pt reports she did not get the vaccine ROS General - no fevers or chills Cardiovascular - no chest pain Respiratory - +SOB Abdominal- no abdominal pain, nausea, vomiting, diarrhea Physical Exam Vital Signs: Vital Signs: Last Vital Signs Temp 97.6 F 08/10/20 08:00 Pulse 105 H 08/10/20 08:00 Resp 24 H 08/10/20 08:00 BP 122/74 08/10/20 08:00 Pulse Ox 96 08/10/20 08:00 Oxygen Flow Rate 3 08/07/20 14:25 Body Mass Index 27.3 Const: Other: patient appears comfortable in no respiratory distress General: cooperative, no acute distress, alert and awake Nutritional Appearance: well nourished Orientation/consciousness: patient oriented x3 HENMT: Head: Yes normocephalic and Yes atraumatic Eyes: General: appearance normal, both eyes and all related structures Sclerae: sclerae normal Pupils: Equal, round and reactive pupils present Chest: Chest palpation & inspection: normal inspection of the chest Resp: Other: rhonchi bilaterally Effort & Inspection: normal respiratory effort, able to speak in complete sentences and no respiratory distress Cardio: Rate: regular rate Rhythm: regular rhythm GI: Palpation (GI): Soft to palpation and nontender Auscultation: normal bowel sounds Skin: General skin exam: no rashes or lesions noted Neuro: General: patient oriented x3 Cranial nerves: Yes CN's II-XII intact bilaterally, Yes Equal, round and reactive pupils present and Yes Bilaterally intact EOM present Cognition (Neuro): normal cognition Extrem: General: Yes normal to inspection and Yes no pedal edema Objective Data Current Medications Generic Name Dose Route Start Last Admin Trade Name Freq PRN Reason Stop Dose Admin Acetaminophen 650 mg 08/07/20 23:01 08/09/20 13:00 Acetaminophen 325 Mg Tablet PO 650 mg Q6H PRN Administration Pain, Mild (Pain Scale 1-3) Benzonatate 200 mg 08/08/20 04:24 08/09/20 08:04 Benzonatate 100 Mg Capsule PO 200 mg TID PRN Administration Cough Clonazepam 0.5 mg 08/08/20 00:55 08/09/20 17:24 Clonazepam 0.5 Mg Tablet PO 0.5 mg DAILY PRN Administration anxiety Dexamethasone Sodium Phosphate 6 mg 08/08/20 09:00 08/10/20 08:30 Dexamethasone Sod Phosphate 4 Mg/Ml Vial IVPUSH 6 mg DAILY ANANT Administration Docusate Sodium 100 mg 08/07/20 23:01 Docusate Sodium 100 Mg Capsule PO DAILY PRN Constipation Enoxaparin Sodium 40 mg 08/08/20 01:00 08/09/20 20:43 Enoxaparin Sodium 40 Mg/0.4 Ml Syringe SUBCUT Not Given BEDTIME ANANT Escitalopram Oxalate 5 mg 08/08/20 09:00 08/10/20 08:30 Escitalopram Oxalate 5 Mg Tablet PO 5 mg DAILY ANANT Administration Ferrous Sulfate 324 mg 08/08/20 09:00 08/10/20 08:30 Ferrous Sulfate 324 Mg Tablet. PO 324 mg BID ANANT Administration Gabapentin 300 mg 08/10/20 09:00 08/10/20 08:30 Gabapentin 300 Mg Capsule PO 300 mg BID ANANT Administration Haloperidol 1 mg 08/08/20 01:15 08/09/20 20:42 Haloperidol 1 Mg Tablet PO 1 mg BEDTIME ANANT Administration Remdesivir 100 mg/ Sodium 230 mls @ 115 mls/hr 08/09/20 18:00 08/09/20 23:28 Chloride IV 08/12/20 19:59 Infused Q24H ANANT Infusion Olanzapine 20 mg 08/08/20 01:00 08/09/20 20:42 Olanzapine 10 Mg Tablet PO 20 mg BEDTIME ANANT Administration Ondansetron HCl 4 mg 08/07/20 23:01 Ondansetron Hcl 4 Mg/2 Ml Vial IVPUSH Q8H PRN Nausea and Vomiting Polyethylene Glycol 17 gm 08/09/20 12:13 Polyethylene Glycol 3350 17 Gm Powd.Pack PO DAILY PRN Constipation Sodium Chloride 3 ml 08/08/20 00:00 08/10/20 08:30 0.9 % Sodium Chloride Flush 3 Ml Syringe IVFLUSH 3 ml QSHIFT ANANT Administration Trazodone HCl 100 mg 08/08/20 01:00 08/09/20 20:42 Trazodone Hcl 100 Mg Tablet PO 100 mg BEDTIME ANANT Administration Labs CBC & Chem 7: 08/09/20 06:22 08/09/20 06:22 Labs: Laboratory Results - last 24 hr 08/10/20 06:16 Total Bilirubin 0.7 Direct Bilirubin 0.4 AST 32 H ALT 17 Alkaline Phosphatase 118 H Total Protein 6.9 Albumin 3.3 L Microbiology Microbiology Results: Microbiology 08/07/20 16:42 Blood Culture - Preliminary Blood - Venous No growth after 48 hours. 08/07/20 16:25 Blood Culture - Preliminary Blood - Venous No growth after 48 hours. Quality Stroke Does the patient have a stroke diagnosis?: No VTE Prior VTE?: No VTE Risk Level:: Medical - moderate - high VTE Device Contraindication: Treatment Not Indicated VTE Drug Contraindication: N/A - Med Ordered Assessment and Plan (1) Pneumonia due to COVID-19 virus: Status: Acute Assessment and Plan: 50-year-old female who tested positive for COVID-19 4 days ago presents with shortness of breath and cough found to have hypoxia on room air Acute hypoxic respiratory failure, secondary to COVID-19 pneumonia no further hypoxia at rest, but desaturates and tachycardic up to 140s with ambulation -- overall hypoxia improving slowly improving continue decadron - day #3/ continue remdesivir - day #3/ trend inflmmatory biomarkers Mood her home medications DVT pptx, lovenox Full Code
[2020-08-10 11:01] LABS: C Reactive Protein 1.34 mg/dL (< or = 0.50)
[2020-08-10 11:46] VITALS: BP 149/87; PULSE 76; RESP 21; TEMP 36.6; O2SAT 94
[2020-08-10 15:17] VITALS: BP 148/70; PULSE 53; RESP 20; TEMP 36.3; O2SAT 99
[2020-08-10] MEDS: Remdesivir 100 MG in 0.9 % Sodium Chloride 230 ML 115 MG IV (17:00)
[2020-08-10 19:24] VITALS: BP 156/78; PULSE 54; RESP 20; TEMP 36; O2SAT 95
[2020-08-10] MEDS: HaloperidoL 1 MG TABLET PO (20:24)
[2020-08-10] MEDS: traZODone HCL 100 MG TABLET PO (20:24)
[2020-08-10] MEDS: Enoxaparin Sodium 40 MG/0.4 ML SYRINGE SUBCUT (20:24)
[2020-08-10] MEDS: OLANZapine 10 MG TABLET 20 MG PO (20:24)
[2020-08-11] VITALS (7 sets, daily range): BP systolic 116–149; BP diastolic 71–86; PULSE 50–103; RESP 16–20; TEMP 36.1–37.1; O2SAT 92–98
[2020-08-11] MEDS: 0.9 % Sodium Chloride Flush 3 ML SYRINGE IVFLUSH ×3 (00:12→18:40)
[2020-08-11] MEDS: Escitalopram Oxalate 5 MG TABLET PO (08:16)
[2020-08-11] MEDS: Gabapentin 300 MG CAPSULE PO ×2 (08:16→20:23)
[2020-08-11] MEDS: Ferrous Sulfate 324 MG TABLET.DR PO ×2 (08:16→20:23)
[2020-08-11] MEDS: dexAMETHasone sod phosphate 4 MG/ML VIAL 6 MG IVPUSH (08:16)
[2020-08-11] MEDS: clonazePAM 0.5 MG TABLET PO (08:21)
--- NOTE | 2020-08-11 13:08 | HO.PM.IMPN ---
Subjective Subjective Date of Service: 08/11/20 Interval History: seen and examined this morning, resting in bed comfortably improvement in breathing, ongoing cough, generalized aches and pains Review of Systems Review of Systems: Yes all other systems are reviewed and are negative Constitutional Constitutional: Denies chills and Denies fever(s) Eyes Eyes: Reports as per HPI and Reports no additional eye complaints ENT Ears, Nose, Mouth, and Throat: Reports system reviewed and no additional complaints, except as documented and Reports as per HPI Cardiovascular Cardiovascular: Denies chest pain Respiratory Respiratory: Reports cough Gastrointestinal Gastrointestinal: Denies abdominal pain Musculoskeletal Musculoskeletal: Reports no additional musculoskeletal complaints and Reports as per HPI Neurologic Neurologic: Reports system reviewed and no additional complaints, except as documented and Reports as per HPI Psychiatric Psychiatric: Reports no additional psychiatric complaints and Reports as per HPI Physical Exam Vital Signs: Vital Signs: Last Vital Signs Temp 98.0 F 08/11/20 11:23 Pulse 61 08/11/20 11:23 Resp 18 08/11/20 11:23 BP 136/74 08/11/20 11:23 Pulse Ox 97 08/11/20 11:23 Oxygen Flow Rate 3 08/07/20 14:25 Body Mass Index 27.3 Const: Other: patient appears comfortable in no respiratory distress General: cooperative, comfortable, no acute distress, well developed, alert and awake Nutritional Appearance: well nourished Orientation/consciousness: patient oriented x3 HENMT: Head: Yes normocephalic and Yes atraumatic Eyes: General: appearance normal, both eyes and all related structures Sclerae: sclerae normal Pupils: Equal, round and reactive pupils present Chest: Chest palpation & inspection: normal inspection of the chest Resp: Other: rhonchi bilaterally Effort & Inspection: normal respiratory effort, able to speak in complete sentences and no respiratory distress Cardio: Rate: regular rate Rhythm: regular rhythm GI: Palpation (GI): Soft to palpation and nontender Auscultation: normal bowel sounds Skin: General skin exam: no rashes or lesions noted Neuro: General: patient oriented x3 Cranial nerves: Yes CN's II-XII intact bilaterally, Yes Equal, round and reactive pupils present and Yes Bilaterally intact EOM present Cognition (Neuro): normal cognition Extrem: General: Yes normal to inspection and Yes no pedal edema Objective Data Current Medications Generic Name Dose Route Start Last Admin Trade Name Freq PRN Reason Stop Dose Admin Acetaminophen 650 mg 08/07/20 23:01 08/09/20 13:00 Acetaminophen 325 Mg Tablet PO 650 mg Q6H PRN Administration Pain, Mild (Pain Scale 1-3) Benzonatate 200 mg 08/08/20 04:24 08/09/20 08:04 Benzonatate 100 Mg Capsule PO 200 mg TID PRN Administration Cough Clonazepam 0.5 mg 08/08/20 00:55 08/11/20 08:21 Clonazepam 0.5 Mg Tablet PO 0.5 mg DAILY PRN Administration anxiety Dexamethasone Sodium Phosphate 6 mg 08/08/20 09:00 08/11/20 08:16 Dexamethasone Sod Phosphate 4 Mg/Ml Vial IVPUSH 6 mg DAILY ANANT Administration Docusate Sodium 100 mg 08/07/20 23:01 Docusate Sodium 100 Mg Capsule PO DAILY PRN Constipation Enoxaparin Sodium 40 mg 08/08/20 01:00 08/10/20 20:24 Enoxaparin Sodium 40 Mg/0.4 Ml Syringe SUBCUT 40 mg BEDTIME ANANT Administration Escitalopram Oxalate 5 mg 08/08/20 09:00 08/11/20 08:16 Escitalopram Oxalate 5 Mg Tablet PO 5 mg DAILY ANANT Administration Ferrous Sulfate 324 mg 08/08/20 09:00 08/11/20 08:16 Ferrous Sulfate 324 Mg Tablet.Dr PO 324 mg BID ANANT Administration Gabapentin 300 mg 08/10/20 09:00 08/11/20 08:16 Gabapentin 300 Mg Capsule PO 300 mg BID ANANT Administration Guaifenesin 5 ml 08/11/20 08:57 Guaifenesin 100 Mg/5 Ml Liquid PO Q4H PRN Cough Haloperidol 1 mg 08/08/20 01:15 08/10/20 20:24 Haloperidol 1 Mg Tablet PO 1 mg BEDTIME ANANT Administration Remdesivir 100 mg/ Sodium 230 mls @ 115 mls/hr 08/09/20 18:00 08/10/20 19:10 Chloride IV 08/12/20 19:59 Infused Q24H ANANT Infusion Olanzapine 20 mg 08/08/20 01:00 08/10/20 20:24 Olanzapine 10 Mg Tablet PO 20 mg BEDTIME ANANT Administration Ondansetron HCl 4 mg 08/07/20 23:01 Ondansetron Hcl 4 Mg/2 Ml Vial IVPUSH Q8H PRN Nausea and Vomiting Polyethylene Glycol 17 gm 08/09/20 12:13 Polyethylene Glycol 3350 17 Gm Powd.Pack PO DAILY PRN Constipation Sodium Chloride 3 ml 08/08/20 00:00 08/11/20 08:16 0.9 % Sodium Chloride Flush 3 Ml Syringe IVFLUSH 3 ml QSHIFT ANANT Administration Trazodone HCl 100 mg 08/08/20 01:00 08/10/20 20:24 Trazodone Hcl 100 Mg Tablet PO 100 mg BEDTIME ANANT Administration Labs CBC & Chem 7: 08/09/20 06:22 08/09/20 06:22 Quality Stroke Does the patient have a stroke diagnosis?: No VTE Prior VTE?: No VTE Risk Level:: Medical - moderate - high VTE Device Contraindication: Treatment Not Indicated VTE Drug Contraindication: N/A - Med Ordered Assessment and Plan (1) Pneumonia due to COVID-19 virus: Status: Acute Assessment and Plan: 50-year-old female who tested positive for COVID-19 4 days ago presents with shortness of breath and cough found to have hypoxia on room air Acute hypoxic respiratory failure, secondary to COVID-19 pneumonia no hypoxia at rest, but desaturates with ambulation -- overall hypoxia improving slowly improving continue decadron - day #4/10 continue remdesivir - day #4/ Mood her home medications DVT pptx, lovenox Full Code Attending: Dr. olson
[2020-08-11] MEDS: Remdesivir 100 MG in 0.9 % Sodium Chloride 230 ML 115 MG IV (18:39)
[2020-08-11] MEDS: OLANZapine 10 MG TABLET 20 MG PO (20:23)
[2020-08-11] MEDS: HaloperidoL 1 MG TABLET PO (20:23)
[2020-08-11] MEDS: traZODone HCL 100 MG TABLET PO (20:24)
[2020-08-12 02:46] VITALS: BP 139/84; PULSE 64; RESP 18; TEMP 36.8; O2SAT 96
[2020-08-12 07:47] VITALS: BP 106/77; PULSE 106; RESP 20; TEMP 36.9; O2SAT 92
[2020-08-12] MEDS: dexAMETHasone sod phosphate 4 MG/ML VIAL 6 MG IVPUSH (08:34)
[2020-08-12] MEDS: Escitalopram Oxalate 5 MG TABLET PO (08:35)
[2020-08-12] MEDS: Ferrous Sulfate 324 MG TABLET.DR PO (08:35)
[2020-08-12] MEDS: Gabapentin 300 MG CAPSULE PO (08:35)
[2020-08-12] MEDS: 0.9 % Sodium Chloride Flush 3 ML SYRINGE IVFLUSH (08:35)
[2020-08-12 11:13] VITALS: BP 129/74; PULSE 93; RESP 20; TEMP 36.5; O2SAT 97
--- NOTE | 2020-08-12 11:40 | PM.DS ---
DS: Providers Provider Date of Service: 08/12/20 <SUSAN Hebert - Last Filed: 08/12/20 14:16> Date of admission: 08/07/20 22:00 <SUSAN Hebert - Last Filed: 08/12/20 14:16> Primary care physician: Arielle Jon MD <SUSAN Hebert - Last Filed: 08/12/20 14:16> Consults: 08/07/20 23:01 Consult to Infectious Diseases Routine Consulting Provider: Charline Khan Reason for consultation: COVID 19 Has provider been notified: No <SUSAN Hebert Last Filed: 08/12/20 14:16> DS: Diagnosis Discharge Diagnosis (1) Pneumonia due to COVID-19 virus: Status: Acute <SUSAN Hebert Last Filed: 08/12/20 14:16> DS: Medications Discharge Medications Home Medications: Home Medications Medication Instructions Recorded Confirmed clonazepam 1 tab PO DAILY PRN 08/07/20 08/07/20 escitalopram oxalate 1 tab PO DAILY 08/07/20 08/07/20 ferrous sulfate 1 tab PO BID 08/07/20 08/07/20 gabapentin 300 mg PO BID 08/07/20 08/08/20 haloperidol 1 tab PO BEDTIME 08/07/20 08/07/20 olanzapine 1 tab PO BEDTIME 08/07/20 08/07/20 polyethylene glycol 3350 [Purelax] 17 g PO DAILY PRN 08/07/20 08/08/20 trazodone 1 tab PO BEDTIME 08/07/20 08/07/20 <SUSAN Hebert - Last Filed: 08/12/20 14:16> DS: Summary Hospital Course Hospital Course: From H&P on day of admission 50-year-old female with past medical history of schizoaffective disorder, cirrhosis, depression anxiety who presents to the hospital with complaints of shortness of breath and cough. Patient reports that about 4 days ago she was tested for COVID after her sister and [id number] tested positive, and she also tested positive for COVID. At that time she had no symptoms but 3 days ago she developed shortness of breath, loss of appetite, loss of taste and smell, nausea, and fever. Patient also has a cough that is is productive. She denies any headache, change in vision, no chest pain, no palpitations, no abdominal pain, she has no constipation but has had diarrhea for 3 days, no urinary symptoms and no lower extremity edema on arrival to the ED patient vitals significant for temp of 98.8?, heart rate of 110, respiratory rate of 16, blood pressure 132/80, satting 87% on room air, patient placed on 3 L of oxygen now satting 93% labs are significant for WBC count of 8.4, hemoglobin of 11.6, PT of 17.5, INR of 1.5, BUN of 17, AST of 53, alk-phos of 149, LDH of 455, D-dimer elevated, COVID-[address] chest angiogram shows no definite evidence of central segment or pulmonary embol, diffusely scattered ground-glass and airspace opacities, most consistent with multifocal pneumonia imaging features can be seen with COVID-19 pneumonia. patient was admitted for pneumonia secondary to COVID-19.She initially tested positive for COVID-19 on August 01 but was not initially symptomatic. She was started on IV dexamethasone. She was evaluated by ID who started her on remdesivir. she has completed her 5 day course of remdesivir in the hospital. She initially was requiring small doses of supplemental oxygen due to hypoxia. This was gradually weaned off and she has been off supplemental oxygen for 24 hours. Her breathing has significantly improved and she is now stable for discharge home. she will be discharged home with oral dexamethasone to complete 10 day course. she should call to schedule follow-up appointment with PCP. <SUSAN Hebert - Last Filed: 08/12/20 14:16> Time Spent with Patient Time attestation: Total time spent providing and/or coordinating discharge services: <SUSAN Hebert - Last Filed: 08/12/20 14:16> Discharge coordination time: Greater than 30 minutes <SUSAN Hebert - Last Filed: 08/12/20 14:16> Quality: Stroke Does the patient have a stroke diagnosis?: No <SUSAN Hebert - Last Filed: 08/12/20 14:16> Physical Exam Vital Signs: Vital Signs: Last Vital Signs Temp 97.7 F 08/12/20 11:13 Pulse 93 08/12/20 11:13 Resp 20 08/12/20 11:13 BP 129/74 08/12/20 11:13 Pulse Ox 97 08/12/20 11:13 Oxygen Flow Rate 3 08/07/20 14:25 Body Mass Index 27.3 <SUSAN Hebert - Last Filed: 08/12/20 14:16> Const: General: comfortable, alert and awake <SUSAN Hebert - Last Filed: 08/12/20 14:16> Nutritional Appearance: well nourished <SUSAN Hebert - Last Filed: 08/12/20 14:16> HENMT: Head: Yes normocephalic and Yes atraumatic <SUSAN Hebert - Last Filed: 08/12/20 14:16> Eyes: Sclerae: sclerae normal <SUSAN Hebert - Last Filed: 08/12/20 14:16> Resp: Effort & Inspection: normal respiratory effort, able to speak in complete sentences and no respiratory distress <SUSAN Hebert - Last Filed: 08/12/20 14:16> Cardio: Rate: regular rate <SUSAN Hebert - Last Filed: 08/12/20 14:16> Rhythm: regular rhythm <SUSAN Hebert - Last Filed: 08/12/20 14:16> GI: Palpation (GI): Soft to palpation and nontender <SUSAN Hebert - Last Filed: 08/12/20 14:16> Neuro: Cranial nerves: Yes CN's II-XII intact bilaterally and Yes Bilaterally intact EOM present <SUSAN Hebert - Last Filed: 08/12/20 14:16> DS: Data Data Completed and Pending Labs on day of discharge: Preliminary micro results at discharge 08/07/20 16:42 Blood Culture - Preliminary Blood - Venous No growth after 48 hours. 08/07/20 16:25 Blood Culture - Preliminary Blood - Venous No growth after 48 hours. <SUSAN Hebert Last Filed: 08/12/20 14:16> Discharge Plan Discharge Anticipated Discharge Date/Time: 08/12/20 14:24 <SUSAN Hebert - Last Filed: 08/12/20 14:16> Patient Disposition: Home Health Service <SUSAN Hebert - Last Filed: 08/12/20 14:16> Discharge Diagnosis: pneumonia secondary to covid 19 <SUSAN Hebert - Last Filed: 08/12/20 14:16> pneumonia secondary to covid 19 <Efrain Jordan MD - Last Filed: 08/12/20 14:28> Referrals: Lino Nunez [Outside] - 1 Week Arielle Jon MD [Primary Care Provider] - 1 Week <SUSAN Hebert - Last Filed: 08/12/20 14:16> Discharge Medications: New benzonatate 100 mg Capsule 200 mg PO TID PRN (Reason: Cough) Qty: 14 RF: 0 dexamethasone 6 mg tablet 6 mg PO DAILY 5 Days Qty: 5 RF: 0 Continued clonazepam 0.5 mg tablet 1 tab PO DAILY PRN (Reason: anxiety) RF: 0 trazodone 100 mg tablet 1 tab PO BEDTIME RF: 0 gabapentin 300 mg capsule 300 mg PO BID RF: 0 polyethylene glycol 3350 [Purelax] 17 gram/dose powder 17 g PO DAILY PRN (Reason: Constipation) RF: 0 haloperidol 2 mg tablet 1 tab PO BEDTIME RF: 0 olanzapine 20 mg tablet 1 tab PO BEDTIME RF: 0 escitalopram oxalate 5 mg tablet 1 tab PO DAILY RF: 0 ferrous sulfate 324 mg (65 mg iron) tablet,delayed release (DR/EC) 1 tab PO BID RF: 0 <SUSAN Hebert - Last Filed: 08/12/20 14:16> Discharge Orders: Discharge Order (Routine); Ordered 08/12/20 Ordered By: Antionette Westfall <SUSAN Hebert - Last Filed: 08/12/20 14:16> Diet: advance to usual diet <SUSAN Hebert - Last Filed: 08/12/20 14:16> advance to usual diet <Efrain oJrdan MD - Last Filed: 08/12/20 14:28> Activity on Discharge: As tolerated <SUSAN Hebert - Last Filed: 08/12/20 14:16> As tolerated <Efrain Jordan MD - Last Filed: 08/12/20 14:28> Stand Alone Forms: Patient Portal Discharge page <SUSAN Hebert - Last Filed: 08/12/20 14:16> Care Plan Goals: see below <SUSAN Hebert - Last Filed: 08/12/20 14:16> Health Concerns: covid 19 pneumonia <SUSAN Hebert - Last Filed: 08/12/20 14:16> Plan of Treatment: finish course of dexamethasone as prescribed tessalon as needed for cough call to schedule follow up with pcp isolation per cdc guidelines <SUSAN Hebert - Last Filed: 08/12/20 14:16> Assessment: see discharge summary I saw and examined the patient and discussed, management and disposition and discharge plan with PA and I agree with Discharge planchinedu as written by SUSAN, except as otherwise stated. Pt advised to complete self isolation per CCD guideline <SUSAN Hebert - Last Filed: 08/12/20 14:16>
[2020-08-12] MEDS: Remdesivir 100 MG in 0.9 % Sodium Chloride 230 ML 115 MG IV (13:31)
--- NOTE | 2020-08-12 14:18 | MHC.CM.PN ---
PT CLEARED TO DC HOME TODAY WITH RESUMPTION OF [facility] FOR DAILY MED MANAGEMENT. DC NOTIFICATION AND SUMMARY SENT TO [facility].
[2020-08-12 15:16] VITALS: BP 120/70; PULSE 79; RESP 20; TEMP 36; O2SAT 97
== END 2020-08-12 16:45 | disposition home health service (06) | DRG 137 ==
LOC: HO.ED 20:43 → HO.EDOVER 22:08 → HO.IMC 22:42
PROVIDERS: Family Medicine; Nurse Practitioner Acute Care; Physician Assistant; Physician Assistant Medical; Admitting Provider Internal Medicine; Emergency Provider Internal Medicine; PCP Internal Medicine; Visit Provider Internal Medicine
DX: U07.1 COVID-19 (principal); J96.01 Acute respiratory failure with hypoxia; J12.89 Other viral pneumonia; K74.60 Unspecified cirrhosis of liver; F17.210 Nicotine dependence, cigarettes, uncomplicated; Z71.6 Tobacco abuse counseling; F25.9 Schizoaffective disorder, unspecified; Z88.6 Allergy status to analgesic agent; Z79.899 Other long term (current) drug therapy
CPT/HCPCS: 36415; 71045; 71275; 80048; 80053; 80076; 82728; 83605; 83615; 84145; 84484; 85025; 85027; 85379; 85610; 85730; 86140; 87040; 87635; 93005; 99285; J0456; J0696; J1100; J1650; J3475; J3490; Q9967

== ENCOUNTER 2020-09-12 12:37 | Emergency (ER) | payer OTHER, SELFPAY ==
--- NOTE | 2020-09-12 | ECG_ITS ---
Test Reason : TACHYCARDIA Blood Pressure : / mmHG Vent. Rate : 115 BPM Atrial Rate : 115 BPM P-R Int : 140 ms QRS Dur : 082 ms QT Int : 342 ms P-R-T Axes : 043 020 004 degrees QTc Int : 473 ms Sinus tachycardia Nonspecific ST-T changes Borderline ECG When compared with ECG of 07-AUG-2020 16:10, No significant changes seen Referred By: Generic ED Physician Electronically Signed By:Zeferino Bowden
--- NOTE | ~2020-09-12 | XR_ITS ---
EXAMINATION: XR CHEST CLINICAL INFORMATION: Chest pain COMPARISON: Previous chest x-ray most recent July 2020 CTA of the chest July 2020 TECHNIQUE: 2 views of the chest were obtained. FINDINGS: The cardiac and mediastinal contours are stable. There is interval improvement in the bilateral infiltrates from 08/07/2020 exam. There is no pleural effusion or pneumothorax. Bony structures are unremarkable. XR/XR chest 2V IMPRESSION: Improving bilateral infiltrates from 08/07/2020 chest x-ray and chest CTA.
[2020-09-12 13:10] VITALS: BP 128/84; PULSE 120; RESP 18; TEMP 36.8; O2SAT 96; BMI 24.7
[2020-09-12 15:20] VITALS: PULSE 105
--- NOTE | 2020-09-12 15:53 | ED.CHESTPAIN ---
HPI - Chest Pain General Chief Complaint: Chest Pain Stated Complaint: fast heart rate Time Seen by Provider: 09/12/20 15:30 Source: patient Mode of arrival: ambulatory Limitations: no limitations History of Present Illness HPI narrative: 50-year-old female who presents emergency department for evaluation chest pain. The patient states that 2 days prior she had a sudden onset of chest pain. She describes the pain is a sharp and burning pain. She points to her sternum and left side of her anterior chest when asked to localize the pain. She states the pain has been intermittent and she has had multiple episodes a day. The pain does not radiate to her neck, jaw, arms or back. She states that she does feel like she had increased heart rate but she attributes this to exercising. She denied fever, chills, cough, shortness of breath, dyspnea on exertion. She states that her visiting nurse was concerned about her symptoms and advised her to go to the emergency department for evaluation. The patient states the prior to the onset of this pain, she was having headaches since she was taking Tylenol p.m.. Related Data Home Medications Medication Instructions Recorded Confirmed clonazepam 0.5 mg tablet 1 tab PO DAILY PRN 08/07/20 08/07/20 escitalopram oxalate 5 mg tablet 1 tab PO DAILY 08/07/20 08/07/20 gabapentin 300 mg capsule 300 mg PO BID 08/07/20 08/08/20 haloperidol 2 mg tablet 1 tab PO BEDTIME 08/07/20 08/07/20 olanzapine 20 mg tablet 1 tab PO BEDTIME 08/07/20 08/07/20 polyethylene glycol 3350 17 17 g PO DAILY PRN 08/07/20 08/08/20 gram/dose oral powder (Purelax) trazodone 100 mg tablet 1 tab PO BEDTIME 08/07/20 08/07/20 Previous Rx's Medication Instructions Recorded benzonatate 100 mg capsule 200 mg PO TID PRN #14 cap 08/12/20 dexamethasone 6 mg tablet 6 mg PO DAILY 5 Days #5 tab 08/12/20 omeprazole 20 mg capsule,delayed 20 mg PO DAILY #60 cap 08/22/20 release ferrous sulfate 324 mg (65 mg 324 mg PO BID #60 tab 08/27/20 iron) tablet,delayed release Allergies Allergy/AdvReac Type Severity Reaction Status Date / Time NSAIDS (Non-Steroidal Allergy Intermediate RASH Verified 06/28/21 21:09 Anti-Inflamma [NSAIDS (NON-STEROIDAL ANTI-INFLAMMA] aspirin [ASPIRIN] Allergy Mild HIVES Verified 08/07/20 21:09 ibuprofen Allergy Unknown hives Verified 08/07/20 21:09 Review of Systems Review of Systems: Yes all other systems are reviewed and are negative [facility] Past Medical History Medical History Alcohol abuse Anemia Bipolar 1 disorder Cirrhosis of liver Depression with anxiety Holosystolic murmur Myalgia Vitamin D deficiency Surgical History History of esophagogastroduodenoscopy (EGD) Hx laparoscopic cholecystectomy Hx of section Family History Family History Sister Breast cancer Other Unknown family medical history Social History Social History Household Members: Other Household Members Other:: 2 sisters and teenage children Housing: Apartment Do you presently have visiting nurse or other home services: No Alcohol intake: never Patient Tobacco Use Status: Former Tobacco user Cigarette Packs Per Day: 0 Cigarettes Per Day: 1 Second Hand Smoke Exposure: Yes Use of substances other than those prescribed or required for medical reasons: No Advance Directives: No Advance Directives Information Provided: No service: No Current occupational status: unemployed Sexual orientation: Straight/Heterosexual Physical Exam Vital Signs: Vital Signs: Last Vital Signs Temp 98.3 F 09/12/20 13:10 Pulse 120 H 09/12/20 13:10 Resp 18 09/12/20 13:10 BP 128/84 09/12/20 13:10 Pulse Ox 96 09/12/20 13:10 Body Mass Index 24.7 Const: General: cooperative and no acute distress Orientation/consciousness: oriented to person and oriented to place Limitations: no limitations HENMT: Head: Yes normal to inspection, Yes normocephalic and Yes atraumatic Ears: external ears normal General nose exam: Normal external nose present Face and sinus: Yes normal facial exam Mouth: Normal oral and palatal mucosa present Throat: Yes posterior oropharynx normal Eyes: General: appearance normal, both eyes and all related structures Pupils: Equal, round and reactive pupils present Neck: Neck: Yes normal visual inspection, Yes no lymphadenopathy, Yes trachea midline and Yes supple Chest: Chest palpation & inspection: normal inspection of the chest and normal palpation of entire chest wall Resp: Effort & Inspection: normal respiratory effort and able to speak in complete sentences Auscultation: clear to auscultation bilaterally Cardio: Rate: regular rate Rhythm: regular rhythm Heart sounds: S1 normal heart sound present, S2 normal heart sound present and no murmurs GI: Inspection: Yes normal to inspection Palpation (GI): Soft to palpation, nontender and no guarding Auscultation: normal bowel sounds : General: Yes no CVA tenderness Back/Spine/Pelvis: Back: no CVA tenderness Skin: General skin exam: no rashes or lesions noted Neuro: General: oriented to person and oriented to place Cranial nerves: Yes CN's II-XII intact bilaterally and Yes Equal, round and reactive pupils present Cognition (Neuro): normal cognition Motor exam (neuro): 5/5 motor strength present throughout Extrem: General: Yes normal to inspection Psych: Appearance: grossly normal Speech and movement: Normal speech and movement present Affect: normal affect Attitude: cooperative Thought process: Normal thought process present Thought content: Normal thought content present Course Course Course Narrative: 50-year-old female who presents emergency department for evaluation of chest pain and palpitations x2 days. The patient's vital signs pulse of 120 otherwise were normal . Her physical examination was unremarkable and her tachycardia resolved at the time I evaluated the patient. I ordered a cardiac workup, chest x-ray and COVID test on the patient. Patient is currently pain-free and does not want any medications. 1849: Patient's 12 lead EKG was unremarkable. Patient's laboratory evaluation revealed mild anemia with an H&H of 11.4 and 33.5. The patient's alk-phos was slightly elevated at 121 otherwise her CMP was normal. COVID-19 was negative. Chest x-ray is interpreted by the radiologist revealed improvement of bilateral infiltrates noted on 08/07/2020 when the patient was COVID positive. The patient's troponin was below detectable limits. Patient's chest pain is most likely musculoskeletal and I did discuss this with her. She is advised to take Tylenol for the pain. The patient was given verbal and printed instructions prior to discharge. The patient was advised to follow-up with her PCP in 2 days and to return to the emergency department if her symptoms get worse or if she develops any new symptoms that are concerning to her. MDM - Chest Pain Lab Data Result diagrams: 09/12/20 16:50 09/12/20 17:57 Labs: Lab Results 09/12/20 09/12/20 09/12/20 Range/Units 16:50 16:50 16:51 WBC 11.0 H (4.8-10.8) X10*3/uL RBC 3.54 L (4.20-5.50) X10*6/uL Hgb 11.4 L (12.0-16.0) g/dl Hct 33.5 L (37-47) % MCV 94.6 (80-98) fL MCH 32.2 (27.0-33.0) pg MCHC 34.0 (31.0-35.0) g/dl RDW 15.0 (11.0-16.0) % Plt Count 226 (160-400) X10*3/uL MPV 9.9 (9.4-12.3) fL Immature Gran % (Auto) 0.9 H (0.0-0.4) % Neut % (Auto) 69.2 (45-73) % Lymph % (Auto) 17.9 L (20-40) % [place] % (Auto) 10.7 (2-11) % Eos % (Auto) 0.8 (0-4) % Baso % (Auto) 0.5 (0-2) % Lymph # (Auto) 2.0 (1.2-4.9) X10*3/uL [place] # (Auto) 1.2 (0.1-1.2) X10*3/uL Eos # (Auto) 0.1 (0.0-0.4) X10*3/uL Baso # (Auto) 0.1 (0.0-0.2) X10*3/uL Abs Immat Gran (auto) 0.10 H (0.00-0.03) X10*3/uL Absolute Neuts (auto) 7.6 (2.0-8.3) X10*3/uL Absolute Nucleated RBC 0.000 (0.0-0.012) X10*3/uL Nucleated RBC % (auto) 0.0 (0.0-0.2) /100WBC Sodium (135-145) mmol/L Potassium (3.3-5.1) mmol/L Chloride (96-108) mmol/L Carbon Dioxide (22-29) mmol/L Anion Gap (12-20) BUN (9-16) mg/dL Creatinine (0.5-1.4) mg/dL Estim Creat Clear Calc Estimated GFR Random Glucose (60-115) mg/dL Calcium (8.4-10.2) mg/dL Total Bilirubin (0.0-1.0) mg/dL AST (5-31) U/L ALT (0-31) U/L Alkaline Phosphatase (39-117) U/L Troponin I High Sens < 3.5 (<3.5-17.0) ng/L Total Protein (6.5-8.0) g/dL Albumin (3.5-5.0) g/dL COVID-19 ([facility]) Negative (Negative) COVID-19 Clin Com See Note 09/12/20 Range/Units 17:57 WBC (4.8-10.8) X10*3/uL RBC (4.20-5.50) X10*6/uL Hgb (12.0-16.0) g/dl Hct (37-47) % MCV (80-98) fL MCH (27.0-33.0) pg MCHC (31.0-35.0) g/dl RDW (11.0-16.0) % Plt Count (160-400) X10*3/uL MPV (9.4-12.3) fL Immature Gran % (Auto) (0.0-0.4) % Neut % (Auto) (45-73) % Lymph % (Auto) (20-40) % [place] % (Auto) (2-11) % Eos % (Auto) (0-4) % Baso % (Auto) (0-2) % Lymph # (Auto) (1.2-4.9) X10*3/uL [place] # (Auto) (0.1-1.2) X10*3/uL Eos # (Auto) (0.0-0.4) X10*3/uL Baso # (Auto) (0.0-0.2) X10*3/uL Abs Immat Gran (auto) (0.00-0.03) X10*3/uL Absolute Neuts (auto) (2.0-8.3) X10*3/uL Absolute Nucleated RBC (0.0-0.012) X10*3/uL Nucleated RBC % (auto) (0.0-0.2) /100WBC Sodium 141 (135-145) mmol/L Potassium 3.7 (3.3-5.1) mmol/L Chloride 108 (96-108) mmol/L Carbon Dioxide 24 (22-29) mmol/L Anion Gap 13 (12-20) BUN 7 L D (9-16) mg/dL Creatinine 0.71 (0.5-1.4) mg/dL Estim Creat Clear Calc 85.9 Estimated GFR > 60 Random Glucose 112 (60-115) mg/dL Calcium 8.9 D (8.4-10.2) mg/dL Total Bilirubin 0.7 (0.0-1.0) mg/dL AST 20 (5-31) U/L ALT 7 (0-31) U/L Alkaline Phosphatase 121 H (39-117) U/L Troponin I High Sens (<3.5-17.0) ng/L Total Protein 6.2 L (6.5-8.0) g/dL Albumin 3.3 L (3.5-5.0) g/dL COVID-19 ([place]) (Negative) COVID-19 Clin Com ECG Data ECG #1: Attestation: I personally reviewed and interpreted this ECG as follows: Interpretation: 1329: Sinus tachycardia with a rate of 115, normal DC, QRS and QTC intervals, no ST segment elevation, no ST segment depression, inverted T-wave in lead 3, no PACs, no PVCs. Discharge Plan Discharge Clinical Impression: Chest pain, Heart palpitations Patient Disposition: Home, Self-Care Instructions: Costochondritis (ED) Additional Instructions: Your laboratory evaluation was unremarkable. Your chest x-ray is improved compared to your previous chest x-ray feeling at [facility]. Your pain is most likely caused by muscle or joint pain in your chest (costochondritis). Take Tylenol (acetaminophen) 500 mg pills, 2 pills every 4 to 6 hours as needed for pain. Follow-up with your doctor in 2 days. Please return to the emergency department if your symptoms get worse or if you develop any symptoms that are concerning to you. Prescriptions: No Action omeprazole 20 mg capsule,delayed release(DR/EC) 20 mg PO DAILY Qty: 60 RF: 3 ferrous sulfate 324 mg (65 mg iron) tablet,delayed release (DR/EC) 324 mg PO BID Qty: 60 RF: 2 clonazepam 0.5 mg tablet 1 tab PO DAILY PRN (Reason: anxiety) RF: 0 trazodone 100 mg tablet 1 tab PO BEDTIME RF: 0 gabapentin 300 mg capsule 300 mg PO BID RF: 0 polyethylene glycol 3350 [Purelax] 17 gram/dose powder 17 g PO DAILY PRN (Reason: Constipation) RF: 0 haloperidol 2 mg tablet 1 tab PO BEDTIME RF: 0 olanzapine 20 mg tablet 1 tab PO BEDTIME RF: 0 escitalopram oxalate 5 mg tablet 1 tab PO DAILY RF: 0 benzonatate 100 mg Capsule 200 mg PO TID PRN (Reason: Cough) Qty: 14 RF: 0 dexamethasone 6 mg tablet 6 mg PO DAILY 5 Days Qty: 5 RF: 0
[2020-09-12 17:02] LABS: Basophils Absolute Auto 0.1 X10*3/uL (0.0-0.2); Basophils Percent Auto 0.5 % (0-2); Eosinophils Absolute Auto 0.1 X10*3/uL (0.0-0.4); Eosinophils Percent Auto 0.8 % (0-4); Hematocrit 33.5 % (37-47); Hemoglobin 11.4 g/dl (12.0-16.0); Imm Gran Pct Auto 0.9 % (0.0-0.4); Lymphocytes Percent Auto 17.9 % (20-40); MANUAL DIFF FLAG NO; Mean Corpuscular Hemoglobin 32.2 pg (27.0-33.0); Mean Corpuscular Volume 94.6 fL (80-98); Mean Platelet Volume 9.9 fL (9.4-12.3); Monocytes Absolute Auto 1.2 X10*3/uL (0.1-1.2); Monocytes Percent Auto 10.7 % (2-11); Neutrophils Absolute Auto 7.6 X10*3/uL (2.0-8.3); Neutrophils Percent Auto 69.2 % (45-73); Platelet Count 226 X10*3/uL (160-400); Red Blood Count 3.54 X10*6/uL (4.20-5.50)
[2020-09-12 17:15] LABS: COVID-19 Test Negative (Negative)
[2020-09-12 17:44] LABS: Troponin-I High Sensitivity < 3.5 ng/L (<3.5-17.0)
[2020-09-12 18:28] LABS: Alanine Aminotransferase 7 U/L (0-31); Albumin Level 3.3 g/dL (3.5-5.0); Alkaline Phosphatase 121 U/L (39-117); Anion Gap 13 (12-20); Aspartate Amino Transferase 20 U/L (5-31); Bilirubin Total 0.7 mg/dL (0.0-1.0); Blood Urea Nitrogen 7 mg/dL (9-16); Calcium 8.9 mg/dL (8.4-10.2); Carbon Dioxide 24 mmol/L (22-29); Chloride 108 mmol/L (96-108); Creatinine Clr Calc Pharmacy 85.9; Estimated Glomerular Filt Rate > 60; Glucose Random 112 mg/dL (60-115); Potassium 3.7 mmol/L (3.3-5.1); Sodium 141 mmol/L (135-145); Total Protein 6.2 g/dL (6.5-8.0)
== END 2020-09-12 19:18 | disposition home or self-care (01) ==
PROVIDERS: Emergency Provider Emergency Medicine Emergency Medical Services; PCP Internal Medicine
DX: R07.9 Chest pain, unspecified (principal); R00.2 Palpitations; M94.0 Chondrocostal junction syndrome [Tietze]; Z20.822 Contact with and (suspected) exposure to COVID-19; Z79.899 Other long term (current) drug therapy; Z87.891 Personal history of nicotine dependence
CPT/HCPCS: 36415; 71046; 80053; 84484; 85025; 87635; 93005; 99285

== ENCOUNTER 2020-10-26 10:51 | Day surgery (SDC) | payer OTHER, SELFPAY ==
--- NOTE | 2020-10-25 13:45 | HO.ANESPROP2 ---
Documented by User: Kimberlee Hunt NP 10/25/20 13:51 HPI - Anesthesia Eval Consult details Narrative: 50yo F for Colonoscopy s/p EGD with MAC 04/2020 EGD cx'd 07/2020 d/t COVID+ ETOH abuse with cirrhosis, varices PMFSH Active Problems Active Problems: All Active Problems (Updated 09/18/20 @ 18:05 by Arielle Jon MD) History of COVID-19 (Acute) Bilateral leg and foot pain (Acute) Pneumonia due to COVID-19 virus (Acute) Acute respiratory failure with hypoxia (Acute) Schizoaffective disorder (Acute) Gastritis (Acute) Cirrhosis (Acute) Vitamin D deficiency (Acute) Myalgia (Acute) Alcohol abuse (Acute) Anemia (Acute) Past Medical History Medical History Alcohol abuse Anemia Bilateral leg and foot pain Bipolar 1 disorder Cirrhosis of liver Depression with anxiety History of COVID-19 Myalgia Vitamin D deficiency Family History Family History Sister Breast cancer Substance use disorder Father Substance use disorder Paternal Aunt Substance use disorder Other Unknown family medical history Surgical History Surgical History History of esophagogastroduodenoscopy (EGD) Hx laparoscopic cholecystectomy Hx of section Social History Social History Household Members: Other Household Members Other:: 2 sisters and teenage children Housing: Apartment Do you presently have visiting nurse or other home services: No Alcohol intake: never Patient Tobacco Use Status: Former Tobacco user Cigarette Packs Per Day: 0 Cigarettes Per Day: 1 Second Hand Smoke Exposure: Yes service: No Current occupational status: unemployed Sexual orientation: Straight/Heterosexual Meds Allergies Allergy/AdvReac Type Severity Reaction Status Date / Time NSAIDS (Non-Steroidal Allergy Intermediate RASH Verified 09/18/20 18:00 Anti-Inflamma [NSAIDS (NON-STEROIDAL ANTI-INFLAMMA] aspirin [ASPIRIN] Allergy Mild HIVES Verified 09/18/20 18:00 Home Medications Medication Instructions Recorded Confirmed Last Taken Type clonazepam 0.5 mg tablet 1 tab PO DAILY PRN 08/07/20 10/20/20 Unknown History escitalopram oxalate 5 mg tablet 1 tab PO DAILY 08/07/20 10/20/20 Unknown History gabapentin 300 mg capsule 300 mg PO BID 08/07/20 09/18/20 Unknown History haloperidol 2 mg tablet 1 tab PO BEDTIME 08/07/20 10/20/20 Unknown History olanzapine 20 mg tablet 1 tab PO BEDTIME 08/07/20 10/20/20 Unknown History polyethylene glycol 3350 17 17 g PO DAILY PRN 08/07/20 09/18/20 Unknown History gram/dose oral powder (Purelax) trazodone 100 mg tablet 1 tab PO BEDTIME 08/07/20 10/20/20 Unknown History Exam Exam Date and Time: October 25, 2020 1345 Pertinent Lab Results Pertinent Lab Results: Laboratory Tests 09/12/20 09/12/20 16:50 17:57 WBC 11.0 H Hgb 11.4 L Hct 33.5 L Plt Count 226 Sodium 141 Potassium 3.7 Chloride 108 Carbon Dioxide 24 BUN 7 L D Creatinine 0.71 Narrative Narrative: EKG 09/2020 Vent. Rate : 115 BPM ? ? Atrial Rate : 115 BPM ?? P-R Int : 140 ms? QRS Dur : 082 ms ? ? QT Int : 342 ms ? ? ? P-R-T Axes : 043 020 004 degrees ?? QTc Int : 473 ms ? Sinus tachycardia Nonspecific ST-T changes Borderline ECG When compared with ECG of 07-AUG-2020 16:10, No significant changes seen ECHO 07/2020 Conclusions: - The left ventricular systolic function is normal.? The visually estimated ejection fraction is between 60-65%. ? - No obvious valvular pathology seen on this study.?? Assessment and Plan Assessment Anesthesia Assessment: Chart Reviewed Documented by User: Richa Sanz MD 10/26/20 10:17 [facility] Past Medical History Medical History Alcohol abuse Anemia Bilateral leg and foot pain Bipolar 1 disorder Cirrhosis of liver Depression with anxiety History of COVID-19 Myalgia Vitamin D deficiency Functional capacity: independent ambulation Patient : No Family History Family History Sister Breast cancer Substance use disorder Father Substance use disorder Paternal Aunt Substance use disorder Other Unknown family medical history Family history of problems with anesthesia: No Surgical History Surgical History History of esophagogastroduodenoscopy (EGD) Hx laparoscopic cholecystectomy Hx of section History of Problems with Anesthesia: No Social History Social History Household Members: Other Household Members Other:: 2 sisters and teenage children Housing: Apartment Do you presently have visiting nurse or other home services: No Alcohol intake: never Patient Tobacco Use Status: Former Tobacco user Cigarette Packs Per Day: 0 Cigarettes Per Day: 1 Second Hand Smoke Exposure: Yes service: No Current occupational status: unemployed Sexual orientation: Straight/Heterosexual Meds Allergies Allergy/AdvReac Type Severity Reaction Status Date / Time NSAIDS (Non-Steroidal Allergy Intermediate RASH Verified 09/18/20 18:00 Anti-Inflamma [NSAIDS (NON-STEROIDAL ANTI-INFLAMMA] aspirin [ASPIRIN] Allergy Mild HIVES Verified 09/18/20 18:00 Home Medications Medication Instructions Recorded Confirmed Last Taken Type clonazepam 0.5 mg tablet 1 tab PO DAILY PRN 08/07/20 10/20/20 Unknown History escitalopram oxalate 5 mg tablet 1 tab PO DAILY 08/07/20 10/20/20 Unknown History gabapentin 300 mg capsule 300 mg PO BID 08/07/20 09/18/20 Unknown History haloperidol 2 mg tablet 1 tab PO BEDTIME 08/07/20 10/20/20 Unknown History olanzapine 20 mg tablet 1 tab PO BEDTIME 08/07/20 10/20/20 Unknown History polyethylene glycol 3350 17 17 g PO DAILY PRN 08/07/20 09/18/20 Unknown History gram/dose oral powder (Purelax) trazodone 100 mg tablet 1 tab PO BEDTIME 08/07/20 10/20/20 Unknown History Exam Airway Mallampati Class: II TM Dist: >3cm Neck ROM: Full Heart: RRR Lungs: CTA Assessment and Plan Final Anesthetic Review Family History of Problems with Anesthesia: No History of Problems with Anesthesia: No
[2020-10-26 11:01] VITALS: BP 139/84; PULSE 112; RESP 18; TEMP 36.8; O2SAT 96; BMI 28.3
[2020-10-26] MEDS: Lactated Ringers 1,000 ML 50 ML IVCONT (11:15)
[2020-10-26 11:47] LABS: UPreg QC Valid YES; Urine Pregnancy NEGATIVE (NEGATIVE)
--- NOTE | 2020-10-26 11:51 | MHC.SHP ---
Pre-Procedural Eval Section A Date of Service: 10/26/20 Section B Chief Complaint: Anemia Relevant Family History (Specify if Yes): No Relevant Social History: None (ex heavy alcohol use) Present Medications: see Short Stay Collaborative assessment Medical History: Significant History (Alcohol abuse Anemia Bilateral leg and foot pain Bipolar 1 disorder Cirrhosis of liver Depression with anxiety History of COVID-19 Myalgia Vitamin D deficiency) History of Previous Operations: Relevant previous surgery/procedure and date(s) (History of esophagogastroduodenoscopy (EGD) Hx laparoscopic cholecystectomy Hx of section) Allergies: Allergies Allergy/AdvReac Type Severity Reaction Status Date / Time NSAIDS (Non-Steroidal Allergy Intermediate RASH Verified 09/18/20 18:00 Anti-Inflamma [NSAIDS (NON-STEROIDAL ANTI-INFLAMMA] aspirin [ASPIRIN] Allergy Mild HIVES Verified 09/18/20 18:00 Review of Systems Sugical H&P ROS: Negative: Constitution, Cardiovascular, Respiratory, Neurological, Psychiatric, Hem-Onc, Allergic/Immunologic, Gastrointestinal, Genitourinary, Musculoskeletal, Integumentary, Endocrine and Eyes/Ears/Nose/Throat Exam Surgical H&P Exam: Normal: HEENT, Normal: Heart, Normal: Lungs, Normal: Extremities, Normal: Abdomen, Normal: Skin and Normal: Neurological Plan Diagnosis/Plan: Unchanged I have reviewed the history and physical and performed a pertinent physical examination on my patient. No changes have occurred unless specified.
--- NOTE | 2020-10-26 11:57 | PM.OP ---
Brief Operative Note Date of Service: 10/26/20 Pre-op diagnosis: anemia Post-op diagnosis: same Procedure: see op note Surgeon: Damian Tamez MD Anesthesia: MAC Was an Business Owner/Engineer used for this Procedure?: No Estimated blood loss (mL): 0 Condition: stable Disposition: PACU
--- NOTE | 2020-10-26 11:58 | P.OP_ITS ---
Operative Note Operative Note Date of Service: 10/26/20 Narrative: Operative Information Procedure Description: Colonoscopy COLONOSCOPY Instrument: Olympus variable stiffness pediatric scope 190L Colonoscopy Monitoring: Vital signs and clinical assessment, continuous EKG monitoring, Pulse oximetry, Carbon Dioxide monitoring and blood pressure monitoring were done throughout the procedure. Colon withdrawal time was [] minutes. Procedure: The patient was placed in the left lateral decubitis position and pre-procedure medications were administered. After a digital rectal examination of the ano-rectum, the video colonoscope was inserted into the rectum and advanced through the colon to the cecum/TI. The colonoscope was slowly withdrawn in a retrograde panoramic fashion and the colon mucosa was carefully examined including a retroflexed view of the rectum. Findings and interventions are described below. Procedure Difficulty: easy Findings: Terminal Ileum-normal Cecum:normal Ascending Colon: normal Transverse Colon -normal Descending Colon:normal Sigmoid Colon: normal Rectum: Retroflexion with small internal hemorrhoids, grade I, there also were non bleeding rectal varices without any stigmata of bleeding or any high risk features Anorectum - normal Colon preparation: [place] Bowel Preparation Scale Right colon; 2 Transverse colon: 2 Left colon; 1 (0 = Unprepared colon segment with mucosa not seen due to solid stool that cannot be cleared. 1 = Portion of mucosa of the colon segment seen, but other areas of the colon segment not well seen due to staining, residual stool and/or opaque liquid. 2 = Minor amount of residual staining, small fragments of stool and/or opaque liquid, but mucosa of colon segment seen well. 3 = Entire mucosa of colon segment seen well with no residual staining, small fragments of stool or opaque liquid) Impression and Post Procedure Diagnosis: internal hemorrhoids rectal varices Plan: High fiber diet leaflet Avoid straining at stool, epsom salts and sitz bath, anusol supps or cream Repeat Colonoscopy in 5 years due to suboptimal left sided prep or earlier if clincially indicated Above findings were reviewed with the patient and relevant handouts were provided if indicated.
[2020-10-26 12:52] VITALS: BP 128/81; PULSE 93; RESP 18; TEMP 36.8; O2SAT 100
[2020-10-26 13:12] VITALS: BP 134/86; PULSE 96; RESP 16; TEMP 36.8; O2SAT 97
--- NOTE | 2020-10-26 17:00 | HO.POSTANES ---
Post Anesthesia Evaluation Post Anesthesia Evaluation Vital Signs: Vital Signs Temp Pulse Resp BP Pulse Ox 10/26/20 13:12 98.3 F 96 16 134/86 97 10/26/20 12:52 98.3 F 93 18 128/81 100 10/26/20 11:01 98.2 F 112 H 18 139/84 96 Anesthesia: Monitored Mental Status: Awake Pain Control: Satisfactory Nausea/Vomiting: None Hydration: Adequate Anesthesia-Related Issues: No Anes. Related Issues
== END 2020-10-26 13:47 | disposition home or self-care (01) ==
PROVIDERS: Nurse Practitioner; PCP Internal Medicine; Visit Provider Internal Medicine Gastroenterology
PROC: 0DJD8ZZ Inspection of Lower Intestinal Tract, Via Natural or Artificial Opening Endoscopic (ICD-10-PCS; CPT 45378; principal; 2020-10-26 12:10)
DX: D64.9 Anemia, unspecified (principal); K64.0 First degree hemorrhoids; I86.8 Varicose veins of other specified sites; K74.60 Unspecified cirrhosis of liver; F10.10 Alcohol abuse, uncomplicated; E55.9 Vitamin D deficiency, unspecified; M79.10 Myalgia, unspecified site; F31.9 Bipolar disorder, unspecified; Z79.899 Other long term (current) drug therapy; Z88.8 Allergy status to other drugs, medicaments and biological substances; Z90.49 Acquired absence of other specified parts of digestive tract; Z86.16 Personal history of COVID-19; Z86.19 Personal history of other infectious and parasitic diseases; Z87.820 Personal history of traumatic brain injury; F17.210 Nicotine dependence, cigarettes, uncomplicated
CPT/HCPCS: 45378; 81025

== ENCOUNTER 2020-11-01 11:24 | Emergency (ER) | payer OTHER, SELFPAY ==
--- NOTE | ~2020-11-01 | XR_ITS ---
EXAMINATION: XR CHEST CLINICAL INFORMATION: Chest pain with shortness of breath and cough COMPARISON: September 12, 2020 and August 07, 2020 TECHNIQUE: AP portable view of the chest was obtained. FINDINGS: There is continued improvement in the lung disease with only some faint increased interstitial markings now present within the left lower lung. No confluent parenchymal disease identified. Heart normal size. No evidence of pulmonary edema. No pneumothorax or pleural effusion. XR/XR chest 1V IMPRESSION: No significant acute parenchymal disease.
--- NOTE | 2020-11-01 11:31 | ED.URI ---
HPI - URI/Sore Throat General Chief Complaint: General Medical Stated Complaint: flu like symptoms Time Seen by Provider: 11/01/20 11:31 Source: patient and EMS Mode of arrival: EMS Limitations: no limitations History of Present Illness HPI Narrative: 50 y/o female with history of HTN, schizoaffective disorder, COVID-19 in June 2020, unvaccinated, hx cirrhosis, gastritis who presents to the ED from home today via EMS after her visiting nurse noted her to have generalized weakness, malaise and was c/o diffuse body aches. She was also noted to have a low grade fever 99.4 and had a dry cough. Her symptoms started yesterday and worsened today. She reports muscle aches and cramping in her legs. She also has right sided chest discomfort for the last day. She reports dyspnea with exertion. No sputum production, N/V/D. MD elicited complaint: cough Onset (ago): day(s) Consistency: constant Severity: moderate Description of mucous: clear Able to tolerate fluids by mouth: Yes Exacerbating factors: exertion Relieving factors: nothing Associated symptoms: myalgias, headache, cough, chest pain and shortness of breath Treatments prior to arrival: none Related Data Home Medications Medication Instructions Recorded Confirmed clonazepam 0.5 mg tablet 1 tab PO DAILY PRN 08/07/20 10/20/20 escitalopram oxalate 5 mg tablet 1 tab PO DAILY 08/07/20 10/20/20 gabapentin 300 mg capsule 300 mg PO BID 08/07/20 09/18/20 haloperidol 2 mg tablet 1 tab PO BEDTIME 08/07/20 10/20/20 olanzapine 20 mg tablet 1 tab PO BEDTIME 08/07/20 10/20/20 polyethylene glycol 3350 17 17 g PO DAILY PRN 08/07/20 09/18/20 gram/dose oral powder (Purelax) trazodone 100 mg tablet 1 tab PO BEDTIME 08/07/20 10/20/20 Previous Rx's Medication Instructions Recorded omeprazole 20 mg capsule,delayed 20 mg PO DAILY #60 cap 08/22/20 release ferrous sulfate 324 mg (65 mg 324 mg PO BID #60 tab 08/27/20 iron) tablet,delayed release bisacodyl 5 mg tablet,delayed 10 mg PO ONCE 1 Days #2 tab 10/24/20 release (Dulcolax (bisacodyl)) polyethylene glycol 3350 17 238 g PO ONCE 1 Days #238 g 10/24/20 gram/dose oral powder (Miralax) cefuroxime axetil 250 mg tablet 250 mg PO BID 7 Days #14 tab 11/01/20 Allergies Allergy/AdvReac Type Severity Reaction Status Date / Time NSAIDS (Non-Steroidal Allergy Intermediate RASH Verified 09/18/20 18:00 Anti-Inflamma [NSAIDS (NON-STEROIDAL ANTI-INFLAMMA] aspirin [ASPIRIN] Allergy Mild HIVES Verified 09/18/20 18:00 Review of Systems Review of Systems: Constitutional: No Fever, No Chills ENT/Mouth: No sore throat, No Rhinorrhea, No Swallowing Difficulty Eyes: No Eye Pain, No Swelling, No Redness Cardiovascular: + Chest Pain, + SOB, No Orthopnea, No Edema Respiratory: + Cough, No Sputum, No Wheezing, No dyspnea Gastrointestinal: No Nausea, No Vomiting, No Diarrhea, No abdominal Pain Genitourinary: No Dysuria, No Urinary Frequency, No Hematuria Musculoskeletal: No joint pain, No Myalgias Skin: No Skin Lesions, No rash Neuro: No Weakness, No Numbness, No Dizziness, + Headache Psych: No Anxiety/Panic, No Depression Heme/Lymph: No Bruising, No Lymphadenopathy Endocrine: No Polyuria, No Polydipsia PMFSH Past Medical History Medical History Alcohol abuse Anemia Bilateral leg and foot pain Bipolar 1 disorder Cirrhosis of liver Depression with anxiety History of COVID-19 Myalgia Vitamin D deficiency Surgical History History of esophagogastroduodenoscopy (EGD) Hx laparoscopic cholecystectomy Hx of section Family History Family History Sister Breast cancer Substance use disorder Father Substance use disorder Paternal Aunt Substance use disorder Other Unknown family medical history Social History Social History Household Members: Other Household Members Other:: 2 sisters and teenage children Housing: Apartment Do you presently have visiting nurse or other home services: No Alcohol intake: never Patient Tobacco Use Status: Former Tobacco user Cigarette Packs Per Day: 0 Cigarettes Per Day: 1 Second Hand Smoke Exposure: Yes Use of substances other than those prescribed or required for medical reasons: No Advance Directives: Yes Advance Directives Information Provided: No Advance Directives on File: No service: No Current occupational status: unemployed Sexual orientation: Straight/Heterosexual Physical Exam Vital Signs: Vital Signs: Last Vital Signs Temp 98.0 F 11/01/20 12:16 Pulse 92 11/01/20 14:41 Resp 16 11/01/20 12:16 BP 121/74 11/01/20 14:41 Pulse Ox 96 11/01/20 14:41 Body Mass Index 28.3 Appearance: Alert. Oriented X3. No acute distress. Eyes: Pupils equal, round and reactive to light. ENT: Pharynx normal. Neck: Normal inspection. Neck supple. CVS: Normal heart rate and rhythm. Pulses normal. Respiratory: No respiratory distress. Breath sounds normal. Abdomen: Soft and non-tender. +BS x4 Skin: Skin warm and dry. Normal skin color. Normal skin turgor. No rashes. Extremities: No lower extremity edema. Diffuse soft tissue tenderness of bilateral thighs, no swelling, erythema or warmth, compartments are soft and compressible. Neuro: Oriented X 3. No motor deficit. No sensory deficit. Course Course Course Narrative: 50 y/o female presenting with generalized weakness, malaise, cough and body aches. VS are normal and exam is unremarkable aside from muscle tenderness throughout, mostly in the LE. Will get labs, CXR, EKG, COVID swab. Dispo pending results and improvement. Reevaluation(s) Reevaluation #1: COVID negative. CXR clear. CPK and troponin are negative. EKG without STEMI. Mg++ low 1.4 - getting IV mag. This can explain her muscle cramping and weakness. She is reporting LE weakness and pain limiting her mobility at home. PT consulted as well as case management. Reevaluation #2: PT recommending PT at home. Her UA is dark yellow and is showing signs of infection with 1+ LE and +bacteria. Will treat with PO abx. She is stable for d/c home with PO abx and supportive care. Encouraged to f/u with PCP in 1 week. MDM - URI/Sore Throat Lab Data Result diagrams: 11/01/20 12:15 11/01/20 12:15 Labs: Lab Results 11/01/20 11/01/20 11/01/20 Range/Units 12:14 12:15 12:15 WBC 11.1 H (4.8-10.8) X10*3/uL RBC 3.22 L (4.20-5.50) X10*6/uL Hgb 10.5 L (12.0-16.0) g/dl Hct 30.7 L (37-47) % MCV 95.3 (80-98) fL MCH 32.6 (27.0-33.0) pg MCHC 34.2 (31.0-35.0) g/dl RDW 12.8 (11.0-16.0) % Plt Count 137 L D (160-400) X10*3/uL MPV 9.9 (9.4-12.3) fL Immature Gran % (Auto) 0.4 (0.0-0.4) % Neut % (Auto) 70.6 (45-73) % Lymph % (Auto) 16.9 L (20-40) % [place] % (Auto) 10.8 (2-11) % Eos % (Auto) 1.0 (0-4) % Baso % (Auto) 0.3 (0-2) % Lymph # (Auto) 1.9 (1.2-4.9) X10*3/uL [place] # (Auto) 1.2 (0.1-1.2) X10*3/uL Eos # (Auto) 0.1 (0.0-0.4) X10*3/uL Baso # (Auto) 0.0 (0.0-0.2) X10*3/uL Abs Immat Gran (auto) 0.04 H (0.00-0.03) X10*3/uL Absolute Neuts (auto) 7.9 (2.0-8.3) X10*3/uL Absolute Nucleated RBC 0.000 (0.0-0.012) X10*3/uL Nucleated RBC % (auto) 0.0 (0.0-0.2) /100WBC Sodium 142 (135-145) mmol/L Potassium 3.4 (3.3-5.1) mmol/L Chloride 111 H (96-108) mmol/L Carbon Dioxide 24 (22-29) mmol/L Anion Gap 10 L (12-20) BUN 8 L (9-16) mg/dL Creatinine 0.70 (0.5-1.4) mg/dL Estim Creat Clear Calc 92.7 Estimated GFR > 60 Random Glucose 117 H (60-115) mg/dL Calcium 8.3 L D (8.4-10.2) mg/dL Magnesium 1.4 L* (1.6-2.6) mg/dL Total Bilirubin 0.5 (0.0-1.0) mg/dL Direct Bilirubin 0.3 (0.0-0.5) mg/dL AST 13 (5-31) U/L ALT 8 (0-31) U/L Alkaline Phosphatase 107 (39-117) U/L Total Creatine Kinase (26-140) U/L Troponin I High Sens (<3.5-17.0) ng/L C-Reactive Protein 1.06 H (< or = 0.50) mg/dL Total Protein 5.6 L (6.5-8.0) g/dL Albumin 3.2 L (3.5-5.0) g/dL Procalcitonin ng/mL Urine Color Urine Appearance Urine pH (5.0-8.0) Ur Specific [place] (1.005-1.025) Urine Protein (NEG-TRACE) MG/DL Urine Glucose (UA) (NEG) MG/DL Urine Ketones (NEG) MG/DL Urine Blood (NEG) Urine Nitrite (NEG) Ur Leukocyte Esterase (NEG) Urine RBC (0) /HPF Urine WBC (0-4) /HPF Ur Squamous Epith Cells /LPF Ur Renal Epithelial Cell /LPF Urine Bacteria /LPF Urine Mucus /LPF Ethyl Alcohol mg/dL Coronavirus (PCR) NEGATIVE (Negative) Influenza Type A (PCR) NEGATIVE (Negative) Influenza Type B (PCR) NEGATIVE (Negative) RSV RNA Qual (PCR) NEGATIVE (Negative) 11/01/20 11/01/20 11/01/20 Range/Units 12:15 12:15 12:15 WBC (4.8-10.8) X10*3/uL RBC (4.20-5.50) X10*6/uL Hgb (12.0-16.0) g/dl Hct (37-47) % MCV (80-98) fL MCH (27.0-33.0) pg MCHC (31.0-35.0) g/dl RDW (11.0-16.0) % Plt Count (160-400) X10*3/uL MPV (9.4-12.3) fL Immature Gran % (Auto) (0.0-0.4) % Neut % (Auto) (45-73) % Lymph % (Auto) (20-40) % [place] % (Auto) (2-11) % Eos % (Auto) (0-4) % Baso % (Auto) (0-2) % Lymph # (Auto) (1.2-4.9) X10*3/uL [place] # (Auto) (0.1-1.2) X10*3/uL Eos # (Auto) (0.0-0.4) X10*3/uL Baso # (Auto) (0.0-0.2) X10*3/uL Abs Immat Gran (auto) (0.00-0.03) X10*3/uL Absolute Neuts (auto) (2.0-8.3) X10*3/uL Absolute Nucleated RBC (0.0-0.012) X10*3/uL Nucleated RBC % (auto) (0.0-0.2) /100WBC Sodium (135-145) mmol/L Potassium (3.3-5.1) mmol/L Chloride (96-108) mmol/L Carbon Dioxide (22-29) mmol/L Anion Gap (12-20) BUN (9-16) mg/dL Creatinine (0.5-1.4) mg/dL Estim Creat Clear Calc Estimated GFR Random Glucose (60-115) mg/dL Calcium (8.4-10.2) mg/dL Magnesium (1.6-2.6) mg/dL Total Bilirubin (0.0-1.0) mg/dL Direct Bilirubin (0.0-0.5) mg/dL AST (5-31) U/L ALT (0-31) U/L Alkaline Phosphatase (39-117) U/L Total Creatine Kinase 33 D (26-140) U/L Troponin I High Sens < 3.5 (<3.5-17.0) ng/L C-Reactive Protein (< or = 0.50) mg/dL Total Protein (6.5-8.0) g/dL Albumin (3.5-5.0) g/dL Procalcitonin 0.05 ng/mL Urine Color Urine Appearance Urine pH (5.0-8.0) Ur Specific [place] (1.005-1.025) Urine Protein (NEG-TRACE) MG/DL Urine Glucose (UA) (NEG) MG/DL Urine Ketones (NEG) MG/DL Urine Blood (NEG) Urine Nitrite (NEG) Ur Leukocyte Esterase (NEG) Urine RBC (0) /HPF Urine WBC (0-4) /HPF Ur Squamous Epith Cells /LPF Ur Renal Epithelial Cell /LPF Urine Bacteria /LPF Urine Mucus /LPF Ethyl Alcohol mg/dL Coronavirus (PCR) (Negative) Influenza Type A (PCR) (Negative) Influenza Type B (PCR) (Negative) RSV RNA Qual (PCR) (Negative) 11/01/20 11/01/20 Range/Units 12:15 15:31 WBC (4.8-10.8) X10*3/uL RBC (4.20-5.50) X10*6/uL Hgb (12.0-16.0) g/dl Hct (37-47) % MCV (80-98) fL MCH (27.0-33.0) pg MCHC (31.0-35.0) g/dl RDW (11.0-16.0) % Plt Count (160-400) X10*3/uL MPV (9.4-12.3) fL Immature Gran % (Auto) (0.0-0.4) % Neut % (Auto) (45-73) % Lymph % (Auto) (20-40) % [place] % (Auto) (2-11) % Eos % (Auto) (0-4) % Baso % (Auto) (0-2) % Lymph # (Auto) (1.2-4.9) X10*3/uL [place] # (Auto) (0.1-1.2) X10*3/uL Eos # (Auto) (0.0-0.4) X10*3/uL Baso # (Auto) (0.0-0.2) X10*3/uL Abs Immat Gran (auto) (0.00-0.03) X10*3/uL Absolute Neuts (auto) (2.0-8.3) X10*3/uL Absolute Nucleated RBC (0.0-0.012) X10*3/uL Nucleated RBC % (auto) (0.0-0.2) /100WBC Sodium (135-145) mmol/L Potassium (3.3-5.1) mmol/L Chloride (96-108) mmol/L Carbon Dioxide (22-29) mmol/L Anion Gap (12-20) BUN (9-16) mg/dL Creatinine (0.5-1.4) mg/dL Estim Creat Clear Calc Estimated GFR Random Glucose (60-115) mg/dL Calcium (8.4-10.2) mg/dL Magnesium (1.6-2.6) mg/dL Total Bilirubin (0.0-1.0) mg/dL Direct Bilirubin (0.0-0.5) mg/dL AST (5-31) U/L ALT (0-31) U/L Alkaline Phosphatase (39-117) U/L Total Creatine Kinase (26-140) U/L Troponin I High Sens (<3.5-17.0) ng/L C-Reactive Protein (< or = 0.50) mg/dL Total Protein (6.5-8.0) g/dL Albumin (3.5-5.0) g/dL Procalcitonin ng/mL Urine Color DK YELLOW Urine Appearance HAZY Urine pH 6.5 (5.0-8.0) Ur Specific [place] 1.025 (1.005-1.025) Urine Protein NEG (NEG-TRACE) MG/DL Urine Glucose (UA) NEG (NEG) MG/DL Urine Ketones NEG (NEG) MG/DL Urine Blood NEG (NEG) Urine Nitrite NEG (NEG) Ur Leukocyte Esterase 1+ H (NEG) Urine RBC 0-2 (0) /HPF Urine WBC 1-4 (0-4) /HPF Ur Squamous Epith Cells 3+ /LPF Ur Renal Epithelial Cell 1+ /LPF Urine Bacteria 1+ /LPF Urine Mucus 4+ /LPF Ethyl Alcohol < 10 mg/dL Coronavirus (PCR) (Negative) Influenza Type A (PCR) (Negative) Influenza Type B (PCR) (Negative) RSV RNA Qual (PCR) (Negative) ECG Data Attestation: I personally reviewed and interpreted this ECG as follows: ECG interpretation date: 11/01/20 ECG interpretation time: 13:09 Prior ECG tracings: available for review Interpretation: normal sinus rhythm, HR 95 bpm, normal KS interval, no significant changes from prior EKG September 2020 Critical Care Time Critical Care Time Critical Care Time: No Discharge Plan Discharge Clinical Impression: Acute viral syndrome, Hypomagnesemia, Acute UTI Patient Disposition: Home, Self-Care Instructions: Viral Syndrome (ED), Hypomagnesemia (ED), Urinary Tract Infection in Women (ED) Additional Instructions: Your urine test showed signs of a UTI. Start taking the antibiotic as prescribed - it was sent to your pharmacy. Your lab workup today was unremarkable, aside from a low magnesium level which was repleted IV. You were negative for COVID-19. Your other symptoms are most likely from a viral infection. Recommend rest, increase your fluid intake and take over the counter cold/flu medications as needed. Follow up with your doctor in 1 week. If you develop new or worsening symptoms call 911 or come back to the ER for further evaluation. Prescriptions: New cefuroxime axetil 250 mg tablet 250 mg PO BID 7 Days Qty: 14 RF: 0 No Action omeprazole 20 mg capsule,delayed release(DR/EC) 20 mg PO DAILY Qty: 60 RF: 3 ferrous sulfate 324 mg (65 mg iron) tablet,delayed release (DR/EC) 324 mg PO BID Qty: 60 RF: 2 polyethylene glycol 3350 [Miralax] 17 gram/dose powder 238 g PO ONCE 1 Days Qty: 238 RF: 0 bisacodyl [Dulcolax (bisacodyl)] 5 mg tablet,delayed release (DR/EC) 10 mg PO ONCE 1 Days Qty: 2 RF: 0 clonazepam 0.5 mg tablet 1 tab PO DAILY PRN (Reason: anxiety) RF: 0 trazodone 100 mg tablet 1 tab PO BEDTIME RF: 0 gabapentin 300 mg capsule 300 mg PO BID RF: 0 polyethylene glycol 3350 [Purelax] 17 gram/dose powder 17 g PO DAILY PRN (Reason: Constipation) RF: 0 haloperidol 2 mg tablet 1 tab PO BEDTIME RF: 0 olanzapine 20 mg tablet 1 tab PO BEDTIME RF: 0 escitalopram oxalate 5 mg tablet 1 tab PO DAILY RF: 0 Referrals: Lino Nunez [Outside] - 2 days
[2020-11-01 11:45] VITALS: BP 104/70; BP 113/72; PULSE 110; PULSE 97; TEMP 37; O2SAT 95; BMI 28.3
--- NOTE | 2020-11-01 11:48 | ECG_ITS ---
Test Reason : GENERAL MEDICINE Blood Pressure : / mmHG Vent. Rate : 095 BPM Atrial Rate : 095 BPM P-R Int : 150 ms QRS Dur : 092 ms QT Int : 360 ms P-R-T Axes : 039 021 013 degrees QTc Int : 452 ms Normal sinus rhythm Normal ECG When compared with ECG of 12-SEP-2020 13:29, Nonspecific ST and T wave abnormality is no longer Present Heart rate has decreased Referred By: Rosalina Ashley Electronically Signed By:HENRY IBRAHIM
[2020-11-01 12:16] VITALS: BP 121/74; PULSE 92; RESP 16; TEMP 36.7; O2SAT 96
[2020-11-01 12:22] LABS: MANUAL DIFF FLAG NO
[2020-11-01 12:25] LABS: Basophils Percent Auto 0.3 % (0-2); Eosinophils Absolute Auto 0.1 X10*3/uL (0.0-0.4); Hematocrit 30.7 % (37-47); Hemoglobin 10.5 g/dl (12.0-16.0); Imm Gran Abs Auto 0.04 X10*3/uL (0.00-0.03); Imm Gran Pct Auto 0.4 % (0.0-0.4); Lymphocytes Absolute Auto 1.9 X10*3/uL (1.2-4.9); Lymphocytes Percent Auto 16.9 % (20-40); Mean Corpuscular HGB Conc 34.2 g/dl (31.0-35.0); Mean Corpuscular Hemoglobin 32.6 pg (27.0-33.0); Mean Corpuscular Volume 95.3 fL (80-98); Mean Platelet Volume 9.9 fL (9.4-12.3); Monocytes Absolute Auto 1.2 X10*3/uL (0.1-1.2); Monocytes Percent Auto 10.8 % (2-11); Neutrophils Absolute Auto 7.9 X10*3/uL (2.0-8.3); Neutrophils Percent Auto 70.6 % (45-73); Platelet Count 137 X10*3/uL (160-400); Red Blood Count 3.22 X10*6/uL (4.20-5.50); Red Cell Distribution Width 12.8 % (11.0-16.0); White Blood Count 11.1 X10*3/uL (4.8-10.8)
[2020-11-01 12:36] LABS: Ethanol < 10 mg/dL
[2020-11-01 12:44] LABS: Troponin-I High Sensitivity < 3.5 ng/L (<3.5-17.0)
[2020-11-01 12:45] LABS: Alanine Aminotransferase 8 U/L (0-31); Albumin Level 3.2 g/dL (3.5-5.0); Alkaline Phosphatase 107 U/L (39-117); Anion Gap 10 (12-20); Aspartate Amino Transferase 13 U/L (5-31); Bilirubin Direct 0.3 mg/dL (0.0-0.5); Bilirubin Total 0.5 mg/dL (0.0-1.0); Blood Urea Nitrogen 8 mg/dL (9-16); C Reactive Protein 1.06 mg/dL (< or = 0.50); Calcium 8.3 mg/dL (8.4-10.2); Carbon Dioxide 24 mmol/L (22-29); Chloride 111 mmol/L (96-108); Creatinine Clr Calc Pharmacy 92.7; Estimated Glomerular Filt Rate > 60; Glucose Random 117 mg/dL (60-115); Magnesium 1.4 mg/dL (1.6-2.6); Potassium 3.4 mmol/L (3.3-5.1); Sodium 142 mmol/L (135-145); Total Protein 5.6 g/dL (6.5-8.0)
[2020-11-01] MEDS: Acetaminophen 325 MG TABLET 650 MG PO (12:52)
[2020-11-01 13:06] LABS: Procalcitonin 0.05 ng/mL
[2020-11-01] MEDS: Magnesium Sulfate/H2O 2 GM/50 ML PIGGYBACK IV (13:08)
[2020-11-01 13:09] LABS: Influenza A PCR NEGATIVE (Negative); Influenza B PCR NEGATIVE (Negative); Resp Syncy Virus RNA Qual PCR NEGATIVE (Negative); SARS COV2 PCR INHOUSE NEGATIVE (Negative)
[2020-11-01 14:41] VITALS: BP 121/74; PULSE 92; O2SAT 96
--- NOTE | 2020-11-01 15:08 | MHC.CM.ED ---
Received case management consult from Rosalina DAVIS. Patient came to the ER due to flu like symptoms. Work up essentially negative. Covid test negative. Physical therapy eval completed. Home services is recommended. Met with patient in regards to discharge planning. Patient is from home with Lino GRAHAM for fpc. Physical therapy and occupational therapy offered. Patient declined these services. Patient requesting T/W call her sister, Selam for transport home. Spoke with Selam via telephone at [phone]. Selam will not be able to transport patient at this time. Chair van booked for 4pm. Patient, RN and Rosalina FINCH aware. Continue to monitor for d/c needs.
[2020-11-01 15:39] LABS: Appearance Urine HAZY; Color Urine DK YELLOW; Glucose Urine UA NEG (NEG); Leukocyte Esterase Urine 1+ (NEG); Nitrite Urine NEG (NEG); PH 6.5 (5.0-8.0); Specific Gravity - Urine 1.025 (1.005-1.025); UACC Culture Trigger YES; Urine Blood NEG (NEG); Urine Ketones NEG (NEG); Urine Protein NEG (NEG-TRACE)
[2020-11-01 15:46] LABS: Mucus Urine 4+ /LPF; Squamous Epithelial Cell Urine 3+ /LPF
[2020-11-01 15:47] LABS: Bacteria Urine 1+ /LPF; Renal Epithelial Cells Urine 1+ /LPF
[2020-11-01 15:48] LABS: RBC Urine 0-2 /HPF (0)
[2020-11-01 16:03] VITALS: BP 120/70; PULSE 88; RESP 18; O2SAT 99
== END 2020-11-01 16:08 | disposition home or self-care (01) ==
PROVIDERS: Physician Assistant; Emergency Provider Emergency Medicine; PCP Internal Medicine
DX: B34.9 Viral infection, unspecified (principal); E83.42 Hypomagnesemia; N39.0 Urinary tract infection, site not specified; Z20.822 Contact with and (suspected) exposure to COVID-19; Z79.899 Other long term (current) drug therapy
CPT/HCPCS: 0241U; 36415; 71045; 80048; 80076; 81001; 82077; 82550; 83735; 84145; 84484; 85025; 86140; 87086; 87147; 93005; 96365; 96366; 97161; 99284; J3475

== ENCOUNTER 2021-03-08 11:00 | Outpatient (REF) | payer OTHER, SELFPAY ==
--- NOTE | ~2021-03-08 | XR_ITS ---
EXAMINATION: XR KNEE, RIGHT XR KNEE, LEFT CLINICAL INFORMATION: Knee pain. COMPARISON: Radiographs left knee 12/11/2007 TECHNIQUE: Each knee is imaged in AP and lateral views. There are total of 4 views. FINDINGS: Both knees show no fracture or dislocation or destructive process. There is no suprapatellar effusion. There is no focal joint narrowing or erosive change or chondrocalcinosis. 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 XR/XR knee LT 2V IMPRESSION: Unremarkable bilateral knees.
--- NOTE | ~2021-03-08 | XR_ITS ---
EXAMINATION: XR LUMBOSACRAL SPINE CLINICAL INFORMATION: M54.41 - Lumbago with sciatica, right side COMPARISON: CT abdomen and pelvis 05/05/2020, CTA chest 08/07/2020 TECHNIQUE: Three views of the lumbosacral spine. 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 There is no lumbar vertebral compression or spondylolisthesis or destructive process. Mild degenerative disc changes again noted lumbosacral junction. There is mild facet degeneration lumbosacral junction. The SI joints and visualized sacrum are unremarkable. Surgical clips right upper quadrant from prior cholecystectomy. XR/XR lumbar spine 2-3V IMPRESSION: Degenerative changes lumbosacral junction. No acute abnormality.
--- NOTE | ~2021-03-08 | XR_ITS ---
EXAMINATION: XR KNEE, RIGHT XR KNEE, LEFT CLINICAL INFORMATION: Knee pain. COMPARISON: Radiographs left knee 12/11/2007 TECHNIQUE: Each knee is imaged in AP and lateral views. There are total of 4 views. FINDINGS: Both knees show no fracture or dislocation or destructive process. There is no suprapatellar effusion. There is no focal joint narrowing or erosive change or chondrocalcinosis. 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 XR/XR knee RT 2V IMPRESSION: Unremarkable bilateral knees.
[2021-03-08 13:45] LABS: MANUAL DIFF FLAG NO
[2021-03-08 13:49] LABS: Basophils Absolute Auto 0.1 X10*3/uL (0.0-0.2); Basophils Percent Auto 0.6 % (0-2); Eosinophils Absolute Auto 0.3 X10*3/uL (0.0-0.4); Hematocrit 37.7 % (37.0-47.0); Hemoglobin 12.5 g/dl (12.0-16.0); Imm Gran Abs Auto 0.08 X10*3/uL (0.00-0.03); Imm Gran Pct Auto 0.9 % (0.0-0.4); Lymphocytes Percent Auto 21.9 % (20-40); Mean Corpuscular HGB Conc 33.2 g/dl (31.0-35.0); Mean Corpuscular Hemoglobin 31.1 pg (27.0-33.0); Mean Corpuscular Volume 93.8 fL (80.0-98.0); Mean Platelet Volume 10.4 fL (9.4-12.3); Monocytes Absolute Auto 0.8 X10*3/uL (0.1-1.2); Monocytes Percent Auto 8.4 % (2-11); Neutrophils Absolute Auto 5.9 x10*3/uL (2.0-8.3); Neutrophils Percent Auto 65.2 % (45-73); Platelet Count 133 X10*3/uL (160-400); Red Blood Count 4.02 X10*6/uL (4.20-5.50); Red Cell Distribution Width 12.9 % (11.0-16.0)
[2021-03-08 14:12] LABS: Iron 113 mcg/dL (30-160); Percent Iron Saturation 42 % (15-50); Total Iron Binding Capacity 268 mcg/dL (228-428); Unsaturated Iron Binding 155 ug/dL
== END 2021-03-08 11:01 | disposition home or self-care (01) ==
LOC: HO.HMGCX 11:00
PROVIDERS: PCP Internal Medicine; Visit Provider Internal Medicine
DX: M25.562 Pain in left knee (principal); M25.561 Pain in right knee; M54.41 Lumbago with sciatica, right side; D64.9 Anemia, unspecified
CPT/HCPCS: 36415; 72100; 73560; 83540; 85025

== ENCOUNTER → 2021-06-21 08:50 | Outpatient (BNVA) | payer OTHER, SELFPAY | PROVIDERS: PCP Internal Medicine; Referring Provider Internal Medicine; Visit Provider Internal Medicine Gastroenterology | DX: Z11.0 Encounter for screening for intestinal infectious diseases (principal) | CPT/HCPCS: 99211 ==

== ENCOUNTER 2021-06-21 14:41 | Outpatient (REF) | payer OTHER, SELFPAY ==
[2021-06-22 11:47] LABS: H Pylori Breath Test Negative (Negative)
== END 2021-06-21 14:42 | disposition home or self-care (01) ==
LOC: HO.LNP 14:41
PROVIDERS: Visit Provider Internal Medicine Gastroenterology
DX: D64.9 Anemia, unspecified (principal); K74.60 Unspecified cirrhosis of liver; Z87.19 Personal history of other diseases of the digestive system; Z11.0 Encounter for screening for intestinal infectious diseases
CPT/HCPCS: 83013

== ENCOUNTER 2021-09-13 13:38 | Outpatient (REF) | payer OTHER, SELFPAY | END 2021-09-13 13:39 | disposition home or self-care (01) | LOC: HO.LNP 13:38 | PROVIDERS: Visit Provider Internal Medicine | DX: N12 Tubulo-interstitial nephritis, not specified as acute or chronic (principal) | CPT/HCPCS: 87086 ==

== ENCOUNTER 2021-10-26 17:45 | Outpatient (REF) | payer OTHER, SELFPAY | END 2021-10-26 17:46 | disposition home or self-care (01) | LOC: HO.LNP 17:45 | DX: R30.0 Dysuria (principal) | CPT/HCPCS: 87086; 87088; 87186 ==

== ENCOUNTER 2021-10-27 17:31 | Emergency (ER) | payer OTHER, SELFPAY ==
[2021-10-27 18:50] VITALS: BP 120/74; PULSE 99; RESP 16; TEMP 36.1; O2SAT 94; BMI 38.4
[2021-10-27 19:29] LABS: Appearance Urine Turbid; Color Urine Dark Yellow; Glucose Urine UA Negative (Negative); Leukocyte Esterase Urine Large (3+) (Negative); Nitrite Urine Positive (Negative); Specific Gravity - Urine >= 1.030 (1.005-1.025); UMIC TRIGGER UACC YES; Urine Blood Negative (Negative); Urine Ketones Trace mg/dL (Negative); Urine Protein 30 (1+) mg/dL (Neg-Trace)
[2021-10-27 19:52] LABS: UACC Culture Trigger YES
[2021-10-27 19:53] LABS: RBC Urine 0-2 /HPF (0-2); WBC Clumps Urine None seen; WBC Urine >50 /HPF (0-5)
[2021-10-27 19:54] LABS: Bacteria Urine 4+ (None Seen); Hyaline Casts Urine 0-2 /LPF (0-2)
[2021-10-27 21:10] LABS: MANUAL DIFF FLAG NO
[2021-10-27 21:12] LABS: Basophils Absolute Auto 0.1 X10*3/uL (0.0-0.2); Basophils Percent Auto 0.4 % (0-2); Eosinophils Absolute Auto 0.2 X10*3/uL (0.0-0.4); Eosinophils Percent Auto 1.6 % (0-4); Hematocrit 37.8 % (37.0-47.0); Hemoglobin 12.9 g/dl (12.0-16.0); Imm Gran Abs Auto 0.07 X10*3/uL (0.00-0.03); Imm Gran Pct Auto 0.6 % (0.0-0.4); Lymphocytes Absolute Auto 3.2 X10*3/uL (1.2-4.9); Lymphocytes Percent Auto 25.5 % (20-40); Mean Corpuscular HGB Conc 34.1 g/dl (31.0-35.0); Mean Corpuscular Hemoglobin 31.3 pg (27.0-33.0); Mean Corpuscular Volume 91.7 fL (80.0-98.0); Mean Platelet Volume 10.1 fL (9.4-12.3); Monocytes Percent Auto 7.7 % (2-11); Neutrophils Absolute Auto 7.9 x10*3/uL (2.0-8.3); Neutrophils Percent Auto 64.2 % (45-73); Platelet Count 156 X10*3/uL (160-400); Red Blood Count 4.12 X10*6/uL (4.20-5.50); Red Cell Distribution Width 12.3 % (11.0-16.0); White Blood Count 12.4 X10*3/uL (4.8-10.8)
[2021-10-27 21:26] LABS: Anion Gap 13 (12-20); Blood Urea Nitrogen 7 mg/dL (9-16); Calcium 8.5 mg/dL (8.4-10.2); Carbon Dioxide 28 mmol/L (22-29); Chloride 107 mmol/L (96-108); Creatinine Clr Calc Pharmacy 95.2; Estimated Glomerular Filt Rate > 60; Glucose Random 100 mg/dL (60-115); Potassium 3.9 mmol/L (3.3-5.1); Sodium 144 mmol/L (135-145)
--- NOTE | 2021-10-27 21:32 | ED.FEMALEGU ---
HPI - Female Genitourinary General Chief complaint: Urogenital-Female Stated complaint: ?uti Time Seen by Provider: 10/27/21 21:21 Source: patient and old records reviewed Mode of arrival: ambulatory Limitations: no limitations History of Present Illness HPI Narrative: 51 yo female with hx of COVID, chronic back pain, prior UTI E Coli S to cephalosporins, cirrhosis, anemia comes in with foul odor x 2 days told she had a UTI by PCP but [facility] didn't have [facility] available so she was told to go to the ED MD elicited complaint: UTI and other (urine odor - prior UTI) Pertinent past history: recurrent UTIs Onset (ago): day(s) (2) Severity: mild Vaginal discharge: none Vaginal bleeding: none Urinary symptoms: Foul Smelling Urine Exacerbating factors: urination Relieving factors: none Associated symptoms: denies other symptoms Treatment prior to arrival: none Related Data Home Medications Medication Instructions Recorded Confirmed clonazepam 0.5 mg tablet 1 tab PO DAILY PRN anxiety 08/07/20 10/26/21 escitalopram oxalate 5 mg tablet 1 tab PO DAILY 08/07/20 10/26/21 gabapentin 300 mg capsule 300 mg PO BID 08/07/20 10/26/21 haloperidol 2 mg tablet 1 tab PO BEDTIME 08/07/20 10/26/21 olanzapine 20 mg tablet 1 tab PO BEDTIME 08/07/20 10/26/21 polyethylene glycol 3350 17 17 g PO DAILY PRN Constipation 08/07/20 10/26/21 gram/dose oral powder (Purelax) trazodone 100 mg tablet 1 tab PO BEDTIME 08/07/20 10/26/21 Previous Rx's Medication Instructions Recorded polyethylene glycol 3350 17 238 g PO ONCE 1 day #238 grams 10/24/20 gram/dose oral powder (Miralax) tizanidine 4 mg tablet 4 mg PO BEDTIME PRN muscle 12/01/20 spasticity #10 tabs omeprazole 20 mg capsule,delayed 20 mg PO DAILY #60 caps 03/09/21 release ferrous sulfate 324 mg (65 mg 324 mg PO BID #60 tabs 07/23/21 iron) tablet,delayed release nitrofurantoin 100 mg PO Q12H 7 days #14 caps 09/13/21 monohydrate/macrocrystals 100 mg capsule (Macrobid) cefuroxime axetil 250 mg tablet 250 mg PO BID 7 days #14 tabs 10/27/21 Allergies Allergy/AdvReac Type Severity Reaction Status Date / Time NSAIDS (Non-Steroidal Allergy Intermediate RASH Verified 10/26/21 15:11 Anti-Inflamma [NSAIDS (NON-STEROIDAL ANTI-INFLAMMA] aspirin [ASPIRIN] Allergy Mild HIVES Verified 10/26/21 15:11 Review of Systems Review of Systems: Constitutional : No Weight loss, No Fever, No Chills ENT/Mouth : No sore throat, No Rhinorrhea Eyes: No Swelling, No Redness Cardiovascular : No Chest Pain, No SOB, NoEdema Respiratory : No Cough, No Sputum, No Wheezing Gastrointestinal : no Nausea, no Vomiting, no Diarrhea, positive abdominal Pain Genitourinary : No Dysuria, No Urinary Frequency, No Hematuria, No Urgency, pos odor Musculoskeletal : No joint pain, No Myalgias, No Joint Swelling Skin : No Skin Lesions, No rash Neuro : No Weakness, No Numbness, No Dizziness, No Headache Psych : No Anxiety/Panic, No Depression Heme/Lymph: No Bruising, No Lymphadenopathy Endocrine : No Polyuria, No Polydipsia All other systems reviewed and are negative. [facility] Past Medical History Attestation statement: The following information was validated with the patient. Medical History Alcohol abuse Anemia Bilateral knee pain Bilateral leg and foot pain Bipolar 1 disorder Cirrhosis of liver Depression with anxiety Dysuria History of COVID-19 Lumbago with sciatica, right side Myalgia Vitamin D deficiency Surgical History History of esophagogastroduodenoscopy (EGD) Hx laparoscopic cholecystectomy Hx of section Family History Family History Sister Breast cancer Substance use disorder Father Substance use disorder Paternal Aunt Substance use disorder Other Unknown family medical history Social History Social History Household Members: Other Household Members Other:: 2 sisters and teenage children Housing: Apartment Do you presently have visiting nurse or other home services: No Alcohol intake: never Patient Tobacco Use Status: Former Tobacco user Cigarette Packs Per Day: 0 Cigarettes Per Day: 1 e-Cigarette/Vaping Use: Never Used Second Hand Smoke Exposure: Yes service: No Current occupational status: unemployed Sexual orientation: Straight/Heterosexual Physical Exam Vital Signs: Vital Signs: Last Vital Signs Temp 97.0 F 10/27/21 18:50 Pulse 99 10/27/21 18:50 Resp 16 10/27/21 18:50 BP 120/74 10/27/21 18:50 Pulse Ox 94 10/27/21 18:50 O2 Del Method 10/27/21 18:50 BMI result Body Mass Index 38.4 Appearance: Alert. Oriented X3. No acute distress. Eyes: Pupils equal, round and reactive to light. ENT: Pharynx normal. Neck: Normal inspection. Neck supple. CVS: Normal heart rate and rhythm. Pulses normal. Respiratory: No respiratory distress. Breath sounds normal. Abdomen: Soft and nontender. Back: no CVA ttp Skin: Skin warm and dry. Normal skin color. Normal skin turgor. Extremities: No lower extremity edema. Neuro: Oriented X 3. No motor deficit. No sensory deficit. MDM - Female Genitourinary MDM Narrative Medical decision making narrative: 51 yo female with hx of COVID, chronic back pain, prior UTI E Coli S to cephalosporins, cirrhosis, anemia here with foul urine odor x 2 days no fevers, vomiting, abdominal pain - at this time her labs are normal mild WBC count of 12.4 has no CVA ttp will start on ceftin and DC home given precautions to return. Lab Data Result diagrams: 10/27/21 21:03 10/27/21 21:03 Labs: Lab Results 10/27/21 10/27/21 10/27/21 Range/Units 19:09 21:03 21:03 WBC 12.4 H (4.8-10.8) X10*3/uL RBC 4.12 L (4.20-5.50) X10*6/uL Hgb 12.9 (12.0-16.0) g/dl Hct 37.8 (37.0-47.0) % MCV 91.7 (80.0-98.0) fL MCH 31.3 (27.0-33.0) pg MCHC 34.1 (31.0-35.0) g/dl RDW 12.3 (11.0-16.0) % Plt Count 156 L (160-400) X10*3/uL MPV 10.1 (9.4-12.3) fL Immature Gran % (Auto) 0.6 H (0.0-0.4) % Neut % (Auto) 64.2 (45-73) % Lymph % (Auto) 25.5 (20-40) % [place] % (Auto) 7.7 (2-11) % Eos % (Auto) 1.6 (0-4) % Baso % (Auto) 0.4 (0-2) % Lymph # (Auto) 3.2 (1.2-4.9) X10*3/uL [place] # (Auto) 1.0 (0.1-1.2) X10*3/uL Eos # (Auto) 0.2 (0.0-0.4) X10*3/uL Baso # (Auto) 0.1 (0.0-0.2) X10*3/uL Abs Immat Gran (auto) 0.07 H (0.00-0.03) X10*3/uL Absolute Neuts (auto) 7.9 (2.0-8.3) x10*3/uL Absolute Nucleated RBC 0.000 (0.0-0.012) X10*3/uL Nucleated RBC % (auto) 0.0 (0.0-0.2) /100WBC Sodium 144 (135-145) mmol/L Potassium 3.9 (3.3-5.1) mmol/L Chloride 107 (96-108) mmol/L Carbon Dioxide 28 (22-29) mmol/L Anion Gap 13 (12-20) BUN 7 L (9-16) mg/dL Creatinine 0.79 (0.5-1.4) mg/dL Estim Creat Clear Calc 95.2 Estimated GFR > 60 Random Glucose 100 (60-115) mg/dL Calcium 8.5 (8.4-10.2) mg/dL Urine Color Dark Yellow Urine Appearance Turbid Urine pH 6.0 (5.0-9.0) Ur Specific Transfer >= 1.030 H (1.005-1.025) Urine Protein 30 (1+) H (Neg-Trace) mg/dL Urine Glucose (UA) Negative (Negative) mg/dL Urine Ketones Trace (Negative) mg/dL Urine Blood Negative (Negative) Urine Nitrite Positive H (Negative) Ur Leukocyte Esterase Large (3+) H (Negative) Urine RBC 0-2 (0-2) /HPF Urine WBC >50 (0-5) /HPF Urine WBC Clumps None seen Ur Squamous Epith Cells 6-10 (0-2) /HPF Urine Bacteria 4+ (None Seen) Hyaline Casts 0-2 (0-2) /LPF Discharge Plan Discharge Clinical Impression: Urinary tract infection Qualifiers: Urinary tract infection type: acute cystitis Hematuria presence: without hematuria Qualified Code(s): N30.00 - Acute cystitis without hematuria Patient Disposition: Home, Self-Care Instructions: Urinary Tract Infection in Women (ED) Additional Instructions: return to ED for any worsening symptoms or concerns return for fevers, vomiting, worsening symptoms Prescriptions: New cefuroxime axetil 250 mg tablet 250 mg PO BID 7 Days Qty: 14 0RF No Action polyethylene glycol 3350 [Miralax] 17 gram/dose powder 238 g PO ONCE 1 Days Qty: 238 0RF Rx Instructions: Take as directed by mouth, bowel prep tizanidine 4 mg tablet 4 mg PO BEDTIME PRN (Reason: muscle spasticity) Qty: 10 0RF omeprazole 20 mg capsule,delayed release(DR/EC) 20 mg PO DAILY Qty: 60 3RF ferrous sulfate 324 mg (65 mg iron) tablet,delayed release (DR/EC) 324 mg PO BID Qty: 60 2RF clonazepam 0.5 mg tablet 1 tab PO DAILY PRN (Reason: anxiety) trazodone 100 mg tablet 1 tab PO BEDTIME gabapentin 300 mg capsule 300 mg PO BID polyethylene glycol 3350 [Purelax] 17 gram/dose powder 17 g PO DAILY PRN (Reason: Constipation) haloperidol 2 mg tablet 1 tab PO BEDTIME olanzapine 20 mg tablet 1 tab PO BEDTIME escitalopram oxalate 5 mg tablet 1 tab PO DAILY nitrofurantoin monohyd/m-cryst [Macrobid] 100 mg capsule 100 mg PO Q12H 7 Days Qty: 14 0RF Rx Instructions: must administer with a meal/food
== END 2021-10-27 21:49 | disposition home or self-care (01) ==
LOC: HO.ED 21:40
PROVIDERS: Emergency Provider Emergency Medicine; PCP Internal Medicine
DX: N30.00 Acute cystitis without hematuria (principal); B96.20 Unspecified Escherichia coli [E. coli] as the cause of diseases classified elsewhere
CPT/HCPCS: 36415; 80048; 81001; 85025; 87086; 87088; 87186; 99282; 99283

== ENCOUNTER 2021-12-27 11:54 | Outpatient (REF) | payer OTHER, SELFPAY ==
[2021-12-27 13:49] LABS: MANUAL DIFF FLAG NO
[2021-12-27 13:56] LABS: Basophils Absolute Auto 0.1 X10*3/uL (0.0-0.2); Basophils Percent Auto 0.5 % (0-2); Eosinophils Absolute Auto 0.1 X10*3/uL (0.0-0.4); Eosinophils Percent Auto 1.2 % (0-4); Hematocrit 36.7 % (37.0-47.0); Hemoglobin 11.9 g/dl (12.0-16.0); Imm Gran Abs Auto 0.04 X10*3/uL (0.00-0.03); Imm Gran Pct Auto 0.4 % (0.0-0.4); Lymphocytes Absolute Auto 2.6 X10*3/uL (1.2-4.9); Lymphocytes Percent Auto 26.4 % (20-40); Mean Corpuscular HGB Conc 32.4 g/dl (31.0-35.0); Mean Corpuscular Hemoglobin 31.2 pg (27.0-33.0); Mean Corpuscular Volume 96.3 fL (80.0-98.0); Mean Platelet Volume 10.5 fL (9.4-12.3); Monocytes Absolute Auto 0.7 X10*3/uL (0.1-1.2); Neutrophils Absolute Auto 6.4 x10*3/uL (2.0-8.3); Neutrophils Percent Auto 64.5 % (45-73); Platelet Count 152 X10*3/uL (160-400); Red Blood Count 3.81 X10*6/uL (4.20-5.50); Red Cell Distribution Width 12.7 % (11.0-16.0)
[2021-12-27 14:09] LABS: Alanine Aminotransferase 11 U/L (0-31); Albumin Level 3.7 g/dL (3.5-5.0); Alkaline Phosphatase 117 U/L (39-117); Anion Gap 14 (12-20); Aspartate Amino Transferase 16 U/L (5-31); Bilirubin Direct 0.3 mg/dL (0.0-0.5); Bilirubin Total 0.7 mg/dL (0.0-1.0); Blood Urea Nitrogen 7 mg/dL (9-16); Carbon Dioxide 26 mmol/L (22-29); Chloride 104 mmol/L (96-108); Cholesterol 189 mg/dL; Estimated Glomerular Filt Rate > 60; Glucose Random 97 mg/dL (60-115); HDL Cholesterol 58 mg/dL; LDL Cholesterol Calculated 111 mg/dl; Potassium 3.7 mmol/L (3.3-5.1); Sodium 140 mmol/L (135-145); Total Protein 6.6 g/dL (6.5-8.0); Triglycerides 101 mg/dL
[2021-12-27 14:33] LABS: Thyroid Stimulating Hormone 2.27 uIU/mL (0.32-4.0)
[2021-12-27 16:14] LABS: Estimated Average Glucose 94 mg/dL; Hemoglobin A1c % 4.9 %
[2021-12-29 09:16] LABS: Prolactin 61.5 ng/mL
== END 2021-12-27 11:55 | disposition home or self-care (01) ==
LOC: HO.HMGCLDS 11:54
PROVIDERS: Nurse Practitioner Psychiatric/Mental Health; PCP Internal Medicine; Visit Provider Internal Medicine
DX: N39.0 Urinary tract infection, site not specified (principal)
CPT/HCPCS: 36415; 80048; 80061; 80076; 83036; 84146; 84443; 85025; 87086; 87088; 87186

== ENCOUNTER 2022-03-20 09:37 | Outpatient (REF) | payer OTHER, SELFPAY ==
--- NOTE | ~2022-03-20 | US_ITS ---
EXAMINATION: US RETROPERITONEAL LIMITED (RENAL ONLY) CLINICAL INFORMATION: Urinary tract infection, site not specified. COMPARISON: CT abdomen and pelvis 05/05/2020. Ultrasound abdomen 05/14/2007. TECHNIQUE: Real-time imaging of the kidneys. FINDINGS: RIGHT KIDNEY: 11.0 x 5.3 x 5.0 cm (SAG x AP x TRV). The kidney is normal in size, contour, and echogenicity. Renal cortical thickness is normal. No calculi or focal parenchymal lesions. No hydronephrosis. No discrete nephrolithiasis. LEFT KIDNEY: 10.7 x 5.1 x 5.1 cm (SAG x AP x TRV). The kidney is normal in size, contour, and echogenicity. Renal cortical thickness is normal. No calculi or focal parenchymal lesions. No hydronephrosis. No discrete nephrolithiasis. US/US renal BI IMPRESSION: No nephrolithiasis or hydronephrosis.
== END 2022-03-20 09:38 | disposition home or self-care (01) ==
LOC: HO.US 09:37
PROVIDERS: Visit Provider Internal Medicine
DX: N39.0 Urinary tract infection, site not specified (principal)
CPT/HCPCS: 76775

== ENCOUNTER 2022-04-05 08:53 | Outpatient (REF) | payer OTHER, SELFPAY | END 2022-04-05 08:54 | disposition home or self-care (01) | LOC: HO.LAB 08:53 | PROVIDERS: PCP Internal Medicine; Visit Provider Nurse Practitioner Family | DX: N39.0 Urinary tract infection, site not specified (principal); Z79.899 Other long term (current) drug therapy | CPT/HCPCS: 51798; 87086; 87088; 87186; 99202 ==

== ENCOUNTER 2022-04-26 13:15 | Outpatient (REF) | payer OTHER, SELFPAY ==
--- NOTE | ~2022-04-26 | US_ITS ---
EXAMINATION: US RETROPERITONEAL COMPLETE (RENAL) CLINICAL INFORMATION: Urinary tract infection, site not specified. COMPARISON: Renal ultrasound 03/20/2022. CT abdomen and pelvis 05/05/2020. TECHNIQUE: Real-time imaging of the kidneys and bladder. FINDINGS: RIGHT KIDNEY: 10.9 x 5.5 x 5.0 cm (SAG x AP x TRV). The kidney is normal in size, contour, and echogenicity. Renal cortical thickness is normal. No focal parenchymal lesions or hydronephrosis. Nonobstructive calculus in the mid pole measuring 0.2 cm. Mild pelvic fullness with no caliectasis. Scattered vascular calcifications. LEFT KIDNEY: 9.2 x 5.5 x 5.1 cm (SAG x AP x TRV). The kidney is normal in size, contour, and echogenicity. Renal cortical thickness is normal. No calculi or focal parenchymal lesions. No hydronephrosis. Scattered facet calcifications. BLADDER: Equivocal wall thickening. Bilateral ureteral jets are demonstrated. Prevoid bladder volume is 245 mL. Postvoid bladder volume is 10.5 mL. US/US retroperitoneal comp IMPRESSION: 1. Nonobstructive 0.2 cm calculus in the mid pole of the right kidney. 2. Equivocal wall thickening of the urinary bladder, recommend clinical correlation for cystitis.
== END 2022-04-26 13:16 | disposition home or self-care (01) ==
LOC: HO.US 13:15
PROVIDERS: PCP Internal Medicine; Visit Provider Nurse Practitioner Family
DX: N39.0 Urinary tract infection, site not specified (principal); R30.0 Dysuria
CPT/HCPCS: 76770

== ENCOUNTER → 2022-05-28 08:34 | Outpatient (BNVA) | payer OTHER, SELFPAY | PROVIDERS: PCP Internal Medicine; Visit Provider Nurse Practitioner Family | DX: R39.89 Other symptoms and signs involving the genitourinary system (principal); N39.0 Urinary tract infection, site not specified; R82.90 Unspecified abnormal findings in urine | CPT/HCPCS: 51798; 99212 ==

== ENCOUNTER 2022-06-06 08:57 | Outpatient (REF) | payer OTHER, SELFPAY | END 2022-06-06 08:58 | disposition home or self-care (01) | LOC: HO.LAB 08:57 | PROVIDERS: PCP Internal Medicine; Visit Provider Nurse Practitioner Family | DX: N39.0 Urinary tract infection, site not specified (principal) | CPT/HCPCS: 87086 ==

== ENCOUNTER 2022-07-19 09:26 | Outpatient (REF) | payer OTHER, SELFPAY ==
[2022-07-19 09:37] LABS: MANUAL DIFF FLAG NO
[2022-07-19 10:31] LABS: Basophils Absolute Auto 0.1 X10*3/uL (0.0-0.2); Basophils Percent Auto 0.4 % (0-2); Eosinophils Absolute Auto 0.1 X10*3/uL (0.0-0.4); Eosinophils Percent Auto 1.1 % (0-4); Hematocrit 40.6 % (37.0-47.0); Hemoglobin 13.5 g/dl (12.0-16.0); Imm Gran Abs Auto 0.07 X10*3/uL (0.00-0.03); Imm Gran Pct Auto 0.6 % (0.0-0.4); Lymphocytes Absolute Auto 2.4 X10*3/uL (1.2-4.9); Lymphocytes Percent Auto 20.5 % (20-40); Mean Corpuscular HGB Conc 33.3 g/dl (31.0-35.0); Mean Corpuscular Hemoglobin 31.3 pg (27.0-33.0); Mean Platelet Volume 10.8 fL (9.4-12.3); Monocytes Absolute Auto 0.7 X10*3/uL (0.1-1.2); Monocytes Percent Auto 5.6 % (2-11); Neutrophils Absolute Auto 8.5 x10*3/uL (2.0-8.3); Neutrophils Percent Auto 71.8 % (45-73); Platelet Count 152 X10*3/uL (160-400); Red Blood Count 4.32 X10*6/uL (4.20-5.50); Red Cell Distribution Width 12.3 % (11.0-16.0); White Blood Count 11.9 X10*3/uL (4.8-10.8)
[2022-07-19 10:56] LABS: Iron 99 mcg/dL (30-160); Percent Iron Saturation 42 % (15-50); Total Iron Binding Capacity 237 mcg/dL (228-428); Unsaturated Iron Binding 138 ug/dL
== END 2022-07-19 09:27 | disposition home or self-care (01) ==
LOC: HO.LAB 09:26
PROVIDERS: PCP Internal Medicine
DX: D64.9 Anemia, unspecified (principal)
CPT/HCPCS: 36415; 83540; 85025

== ENCOUNTER 2022-11-28 09:03 | Outpatient (AMB) | payer OTHER, SELFPAY ==
--- NOTE | 2022-11-28 10:08 | AM.OFFWIN_ITS ---
Intake Vital Signs 11/28/22 10:10 Height 5 ft 3 in BP 90/60 Blood Pressure Location Rt brachial Position Sitting Pulse 81 Pulse Source Pulse Oximeter Temp 96.5 F L Temp Source Temporal Artery Scan Pulse Oximetry (%) 97 Oxygen Delivery Method Room Air Intake Visit Reasons: EP, Right ear pain, left side pain Intake Note: Pt is here c/o right side body pain. Pt states the pain radiate from her shoulder to her legs causing her weakness and trouble walking. Patient Tobacco Use Status: Former Tobacco user Allergies NSAIDS (Non-Steroidal Anti-Inflamma [NSAIDS (NON-STEROIDAL ANTI-INFLAMMA] Allergy (Intermediate, Verified 11/28/22 10:09) RASH aspirin [ASPIRIN] Allergy (Mild, Verified 11/28/22 10:09) HIVES HPI HPI Comments History of Present Illness Details 1032 52-year-old female history of hypertension, schizoaffective disorder, COVID, cirrhosis, alcohol abuse, gastritis presenting with complaints of right-sided weakness/pain ( to entire right side of the body) which started about 2 - 3 weeks ago she says she feels weakness in her head and going all way down to her toes. This has been causing her difficulty with ambulation. She says she has been walking however something feels abnormal. She also states she has been having dark urine, foul-smelling urine, urinary frequency, urgency and dysuria, feels like a typical UTI. Requesting urine sample today. Denies fevers, chills, chest pain, shortness of breath, headache, vision changes, dizziness, nausea, vomiting, abdominal pain. Physical examination benign. Will rule out UTI versus cystitis. No signs of pylo. Right-sided weakness /heaviness ongoing for the past 2 weeks, unlikely acute stroke, intracranial hemorrhage, cerebellar infarct. Likely muskuloskeletal. No trauma Plan- urine same. Urine w/ + nitrrates and leukocytes likley UTI will send home on ceftin. Educated patient on diagnosis and treatment plan, answered all question, patient verbalizes understanding. At this time patient will be discharged home, advised to return with new or worsening symptoms. Educated on worrisome signs and symptoms and when to return. At this time I feel comfortable discharge home. [facility] Medical History Recurrent UTI UTI (urinary tract infection) Dysuria Bilateral knee pain Lumbago with sciatica, right side History of COVID-19 Bilateral leg and foot pain Cirrhosis of liver Bipolar 1 disorder Depression with anxiety Vitamin D deficiency Myalgia Alcohol abuse Anemia Surgical History History of esophagogastroduodenoscopy (EGD) Hx of section Hx laparoscopic cholecystectomy Family History Sister Breast cancer Substance use disorder Father Substance use disorder Paternal Aunt Substance use disorder Other Unknown family medical history Social History Household Members: Other Household Members Other:: 2 sisters and teenage children Housing: Apartment Do you presently have visiting nurse or other home services: No Alcohol intake: never Patient Tobacco Use Status: Former Tobacco user Cigarette Packs Per Day: 0 Cigarettes Per Day: 1 e-Cigarette/Vaping Use: Never Used Second Hand Smoke Exposure: Yes service: No Current occupational status: unemployed Sexual orientation: Straight/Heterosexual Cognitive needs: No Hearing needs: No Vision needs: No Review of Systems Const Details: Constitutional : No Weight loss, No Fever, No Chills, No Fatigue, No Malaise ENT/Mouth : No sore throat, No Rhinorrhea Eyes: No Eye Pain, No Swelling, No Redness Cardiovascular : No Chest Pain, No SOB, No Dyspnea on Exertion, No Orthopnea, No Edema, No Palpitations Respiratory : No Cough, No Sputum, No Wheezing Gastrointestinal : No Nausea, No Vomiting, No Diarrhea, No Constipation, No abdominal Pain, No Hematochezia, No Melena Genitourinary : + Dysuria, No Urinary Frequency, No Hematuria, + dark urine Musculoskeletal : No joint pain, + Myalgias, No Joint Swelling Skin : No Skin Lesions, No rash Neuro : + Weakness, No Numbness, No Dizziness, No Headache Psych : No Anxiety/Panic, No Depression All other systems reviewed and are negative All systems reviewed & are unremarkable except as noted in HPI and below Physical Exam Vital Signs: Last Vital Signs Temp 96.5 F L 11/28/22 10:10 Pulse 81 11/28/22 10:10 BP 90/60 11/28/22 10:10 Pulse Ox 97 11/28/22 10:10 Oxygen Delivery Method Room Air 11/28/22 10:10 vital signs stable- BP on the lower end however appears to run low usually slightly lower than usual however will recheck. Appearance: Alert.? Oriented X3.? No acute distress.? Head: Normocephalic, atraumatic, no step-offs or deformities Eyes: Pupils equal, round and reactive to light.?EOMI pain free Neck: Normal inspection.? Neck supple.? CVS: Normal heart rate and rhythm.? Pulses normal.? Respiratory: No respiratory distress.? Breath sounds normal.? Abdomen: Soft and nontender.? Skin: Skin warm and dry.? Normal skin color.? Normal skin turgor.? Extremities: No lower extremity edema.? No calf ttp. 5/5 strength to bilateral upper and lower extremities Back: No midline tenderness, no C-spine tenderness, full range of motion, no CVA tenderness bilaterally Neuro: Oriented X 3.? No motor deficit.? No sensory deficit. CN 2-12 intact . Normal finger to nose heel to collins. Steady tandem gait w/ normal Cordination NIHSS-0 Results AMB Urinalysis, Automated UA Leukoctes 500 Jagdeep/uL Last Edit by Arnav Castellano CMA on 11/28/22 10:3 9 UA Nitrite Positive Last Edit by Arnav Castellano CMA on 11/28/22 10:39 UA Urobilinogen 0.2 mg/dL Last Edit by Arnav Castellano CMA on 11/28/22 10 :39 UA Protein 15 mg/dL Last Edit by Arnav Castellano CMA on 11/28/22 10:39 UA pH 6.0 Last Edit by Arnav Castellano CMA on 11/28/22 10:39 UA Blood 0 Sunday/uL Last Edit by Arnav Castellano CMA on 11/28/22 10:39 UA Specific [place] 1.025 Last Edit by Arnav Castellano CMA on 11/28/22 10:39 UA Ketone Negative Last Edit by Arnav Castellano CMA on 11/28/22 10:39 UA Bilirubin 1 mg/dL Last Edit by Arnav Castellano CMA on 11/28/22 10:39 UA Glucose 0 mg/dL Last Edit by Arnav Castellano CMA on 11/28/22 10:39 Assessment & Plan Assessment & Plan (1) Urinary tract infection: Code(s): N39.0 - Urinary tract infection, site not specified (2) Pain of right side of body: Code(s): R52 - Pain, unspecified Plan Take your medications as prescribed. If you were prescribed antibiotics today, it is important that you take your medication to their entirety, do not skip any doses, do not finish them early. Follow-up with your primary care provider this week. Return to the emergency department with new or worsening symptoms. Such as fevers, chills, chest pain, shortness of breath, nausea, vomiting, dizziness, headache, vision changes, lethargy In case of emergency call 911 Orders: Orders AMB Urinalysis Automated Today Z13.9 - Encounter for screening, unspecified Medications: New acetaminophen (Tylenol) 650 mg (2 x 325 mg) PO QID PRN 14 tabs 0RF pain lidocaine 4% (AsperFlex (lidocaine)) 1 patch topical DAILY PRN 15 ea 0RF pain cefuroxime axetil 250 mg PO BID 7 days 14 tabs 0RF phenazopyridine (Pyridium) 200 mg PO TID 6 doses 6 tabs 0RF Coding Level of Care Code Est Pt Level 3 (71384) Diagnoses Urinary tract infection N39.0 Pain of right side of body R52
[2022-11-28 10:10] VITALS: BP 90/60; PULSE 81; TEMP 35.8; O2SAT 97
== END 2022-11-28 10:47 | disposition home or self-care (01) ==
PROVIDERS: PCP Internal Medicine; Visit Provider Physician Assistant
DX: N39.0 Urinary tract infection, site not specified (principal); R52 Pain, unspecified; F25.9 Schizoaffective disorder, unspecified; R35.0 Frequency of micturition
CPT/HCPCS: 81003; 99213

== ENCOUNTER 2022-12-23 13:49 | Emergency (ER) | payer OTHER, SELFPAY ==
--- NOTE | ~2022-12-23 | CT_ITS ---
EXAMINATION: CT ABDOMEN AND PELVIS WITHOUT CONTRAST CLINICAL INFORMATION: Bilateral flank pain COMPARISON: Previous CT of the abdomen and pelvis April 2020 and renal ultrasound March 2022 TECHNIQUE: Multidetector volumetric imaging was performed from the superior aspect of the liver through the pubic symphysis. Sagittal and coronal reformatted images were obtained on the technologist's workstation. This CT examination was performed using dose optimization techniques as appropriate, variously including the following: *Automated exposure control *Adjustment of mA and/or kV according to patient size (this includes techniques or standardized protocols for targeted exams where dose is matched to indication/reason for exam; i.e. extremities or head) *Use of iterative reconstruction technique DLP: 706 mGy-cm FINDINGS: LUNG BASES: The visualized lung bases are unremarkable. LIVER, GALLBLADDER, AND BILIARY TREE: Cirrhotic-appearing liver. The gallbladder is been removed. No focal liver lesion or biliary duct dilatation. PANCREAS: Unremarkable. SPLEEN: Unremarkable. ADRENAL GLANDS: Unremarkable. KIDNEYS AND URETERS: The kidneys are normal in size, shape, and attenuation. Small nonobstructing stone in the upper pole of the left kidney. Question small nonobstructing stone in the lower pole of the right kidney. No hydronephrosis, ureteral dilatation or ureteral stone. BLADDER: Not optimally distended. Small amount of air in the bladder. GASTROINTESTINAL TRACT: Mild diverticulosis of the colon. The small and large bowel are otherwise unremarkable. The appendix is unremarkable. ABDOMINAL WALL: Small umbilical hernia and periumbilical hernias containing fat. LYMPH NODES: Normal. VASCULAR: Unremarkable. PELVIC VISCERA: Unremarkable. OSSEOUS STRUCTURES: Degenerative changes of the spine and hip joints. CT/CT abdomen pelvis wo IV con IMPRESSION: Small left and question small right nonobstructing renal stones. Small amount of air in the bladder. This may be related to recent catheterization. Clinical correlation recommended. Differential would include infection and fistula. Cirrhotic-appearing liver. Diverticulosis. Fleischner guidelines were followed.
[2022-12-23 14:00] VITALS: BP 114/77; PULSE 83; RESP 16; TEMP 36.6; O2SAT 95; BMI 37.4
--- NOTE | 2022-12-23 14:00 | ED_ITS ---
HPI - General Adult General Chief complaint: General Medical Stated complaint: Back pain/Urine issues Time Seen by Provider: 12/23/22 15:00 Source: patient Mode of arrival: ambulatory Limitations: no limitations History of Present Illness HPI narrative: 52-year-old female history of hypertension, schizoaffective disorder, COVID, cirrhosis, alcohol abuse, gastritis your with complaints of intermittent urinary symptoms and back pain for the last month. Patient reports that she went to a urgent care a few weeks ago and was diagnosed with urinary tract infection and was started on an antibiotic which she completed. The symptoms did seem to improve but then developed about 2 weeks ago. Patient describes urinary urgency, frequency, dysuria with associated lower back pain as well as bilateral flank pain. Patient also complaining of tactile temps and body aches. No abdominal pain, vomiting, diarrhea, chest pain or SOB Related Data Home Medications Medication Instructions Recorded Confirmed clonazepam 0.5 mg tablet 1 tab PO DAILY PRN anxiety 08/07/20 04/05/22 escitalopram oxalate 5 mg tablet 1 tab PO DAILY 08/07/20 04/05/22 gabapentin 300 mg capsule 300 mg PO BID 08/07/20 04/05/22 haloperidol 2 mg tablet 1 tab PO BEDTIME 08/07/20 04/05/22 aripiprazole 5 mg tablet 5 mg PO DAILY 04/05/22 04/05/22 olanzapine 5 mg tablet 5 mg PO DAILY 04/05/22 04/05/22 trazodone 300 mg tablet 300 mg PO BEDTIME 04/05/22 04/05/22 olanzapine 10 mg tablet 10 mg PO DAILY 05/28/22 Previous Rx's Medication Instructions Recorded nitrofurantoin macrocrystal 100 mg 100 mg PO BID 10 days #20 caps 04/05/22 capsule ferrous sulfate 324 mg (65 mg 324 mg PO BID #180 tabs 07/11/22 iron) tablet,delayed release omeprazole 20 mg capsule,delayed 20 mg PO DAILY #90 caps 07/21/22 release acetaminophen 325 mg tablet 650 mg (2 x 325 mg) PO QID PRN 11/28/22 (Tylenol) pain #14 tabs cefuroxime axetil 250 mg tablet 250 mg PO BID 7 days #14 tabs 11/28/22 lidocaine 4 % topical patch 1 patch topical DAILY PRN pain #15 11/28/22 (AsperFlex (lidocaine)) ea phenazopyridine 200 mg tablet 200 mg PO TID 6 doses #6 tabs 11/28/22 (Pyridium) cefuroxime axetil 250 mg tablet 250 mg PO BID #20 tabs 12/23/22 phenazopyridine 200 mg tablet 200 mg PO TID PRN pain #6 tabs 12/23/22 (Pyridium) Allergies Allergy/AdvReac Type Severity Reaction Status Date / Time NSAIDS (Non-Steroidal Allergy Intermediate RASH Verified 11/28/22 10:09 Anti-Inflamma [NSAIDS (NON-STEROIDAL ANTI-INFLAMMA] aspirin [ASPIRIN] Allergy Mild HIVES Verified 11/28/22 10:09 Review of Systems 2 Review of Systems: Yes all other systems are reviewed and are negative Constitutional: Constitutional: Reports no additional constitutional complaints, Reports body ache(s), Denies chills, Reports fever(s), Denies headache(s) and Denies weakness Eyes: Eyes: Reports no additional eye complaints and Denies change in vision ENT: Reports system reviewed and no additional complaints, except as documented, Denies dizziness, Denies headache(s), Denies nasal congestion, Denies nasal discharge and Denies neck pain Cardiovascular: Cardiovascular: Reports no additional cardiovascular complaints, Denies chest pain, Denies leg edema and Denies dyspnea Respiratory: Respiratory: Reports no additional respiratory complaints, Denies cough and Denies dyspnea Gastrointestinal: Gastrointestinal: Reports no additional gastrointestinal complaints, Denies abdominal pain, Denies diarrhea, Denies nausea and Denies vomiting Genitourinary: Genitourinary: Reports no additional female genitourinary complaints, Denies hematuria, Reports dysuria, Denies pelvic pain, Reports flank pain, Denies urinary incontinence, Reports urinary hesitancy and Reports urinary urgency Musculoskeletal: Musculoskeletal: Reports no additional musculoskeletal complaints, Reports back pain, Denies arthralgias, Denies joint swelling, Denies neck pain, Denies numbness and Denies tingling Integumentary/Breasts: Skin/Breast: Reports system reviewed and no additional complaints, except as docu and Denies rash Neurologic: Reports system reviewed and no additional complaints, except as documented, Denies Abnormal speech present, Denies dizziness, Denies headache(s), Denies numbness, Denies tingling and Denies weakness PMFSH Past Medical History Attestation statement: The following information was validated with the patient. Source: old records reviewed and nursing notes reviewed Medical History Sensation of pressure in bladder area Foul smelling urine Pyelonephritis Pneumonia due to COVID-19 virus Acute respiratory failure with hypoxia Recurrent UTI UTI (urinary tract infection) Dysuria Bilateral knee pain Lumbago with sciatica, right side History of COVID-19 Bilateral leg and foot pain Cirrhosis of liver Bipolar 1 disorder Depression with anxiety Vitamin D deficiency Myalgia Alcohol abuse Anemia Surgical History History of esophagogastroduodenoscopy (EGD) Hx of section Hx laparoscopic cholecystectomy Family History Family History Sister Breast cancer Substance use disorder Father Substance use disorder Paternal Aunt Substance use disorder Other Unknown family medical history Social History Social History Household Members: Other Household Members Other:: 2 sisters and teenage children Housing: Apartment Do you presently have visiting nurse or other home services: No Alcohol intake: never Patient Tobacco Use Status: Former Tobacco user Cigarette Packs Per Day: 0 Cigarettes Per Day: 1 e-Cigarette/Vaping Use: Never Used Second Hand Smoke Exposure: Yes Advance Directives: No Advance Directives Information Provided: Yes service: No Current occupational status: unemployed Sexual orientation: Straight/Heterosexual Cognitive needs: No Hearing needs: No Vision needs: No Physical Exam ED Vital Signs: Vital Signs - 24 hr 12/23/22 14:00 Temperature 97.9 F Pulse Rate 83 Respiratory Rate 16 Blood Pressure 114/77 Pulse Oximetry 95 Oxygen Delivery Method Room Air BMI result Body Mass Index 37.4 Const General: cooperative, healthy appearing, comfortable and no acute distress Orientation/consciousness: patient oriented x3 Limitations: no limitations HENMT Head: Yes normal to inspection Ears: hearing grossly normal bilaterally General nose exam: Normal external nose present Face and sinus: Yes normal facial exam Mouth: Normal oral and palatal mucosa present Throat: Yes posterior oropharynx normal Eyes General: appearance normal, both eyes and all related structures Pupils: Equal, round and reactive pupils present Neck Neck: Yes normal visual inspection Chest Chest palpation & inspection: normal inspection of the chest Resp Effort & Inspection: normal respiratory effort Auscultation: clear to auscultation bilaterally Cardio Rate: regular rate Rhythm: regular rhythm Peripheral pulses: Peripheral pulses 2+ throughout GI Inspection: Yes normal to inspection Palpation (GI): Soft to palpation and nontender Auscultation: normal bowel sounds General: Yes CVA tenderness Back/Spine/Pelvis Back: CVA tenderness Thoracic/Lumbar Spine: thoracic and lumbar spine normal to inspection Skin General skin exam: no rashes or lesions noted Neuro General: patient oriented x3, no focal motor deficits and normal sensation to monofilament Cranial nerves: Yes Equal, round and reactive pupils present Cognition (Neuro): normal cognition Speech: No Abnormal speech present Gait exam (Neuro): Normal gait present Motor exam (neuro): 5/5 motor strength present throughout Extrem General: Yes normal to inspection Course Course Course Narrative: RME performed by Malaika Almaraz PA-C. Patient is a 52 year old assigned female at presenting to the emergency department with blood in her urine and low back pain. Labs ordered. Patient placed back in the waiting room pending room availability and results. Reevaluation(s) Reevaluation #1: UA c/w with UTI. Labs at baseline. CT shows IMPRESSION: Small left and question small right nonobstructing renal stones. Small amount of air in the bladder. This may be related to recent catheterization. Clinical correlation recommended. Differential would include infection and fistula. Cirrhotic-appearing liver. Diverticulosis. Likely secondary to infection. Doubt fistula. Will treat patients UTI with oral antibitiocs and recommend she f/u with her PCP for recurrent urinary tract infections. Reviewed worrisome signs/symptoms with patient and when to seek additional care. Comfortable with discharge home. Medical Decision Making Medical Decision Making MDM Narrative: 52-year-old female history of hypertension, schizoaffective disorder, COVID, cirrhosis, alcohol abuse, gastritis your with complaints of intermittent urinary symptoms and back pain for the last month. Patient reports that she went to a urgent care a few weeks ago and was diagnosed with urinary tract infection and was started on an antibiotic which she completed. The symptoms did seem to improve but then developed about 2 weeks ago. Patient describes urinary urgency, frequency, dysuria with associated lower back pain as well as bilateral flank pain. Patient also complaining of tactile temps and body aches. No abdominal pain, vomiting, diarrhea, chest pain or SOB +CVAT R>L, no focal abdominal pain UA is grossly infected Will obtain labs, CT A/P Differential Diagnosis Differential Diagnoses: The differential diagnosis associated with the presentation includes renal colic, pyelonephritis, UTI Admission/Observation Consideration of admission/observation: Escalation of care including admission/observation considered Lab Data MDM Lab Attestation statement: I reviewed the patient's lab results. 12/23/22 14:17 12/23/22 14:17 Labs: Lab Results 12/23/22 12/23/22 Range/Units 14:17 14:28 WBC 7.3 (4.8-10.8) X10*3/uL RBC 4.12 L (4.20-5.50) X10*6/uL Hgb 12.7 (12.0-16.0) g/dl Hct 36.5 L (37.0-47.0) % MCV 88.6 (80.0-98.0) fL MCH 30.8 (27.0-33.0) pg MCHC 34.8 (31.0-35.0) g/dl RDW 12.3 (11.0-16.0) % Plt Count 168 (160-400) X10*3/uL MPV 10.0 (9.4-12.3) fL Immature Gran % (Auto) 0.5 H (0.0-0.4) % Neut % (Auto) 63.9 (45-73) % Lymph % (Auto) 28.3 (20-40) % [place] % (Auto) 5.7 (2-11) % Eos % (Auto) 1.1 (0-4) % Baso % (Auto) 0.5 (0-2) % Lymph # (Auto) 2.1 (1.2-4.9) X10*3/uL [place] # (Auto) 0.4 (0.1-1.2) X10*3/uL Eos # (Auto) 0.1 (0.0-0.4) X10*3/uL Baso # (Auto) 0.0 (0.0-0.2) X10*3/uL Abs Immat Gran (auto) 0.04 H (0.00-0.03) X10*3/uL Absolute Neuts (auto) 4.7 (2.0-8.3) x10*3/uL Absolute Nucleated RBC 0.000 (0.0-0.012) X10*3/uL Nucleated RBC % (auto) 0.0 (0.0-0.2) /100WBC Sodium 141 (135-145) mmol/L Potassium 3.4 (3.3-5.1) mmol/L Chloride 107 (96-108) mmol/L Carbon Dioxide 27 (22-29) mmol/L Anion Gap 10 L (12-20) BUN 11 (9-16) mg/dL Creatinine 0.80 (0.5-1.4) mg/dL Estim Creat Clear Calc 91.5 Estimated GFR > 60 Random Glucose 102 (60-115) mg/dL Calcium 8.9 (8.4-10.2) mg/dL Magnesium 1.8 (1.6-2.6) mg/dL Total Bilirubin 0.7 (0.0-1.0) mg/dL AST 14 (5-31) U/L ALT 7 (0-31) U/L Alkaline Phosphatase 95 (39-117) U/L Total Protein 6.7 (6.5-8.0) g/dL Albumin 3.2 L (3.5-5.0) g/dL Urine Color Yellow Urine Appearance Hazy Urine pH 6.5 (5.0-9.0) Ur Specific [place] 1.025 (1.005-1.025) Urine Protein 30 (1+) H (Neg-Trace) mg/dL Urine Glucose (UA) Negative (Negative) mg/dL Urine Ketones Negative (Negative) mg/dL Urine Blood Trace (Negative) Urine Nitrite Positive H (Negative) Ur Leukocyte Esterase Moderate (2+) H (Negative) Urine RBC 0-2 (0-2) /HPF Urine WBC >50 H (0-5) /HPF Ur Squamous Epith Cells 11-20 (0-2) /HPF Urine Bacteria 1+ (None Seen) Hyaline Casts 0-2 (0-2) /LPF Independent Interpretation I performed an independent interpretation of an: CT Scan Radiology Impression Discussion of test interpretation with radiology: I have reviewed the radiologist's reading. Radiologist Impression: [address] [address] [address] Scan Report Signed Patient: Angie Saldaña MR#: [id number] : 1970 Acct:[id number] Age/Sex: 52 / F ADM Date: 12/23/22 Loc: HO.ED Attending Dr: Ordering Physician: Hailey Gandhi NP Date of Service: 12/23/22 Procedure(s): CT abdomen pelvis wo IV con Accession Number(s): [id number] cc: Arielle Jon MD; Hailey Gandhi NP~ EXAMINATION: CT ABDOMEN AND PELVIS WITHOUT CONTRAST CLINICAL INFORMATION: Bilateral flank pain COMPARISON: Previous CT of the abdomen and pelvis April 2020 and renal ultrasound March 2022 TECHNIQUE: Multidetector volumetric imaging was performed from the superior aspect of the liver through the pubic symphysis. Sagittal and coronal reformatted images were obtained on the technologist's workstation. This CT examination was performed using dose optimization techniques as appropriate, variously including the following: *Automated exposure control *Adjustment of mA and/or kV according to patient size (this includes techniques or standardized protocols for targeted exams where dose is matched to indication/reason for exam; i.e. extremities or head) *Use of iterative reconstruction technique DLP: 706 mGy-cm FINDINGS: LUNG BASES: The visualized lung bases are unremarkable. LIVER, GALLBLADDER, AND BILIARY TREE: Cirrhotic-appearing liver. The gallbladder is been removed. No focal liver lesion or biliary duct dilatation. PANCREAS: Unremarkable. SPLEEN: Unremarkable. ADRENAL GLANDS: Unremarkable. KIDNEYS AND URETERS: The kidneys are normal in size, shape, and attenuation. Small nonobstructing stone in the upper pole of the left kidney. Question small nonobstructing stone in the lower pole of the right kidney. No hydronephrosis, ureteral dilatation or ureteral stone. BLADDER: Not optimally distended. Small amount of air in the bladder. GASTROINTESTINAL TRACT: Mild diverticulosis of the colon. The small and large bowel are otherwise unremarkable. The appendix is unremarkable. ABDOMINAL WALL: Small umbilical hernia and periumbilical hernias containing fat. LYMPH NODES: Normal. VASCULAR: Unremarkable. PELVIC VISCERA: Unremarkable. OSSEOUS STRUCTURES: Degenerative changes of the spine and hip joints. CT/CT abdomen pelvis wo IV con IMPRESSION: Small left and question small right nonobstructing renal stones. Small amount of air in the bladder. This may be related to recent catheterization. Clinical correlation recommended. Differential would include infection and fistula. Cirrhotic-appearing liver. Diverticulosis. Independent Historian Clinical information obtained from an independent historian. History obtained from or confirmed by: Spouse Discharge Plan Discharge Clinical Impression: UTI (urinary tract infection) Patient Disposition: Home, Self-Care Instructions: Urinary Tract Infection in Women (ED) Additional Instructions: Increase fluids, rest Follow-up with your PCP in regards to your recurrent urinary tract infections Your CT scan shows no several kidney stones WITHIN the kidney which will not be causing your pain Prescriptions: New cefuroxime axetil 250 mg tablet 250 mg PO BID Qty: 20 0RF phenazopyridine [Pyridium] 200 mg tablet 200 mg PO TID PRN (Reason: pain) Qty: 6 0RF No Action ferrous sulfate 324 mg (65 mg iron) tablet,delayed release (DR/EC) 324 mg PO BID Qty: 180 1RF omeprazole 20 mg capsule,delayed release(DR/EC) 20 mg PO DAILY Qty: 90 1RF clonazepam 0.5 mg tablet 1 tab PO DAILY PRN (Reason: anxiety) gabapentin 300 mg capsule 300 mg PO BID haloperidol 2 mg tablet 1 tab PO BEDTIME escitalopram oxalate 5 mg tablet 1 tab PO DAILY acetaminophen [Tylenol] 325 mg tablet 650 mg PO QID PRN (Reason: pain) Qty: 14 0RF lidocaine [AsperFlex (lidocaine)] 4 % adhesive patch,medicated 1 patch topical DAILY PRN (Reason: pain) Qty: 15 0RF cefuroxime axetil 250 mg tablet 250 mg PO BID 7 Days Qty: 14 0RF phenazopyridine [Pyridium] 200 mg tablet 200 mg PO TID 0 Days Qty: 6 0RF olanzapine 10 mg tablet 10 mg PO DAILY trazodone 300 mg tablet 300 mg PO BEDTIME aripiprazole 5 mg tablet 5 mg PO DAILY olanzapine 5 mg tablet 5 mg PO DAILY nitrofurantoin macrocrystal 100 mg capsule 100 mg PO BID 10 Days Qty: 20 0RF Rx Instructions: must administer with a meal/food Referrals: Arielle Jon MD [Primary Care Provider] - 1 week
[2022-12-23 14:25] LABS: MANUAL DIFF FLAG NO
[2022-12-23 14:28] LABS: Basophils Percent Auto 0.5 % (0-2); Eosinophils Absolute Auto 0.1 X10*3/uL (0.0-0.4); Eosinophils Percent Auto 1.1 % (0-4); Hematocrit 36.5 % (37.0-47.0); Hemoglobin 12.7 g/dl (12.0-16.0); Imm Gran Abs Auto 0.04 X10*3/uL (0.00-0.03); Imm Gran Pct Auto 0.5 % (0.0-0.4); Lymphocytes Absolute Auto 2.1 X10*3/uL (1.2-4.9); Lymphocytes Percent Auto 28.3 % (20-40); Mean Corpuscular HGB Conc 34.8 g/dl (31.0-35.0); Mean Corpuscular Hemoglobin 30.8 pg (27.0-33.0); Mean Corpuscular Volume 88.6 fL (80.0-98.0); Monocytes Absolute Auto 0.4 X10*3/uL (0.1-1.2); Monocytes Percent Auto 5.7 % (2-11); Neutrophils Absolute Auto 4.7 x10*3/uL (2.0-8.3); Neutrophils Percent Auto 63.9 % (45-73); Platelet Count 168 X10*3/uL (160-400); Red Blood Count 4.12 X10*6/uL (4.20-5.50); Red Cell Distribution Width 12.3 % (11.0-16.0); White Blood Count 7.3 X10*3/uL (4.8-10.8)
[2022-12-23 14:41] LABS: Alanine Aminotransferase 7 U/L (0-31); Albumin Level 3.2 g/dL (3.5-5.0); Alkaline Phosphatase 95 U/L (39-117); Anion Gap 10 (12-20); Aspartate Amino Transferase 14 U/L (5-31); Bilirubin Total 0.7 mg/dL (0.0-1.0); Blood Urea Nitrogen 11 mg/dL (9-16); Calcium 8.9 mg/dL (8.4-10.2); Carbon Dioxide 27 mmol/L (22-29); Chloride 107 mmol/L (96-108); Creatinine Clr Calc Pharmacy 91.5; Estimated Glomerular Filt Rate > 60; Glucose Random 102 mg/dL (60-115); Magnesium 1.8 mg/dL (1.6-2.6); Potassium 3.4 mmol/L (3.3-5.1); Sodium 141 mmol/L (135-145); Total Protein 6.7 g/dL (6.5-8.0)
[2022-12-23 14:47] LABS: Appearance Urine Hazy; Color Urine Yellow; Glucose Urine UA Negative (Negative); Leukocyte Esterase Urine Moderate (2+) (Negative); Nitrite Urine Positive (Negative); PH 6.5 (5.0-9.0); Specific Gravity - Urine 1.025 (1.005-1.025); UMIC TRIGGER UACC YES; Urine Blood Trace (Negative); Urine Ketones Negative (Negative); Urine Protein 30 (1+) mg/dL (Neg-Trace)
[2022-12-23 15:14] LABS: UACC Culture Trigger YES; WBC Urine >50 /HPF (0-5)
[2022-12-23 15:15] LABS: Bacteria Urine 1+ (None Seen); Hyaline Casts Urine 0-2 /LPF (0-2); RBC Urine 0-2 /HPF (0-2)
== END 2022-12-23 18:44 | disposition home or self-care (01) ==
PROVIDERS: Physician Assistant Medical; Emergency Provider Emergency Medicine Emergency Medical Services; PCP Internal Medicine
DX: N39.0 Urinary tract infection, site not specified (principal); M54.9 Dorsalgia, unspecified; R10.9 Unspecified abdominal pain; I10 Essential (primary) hypertension; R35.0 Frequency of micturition; R30.0 Dysuria
CPT/HCPCS: 36415; 74176; 80053; 81001; 83735; 85025; 87086; 99282; 99284

== ENCOUNTER 2023-01-29 12:55 | Outpatient (AMB) | payer OTHER, SELFPAY ==
[2023-01-29 14:03] VITALS: BP 100/62; PULSE 64; O2SAT 98; BMI 37.9
--- NOTE | 2023-01-29 14:03 | A.OFFPC_ITS ---
Vital Signs 01/29/23 14:03 Height 5 ft 3 in Weight 214 lb 4 oz BMI 37.9 BP 100/62 Blood Pressure Location Lt brachial Position Sitting Pulse 64 Pulse Source Pulse Oximeter Pulse Oximetry (%) 98 Oxygen Delivery Method Room Air Intake Visit Reasons: ER follow up [facility] [place] UTI Intake Note: Pt is here to follow for frequent ER and walk-in visits for Uti's pt is still having frequency and pain in her stomach when she goes pt says it never went away after her treatment of antibiotics pt says she also has lower back pain in her kidney area since she has had her Uti sx Allergies NSAIDS (Non-Steroidal Anti-Inflamma [NSAIDS (NON-STEROIDAL ANTI-INFLAMMA] Allergy (Intermediate, Verified 01/29/23 14:31) RASH aspirin [ASPIRIN] Allergy (Mild, Verified 01/29/23 14:31) HIVES Medication List - Last Reconciled 01/29/23 by Arielle Jon MD acetaminophen (Tylenol) 650 mg (2 x 325 mg) PO QID PRN aripiprazole 5 mg PO DAILY clonazepam 1 tab PO DAILY PRN escitalopram oxalate 1 tab PO DAILY ferrous sulfate 324 mg PO BID gabapentin 300 mg PO BID haloperidol 1 tab PO BEDTIME ibuprofen (Motrin IB) 200 mg PO Q6H PRN olanzapine 5 mg PO DAILY omeprazole 20 mg PO DAILY trazodone 300 mg PO BEDTIME Tobacco use date assessed: 01/29/23 Dental Screening Dental Screen Date: 01/29/23 Did you have a dental visit in the last 12 months?: No Did you have a dental problem in the last 6 months where you did not have access to dental care?: No Was dental information given to patient?: No HPI ER follow up [facility] [place] UTI HPI Details 52-year-old female history of hypertensi on, schizoaffective disorder, history of COVID, cirrhosis, alcohol abuse, gastritis presents today complaining of urinary frequency, urgency, back pain . Franc[place] had recurrent UTIs, several visits already made to the ER and urgent care this year. She has been seen by Urology at [facility] [place] and a ecent renal/bladder ultrasound results showed Right kidney with no lesions, or hydronephrosis noted. Nonobstructive 2 mm mid-pole calculus. Left kidney with no lesions or hydronephrosis noted. The bladder with equivocal wall thickening. Bilateral ureteral jets are demonstrated. Prevoid bladder volume is 245 mL. Postvoid bladder volume is 10.5 mL. She was seen again for the same complaint at the ER in 12/23/[address] of abdomen pelvis showed small left and question small right nonobstructing renal stones. Small amount of air in the bladder. This may be related to recent catheterization.. Differential would include infection and fistula. [facility] Medical History Nephrolithiasis Bladder wall thickening Sensation of pressure in bladder area Foul smelling urine Pyelonephritis Pneumonia due to COVID-19 virus Acute respiratory failure with hypoxia Recurrent UTI UTI (urinary tract infection) Dysuria Bilateral knee pain Lumbago with sciatica, right side History of COVID-19 Bilateral leg and foot pain Cirrhosis of liver Bipolar 1 disorder Depression with anxiety Vitamin D deficiency Myalgia Alcohol abuse Anemia Surgical History History of esophagogastroduodenoscopy (EGD) Hx of section Hx laparoscopic cholecystectomy Family History Sister Breast cancer Substance use disorder Father Substance use disorder Paternal Aunt Substance use disorder Other Unknown family medical history Social History Household Members: Other Household Members Other:: 2 sisters and teenage children Housing: Apartment Do you presently have visiting nurse or other home services: No Alcohol intake: never Comment: pt resting with eyed closed Patient Tobacco Use Status: Former Tobacco user Cigarette Packs Per Day: 0 Cigarettes Per Day: 1 e-Cigarette/Vaping Use: Never Used Second Hand Smoke Exposure: Yes service: No Current occupational status: unemployed Sexual orientation: Straight/Heterosexual Cognitive needs: No Hearing needs: No Vision needs: No Questionnaire Thrive Questionnaire Date Thrive assessed: 12/27/21 BRYCE-7 AMB Questionnaire BRYCE-7 Date BRYCE - 7 assessed: 12/27/21 Source: Developed by Drs. Kana Ohara, Juliet Leonardo, Aditya Alejandro and colleagues, with an educational kaylynn from [employer]. Review of Systems Const Denies chills, Denies fatigue and Denies fever(s) ENT Reports no additional complaints Card Reports no additional complaints Resp Reports no additional complaints GI Reports abdominal pain (Lower abdominal pain and suprapubic area) and Denies change in bowel habits Reports as per HPI and Reports urinary urgency Endo Denies fatigue Physical exam (Primary Care) Vital Signs: Last Vital Signs Pulse 64 01/29/23 14:03 BP 100/62 01/29/23 14:03 Pulse Ox 98 01/29/23 14:03 Oxygen Delivery Method Room Air 01/29/23 14:03 BMI result Body Mass Index 37.9 Tobacco/Smoking Status: Tobacco use Status Tobacco use date assessed 01/29/23 01/29/23 14:12 Patient Tobacco Use Status Former Tobacco user 01/29/23 14:04 e-Cigarette/Vaping Use Never Used 01/29/23 14:04 Thrive Assessment: Date of Thrive Assessment Date Thrive assessed 12/27/21 01/29/23 14:04 Const Other: Awake, alert, flat affect, ambulatory with normal gait, but noted to have slow movement HENMT Mouth: Normal oral and palatal mucosa present, oropharynx normal and moist mucous membranes Resp Auscultation: clear to auscultation bilaterally Cardio Other: S1-S2 present regular rate and rhythm GI Other: Normal bowel sounds, soft, tenderness over suprapubic area, no mass no rebound or guarding General: Yes no CVA tenderness Back/Spine/Pelvis Back: no CVA tenderness Neuro General: moves all extremities, no focal motor deficits and CN's II-XI intact bilaterally Extrem General: Yes full ROM, Yes no joint enlargement, Yes no pedal edema and Yes normal gait Results AMB Urinalysis, Automated UA Leukoctes 125 Jagdeep/uL Last Edit by Antionette Walton CMA on 01/29/23 14:3 2 UA Nitrite Positive Last Edit by Antionette Walton CMA on 01/29/23 14:32 UA Urobilinogen 0.2 mg/dL Last Edit by Antionette Walton CMA on 01/29/23 14 :32 UA Protein 30 mg/dL Last Edit by Antionette Walton CMA on 01/29/23 14:32 UA pH 6.0 Last Edit by Antionette Walton CMA on 01/29/23 14:32 UA Blood 10 Sunday/uL Last Edit by Antionette Walton CMA on 01/29/23 14:32 UA Specific [place] 1.030 Last Edit by Antionette Walton CMA on 01/29/23 14:32 UA Ketone Positive Last Edit by Antionette Walton CMA on 01/29/23 14:32 UA Bilirubin 1 mg/dL Last Edit by Antionette Walton CMA on 01/29/23 14:32 UA Glucose 0 mg/dL Last Edit by Antionette Walton CMA on 01/29/23 14:32 Results Reviewed Results Reviewed: Laboratory Last Values Urine pH (Auto) 6.0 01/29/23 14:30 Specific [place] (Auto) 1.030 01/29/23 14:30 Urine Protein (Auto) 30 mg/dL 01/29/23 14:30 Glucose (UA)(Auto) 0 mg/dL 01/29/23 14:30 Urine Ketones (Auto) Positive 01/29/23 14:30 Urine Blood (Auto) 10 Sunday/uL 01/29/23 14:30 Urine Nitrite (Auto) Positive 01/29/23 14:30 Urine Bilirubin (Auto) 1 mg/dL 01/29/23 14:30 Urine Urobilinogen (Auto) 0.2 mg/dL 01/29/23 14:30 Leukocyte Esterase (Auto) 125 Jagdeep/uL 01/29/23 14:30 Assessment and Plan Assessment & Plan (1) Recurrent UTI: Code(s): N39.0 - Urinary tract infection, site not specified Plan: Started on nitrofurantoin 100 mg per capsule to take 1 its every 12 hours for 10 days, prescription also sent for phenazopyridine 200 mg per tab to take 1 tablet 3 times a day for 2 days peer referred back to urology for further evaluation and management, was supposed to get cystoscopy earlier this year (2) Bladder wall thickening: Code(s): N32.89 - Other specified disorders of bladder Plan: As noted on CT abdomen pelvis done earlier this year (3) Nephrolithiasis: Code(s): N20.0 - Calculus of kidney Orders: Orders UA CC w/rflx Micro + Cult Today R30.0 - Dysuria AMB Urinalysis Automated Today N39.0 - Urinary tract infection, site not specified Referrals Urology Referral N20.0 - Calculus of kidney, N32.89 - Other specified disorders of bladder, N39.0 - Urinary tract infection, site not specified Medications: New nitrofurantoin monohyd/m-cryst 100 mg must administer with a meal/food 100 mg PO Q12H 20 caps 0RF 10 days phenazopyridine 200 mg PO TID 6 tabs 0RF 2 days Coding Level of Care Code Est Pt Level 3 (13546) Diagnoses Recurrent UTI N39.0 Bladder wall thickening N32.89 Nephrolithiasis N20.0
== END 2023-01-29 16:14 | disposition home or self-care (01) ==
PROVIDERS: PCP Internal Medicine; Visit Provider Internal Medicine
DX: N39.0 Urinary tract infection, site not specified (principal); N32.89 Other specified disorders of bladder; N20.0 Calculus of kidney
CPT/HCPCS: 81003; 99213

== ENCOUNTER 2023-01-29 18:10 | Outpatient (REF) | payer OTHER, SELFPAY ==
[2023-01-29 18:18] LABS: Appearance Urine Turbid; Color Urine Dark Yellow; Glucose Urine UA Negative (Negative); Leukocyte Esterase Urine Moderate (2+) (Negative); Nitrite Urine Positive (Negative); Specific Gravity - Urine 1.025 (1.005-1.025); UMIC TRIGGER UACC YES; Urine Blood Trace (Negative); Urine Ketones Trace mg/dL (Negative); Urine Protein 30 (1+) mg/dL (Neg-Trace)
[2023-01-29 18:27] LABS: Bacteria Urine 4+ (None Seen); Hyaline Casts Urine 0-2 /LPF (0-2); UACC Culture Trigger YES; WBC Urine >50 /HPF (0-5)
== END 2023-01-29 18:11 | disposition home or self-care (01) ==
LOC: HO.HMGCLNP 18:10
PROVIDERS: Visit Provider Internal Medicine
DX: R30.0 Dysuria (principal); N39.0 Urinary tract infection, site not specified
CPT/HCPCS: 81001; 87086; 87088; 87186

== ENCOUNTER 2023-03-14 10:36 | Outpatient (REF) | payer OTHER, SELFPAY | END 2023-03-14 10:37 | disposition home or self-care (01) | LOC: HO.LNP 10:36 | PROVIDERS: PCP Internal Medicine; Visit Provider Nurse Practitioner Family | DX: N39.0 Urinary tract infection, site not specified (principal); R30.0 Dysuria | CPT/HCPCS: 51798; 81003; 87086; 99212 ==

== ENCOUNTER 2023-03-14 10:36 | Outpatient (AMB) | payer OTHER, SELFPAY ==
--- NOTE | 2023-03-14 10:40 | MHC.OFFVIS ---
Intake Intake Visit Reasons: recurrent UTI/ Possible cysto Intake Note: Patient presents to office today for Recurrent Uti Urology Medications: none Blood Thinner: none Antibiotic Allergies: none Escalator Installer Required: No Accompanied by: Self / Same As Patient Allergies NSAIDS (Non-Steroidal Anti-Inflamma [NSAIDS (NON-STEROIDAL ANTI-INFLAMMA] Allergy (Intermediate, Verified 03/14/23 13:25) RASH aspirin [ASPIRIN] Allergy (Mild, Verified 03/14/23 13:25) HIVES Medication List - Last Reconciled 03/14/23 by SHAKIR Yi acetaminophen (Tylenol) 650 mg (2 x 325 mg) PO QID PRN aripiprazole 5 mg PO DAILY clonazepam 1 tab PO DAILY PRN escitalopram oxalate 1 tab PO DAILY estradiol 0.01%(0.1mg/gram) vaginally daily; pea sized amount to urethra 3 times a week 30 days ferrous sulfate 324 mg PO BID gabapentin 300 mg PO BID haloperidol 1 tab PO BEDTIME ibuprofen (Motrin IB) 200 mg PO Q6H PRN nitrofurantoin macrocrystal 100 mg PO BID 14 days olanzapine 5 mg PO DAILY omeprazole 20 mg PO DAILY trazodone 300 mg PO BEDTIME HPI HPI Comments History of Present Illness Details Angei is a 52 year old female patient of Dr. Jon. She has a past medical history of nephrolithiasis, bladder wall thickening, pyelonephritis, recurrent UTIs, cirrhosis of liver, bipolar disorder, depression, anxiety, vitamin-D deficiency, alcohol abuse, and anemia. Of note, patient was seen approximately 10 months ago at which time recommendations were made for in office cystoscopy to rule out cystitis given retroperitoneal ultrasound recommending clinical correlation of cystitis. In discussion with the patient today she reports having canceled her appointment as she did not wish to undergo in office cystoscopy. Discussed at length importance of following up for continuity of care. Discussed how we could change appointment to office visit versus cystoscopy. When asked she reports noting foul-smelling urine in ongoing dysuria. In office urinalysis results reviewed with the patient today. 2+ leukocytes positive nitrates. Discussed given urinary symptoms as well as urinalysis results will treat for UTI at this time. PVR 0 mL. When asked she does report a history of constipation. Discussed and stressed the importance of managing constipation in relation to recurrent urinary tract infections. She otherwise denies urinary urgency, urinary frequency, incontinence, nocturia, hematuria, changes to urinary stream, flank pain, fever, and or chills. Discussed at length bladder triggers/irritants. [facility] Medical History Foul smelling urine Nephrolithiasis Bladder wall thickening Sensation of pressure in bladder area Pyelonephritis Pneumonia due to COVID-19 virus Acute respiratory failure with hypoxia Recurrent UTI UTI (urinary tract infection) Dysuria Bilateral knee pain Lumbago with sciatica, right side History of COVID-19 Bilateral leg and foot pain Cirrhosis of liver Bipolar 1 disorder Depression with anxiety Vitamin D deficiency Myalgia Alcohol abuse Anemia Surgical History History of esophagogastroduodenoscopy (EGD) Hx of section Hx laparoscopic cholecystectomy Family History Sister Breast cancer Substance use disorder Father Substance use disorder Paternal Aunt Substance use disorder Other Unknown family medical history Social History Household Members: Other Household Members Other:: 2 sisters and teenage children Housing: Apartment Do you presently have visiting nurse or other home services: No Alcohol intake: never Comment: pt resting with eyed closed Patient Tobacco Use Status: Former Tobacco user Cigarette Packs Per Day: 0 Cigarettes Per Day: 1 e-Cigarette/Vaping Use: Never Used Second Hand Smoke Exposure: Yes service: No Current occupational status: unemployed Sexual orientation: Straight/Heterosexual Cognitive needs: No Hearing needs: No Vision needs: No Review of Systems Eyes Reports no additional complaints ENT Reports no additional complaints Card Reports no additional complaints Resp Reports no additional complaints GI Reports as per HPI and Reports constipation Reports as per HPI Musc Reports no additional complaints Neuro Reports no additional complaints Psych Details: patient reports a history of anxiety, panic attacks, and schisoaffective disorder Reports as per HPI Endo Reports no additional complaints Jack/Lymph Reports no additional complaints Aller/Immun Reports no additional complaints Physical Exam Const General: cooperative, comfortable, no acute distress, well developed, alert and awake Orientation/consciousness: patient oriented x3 Limitations: no limitations HEENT Head: Yes normal to inspection, Yes normocephalic and Yes atraumatic Ears: hearing grossly normal bilaterally Eyes General: appearance normal, both eyes and all related structures Neck Neck: Yes normal visual inspection and Yes trachea midline Chest Chest palpation & inspection: normal inspection of the chest Resp Effort & Inspection: normal respiratory effort and able to speak in complete sentences Cardio Rate: regular rate GI Inspection: Yes normal to inspection General: Yes no CVA tenderness Back/Spine/Pelvis Back: no CVA tenderness Skin General skin exam: no rashes or lesions noted Neuro General: patient oriented x3 Extrem General: Yes normal to inspection Psych Appearance: grossly normal and well kempt Mental Status: mental status grossly normal Speech and movement: Normal speech and movement present and Clear speech present Affect: Other affect and mood findings present (flat affect) Attitude: cooperative Thought process: Normal thought process present Thought content: Normal thought content present Insight: Fair insight present (Psych) Judgement: Fair judgement present (Psych) Office Procedures Post Void Residual Post Residual Void Post Void Residual (PVR): 0 [id number] Void Residual by ultrasound Results AMB Urinalysis, Automated UA Leukoctes 15 Jagdeep/uL Last Edit by [employer] on 03/14/23 11:32 UA Nitrite Positive Last Edit by [employer] on 03/14/23 11:32 UA Urobilinogen 0.2 mg/dL Last Edit by [employer] on 03/14/23 11:32 UA Protein 15 mg/dL Last Edit by [employer] on 03/14/23 11:32 UA pH 6.0 Last Edit by [employer] on 03/14/23 11:32 UA Blood 0 Sunday/uL Last Edit by [employer] on 03/14/23 11:32 UA Specific [place] 1.030 Last Edit by [employer] on 03/14/23 11:32 UA Ketone Negative Last Edit by [employer] on 03/14/23 11:32 UA Bilirubin 1 mg/dL Last Edit by [employer] on 03/14/23 11:32 UA Glucose 0 mg/dL Last Edit by [employer] on 03/14/23 11:32 Results Reviewed Results Reviewed: Laboratory Last Values Urine pH (Auto) 6.0 03/14/23 11:30 Specific [place] (Auto) 1.030 03/14/23 11:30 Urine Protein (Auto) 15 mg/dL 03/14/23 11:30 Glucose (UA)(Auto) 0 mg/dL 03/14/23 11:30 Urine Ketones (Auto) Negative 03/14/23 11:30 Urine Blood (Auto) 0 Sunday/uL 03/14/23 11:30 Urine Nitrite (Auto) Positive 03/14/23 11:30 Urine Bilirubin (Auto) 1 mg/dL 03/14/23 11:30 Urine Urobilinogen (Auto) 0.2 mg/dL 03/14/23 11:30 Leukocyte Esterase (Auto) 15 Jagdeep/uL 03/14/23 11:30 Assessment & Plan Assessment & Plan (1) Recurrent UTI: Code(s): N39.0 - Urinary tract infection, site not specified (2) UTI (urinary tract infection): Code(s): N39.0 - Urinary tract infection, site not specified (3) Dysuria: Code(s): R30.0 - Dysuria Plan In office urinalysis results reviewed with the patient today; as noted above; will send for urine culture. Start Estrace cream as discussed and prescribed. Start nitrofurantoin as discussed and prescribed. Discussed, educated, and stressed the importance of managing constipation and correlation of constipation with recurrent urinary tract infections. Discussed UTI prevention with D mannose supplement, vitamin-C, increasing fluid intake, behavioral therapy with timed voiding, perineal hygiene and postcoital voiding, and management of constipation with stool softeners and increased fiber intake. Discussed possible near future in office cystoscopy for further assessment evaluation Discussed and stressed the importance of following up for continuity of care. Follow-up in 1 month with PVR; or sooner with any issues, concerns, and or questions. Orders: Orders AMB Urinalysis Automated 03/14/23 Z13.9 - Encounter for screening, unspecified AMB Post Void Residual by ultrasound 03/14/23 N39.0 - Urinary tract infection, site not specified Urine Culture 03/14/23 N39.0 - Urinary tract infection, site not specified Medications: New estradiol 0.01%(0.1mg/gram) vaginally daily; pea sized amount to urethra 3 times a week 42.5 grams 0RF 30 days nitrofurantoin macrocrystal must administer with a meal/food 100 mg PO BID 28 caps 0RF 14 days N39.0 - Urinary tract infection, site not specified Patient Instructions: The patient had an opportunity to ask questions regarding the treatment plan. All questions were answered. Physical exam, labs, and imaging were discussed and reviewed in detail. As well as risks, benefits, and discussion of treatment choices. No major barriers to understanding were identified. The patient expressed understanding and agreement with the above treatment plan. The patient was made aware they should contact our office by phone for worsening of their current condition, the appearance of new symptoms, or with any questions or concerns. Compliance is encouraged with any medications and follow up testing that is ordered. It is a privilege to be allowed the opportunity to participate in? your urological care.? Again, if you have any questions or concerns If you have any questions or concerns please do not hesitate to contact me. The office is [phone]. This note is constructed using voice recognition software. While every effort has been made to ensure accuracy contract processor errors may have been included. Yours sincerely, SHAKIR Yi Coding Level of Care Code Est Pt Level 4 (68508) Diagnoses Recurrent UTI N39.0 UTI (urinary tract infection) N39.0 Dysuria R30.0 CPT Codes Post Residual Void - PVR CPT Code: 50243-Zdhh Void Residual by ultrasound ([id number])
== END 2023-03-14 11:37 | disposition home or self-care (01) ==
PROVIDERS: PCP Internal Medicine; Visit Provider Nurse Practitioner Family
DX: N39.0 Urinary tract infection, site not specified (principal); R30.0 Dysuria
CPT/HCPCS: 99214

== ENCOUNTER 2023-04-17 12:31 | Outpatient (AMB) | payer OTHER, SELFPAY ==
--- NOTE | 2023-04-17 13:03 | MHC.OFFVIS ---
Intake Intake Visit Reasons: 1m/PVR Intake Note: Patient presents today for a follow-up on PVR Meds- None Allergies to Antibiotic- No Known Allergies Blood Thinner- None PVR: 0ml Short Order Fry Cook Required: No Accompanied by: Self / Same As Patient Allergies NSAIDS (Non-Steroidal Anti-Inflamma [NSAIDS (NON-STEROIDAL ANTI-INFLAMMA] Allergy (Intermediate, Verified 04/17/23 13:57) RASH aspirin [ASPIRIN] Allergy (Mild, Verified 04/17/23 13:57) HIVES Medication List - Last Reconciled 04/17/23 by CHINO Yi- acetaminophen (Tylenol) 650 mg (2 x 325 mg) PO QID PRN aripiprazole 5 mg PO DAILY clonazepam 1 tab PO DAILY PRN escitalopram oxalate 1 tab PO DAILY estradiol 0.01%(0.1mg/gram) vaginally daily; pea sized amount to urethra 3 times a week 30 days ferrous sulfate 324 mg PO BID gabapentin 300 mg PO BID haloperidol 1 tab PO BEDTIME ibuprofen (Motrin IB) 200 mg PO Q6H PRN nitrofurantoin macrocrystal 100 mg PO BID 14 days olanzapine 5 mg PO DAILY omeprazole 20 mg PO DAILY zolpidem 10 mg PO BEDTIME PRN HPI HPI Comments History of Present Illness Details Angie is a 52 year old female patient of Dr. Jon. She has a past medical history of nephrolithiasis, bladder wall thickening, pyelonephritis, recurrent UTIs, cirrhosis of liver, bipolar disorder, depression, anxiety, vitamin-D deficiency, alcohol abuse, and anemia. Of note, patient was seen approximately 1 month ago at which time she was treated with Macrobid for positive nitrates on in office urinalysis with reports of flank pain and foul-smelling urine. 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 In discussion with the patient today she reports having completed antibiotic therapy as prescribed. She continues with foul-smelling urine and bilateral flank pain. However, no CVA tenderness noted bilaterally. Lower lumbar pain noted upon palpation of her back. Previous workup has included a retroperitoneal ultrasound recommending clinical correlation of cystitis however patient does not wish to undergo in office cystoscopy at this time. In office urinalysis results reviewed with the patient today 2+ leukocytes positive nitrates. Discussed sending urine for further testing and evaluation with Jagdish. When asked she does report a history of constipation. Discussed and stressed the importance of managing constipation in relation to recurrent urinary tract infections. She otherwise denies urinary urgency, urinary frequency, incontinence, nocturia, hematuria, changes to urinary stream, flank pain, fever, and or chills. Discussed at length bladder triggers/irritants. When asked she does report compliance with Estrace cream as prescribed. She otherwise offers no other issues or concerns at this time. [facility] Medical History Foul smelling urine Nephrolithiasis Bladder wall thickening Sensation of pressure in bladder area Pyelonephritis Pneumonia due to COVID-19 virus Acute respiratory failure with hypoxia Recurrent UTI UTI (urinary tract infection) Dysuria Bilateral knee pain Lumbago with sciatica, right side History of COVID-19 Bilateral leg and foot pain Cirrhosis of liver Bipolar 1 disorder Depression with anxiety Vitamin D deficiency Myalgia Alcohol abuse Anemia Surgical History History of esophagogastroduodenoscopy (EGD) Hx of section Hx laparoscopic cholecystectomy Family History Sister Breast cancer Substance use disorder Father Substance use disorder Paternal Aunt Substance use disorder Other Unknown family medical history Social History Household Members: Other Household Members Other:: 2 sisters and teenage children Housing: Apartment Do you presently have visiting nurse or other home services: No Alcohol intake: never Comment: pt resting with eyed closed Patient Tobacco Use Status: Former Tobacco user Cigarette Packs Per Day: 0 Cigarettes Per Day: 1 e-Cigarette/Vaping Use: Never Used Second Hand Smoke Exposure: Yes service: No Current occupational status: unemployed Sexual orientation: Straight/Heterosexual Cognitive needs: No Hearing needs: No Vision needs: No Review of Systems Eyes Reports no additional complaints ENT Reports no additional complaints Card Reports no additional complaints Resp Reports no additional complaints GI Reports as per HPI and Reports constipation Reports as per HPI Musc Reports no additional complaints Neuro Reports no additional complaints Psych Details: patient reports a history of anxiety, panic attacks, and schisoaffective disorder Reports as per HPI Endo Reports no additional complaints Jack/Lymph Reports no additional complaints Aller/Immun Reports no additional complaints Physical Exam Const General: cooperative, comfortable, no acute distress, well developed, alert and awake Orientation/consciousness: patient oriented x3 Limitations: no limitations HEENT Head: Yes normal to inspection, Yes normocephalic and Yes atraumatic Ears: hearing grossly normal bilaterally Eyes General: appearance normal, both eyes and all related structures Neck Neck: Yes normal visual inspection and Yes trachea midline Chest Chest palpation & inspection: normal inspection of the chest Resp Effort & Inspection: normal respiratory effort and able to speak in complete sentences Cardio Rate: regular rate GI Inspection: Yes normal to inspection General: Yes no CVA tenderness Back/Spine/Pelvis Back: no CVA tenderness Skin General skin exam: no rashes or lesions noted Neuro General: patient oriented x3 Extrem General: Yes normal to inspection Psych Appearance: grossly normal and well kempt Mental Status: mental status grossly normal Speech and movement: Normal speech and movement present and Clear speech present Affect: Other affect and mood findings present (flat affect) Attitude: cooperative Thought process: Normal thought process present Thought content: Normal thought content present Insight: Fair insight present (Psych) Judgement: Fair judgement present (Psych) Results AMB Urinalysis, Automated UA Leukoctes 125 Jagdeep/uL Last Edit by Elaine Gooden [facility] on 04/17/23 13:21 UA Nitrite Positive Last Edit by Elaine Gooden [facility] on 04/17/23 13:21 UA Urobilinogen 1 mg/dL Last Edit by Elaine oGoden [facility] on 04/17/23 13:21 UA Protein 15 mg/dL Last Edit by Elaine Gooden [facility] on 04/17/23 13:21 UA pH 6.5 Last Edit by Elaine Gooden [facility] on 04/17/23 13:21 UA Blood 0 Sunday/uL Last Edit by Elaine Gooden [facility] on 04/17/23 13:21 UA Specific [place] 1.010 Last Edit by Elaine Gooden [facility] on 04/17/23 13:21 UA Ketone Negative Last Edit by Elaine Gooden [facility] on 04/17/23 13:21 UA Bilirubin 1 mg/dL Last Edit by Elaine Gooden [facility] on 04/17/23 13:21 UA Glucose 0 mg/dL Last Edit by Elaine Gooden [facility] on 04/17/23 13:21 Results Reviewed Results Reviewed: Laboratory Last Values Urine pH (Auto) 6.5 04/17/23 13:19 Specific [place] (Auto) 1.010 04/17/23 13:19 Urine Protein (Auto) 15 mg/dL 04/17/23 13:19 Glucose (UA)(Auto) 0 mg/dL 04/17/23 13:19 Urine Ketones (Auto) Negative 04/17/23 13:19 Urine Blood (Auto) 0 Sunday/uL 04/17/23 13:19 Urine Nitrite (Auto) Positive 04/17/23 13:19 Urine Bilirubin (Auto) 1 mg/dL 04/17/23 13:19 Urine Urobilinogen (Auto) 1 mg/dL 04/17/23 13:19 Leukocyte Esterase (Auto) 125 Jagdeep/uL 04/17/23 13:19 Assessment & Plan Assessment & Plan (1) Recurrent UTI: Code(s): N39.0 - Urinary tract infection, site not specified (2) Nephrolithiasis: Code(s): N20.0 - Calculus of kidney (3) Foul smelling urine: Code(s): R82.90 - Unspecified abnormal findings in urine (4) Flank pain: Code(s): R10.9 - Unspecified abdominal pain Plan In office urinalysis results reviewed with the patient today; will send for urine culture as well as microgen testing; will await results for treatment. Will obtain retroperitoneal ultrasound for further assessment evaluation. Continue Estrace cream as discussed and prescribed. Discussed UTI prevention with D mannose supplement, vitamin-C, increasing fluid intake, behavioral therapy with timed voiding, perineal hygiene and postcoital voiding, and management of constipation with stool softeners and increased fiber intake. Discussed bladder triggers/irritants. Discussed potential near future in office cystoscopy for further assessment evaluation however patient declines. Follow-up in 1-2month with imaging and PVR to be completed prior; or sooner with any issues, concerns, and or questions. Orders: Orders AMB Post Void Residual by ultrasound Today R33.9 - Retention of urine, unspecified US retroperitoneal comp Today N20.0 - Calculus of kidney, N39.0 - Urinary tract infection, site not specified AMB Urinalysis Automated Today R33.9 - Retention of urine, unspecified Urine Culture Today N39.0 - Urinary tract infection, site not specified Medications: Discontinued nitrofurantoin macrocrystal must administer with a meal/food Discontinued Reason: Patient Completed Course 100 mg PO BID 14 days 28 caps 0RF N39.0 - Urinary tract infection, site not specified Patient Instructions: The patient had an opportunity to ask questions regarding the treatment plan. All questions were answered. Physical exam, labs, and imaging were discussed and reviewed in detail. As well as risks, benefits, and discussion of treatment choices. No major barriers to understanding were identified. The patient expressed understanding and agreement with the above treatment plan. The patient was made aware they should contact our office by phone for worsening of their current condition, the appearance of new symptoms, or with any questions or concerns. Compliance is encouraged with any medications and follow up testing that is ordered. It is a privilege to be allowed the opportunity to participate in? your urological care.? Again, if you have any questions or concerns If you have any questions or concerns please do not hesitate to contact me. The office is [phone]. This note is constructed using voice recognition software. While every effort has been made to ensure accuracy blueprinting machine operator errors may have been included. Yours sincerely, SHAKIR Yi Coding Level of Care Code Est Pt Level 4 (52596) Diagnoses Recurrent UTI N39.0 Nephrolithiasis N20.0 Foul smelling urine R82.90 Flank pain R10.9
== END 2023-04-17 14:03 | disposition home or self-care (01) ==
PROVIDERS: PCP Internal Medicine; Visit Provider Nurse Practitioner Family
DX: N39.0 Urinary tract infection, site not specified (principal); N20.0 Calculus of kidney; R82.90 Unspecified abnormal findings in urine; R10.9 Unspecified abdominal pain
CPT/HCPCS: 99214

== ENCOUNTER 2023-04-17 12:31 | Outpatient (REF) | payer OTHER, SELFPAY | END 2023-04-17 12:32 | disposition home or self-care (01) | LOC: HO.LAB 12:31 | PROVIDERS: PCP Internal Medicine; Visit Provider Nurse Practitioner Family | DX: N39.0 Urinary tract infection, site not specified (principal); N20.0 Calculus of kidney; R82.90 Unspecified abnormal findings in urine; R33.9 Retention of urine, unspecified; Z87.442 Personal history of urinary calculi; Z79.899 Other long term (current) drug therapy | CPT/HCPCS: 81003; 87086; 87088; 87186; 99212 ==

== ENCOUNTER 2023-06-17 09:47 | Outpatient (REF) | payer OTHER, SELFPAY ==
--- NOTE | ~2023-06-17 | US_ITS ---
EXAMINATION: US RETROPERITONEAL LIMITED (RENAL ONLY) CLINICAL INFORMATION: Urinary tract infection, site not specified. COMPARISON: CT abdomen and pelvis 12/23/2022. Ultrasound kidneys and bladder 04/26/2022. Ultrasound kidneys 03/20/2022. TECHNIQUE: Real-time imaging of the kidneys. FINDINGS: RIGHT KIDNEY: 11.2 x 5.1 x 4.4 cm (SAG x AP x TRV). The kidney is normal in size, contour, and echogenicity. Renal cortical thickness is normal. No focal parenchymal lesions or hydronephrosis. Small nonobstructive interpolar stone at 2 mm. LEFT KIDNEY: 10.5 x 4.5 x 4.8 cm (SAG x AP x TRV). The kidney is normal in size, contour, and echogenicity. Renal cortical thickness is normal. No focal parenchymal lesions or hydronephrosis. Small upper pole nonobstructive stone at 3 mm. US/US renal BI IMPRESSION: Tiny bilateral nephroliths. No hydronephrosis..
== END 2023-06-17 09:48 | disposition home or self-care (01) ==
LOC: HO.US 09:47
PROVIDERS: PCP Internal Medicine; Visit Provider Nurse Practitioner Family
DX: N39.0 Urinary tract infection, site not specified (principal); N20.0 Calculus of kidney
CPT/HCPCS: 76775

== ENCOUNTER 2023-06-25 11:22 | Outpatient (REF) | payer OTHER, SELFPAY ==
--- NOTE | ~2023-06-25 | US_ITS ---
EXAMINATION: US PELVIS LIMITED (BLADDER) CLINICAL INFORMATION: Recurrent UTI and renal calculus. COMPARISON: Renal ultrasound 06/17/2023. CT abdomen and pelvis without contrast 12/23/2022. Ultrasound kidneys and bladder 04/26/2022. TECHNIQUE: Real-time imaging of the bladder. FINDINGS: BLADDER: Partially distended. Bilateral ureteral jets are demonstrated. Prevoid bladder volume is 239.0 mL. Postvoid bladder volume is 15.5 mL. Borderline thickening of the bladder wall is redemonstrated, although evaluation is limited due to incomplete distention. US/US bladder IMPRESSION: 1. Postvoid bladder volume is 15.5 mL. 2. Borderline thickening of the bladder wall is redemonstrated, although evaluation is limited due to incomplete distention.
== END 2023-06-25 11:23 | disposition home or self-care (01) ==
LOC: HO.US 11:22
PROVIDERS: PCP Internal Medicine; Visit Provider Nurse Practitioner Family
DX: N39.0 Urinary tract infection, site not specified (principal); N20.0 Calculus of kidney
CPT/HCPCS: 76857

== ENCOUNTER 2024-01-22 09:50 | Outpatient (AMB) | payer OTHER, SELFPAY ==
--- OUTSIDE RECORDS SUMMARY | 2024-01-22 09:53 | XMS_ITS | Clinical Summary ---
Author Organization Unknown Care Team Providers Care Senior [employer] Net Developer Name Role Phone AMPARO PLASCENCIA, CRISTIANE ORTA Unavailable Unavaila cong CRAWLEY RN, CHRISTOPHE Unavailable Unavailable CONOR RN, RON Unavailable Unavailable PORFIRIO CHRISTYW, JUAN MIGUEL Unavailable Unavailable ANN RN, ZOARN Unavailable Unavailable Payers Payer Name Policy Type Policy Number Effective Date Expira tion Date [facility] ([facility] [id number] MEDICAID [place] [id number] Problems Condition Name Condition Details Condition Category Status Onset Date Resolution Date Last Treatment Date Treating Clinician Comments BIPOLAR DISORDER, UNSPECIFIED Active 04-27 00:00: 00 Allergies, Adverse Reactions, Alerts Allergy Name Allergy Type Status Severity Reaction(s) Onset Date Inactive Date Treating Clinician Comments NKA Propensity to adverse reactions Active 2020-05 06:14:2 2 Medications Ordered Medication Name Filled Medication Name Start Date Stop Date Current Medication? Ordering Clinician Indication Dosage Frequency Signature (SIG) Comments Components clonazepam 0.5 mg tablet 05-19 00:00: 00 05-25 00:00 :00 No [id number] Per instruc tions Per instructio ns (route: oral) Med Classific ation: Central Nervous System Agents sucralfate 1 gram tablet 05-19 00:00: 00 05-25 00:00 :00 No [id number] Per instruc tions Per instructio ns (route: oral) Med Classific ation: Gastroint estinal Therapy Agents ferrous sulfate 324 mg (65 mg iron) tablet,nancy yed release 05-19 00:00: 00 05-25 00:00 :00 No [id number] Per instruc tions Per instructio ns (route: oral) Med Classific ation: Electroly te Balance-N utritiona l Products escitalopra m 5 mg tablet 05-20 00:00: 00 05-25 00:00 :00 No [id number] Per instruc tions Per instructio ns (route: oral) Med Classific ation: Central Nervous System Agents cephalexin 500 mg capsule 05-20 00:00: 00 05-25 00:00 :00 No [id number] Per instruc tions Per instructio ns (route: oral) Med Classific ation: Anti-Infe ctive Agents gabapentin 300 mg capsule 05-19 00:00: 00 05-25 00:00 :00 No [id number] Per instruc tions Per instructio ns (route: oral) Med Classific ation: Central Nervous System Agents docusate sodium 100 mg capsule 05-19 00:00: 00 05-25 00:00 :00 No [id number] Per instruc tions Per instructio ns (route: oral) Med Classific ation: Gastroint estinal Therapy Agents trazodone 100 mg tablet 05-19 00:00: 00 05-25 00:00 :00 No [id number] Per instruc tions Per instructio ns (route: oral) Med Classific ation: Central Nervous System Agents multivitami n with minerals tablet 05-19 00:00: 00 05-25 00:00 :00 No [id number] Per instruc tions Per instructio ns (route: oral) Med Classific ation: Electroly te Balance-N utritiona l Products omeprazole 20 mg capsule,del ayed release 05-19 00:00: 00 05-25 00:00 :00 No [id number] Per instruc tions Per instructio ns (route: oral) Med Classific ation: Gastroint estinal Therapy Agents haloperidol 1 mg tablet 05-19 00:00: 00 05-25 00:00 :00 No [id number] Per instruc tions Per instructio ns (route: oral) Med Classific ation: Central Nervous System Agents olanzapine 20 mg tablet 05-19 00:00: 00 05-25 00:00 :00 No [id number] Per instruc tions Per instructio ns (route: oral) Med Classific ation: Central Nervous System Agents cephalexin 500 mg capsule 05-25 00:00: 00 06-01 23:59 :00 No [id number] 1 capsule 4 TIMES DAILY 1 capsule 4 TIMES DAILY (route: oral) Med Classific ation: Anti-Infe ctive Agents clonazepam 0.5 mg tablet 05-25 00:00: 00 11-06 23:59 :00 No [id number] 1 tablet 2 TIMES DAILY 1 tablet 2 TIMES DAILY (route: oral) Med Classific ation: Central Nervous System Agents escitalopra m 5 mg tablet 05-25 00:00: 00 01-28 23:59 :00 No [id number] 1 tablet DAILY 1 tablet DAILY (route: oral) Med Classific ation: Central Nervous System Agents gabapentin 300 mg capsule 05-25 00:00: 00 01-28 23:59 :00 No [id number] 1 capsule 2 TIMES DAILY 1 capsule 2 TIMES DAILY (route: oral) Med Classific ation: Central Nervous System Agents olanzapine 20 mg tablet 05-25 00:00: 00 02-20 23:59 :00 No [id number] 1 tablet BEDTIME 1 tablet BEDTIME (route: oral) Med Classific ation: Central Nervous System Agents sucralfate 1 gram tablet 05-25 00:00: 00 11-06 23:59 :00 No [id number] 1 tablet 2 TIMES DAILY 1 tablet 2 TIMES DAILY (route: oral) Med Classific ation: Gastroint estinal Therapy Agents ferrous sulfate 324 mg (65 mg iron) tablet,nancy yed release 05-29 00:00: 00 01-28 23:59 :00 No [id number] 324 mg 2 TIMES DAILY 324 mg 2 TIMES DAILY (route: oral) Med Classific ation: Electroly te Balance-N utritiona l Products trazodone 100 mg tablet 06-20 00:00: 00 11-06 23:59 :00 No [id number] 100 mg BEDTIME 100 mg BEDTIME (route: oral) Med Classific ation: Central Nervous System Agents Gavilax 17 gram/dose oral powder 518 00:00: 00 11-06 23:59 :00 No [id number] Per instruc tions DIRECTED Per instructio ns DIRECTED (route: oral) Med Classific ation: Gastroint estinal Therapy Agents benzonatate 100 mg capsule 7-04 00:00: 00 11-20 23:59 :00 No [id number] 2 capsule 3 TIMES DAILY 2 capsule 3 TIMES DAILY (route: oral) Med Classific ation: Respirato ry Therapy Agents dexamethaso ne 6 mg tablet 08-13 00:00: 00 08-18 23:59 :00 No [id number] 1 tablet DAILY 1 tablet DAILY (route: oral) Med Classific ation: Endocrine clonazepam 0.5 mg tablet 11-06 00:00: 00 01-28 23:59 :00 No [id number] 1 tablet BEDTIME 1 tablet BEDTIME (route: oral) Med Classific ation: Central Nervous System Agents omeprazole 40 mg capsule,del ayed release 11-06 00:00: 00 01-28 23:59 :00 No [id number] 1 capsule DAILY 1 capsule DAILY (route: oral) Med Classific ation: Gastroint estinal Therapy Agents trazodone 100 mg tablet 11-06 00:00: 00 09-12 23:59 :00 No [id number] 1.5 tablet BEDTIME 1.5 tablet BEDTIME (route: oral) Med Classific ation: Central Nervous System Agents trazodone 300 mg tablet -08 00:00: 00 01-28 23:59 :00 No [id number] 1 tablet BEDTIME 1 tablet BEDTIME (route: oral) Med Classific ation: Central Nervous System Agents olanzapine 10 mg tablet 1-11 00:00: 00 05-12 23:59 :00 No [id number] 1 tablet BEDTIME 1 tablet BEDTIME (route: oral) Med Classific ation: Central Nervous System Agents aripiprazol e 5 mg tablet 4-05 00:00: 00 07-09 23:59 :00 No [id number] 1 tablet DAILY 1 tablet DAILY (route: oral) Med Classific ation: Central Nervous System Agents olanzapine 5 mg tablet -05 00:00: 00 07-09 23:59 :00 No [id number] 1 tablet EVERY AM 1 tablet EVERY AM (route: oral) Med Classific ation: Central Nervous System Agents aripiprazol e 10 mg tablet 6-04 00:00: 00 Yes [id number] 1 tablet DAILY 1 tablet DAILY (route: oral) Med Classific ation: Central Nervous System Agents clonazepam 0.5 mg tablet 2022-02-20 00:00: 00 Yes [id number] 1 tablet EVERY PM 1 tablet EVERY PM (route: oral) Med Classific ation: Central Nervous System Agents escitalopra m 10 mg tablet 2022-02- 00:00: 00 12-22 23:59 :00 No [id number] 1 tablet EVERY AM 1 tablet EVERY AM (route: oral) Med Classific ation: Central Nervous System Agents ferrous sulfate 324 mg (65 mg iron) tablet,nancy yed release 2022-02 00:00: 00 Yes [id number] 1 tablet 2 TIMES DAILY 1 tablet 2 TIMES DAILY (route: oral) Med Classific ation: Electroly te Balance-N utritiona l Products gabapentin 300 mg capsule 2022-02- 00:00: 00 Yes [id number] 1 capsule 2 TIMES DAILY 1 capsule 2 TIMES DAILY (route: oral) Med Classific ation: Central Nervous System Agents omeprazole 40 mg capsule,del ayed release 2022-02 00:00: 00 Yes [id number] 1 capsule EVERY AM 1 capsule EVERY AM (route: oral) Med Classific ation: Gastroint estinal Therapy Agents trazodone 150 mg tablet 2022-02 2- 00:00: 00 04-03 23:59 :00 No [id number] 2 tablet BEDTIME 2 tablet BEDTIME (route: oral) Med Classific ation: Central Nervous System Agents zolpidem 10 mg tablet 2- 00:00: 00 Yes [id number] 1 tablet BEDTIME 1 tablet BEDTIME (route: oral) Med Classific ation: Central Nervous System Agents escitalopra m 5 mg tablet 07-16 00:00: 00 12-22 23:59 :00 No [id number] 1 tablet EVERY AM 1 tablet EVERY AM (route: oral) Med Classific ation: Central Nervous System Agents escitalopra m 20 mg tablet 2023-02 1- 00:00: 00 Yes [id number] 1 tablet EVERY AM 1 tablet EVERY AM (route: oral) Med Classific ation: Central Nervous System Agents Vital Signs Vital Name Observation Time Observation Value Commen ts Temperature 2024-01-16 12:45:00.000 97.5 [degF] Plan of Treatment Planned Activity Planned Date Details Comments Future Scheduled Test SKILLED NU RSE TO EVALUATE PATIENT, IDENTIFY PRIMARY AND CO-MORBID CONDITIONS CODED PER CODING GUIDELINES, AND DEVELOP PATIENT SPECIFIC PLAN OF CARE THAT INCLUDES PATIENT GOAL FOR HOME HEALTH. [code = SKILLED NURSE TO EVALUATE PATIENT, IDENTIFY PRIMARY AND CO-MORBID CONDITIONS CODED PER CODING GUIDELINES, AND DEVELOP PATIENT SPECIFIC PLAN OF CARE THAT INCLUDES PATIENT GOAL FOR HOME HEALTH.] Future Scheduled Test SKILLED NU RSE TO PRE-POUR MEDICATION PER MEDICATION LIST UP U TIL NEXT SCHEDULED VISIT. [code = SKILLED NURSE TO PRE-POUR MEDICATION PER MEDICATION LIST UP U TIL NEXT SCHEDULED VISIT.] Future Scheduled Test SKILLED NU RSE TO O/A OF PATIENTS MENTAL/BEHAVIORAL STATUS, ASSESS VITAL SIGNS NEEDED OR REQUESTED, ALLOW 2 PRNS FOR MEDICATION MANAGEMENT. [code = SKILLED NURSE TO O/A OF PATIENTS MENTAL/BEHAVIORAL STATUS, ASSESS VITAL SIGNS NEEDED OR REQUESTED, ALLOW 2 PRNS FOR MEDICATION MANAGEMENT.] Future Scheduled Test SKILLED NU RSE FOR O/A OF ALTERED MOOD [code = SKILLED NURSE FOR O/A OF ALTERED MOOD] Future Scheduled Test SKILLED NU RSE MAY PICKUP AND TRANSPORT MEDICATIONS [code = SKILLED NURSE MAY PICKUP AND TRANSPORT MEDICATIONS] Future Scheduled Test MEDICATION S WILL BE HELD AND STORED IN LOCKBOX [code = MEDICATIONS WILL BE HELD AND STORED IN LOCKBOX] Future Scheduled Test SKILLED NU RSE FOR O/A OF GENERAL HEALTH STATUS OF PAIN, CARDIAC, RESPIRATORY, GASTROINTESTINAL, GENITOURINARY, SKIN, NEUROLOGIC, ENDOCRINE SYSTEMS TO IDENTIFY CHANGES ASSOCIATED WITH EXACERBATION FOR EARLY INTERVENTION OF COMPLICATIONS WEEKLY [code = SKILLED NURSE FOR O/A OF GENERAL HEALTH STATUS OF PAIN, CARDIAC, RESPIRATORY, GASTROINTESTINAL, GENITOURINARY, SKIN, NEUROLOGIC, ENDOCRINE SYSTEMS TO IDENTIFY CHANGES ASSOCIATED WITH EXACERBATION FOR EARLY INTERVENTION OF COMPLICATIONS WEEKLY] Future Scheduled Test SKILLED NU RSE FOR O/A AND SKILLED TEACHING RELATED TO MANAGEMENT OF DEPRESSIVE SYMPTOMS AND/OR DEPRESSION. SN TO REPORT SIGNIFICANT CHANGE IN DEPRESSIVE SYMPTOMS TO CLINICAL PROVIDER FOR EARLY INTERVENTION. [code = SKILLED NURSE FOR O/A AND SKILLED TEACHING RELATED TO MANAGEMENT OF DEPRESSIVE SYMPTOMS AND/OR DEPRESSION. SN TO REPORT SIGNIFICANT CHANGE IN DEPRESSIVE SYMPTOMS TO CLINICAL PROVIDER FOR EARLY INTERVENTION.] Future Scheduled Test SKILLED NU RSE TO ASSESS PATIENTS PSYCHOSOCIAL STATUS TO IDENTIFY POTENTIAL ISSUES THAT MAY COMPLICATE THE PROVISION OF THE PLAN OF CARE INCLUDING THE PATIENTS ABILITY TO ACCESS COMMUNITY RESOURCES AND PSYCHOSOCIAL SUPPORT SERVICES. [code = SKILLED NURSE TO ASSESS PATIENTS PSYCHOSOCIAL STATUS TO IDENTIFY POTENTIAL ISSUES THAT MAY COMPLICATE THE PROVISION OF THE PLAN OF CARE INCLUDING THE PATIENTS ABILITY TO ACCESS COMMUNITY RESOURCES AND PSYCHOSOCIAL SUPPORT SERVICES.] Future Scheduled Test SKILLED NU RSE WILL MAINTAIN SITUATIONAL AWARENESS FOR SAFETY AND WILL NOTIFY CLINICAL PAINT STOCKMAN AND PHYSICIAN/PROVIDER WITH ANY CHANGE IN CONDITION. [code = SKILLED NURSE WILL MAINTAIN SITUATIONAL AWARENESS FOR SAFETY AND WILL NOTIFY CLINICAL PAINT STOCKMAN AND PHYSICIAN/PROVIDER WITH ANY CHANGE IN CONDITION.] Goal 2020-07-19 Patient Goal - C OMPLIANT WITH MEDS AND REMAIN STABL RE AT HOME Goal 2020-08-13 Patient Goal - C OMPLIANT WITH MEDS AND REMAIN STABL RE AT HOME Goal 2020-11-20 Patient Goal - C OMPLIANT WITH MEDS AND REMAIN STABL RE AT HOME Goal 2020-09-21 Patient Goal - C OMPLIANT WITH MEDS AND REMAIN STABL RE AT HOME Goal 2021-01-15 Patient Goal - C OMPLIANT WITH MEDS AND REMAIN STABL RE AT HOME Goal 2021-03-19 Patient Goal - C OMPLIANT WITH MEDS AND REMAIN STABL RE AT HOME Goal 2021-05-16 Patient Goal - C OMPLIANT WITH MEDS AND REMAIN STABL RE AT HOME Goal 2021-07-16 Patient Goal - C OMPLIANT WITH MEDS AND REMAIN STABLE AT HOME Goal 2021-09-12 Patient Goal - C OMPLIANT WITH MEDS AND REMAIN STABLE AT HOME Goal 2021-11-14 Patient Goal - C OMPLIANT WITH MEDS AND REMAIN STABLE AT HOME Goal 2022-01-11 Patient Goal - C OMPLIANT WITH MEDS AND REMAIN STABLE AT HOME Goal 2022-03-13 Patient Goal - C OMPLIANT WITH MEDS AND REMAIN STABLE AT HOME Goal 2022-05-13 Patient Goal - C OMPLIANT WITH MEDS AND REMAIN STABLE AT HOME Goal 2022-07-10 Patient Goal - C OMPLIANT WITH MEDS AND REMAIN STABLE AT HOME Goal 2022-09-11 Patient Goal - C OMPLIANT WITH MEDS AND REMAIN STABLE AT HOME Goal 2022-11-06 Patient Goal - C OMPLIANT WITH MEDS AND REMAIN STABLE AT HOME Goal 2023-01-06 Patient Goal - C OMPLIANT WITH MEDS AND REMAIN STABLE AT HOME Goal 2023-03-07 Patient Goal - C OMPLIANT WITH MEDS AND REMAIN STABLE AT HOME Goal 2023-05-05 Patient Goal - C OMPLIANT WITH MEDS AND REMAIN STABLE AT HOME Goal 2023-07-04 Patient Goal - C OMPLIANT WITH MEDS AND REMAIN STABLE AT HOME Goal 2023-09-03 Patient Goal - C OMPLIANT WITH MEDS AND REMAIN STABLE AT HOME Goal 2023-11-03 Patient Goal - C OMPLIANT WITH MEDS AND REMAIN STABLE AT HOME Goal 2023-12-31 Patient Goal - C OMPLIANT WITH MEDS AND REMAIN STABLE AT HOME Goal Patient Goal - C OMPLIANT WITH MEDS AND REMAIN STABLE AT HOME Goal Provider Goal - A PLAN OF CARE WILL BE ESTABLISHED THAT MEETS PATIENT'S FDC NEEDS AND INCLUDES PATIENT GOAL FOR HOME HEALTH. Goal Provider Goal - PATIENT WILL COMPLY WITH MEDICATION WHEN SKILLED NURSE PRE-POURS MEDICATION THROUGHOUT CERTIFICATION PERIOD. Goal Provider Goal - ALTERED MENTAL/BEHAVIORAL STATUS WILL BE IDENTIFIED PROMPTLY AND INTERVENTION INITIATED QUICKLY TO MINIMIZE ASSOCIATED RISKS THROUGHOUT CERTIFICATION PERIOD. Goal Provider Goal - PATIENT WILL BE ABLE TO PERFORM DAILY FUNCTIONS AND HAVE OPTIMAL IMPROVEMENT IN MOOD STABILITY THROUGHOUT CERTIFICATION PERIOD. Goal Provider Goal - SKILLED NURSE PICKED UP AND TRANSPORTED MEDICATIONS FOR SAFETY. Goal Provider Goal - MEDICATION WILL BE STORED IN LOCKBOX FOR SAFETY. Goal Provider Goal - CHANGE IN GENERAL HEALTH STATUS WILL BE IDENTIFIED AND REPORTED TO PHYSICIAN FOR PROMPT INTERVENTION TO MINIMIZE ASSOCIATED RISKS THROUGHOUT CERTIFICATION PERIOD. Goal Provider Goal - PATIENT WILL REMAIN SAFE WITHOUT DECOMPENSATION IN DEPRESSIVE CONDITION, WHILE MAINTAINING OPTIMAL LEVEL OF MENTAL HEALTH AND WELL BEING THROUGHOUT CERTIFICATION PERIOD. Goal Provider Goal - PSYCHOSOCIAL NEEDS WILL BE IDENTIFIED AND PLAN IMPLEMENTED TO MINIMIZE RISK THROUGHOUT CERTIFICATION PERIOD. Goal Provider Goal - PATIENT WILL REMAIN SAFE IN THE COMMUNITY AND WILL BE FREE OF DANGER TO SELF AND OTHERS THROUGHOUT THE CERTIFICATION PERIOD. Progress Notes Progress Notes <paragraph>[Visit Date: 2023 by ZORAN JUAREZ RN]:</paragraph><paragraph>HERMELINDA HAS A DOXTOR APPT WITH HER PCP THIS FRIDAY. SHE IS GOING BECAUSE THE BACK PAIN OVER HER KIDNEYS IS GETTING WORSE. SHE IS QUIET, RESERVED, FLAT. PATIENT ALWAYS WRARING PAJAMAS DURING THE DAY, DOESNT GET DRESSED UNLESS GOING TO AN APPT. CALLED FOR REFILLS OF AMBIEN AND CLONAZEPAM.</paragraph> Encounters Start Date/Time End Date/Time Encounter Type Admission Type Attending [facility] Care Department Encounter ID Discharge Date Discharge Status Discharge Condition Discharge Reason Percent Goals Met 2020-05-25 00:00:00 2024-03-04 00:00:00 Outpatient RECERTIFIC ATZ[facility] [id number]
--- NOTE | 2024-01-22 10:34 | MHC.PC.OV ---
Vital Signs 01/22/24 10:37 Height 5 ft 3 in Weight 240 lb BMI 42.5 BP 114/80 Blood Pressure Location Lt brachial Position Sitting Pulse 96 Pulse Source Pulse Oximeter Pulse Oximetry (%) 96 Oxygen Delivery Method Room Air Intake Visit Reasons: PE Intake Note: Pt is here today for her PE Allergies NSAIDS (Non-Steroidal Anti-Inflamma [NSAIDS (NON-STEROIDAL ANTI-INFLAMMA] Allergy (Intermediate, Verified 01/22/24 10:58) RASH aspirin [ASPIRIN] Allergy (Mild, Verified 01/22/24 10:58) HIVES Medication List - Last Reconciled 01/22/24 by Arielle Jon MD acetaminophen (Tylenol) 650 mg (2 x 325 mg) PO QID PRN aripiprazole 5 mg PO DAILY clonazepam 1 tab PO DAILY PRN escitalopram oxalate 1 tab PO DAILY ferrous sulfate 324 mg PO BID gabapentin 300 mg PO BID haloperidol 1 tab PO BEDTIME ibuprofen (Motrin IB) 200 mg PO Q6H PRN olanzapine 5 mg PO DAILY omeprazole 20 mg PO DAILY zolpidem 10 mg PO BEDTIME PRN Tobacco use date assessed: 01/22/24 Dental Screening Dental Screen Date: 01/22/24 Did you have a dental visit in the last 12 months?: No Did you have a dental problem in the last 6 months where you did not have access to dental care?: No Was dental information given to patient?: Patient declined HPI PE HPI Details - The patient is a 53 year old female presenting today for her physical examination - Currently under psychiatric management with Deangelo Bravo at [facility] for Bipolar disorder, currently stabel and controlled with present treatment . - History of Insomnia, taking Ambien for sleep, required most nights. Reports significant weight gain attributed to medication, but has not been able to exercise much due to low back pain, associated with arthritis as noted on previous spine x-ray. - Pain relief sought with Tylenol; no significant relief reported. - Menopause at age 46, no longer experiencing menstruation or hot flashes. - Vaccinations: No recent flu or COVID-19 vaccines, nor shingles vaccine, does not want to get any vaccines. - overdue for her screening mammogram, last mammogram a while back - cervical cancer screening, last done at [facility] [place] [facility] in 2020 . - Colonoscopy: Completed t10/26/20 , internal hemorrhoids seen Repeat Colonoscopy in 5 years due to suboptimal left sided prep or earlier if clincially indicated [facility] Medical History Vaccination declined Morbid obesity Nephrolithiasis Bladder wall thickening Recurrent UTI History of COVID-19 Cirrhosis of liver Bipolar 1 disorder Depression with anxiety Vitamin D deficiency Alcohol abuse Anemia Surgical History History of esophagogastroduodenoscopy (EGD) Hx of section Hx laparoscopic cholecystectomy Family History Sister Breast cancer Substance use disorder Father Substance use disorder Paternal Aunt Substance use disorder Other Unknown family medical history Social History Household Members: Other Household Members Other:: 2 sisters and teenage children Housing: Apartment Do you presently have visiting nurse or other home services: No Alcohol intake: never Comment: pt resting with eyed closed Patient Tobacco Use Status: Former Tobacco user Cigarette Packs Per Day: 0 Cigarettes Per Day: 1 e-Cigarette/Vaping Use: Never Used Second Hand Smoke Exposure: Yes service: No Current occupational status: unemployed Sexual orientation: Straight/Heterosexual Cognitive needs: No Hearing needs: No Vision needs: No Questionnaire PHQ-9 Over the last 2 weeks, how often have you been bothered by any of the following problems? 1. Little interest or pleasure in doing things: not at all 2. Feeling down, depressed, or hopeless: not at all 3. Trouble falling or staying asleep, or sleeping too much: more than half the days 4. Feeling tired or having little energy: more than half the days 5. Poor appetite or overeating: not at all 6. Feeling bad about yourself - or that you are a failure or have let yourself or your family down: not at all 7. Trouble concentrating on things, such as reading the newspaper or watching television: not at all 8. Moving or speaking so slowly that other people could have noticed. Or the opposite - being so fidgety or restless that you have been moving around a lot more than usual: not at all 9. Thoughts that you would be better off or of hurting yourself in some way: not at all Total score: 4 Depression Screening Interpretation: Positive Depression Screening Follow-up: Existing condition, In treatment and Community Mental Health Worker F/U (followed by Deangelo Bravo) Depression Screening Done: Yes Source: Developed by Drs. Kana Ohara, Juliet Leonardo, Aditya Alejandro and colleagues, with an educational kaylynn from [employer]. Thrive Questionnaire Date Thrive assessed: 01/22/24 I am a: Patient What is your living situation today?: I have a steady place to live Within the past 12 months, did the food you bought not last and you didn't have the money to get more?: Never true Within the past 12 months, did you worry whether your food would run out before you got money to buy more?: Never true Do you have trouble paying for medicines?: No Do you have trouble getting transportation to medical appointments?: No Do you have trouble paying your heating and electricity bill?: No Do you have trouble taking care of your child, family member or friend?: No Do you have trouble with day-to-day activities such as bathing, preparing meals, shopping, managing finances, etc.?: No Are you currently unemployed and looking for a job?: No Are you interested in more education?: No Please select the resources that you would like help with: None THRIVE Score: 0 AUDIT C Alcohol Use Questionnaire (AUDIT-C) 1. How often do you have a drink containing alcohol?: Never Total Score: 0 BRYCE-7 AMB Questionnaire BRYCE-7 Date BRYCE - 7 assessed: 12/27/21 Source: Developed by Drs. Kana Ohara, Juliet Leonardo, Aditya Alejandro and colleagues, with an educational kaylynn from [employer]. Review of Systems Const Denies chills, Denies fever(s) and Reports weight gain Eyes Reports no additional complaints ENT Reports no additional complaints Card Reports no additional complaints Resp Reports no additional complaints GI Reports no additional complaints Details: Complaining of malodorous urine Reports as per HPI, Denies dysuria, Reports urinary urgency, Denies vaginal discharge and Denies vaginal pruritus Musc Reports back pain Skin/Breast Denies breast pain, Denies breast mass and Denies rash Neuro Reports no additional complaints Psych Reports no additional complaints Endo Reports no additional complaints Jcak/Lymph Reports no additional complaints Aller/Immun Reports no additional complaints Physical exam (Primary Care) Vital Signs: Last Vital Signs Pulse 96 01/22/24 10:37 BP 114/80 01/22/24 10:37 Pulse Ox 96 01/22/24 10:37 Oxygen Delivery Method Room Air 01/22/24 10:37 BMI result Body Mass Index 42.5 Tobacco/Smoking Status: Tobacco use Status Tobacco use date assessed 01/22/24 01/22/24 10:43 Patient Tobacco Use Status Former Tobacco user 01/22/24 10:35 e-Cigarette/Vaping Use Never Used 01/22/24 10:35 PHQ-9: PHQ-9 Score PHQ-9: Total score 4 01/22/24 11:33 Depression Screening Interpretation: Positive Depression Screening Follow-up: Existing condition, In treatment and Community Mental Health Worker F/U (followed by Deangelo Bravo) Thrive Assessment: Date of Thrive Assessment Date Thrive assessed 12/27/21 01/22/24 10:35 Advance Care Planning discussion: Completed/Scanned Date of discussion: 01/22/24 Who was present: patient Forms completed: Health Care Proxy Time spent: 16-45 minutes Actual minutes spent: 5 Const Other: Awake, alert, flat affect, ambulatory with normal gait, but noted to have slow movement HENMT Mouth: Normal oral and palatal mucosa present, oropharynx normal and moist mucous membranes Eyes General: appearance normal, both eyes and all related structures Neck Neck: Yes full ROM, Yes no lymphadenopathy and Yes supple Chest Breast/axilla palpation: normal palpation of the breasts Resp Auscultation: clear to auscultation bilaterally Cardio Other: S1-S2 present regular rate and rhythm GI Other: Normal bowel sounds, soft, tenderness over suprapubic area, no mass no rebound or guarding General: Yes no CVA tenderness Back/Spine/Pelvis Back: no CVA tenderness Skin General skin exam: no rashes or lesions noted Neuro General: moves all extremities, no focal motor deficits and CN's II-XI intact bilaterally Extrem General: Yes full ROM, Yes no joint enlargement, Yes no pedal edema and Yes normal gait Psych Appearance: grossly normal and well kempt Mental Status: mental status grossly normal Speech and movement: Normal speech and movement present Affect: normal affect Attitude: cooperative Thought process: Normal thought process present Thought content: Normal thought content present Coding Level of Care Code Est Pt Prev Care 40-64y(74730) Diagnoses Annual visit for general adult medical examination with abnormal findings Z00.01 Schizoaffective disorder, unspecified type F25.9 Schizoaffective disorder type: unspecified Bipolar 1 disorder F31.9 Increased frequency of urination R35.0 Morbid obesity E66.01 Vaccination declined Z28.21 Advanced directives, counseling/discussion Z71.89 Additional Codes Vital Signs *Quality* - Advance Care Planning discussion: Completed/Scanned ([id number]) Vital Signs *Quality* - Time spent: 16-45 minutes ([id number]) Assessment & Plan Assessment & Plan (1) Annual visit for general adult medical examination with abnormal findings: Code(s): Z00.01 - Encounter for general adult medical examination with abnormal findings (2) Schizoaffective disorder: Code(s): F25.9 - Schizoaffective disorder, unspecified Category: Medical Qualifiers: Schizoaffective disorder type: unspecified Qualified Code(s): F25.9 - Schizoaffective disorder, unspecified (3) Bipolar 1 disorder: Comment: sees DEANGELO BRAVO Code(s): F31.9 - Bipolar disorder, unspecified Category: Medical (4) Increased frequency of urination: Code(s): R35.0 - Frequency of micturition (5) Morbid obesity: Code(s): E66.01 - Morbid (severe) obesity due to excess calories Category: Medical (6) Vaccination declined: Code(s): Z28.21 - Immunization not carried out because of patient refusal Category: Medical (7) Advanced directives, counseling/discussion: Code(s): Z71.89 - Other specified counseling Plan: Initiated the conversation about Advanced Directives. Advanced Directives help patients prepare for current and future decisions about their medical treatment and place of care. Discussed with patient that it is a process where a patients current condition and prognosis are reviewed, their wishes for information regarding their illness are elicited, and likely medical dilemmas are presented and options discussed.Health care proxy form done. The form can be amended as needed, reviewed yearly and make changes as needed Plan - Continue current psychiatric care , followed at [facility] in [place] by Deangelo Bravo NP - Use Ambien as needed for sleep, but avoid overuse. - screening mammogram ordered, pap and pelvic exam not due until 2025, sees [facility] [place] [facility] - For back pain, advised to try taking Tizanidine 4 mg at bedtime, as needed for painful muscle spasms - Begin prescribed phentermine and incorporate dietary changes and exercise into daily routine. - urinalysis with reflex culture and sensitivity ordered for any urinary tract infection - prescribed phentermine to assist with weight management, stressing the need for concurrent changes in diet and exercise - Return for a follow-up appointment as scheduled. Orders: Orders UA CC w/rflx Micro + Cult 01/22/24 E66.01 - Morbid (severe) obesity due to excess calories, R35.0 - Frequency of micturition, Z00.01 - Encounter for general adult medical examination with abnormal findings, Z13.1 - Encounter for screening for diabetes mellitus, Z13.220 - Encounter for screening for lipoid disorders, Z78.0 - Asymptomatic menopausal state Complete Blood Count Auto Diff 01/22/24 E66.01 - Morbid (severe) obesity due to excess calories, R35.0 - Frequency of micturition, Z00.01 - Encounter for general adult medical examination with abnormal findings, Z13.1 - Encounter for screening for diabetes mellitus, Z13.220 - Encounter for screening for lipoid disorders, Z78.0 - Asymptomatic menopausal state Lipid Panel 01/22/24 E66.01 - Morbid (severe) obesity due to excess calories, R35.0 - Frequency of micturition, Z00.01 - Encounter for general adult medical examination with abnormal findings, Z13.1 - Encounter for screening for diabetes mellitus, Z13.220 - Encounter for screening for lipoid disorders, Z78.0 - Asymptomatic menopausal state Vitamin D 25-OH Total 01/22/24 E66.01 - Morbid (severe) obesity due to excess calories, R35.0 - Frequency of micturition, Z00.01 - Encounter for general adult medical examination with abnormal findings, Z13.1 - Encounter for screening for diabetes mellitus, Z13.220 - Encounter for screening for lipoid disorders, Z78.0 - Asymptomatic menopausal state MM tomosynthesis screening BI 01/22/24 Z12.31 - Encounter for screening mammogram for malignant neoplasm of breast Basic Metabolic Panel Fasting 01/22/24 E66.01 - Morbid (severe) obesity due to excess calories, R35.0 - Frequency of micturition, Z00.01 - Encounter for general adult medical examination with abnormal findings, Z13.1 - Encounter for screening for diabetes mellitus, Z13.220 - Encounter for screening for lipoid disorders, Z78.0 - Asymptomatic menopausal state AMB Hemoglobin A1c 01/22/24 E66.01 - Morbid (severe) obesity due to excess calories, R35.0 - Frequency of micturition, Z00.01 - Encounter for general adult medical examination with abnormal findings, Z13.1 - Encounter for screening for diabetes mellitus, Z13.220 - Encounter for screening for lipoid disorders, Z78.0 - Asymptomatic menopausal state Alanine Aminotransferase 01/22/24 E66.01 - Morbid (severe) obesity due to excess calories, R35.0 - Frequency of micturition, Z00.01 - Encounter for general adult medical examination with abnormal findings, Z13.1 - Encounter for screening for diabetes mellitus, Z13.220 - Encounter for screening for lipoid disorders, Z78.0 - Asymptomatic menopausal state Medications: New tizanidine 4 mg PO BEDTIME PRN 14 tabs 0RF muscle spasticity phentermine must administer 2 hours after breakfast 15 mg PO DAILY 30 caps 0RF E66.01 - Morbid (severe) obesity due to excess calories
[2024-01-22 10:37] VITALS: BP 114/80; PULSE 96; O2SAT 96; BMI 42.5
== END 2024-01-22 11:30 | disposition home or self-care (01) ==
PROVIDERS: PCP Internal Medicine; Visit Provider Internal Medicine
DX: Z00.00 Encounter for general adult medical examination without abnormal findings (principal); F25.9 Schizoaffective disorder, unspecified; Z68.41 Body mass index [BMI] 40.0-44.9, adult; F31.9 Bipolar disorder, unspecified; E66.01 Morbid (severe) obesity due to excess calories; R35.0 Frequency of micturition; Z28.21 Immunization not carried out because of patient refusal; Z71.89 Other specified counseling

== ENCOUNTER 2024-01-22 09:50 | Outpatient (REF) | payer OTHER, SELFPAY ==
[2024-01-22 13:23] LABS: MANUAL DIFF FLAG NO
[2024-01-22 13:30] LABS: Basophils Percent Auto 0.3 % (0-2); Eosinophils Absolute Auto 0.1 X10*3/uL (0.0-0.4); Eosinophils Percent Auto 1.4 % (0-4); Hematocrit 40.7 % (37.0-47.0); Hemoglobin 13.9 g/dl (12.0-16.0); Imm Gran Abs Auto 0.04 X10*3/uL (0.00-0.03); Imm Gran Pct Auto 0.4 % (0.0-0.4); Lymphocytes Absolute Auto 2.4 X10*3/uL (1.2-4.9); Lymphocytes Percent Auto 24.3 % (20-40); Mean Corpuscular HGB Conc 34.2 g/dl (31.0-35.0); Mean Corpuscular Hemoglobin 31.7 pg (27.0-33.0); Mean Corpuscular Volume 92.7 fL (80.0-98.0); Mean Platelet Volume 11.4 fL (9.4-12.3); Monocytes Absolute Auto 0.6 X10*3/uL (0.1-1.2); Monocytes Percent Auto 6.3 % (2-11); Neutrophils Absolute Auto 6.7 x10*3/uL (2.0-8.3); Neutrophils Percent Auto 67.3 % (45-73); Platelet Count 179 X10*3/uL (160-400); Red Blood Count 4.39 X10*6/uL (4.20-5.50); Red Cell Distribution Width 12.9 % (11.0-16.0)
[2024-01-22 13:50] LABS: Alanine Aminotransferase 22 U/L (0-31); Anion Gap 12 (12-20); Blood Urea Nitrogen 10 mg/dL (9-16); Calcium 9.5 mg/dL (8.4-10.2); Carbon Dioxide 28 mmol/L (22-29); Chloride 106 mmol/L (96-108); Cholesterol 143 mg/dL (<200); Estimated Glomerular Filt Rate > 60; Glucose Fasting 99 mg/dL (60-99); HDL Cholesterol 53 mg/dL (>40); LDL Cholesterol Calculated 71 mg/dL (<100); Potassium 4.4 mmol/L (3.3-5.1); Sodium 142 mmol/L (135-145); Triglycerides 95 mg/dL (<150)
[2024-01-22 14:10] LABS: Vitamin D 25-OH Total 37.3 ng/mL (>30)
== END 2024-01-22 09:51 | disposition home or self-care (01) ==
LOC: HO.HMGCLDS 09:50
PROVIDERS: PCP Internal Medicine; Visit Provider Internal Medicine
DX: Z00.01 Encounter for general adult medical examination with abnormal findings (principal); F25.9 Schizoaffective disorder, unspecified; F31.9 Bipolar disorder, unspecified; R35.0 Frequency of micturition; E66.01 Morbid (severe) obesity due to excess calories; Z28.21 Immunization not carried out because of patient refusal; Z71.89 Other specified counseling; Z13.220 Encounter for screening for lipoid disorders; Z13.1 Encounter for screening for diabetes mellitus; Z78.0 Asymptomatic menopausal state
CPT/HCPCS: 36415; 80048; 80061; 82306; 84460; 85025; 96127; 99396

== ENCOUNTER 2024-03-02 11:00 | Outpatient (REF) | payer OTHER, SELFPAY | END 2024-03-02 11:01 | disposition home or self-care (01) | LOC: HO.MAMMO 11:00 | PROVIDERS: PCP Internal Medicine; Visit Provider Internal Medicine | DX: Z12.31 Encounter for screening mammogram for malignant neoplasm of breast (principal) | CPT/HCPCS: 77063; 77067 ==

== ENCOUNTER → 2024-03-02 11:15 | Outpatient (BNV) | payer OTHER, SELFPAY | PROVIDERS: PCP Internal Medicine; Visit Provider Internal Medicine | DX: Z12.31 Encounter for screening mammogram for malignant neoplasm of breast (principal) | CPT/HCPCS: 77063; 77067 ==

== ENCOUNTER 2024-03-11 09:30 | Outpatient (AMB) | payer OTHER, SELFPAY ==
--- NOTE | 2024-03-11 09:52 | A.OFFPC_ITS ---
Vital Signs 03/11/24 09:53 Height 5 ft 3 in Weight 236 lb BMI 41.8 BP 118/80 Blood Pressure Location Rt brachial Position Sitting Respiration 16 Pulse 82 Pulse Source Pulse Oximeter Temp 98.0 F Temp Source Oral Pulse Oximetry (%) 97 Intake Visit Reasons: 1 month follow up Allergies NSAIDS (Non-Steroidal Anti-Inflamma [NSAIDS (NON-STEROIDAL ANTI-INFLAMMA] Allergy (Intermediate, Verified 03/11/24 10:23) RASH aspirin [ASPIRIN] Allergy (Mild, Verified 03/11/24 10:23) HIVES Medication List - Last Reconciled 03/11/24 by Arielle Jon MD acetaminophen (Tylenol) 650 mg (2 x 325 mg) PO QID PRN aripiprazole mg PO DAILY clonazepam 1 tab PO DAILY PRN escitalopram oxalate mg PO DAILY ferrous sulfate 324 mg PO BID gabapentin 300 mg PO BID haloperidol 1 tab PO BEDTIME ibuprofen (Motrin IB) 200 mg PO Q6H PRN olanzapine 5 mg PO DAILY omeprazole 20 mg PO DAILY phentermine 15 mg PO DAILY tizanidine 4 mg PO BEDTIME PRN zolpidem 10 mg PO BEDTIME PRN Tobacco use date assessed: 03/11/24 Dental Screening Dental Screen Date: 03/11/24 Did you have a dental visit in the last 12 months?: Yes Did you have a dental problem in the last 6 months where you did not have access to dental care?: No Was dental information given to patient?: Patient has dentist HPI 1 month follow up HPI Details 53-year-old lady with morbid obesity, he re today for follow-up after started on phentermine 15 mg/ capsule taken daily a month ago. Patient states that she is tolerating medication well, denies any adverse effects. She states that it has been curbing her appetite slightly, has lost 4 lb, but does not do any regular exercise. [facility] Medical History Vaccination declined Morbid obesity Nephrolithiasis Bladder wall thickening Recurrent UTI History of COVID-19 Cirrhosis of liver Bipolar 1 disorder Depression with anxiety Vitamin D deficiency Alcohol abuse Anemia Surgical History History of esophagogastroduodenoscopy (EGD) Hx of section Hx laparoscopic cholecystectomy Family History Sister Breast cancer Substance use disorder Father Substance use disorder Paternal Aunt Substance use disorder Other Unknown family medical history Social History Household Members: Other Household Members Other:: 2 sisters and teenage children Housing: Apartment Do you presently have visiting nurse or other home services: No Alcohol intake: never Comment: pt resting with eyed closed Patient Tobacco Use Status: Former Tobacco user Cigarette Packs Per Day: 0 Cigarettes Per Day: 1 e-Cigarette/Vaping Use: Never Used Second Hand Smoke Exposure: Yes service: No Current occupational status: unemployed Sexual orientation: Straight/Heterosexual Cognitive needs: No Hearing needs: No Vision needs: No Questionnaire PHQ-9 Over the last 2 weeks, how often have you been bothered by any of the following problems? 1. Little interest or pleasure in doing things: not at all 2. Feeling down, depressed, or hopeless: not at all 3. Trouble falling or staying asleep, or sleeping too much: more than half the days 4. Feeling tired or having little energy: more than half the days 5. Poor appetite or overeating: not at all 6. Feeling bad about yourself - or that you are a failure or have let yourself or your family down: not at all 7. Trouble concentrating on things, such as reading the newspaper or watching television: not at all 8. Moving or speaking so slowly that other people could have noticed. Or the opposite - being so fidgety or restless that you have been moving around a lot more than usual: not at all 9. Thoughts that you would be better off or of hurting yourself in some way: not at all Total score: 4 Depression Screening Interpretation: Positive Depression Screening Follow-up: Existing condition, In treatment and Community Mental Health Worker F/U (followed by Thuan Bravo) Depression Screening Done: Yes 81282 - PHQ-9 Billing: Yes Source: Developed by Drs. Kana Ohara, Juliet Leonardo, Aditya Alejandro and colleagues, with an educational kaylynn from [employer]. Thrive Questionnaire Date Thrive assessed: 03/11/24 I am a: Patient What is your living situation today?: I have a steady place to live Within the past 12 months, did the food you bought not last and you didn't have the money to get more?: Never true Within the past 12 months, did you worry whether your food would run out before you got money to buy more?: Never true Do you have trouble paying for medicines?: No Do you have trouble getting transportation to medical appointments?: No Do you have trouble paying your heating and electricity bill?: No Do you have trouble taking care of your child, family member or friend?: No Do you have trouble with day-to-day activities such as bathing, preparing meals, shopping, managing finances, etc.?: No Are you currently unemployed and looking for a job?: No Are you interested in more education?: No Please select the resources that you would like help with: None THRIVE Score: 0 AUDIT C Alcohol Use Questionnaire (AUDIT-C) 1. How often do you have a drink containing alcohol?: Never 3. How often do you have six or more drinks on one occasion?: Never Total Score: 0 Score Reviewed/Action Taken: Yes BRYCE-7 AMB Questionnaire BRYCE-7 Date BRYCE - 7 assessed: 03/11/24 (patient declined ) Source: Developed by Drs. Kana Ohara, Juliet Leonardo, Aditya Alejandro and colleagues, with an educational kaylynn from [employer]. Review of Systems Const Denies fever(s) Eyes Reports no additional complaints ENT Reports no additional complaints Card Reports no additional complaints Resp Reports no additional complaints GI Reports no additional complaints Denies dysuria Musc Details: Recurrent back spasms Neuro Reports no additional complaints Endo Reports no additional complaints Jack/Lymph Reports no additional complaints Aller/Immun Reports no additional complaints Physical exam (Primary Care) Vital Signs: Last Vital Signs Temp 98.0 F 03/11/24 09:53 Pulse 82 03/11/24 09:53 Resp 16 03/11/24 09:53 BP 118/80 03/11/24 09:53 Pulse Ox 97 03/11/24 09:53 BMI result Body Mass Index 41.8 Tobacco/Smoking Status: Tobacco use Status Tobacco use date assessed 03/11/24 03/11/24 09:58 Patient Tobacco Use Status Former Tobacco user 03/11/24 09:53 e-Cigarette/Vaping Use Never Used 03/11/24 09:53 PHQ-9: PHQ-9 Score PHQ-9: Total score 4 03/14/24 11:53 Depression Screening Interpretation: Positive Depression Screening Follow-up: Existing condition, In treatment and Community Mental Health Worker F/U (followed by Thuan Bravo) Thrive Assessment: Date of Thrive Assessment Date Thrive assessed 03/11/24 03/11/24 09:58 Const Other: Awake, alert, flat affect, ambulatory with normal gait HENMT Mouth: Normal oral and palatal mucosa present, oropharynx normal and moist mucous membranes Eyes General: appearance normal, both eyes and all related structures Neck Neck: Yes full ROM, Yes no lymphadenopathy and Yes supple Chest Breast/axilla palpation: normal palpation of the breasts Resp Auscultation: clear to auscultation bilaterally Cardio Other: S1-S2 present regular rate and rhythm GI Palpation (GI): Soft to palpation, nontender and no guarding Auscultation: normal bowel sounds Back/Spine/Pelvis Back: No back tenderness Thoracic/Lumbar Spine: thoraco-lumbar ROM normal and straight leg raise negative bilaterally Neuro General: moves all extremities, no focal motor deficits and CN's II-XI intact bilaterally Extrem General: Yes full ROM, Yes no joint enlargement, Yes no pedal edema and Yes normal gait Coding Level of Care Code Est Pt Level 3 (80311) Diagnoses Morbid obesity E66.01 Back muscle spasm M62.830 Additional Codes PHQ-9 - 30934 - PHQ-9 Billing: Yes ([id number]) Assessment & Plan Assessment & Plan (1) Morbid obesity: Code(s): E66.01 - Morbid (severe) obesity due to excess calories Category: Medical Plan: Was started on phentermine 4 weeks ago, with noted full lb weight loss since starting medication. Continue on phentermine at the same dose, reinforced importance of following recommended diet, and again to start doing at least 15 minutes of regular exercise daily. Will see her back for follow-up in 2 months (2) Back muscle spasm: Code(s): M62.830 - Muscle spasm of back Plan: Prescription sent for tizanidine 4 mg per tablet to take 1 tablet once a day at night as needed for painful muscle spasms. Apply moist heat to affected area. Do [id number] exercises. Return to clinic if no improvement of symptoms Medications: Refilled phentermine must administer 2 hours after breakfast 15 mg PO DAILY 30 caps 1RF E66.01 - Morbid (severe) obesity due to excess calories tizanidine 4 mg PO BEDTIME PRN 14 tabs 0RF muscle spasticity
[2024-03-11 09:53] VITALS: BP 118/80; PULSE 82; RESP 16; TEMP 36.7; O2SAT 97; BMI 41.8
--- OUTSIDE RECORDS SUMMARY | 2024-03-11 12:33 | XMS_ITS | Clinical Summary ---
Author Organization [facility] ity Address [address] [place] [address] Care Team Providers Care Chief Compressor Station Engineer Name Role Phone Unavailable Primary Care Provider Unavailabl e Social History Tobacco Use Types Packs/Day Years Used Date Smoking Tobacco: Never Assessed Sex and Gender Information Value Date Recorded Sex Assigned at Not on file Gender Identity Not on file Sexual Orientation Not on file Plan of Treatment Health Maintenance Due Date Last Done Comments Breast Cancer Screening 1970 DTaP,Tdap,and Td Vaccines (1 - Tdap) 05/21/1990 Hepatitis B Vaccines (1 of 3 - 19+ 3-dose series) 05/21/1990 Cervical Cancer Screening: P ap Smear 05/21/1992 Zoster Vaccines (1 of 2) 05/21/2021 COVID-19 Vaccine ( - 2023-2 5 season) 2023 Influenza Vaccine (#1) 2023 HIB Vaccines Aged Out No longer eligi ble based on patient's age to complete this topic HPV Vaccines Aged Out No longer eligi ble based on patient's age to complete this topic Hepatitis A Vaccines Aged Out No long er eligible based on patient's age to complete this topic IPV Vaccines Aged Out No longer eligi ble based on patient's age to complete this topic MMR Vaccines Aged Out No longer eligi ble based on patient's age to complete this topic Meningococcal ACWY Vaccine Aged Out N o longer eligible based on patient's age to complete this topic Pneumococcal Vaccine: Pediat rics (0 to 5 Years) and At-Risk Patients (6 to 64 Years) Aged Out No longer eligible b ased on patient's age to complete this topic RSV Immunization Patients Un jos 20 months Aged Out No longer eligible b ased on patient's age to complete this topic Varicella Vaccines Aged Out No longer eligible based on patient's age to complete this topic
--- OUTSIDE RECORDS SUMMARY | 2024-03-11 12:33 | XMS_ITS | Clinical Summary ---
Author Organization Unknown Care Team Providers Care Automatic Presser Name Role Phone AMPARO PLASCENCIA, CRISTIANE ORTA Unavailable Unavaila cong CRAWLEY RN, CHRISTOPHE Unavailable Unavailable CONOR RN, RON Unavailable Unavailable PORFIRIO CHRISTYW, JUAN MIGUEL Unavailable Unavailable ANN RN, ZORAN Unavailable Unavailable Payers Payer Name Policy Type Policy Number Effective Date Expira tion Date [facility] ([facility] [id number] [place] [id number] Problems Condition Name Condition Details Condition Category [...] 05-19 00:00: 00 05-25 00:00 :00 No [id number] Per instruc tions Per instructio ns (route: oral) Med Classific ation: Central Nervous System Agents sucralfate 1 gram tablet 05-19 00:00: 00 05-25 00:00 :00 No [id number] Per instruc tions Per instructio ns (route: oral) Med Classific ation: Gastroint estinal Therapy Agents ferrous sulfate 324 mg (65 mg iron) tablet,nancy yed release 05-19 00:00: 00 05-25 00:00 :00 No [id number] Per instruc tions Per instructio ns (route: oral) Med Classific ation: Electroly te Balance-N utritiona l Products escitalopra m 5 mg tablet 05-20 00:00: 00 05-25 00:00 :00 No [id number] Per instruc tions Per instructio ns (route: oral) Med Classific ation: Central Nervous System Agents cephalexin 500 mg capsule 05-20 00:00: 00 05-25 00:00 :00 No [id number] Per instruc tions Per instructio ns (route: oral) Med Classific ation: Anti-Infe ctive Agents gabapentin 300 mg capsule 05-19 00:00: 00 05-25 00:00 :00 No [id number] Per instruc tions Per instructio ns (route: oral) Med Classific ation: Central Nervous System Agents docusate sodium 100 mg capsule 05-19 00:00: 00 05-25 00:00 :00 No [id number] Per instruc tions Per instructio ns (route: oral) Med Classific ation: Gastroint estinal Therapy Agents trazodone 100 mg tablet 05-19 00:00: 00 05-25 00:00 :00 No [id number] Per instruc tions Per instructio ns (route: oral) Med Classific ation: Central Nervous System Agents multivitami n with minerals tablet 05-19 00:00: 00 05-25 00:00 :00 No [id number] Per instruc tions Per instructio ns (route: oral) Med Classific ation: Electroly te Balance-N utritiona l Products omeprazole 20 mg capsule,del ayed release 05-19 00:00: 00 05-25 00:00 :00 No [id number] Per instruc tions Per instructio ns (route: oral) Med Classific ation: Gastroint estinal Therapy Agents haloperidol 1 mg tablet 05-19 00:00: 00 05-25 00:00 :00 No [id number] Per instruc tions Per instructio ns (route: oral) Med Classific ation: Central Nervous System Agents olanzapine 20 mg tablet 05-19 00:00: 00 05-25 00:00 :00 No [id number] Per instruc tions Per instructio ns (route: oral) Med Classific ation: Central Nervous System Agents cephalexin 500 mg capsule 05-25 00:00: 00 06-01 23:59 :00 No [id number] 1 capsule 4 TIMES DAILY 1 capsule 4 TIMES DAILY (route: oral) Med Classific ation: Anti-Infe ctive Agents clonazepam 0.5 mg tablet 05-25 00:00: 00 11-06 23:59 :00 No [id number] 1 tablet 2 TIMES DAILY 1 tablet 2 TIMES DAILY (route: oral) Med Classific ation: Central Nervous System Agents escitalopra m 5 mg tablet 05-25 00:00: 00 01-28 23:59 :00 No [id number] 1 tablet DAILY 1 tablet DAILY (route: oral) Med Classific ation: Central Nervous System Agents gabapentin 300 mg capsule 05-25 00:00: 00 01-28 23:59 :00 No [id number] 1 capsule 2 TIMES DAILY 1 capsule 2 TIMES DAILY (route: oral) Med Classific ation: Central Nervous System Agents olanzapine 20 mg tablet 05-25 00:00: 00 02-20 23:59 :00 No [id number] 1 tablet BEDTIME 1 tablet BEDTIME (route: oral) Med Classific ation: Central Nervous System Agents sucralfate 1 gram tablet 05-25 00:00: 00 11-06 23:59 :00 No [id number] 1 tablet 2 TIMES DAILY 1 tablet 2 TIMES DAILY (route: oral) Med Classific ation: Gastroint estinal Therapy Agents ferrous sulfate 324 mg (65 mg iron) tablet,nancy yed release 05-29 00:00: 00 01-28 23:59 :00 No [id number] 324 mg 2 TIMES DAILY 324 mg 2 TIMES DAILY (route: oral) Med Classific ation: Electroly te Balance-N utritiona l Products trazodone 100 mg tablet 06-20 00:00: 00 11-06 23:59 :00 No [id number] 100 mg BEDTIME 100 mg BEDTIME (route: oral) Med Classific ation: Central Nervous System Agents Gavilax 17 gram/dose oral powder 518 00:00: 00 11-06 23:59 :00 No [id number] Per instruc tions DIRECTED Per instructio ns DIRECTED (route: oral) Med Classific ation: Gastroint estinal Therapy Agents benzonatate 100 mg capsule 7-04 00:00: 00 11-20 23:59 :00 No [id number] 2 capsule 3 TIMES DAILY 2 capsule 3 TIMES DAILY (route: oral) Med Classific ation: Respirato ry Therapy Agents dexamethaso ne 6 mg tablet 08-13 00:00: 00 08-18 23:59 :00 No [id number] 1 tablet DAILY 1 tablet DAILY (route: oral) Med Classific ation: Endocrine clonazepam 0.5 mg tablet 11-06 00:00: 00 01-28 23:59 :00 No [id number] 1 tablet BEDTIME 1 tablet BEDTIME (route: oral) Med Classific ation: Central Nervous System Agents omeprazole 40 mg capsule,del ayed release 11-06 00:00: 00 01-28 23:59 :00 No [id number] 1 capsule DAILY 1 capsule DAILY (route: oral) Med Classific ation: Gastroint estinal Therapy Agents trazodone 100 mg tablet 11-06 00:00: 00 09-12 23:59 :00 No [id number] 1.5 tablet BEDTIME 1.5 tablet BEDTIME (route: oral) Med Classific ation: Central Nervous System Agents trazodone 300 mg tablet -08 00:00: 00 01-28 23:59 :00 No [id number] 1 tablet BEDTIME 1 tablet BEDTIME (route: oral) Med Classific ation: Central Nervous System Agents olanzapine 10 mg tablet 1-11 00:00: 00 05-12 23:59 :00 No [id number] 1 tablet BEDTIME 1 tablet BEDTIME (route: oral) Med Classific ation: Central Nervous System Agents aripiprazol e 5 mg tablet 4-05 00:00: 00 07-09 23:59 :00 No [id number] 1 tablet DAILY 1 tablet DAILY (route: oral) Med Classific ation: Central Nervous System Agents olanzapine 5 mg tablet -05 00:00: 00 07-09 23:59 :00 No [id number] 1 tablet EVERY AM 1 tablet EVERY AM (route: oral) Med Classific ation: Central Nervous System Agents aripiprazol e 10 mg tablet 6-04 00:00: 00 Yes [id number] 1 tablet DAILY 1 tablet DAILY (route: oral) Med Classific ation: Central Nervous System Agents clonazepam 0.5 mg tablet 2022-02-20 00:00: 00 Yes [id number] 1 tablet EVERY PM 1 tablet EVERY PM (route: oral) Med Classific ation: Central Nervous System Agents escitalopra m 10 mg tablet 2022-02- 00:00: 00 12-22 23:59 :00 No [id number] 1 tablet EVERY AM 1 tablet EVERY AM (route: oral) Med Classific ation: Central Nervous System Agents ferrous sulfate 324 mg (65 mg iron) tablet,nancy yed release 2022-02 00:00: 00 Yes [id number] 1 tablet 2 TIMES DAILY 1 tablet 2 TIMES DAILY (route: oral) Med Classific ation: Electroly te Balance-N utritiona l Products gabapentin 300 mg capsule 2022-02- 00:00: 00 Yes [id number] 1 capsule 2 TIMES DAILY 1 capsule 2 TIMES DAILY (route: oral) Med Classific ation: Central Nervous System Agents omeprazole 40 mg capsule,del ayed release 2022-02 00:00: 00 Yes [id number] 1 capsule EVERY AM 1 capsule EVERY AM (route: oral) Med Classific ation: Gastroint estinal Therapy Agents trazodone 150 mg tablet 2022-02 2- 00:00: 00 04-03 23:59 :00 No [id number] 2 tablet BEDTIME 2 tablet BEDTIME (route: oral) Med Classific ation: Central Nervous System Agents zolpidem 10 mg tablet 2- 00:00: 00 Yes [id number] 1 tablet BEDTIME 1 tablet BEDTIME (route: oral) Med Classific ation: Central Nervous System Agents escitalopra m 5 mg tablet 6-06 00:00: 00 12-22 23:59 :00 No [id number] 1 tablet EVERY AM 1 tablet EVERY AM (route: oral) Med Classific ation: Central Nervous System Agents escitalopra m 20 mg tablet 2023-02 1-13 00:00: 00 Yes [id number] 1 tablet EVERY AM 1 tablet EVERY AM (route: oral) Med Classific ation: Central Nervous System Agents tizanidine 4 mg tablet 1-24 00:00: 00 Yes [id number] 1 tablet BEDTIME 1 tablet BEDTIME (route: oral) Med Classific ation: Locomotor System Vital Signs Vital Name Observation Time Observation Value Commen ts Temperature 2024-03-08 16:03:00.000 97.5 [degF] Plan of Treatment Planned Activity [...] RSE TO PRE-POUR MEDICATION PER MEDICATION LIST UNTIL NEXT SCHEDULED VISIT. [code = SKILLED NURSE TO PRE-POUR MEDICATION PER MEDICATION LIST UNTIL NEXT SCHEDULED VISIT.] Future Scheduled Test SKILLED NU RSE TO O/A OF PATIENTS MENTAL/BEHAVIORAL STATUS, ASSESS VITAL SIGNS NEEDED OR REQUESTED. ALLOW 2 PRNS FOR MEDICATION MANAGEMENT. [code = SKILLED NURSE TO O/A OF PATIENTS MENTAL/BEHAVIORAL STATUS, ASSESS VITAL SIGNS NEEDED OR REQUESTED. ALLOW 2 PRNS FOR MEDICATION MANAGEMENT.] Future [...] WITH EXACERBATION FOR EARLY INTERVENTION OF COMPLICATIONS WEEKLY. [code = SKILLED NURSE FOR O/A OF GENERAL HEALTH STATUS OF PAIN, CARDIAC, RESPIRATORY, GASTROINTESTINAL, GENITOURINARY, SKIN, NEUROLOGIC, ENDOCRINE SYSTEMS TO IDENTIFY CHANGES ASSOCIATED WITH EXACERBATION FOR EARLY INTERVENTION OF COMPLICATIONS WEEKLY.] Future Scheduled Test SKILLED NU RSE FOR [...] INTERVENTION.] Future Scheduled Test SKILLED NU RSE FOR O/A OF MUSCULOSKELETAL STATUS AND TEACHING ON MEASURES TO MANAGE BACK PAIN AND TO INCREASE ACTIVITY. [code = SKILLED NURSE FOR O/A OF MUSCULOSKELETAL STATUS AND TEACHING ON MEASURES TO MANAGE BACK PAIN AND TO INCREASE ACTIVITY.] Future Scheduled Test SKILLED NU RSE FOR O/A OF CLIENT'S SOCIAL ISOLATION AND PROVIDE ASSISTANCE TO CLIENT IN DEVELOPMENT OF PLANNED ACTIVITIES [code = SKILLED NURSE FOR O/A OF CLIENT'S SOCIAL ISOLATION AND PROVIDE ASSISTANCE TO CLIENT IN DEVELOPMENT OF PLANNED ACTIVITIES] Future Scheduled Test SKILLED NU RSE TO [...] AWARENESS FOR SAFETY AND WILL NOTIFY CLINICAL ASSOCIATE VICE PRESIDENT AND PHYSICIAN/PROVIDER WITH ANY CHANGE IN CONDITION. [code = SKILLED NURSE WILL MAINTAIN SITUATIONAL AWARENESS FOR SAFETY AND WILL NOTIFY CLINICAL ASSOCIATE VICE PRESIDENT AND PHYSICIAN/PROVIDER WITH ANY CHANGE IN CONDITION.] [...] MEDS AND REMAIN STABLE AT HOME Goal 2024-03-01 Patient Goal - C OMPLIANT WITH MEDS AND REMAIN STABLE AT HOME Goal Patient Goal - C OMPLIANT WITH MEDS AND REMAIN STABLE AT HOME Goal Provider Goal - A PLAN OF CARE WILL BE ESTABLISHED THAT MEETS PATIENT'S SENIOR LIVING NEEDS AND INCLUDES PATIENT GOAL FOR HOME [...] THROUGHOUT CERTIFICATION PERIOD. Goal Provider Goal - PATIENT/CAREGIVER WILL VERBALIZE/DEMONSTRATE ABILITY TO MANAGE BACK PAIN WHILE MAINTAINING SAFETY THROUGHOUT THE EPISODE. Goal Provider Goal - PATIENT WILL DEMONSTRATE AN INCREASED INTEREST IN SOCIALIZATION AND ACTIVITIES BY THE END OF THE CERTIFICATION PERIOD. Goal Provider Goal - PSYCHOSOCIAL NEEDS WILL BE IDENTIFIED AND PLAN IMPLEMENTED TO MINIMIZE RISK THROUGHOUT CERTIFICATION PERIOD. Goal Provider Goal - PATIENT WILL REMAIN SAFE IN THE COMMUNITY AND WILL BE FREE OF DANGER TO SELF AND OTHERS THROUGHOUT THE CERTIFICATION PERIOD. Encounters Start Date/Time End Date/Time Encounter Type Admission Type Attending [facility] Care Department Encounter ID Discharge Date Discharge Status Discharge Condition Discharge Reason Percent Goals Met 2020-05-25 00:00:00 2024-05-03 00:00:00 Outpatient RECERTIFIC ATION ZORAN JUAREZ [facility] [id number] 4.00
--- OUTSIDE RECORDS SUMMARY | 2024-03-11 12:33 | XMS_ITS | Clinical Summary ---
Author Organization Unknown Care Team Providers Care Clerical Proofreader Name Role Phone AMPARO PLASCENCIA, CRISTIANE ORTA Unavailable Unavaila cong CRAWLEY RN, CHRISTOPHE Unavailable Unavailable CONOR RN, RON Unavailable Unavailable PORFIRIO CHRISTYW, JUAN MIGUEL Unavailable Unavailable ANN RN, ZORAN Unavailable Unavailable Payers Payer Name Policy Type Policy Number Effective Date Expira tion Date [facility] [id number] [place] [id number] Problems Condition Name Condition Details Condition Category [...] 05-19 00:00: 00 05-25 00:00 :00 No [id number] Per instruc tions Per instructio ns (route: oral) Med Classific ation: Central Nervous System Agents sucralfate 1 gram tablet 05-19 00:00: 00 05-25 00:00 :00 No [id number] Per instruc tions Per instructio ns (route: oral) Med Classific ation: Gastroint estinal Therapy Agents ferrous sulfate 324 mg (65 mg iron) tablet,nancy yed release 05-19 00:00: 00 05-25 00:00 :00 No [id number] Per instruc tions Per instructio ns (route: oral) Med Classific ation: Electroly te Balance-N utritiona l Products escitalopra m 5 mg tablet 05-20 00:00: 00 05-25 00:00 :00 No [id number] Per instruc tions Per instructio ns (route: oral) Med Classific ation: Central Nervous System Agents cephalexin 500 mg capsule 05-20 00:00: 00 05-25 00:00 :00 No [id number] Per instruc tions Per instructio ns (route: oral) Med Classific ation: Anti-Infe ctive Agents gabapentin 300 mg capsule 05-19 00:00: 00 05-25 00:00 :00 No [id number] Per instruc tions Per instructio ns (route: oral) Med Classific ation: Central Nervous System Agents docusate sodium 100 mg capsule 05-19 00:00: 00 05-25 00:00 :00 No [id number] Per instruc tions Per instructio ns (route: oral) Med Classific ation: Gastroint estinal Therapy Agents trazodone 100 mg tablet 05-19 00:00: 00 05-25 00:00 :00 No [id number] Per instruc tions Per instructio ns (route: oral) Med Classific ation: Central Nervous System Agents multivitami n with minerals tablet 05-19 00:00: 00 05-25 00:00 :00 No [id number] Per instruc tions Per instructio ns (route: oral) Med Classific ation: Electroly te Balance-N utritiona l Products omeprazole 20 mg capsule,del ayed release 05-19 00:00: 00 05-25 00:00 :00 No [id number] Per instruc tions Per instructio ns (route: oral) Med Classific ation: Gastroint estinal Therapy Agents haloperidol 1 mg tablet 05-19 00:00: 00 05-25 00:00 :00 No [id number] Per instruc tions Per instructio ns (route: oral) Med Classific ation: Central Nervous System Agents olanzapine 20 mg tablet 05-19 00:00: 00 05-25 00:00 :00 No [id number] Per instruc tions Per instructio ns (route: oral) Med Classific ation: Central Nervous System Agents cephalexin 500 mg capsule 05-25 00:00: 00 06-01 23:59 :00 No [id number] 1 capsule 4 TIMES DAILY 1 capsule 4 TIMES DAILY (route: oral) Med Classific ation: Anti-Infe ctive Agents clonazepam 0.5 mg tablet 05-25 00:00: 00 11-06 23:59 :00 No [id number] 1 tablet 2 TIMES DAILY 1 tablet 2 TIMES DAILY (route: oral) Med Classific ation: Central Nervous System Agents escitalopra m 5 mg tablet 05-25 00:00: 00 01-28 23:59 :00 No [id number] 1 tablet DAILY 1 tablet DAILY (route: oral) Med Classific ation: Central Nervous System Agents gabapentin 300 mg capsule 05-25 00:00: 00 01-28 23:59 :00 No [id number] 1 capsule 2 TIMES DAILY 1 capsule 2 TIMES DAILY (route: oral) Med Classific ation: Central Nervous System Agents olanzapine 20 mg tablet 05-25 00:00: 00 02-20 23:59 :00 No [id number] 1 tablet BEDTIME 1 tablet BEDTIME (route: oral) Med Classific ation: Central Nervous System Agents sucralfate 1 gram tablet 05-25 00:00: 00 11-06 23:59 :00 No [id number] 1 tablet 2 TIMES DAILY 1 tablet 2 TIMES DAILY (route: oral) Med Classific ation: Gastroint estinal Therapy Agents ferrous sulfate 324 mg (65 mg iron) tablet,nancy yed release 05-29 00:00: 00 01-28 23:59 :00 No [id number] 324 mg 2 TIMES DAILY 324 mg 2 TIMES DAILY (route: oral) Med Classific ation: Electroly te Balance-N utritiona l Products trazodone 100 mg tablet 06-20 00:00: 00 11-06 23:59 :00 No [id number] 100 mg BEDTIME 100 mg BEDTIME (route: oral) Med Classific ation: Central Nervous System Agents Gavilax 17 gram/dose oral powder 518 00:00: 00 11-06 23:59 :00 No [id number] Per instruc tions DIRECTED Per instructio ns DIRECTED (route: oral) Med Classific ation: Gastroint estinal Therapy Agents benzonatate 100 mg capsule 7-04 00:00: 00 11-20 23:59 :00 No [id number] 2 capsule 3 TIMES DAILY 2 capsule 3 TIMES DAILY (route: oral) Med Classific ation: Respirato ry Therapy Agents dexamethaso ne 6 mg tablet 08-13 00:00: 00 08-18 23:59 :00 No [id number] 1 tablet DAILY 1 tablet DAILY (route: oral) Med Classific ation: Endocrine clonazepam 0.5 mg tablet 11-06 00:00: 00 01-28 23:59 :00 No [id number] 1 tablet BEDTIME 1 tablet BEDTIME (route: oral) Med Classific ation: Central Nervous System Agents omeprazole 40 mg capsule,del ayed release 11-06 00:00: 00 01-28 23:59 :00 No [id number] 1 capsule DAILY 1 capsule DAILY (route: oral) Med Classific ation: Gastroint estinal Therapy Agents trazodone 100 mg tablet 11-06 00:00: 00 09-12 23:59 :00 No [id number] 1.5 tablet BEDTIME 1.5 tablet BEDTIME (route: oral) Med Classific ation: Central Nervous System Agents trazodone 300 mg tablet -08 00:00: 00 01-28 23:59 :00 No [id number] 1 tablet BEDTIME 1 tablet BEDTIME (route: oral) Med Classific ation: Central Nervous System Agents olanzapine 10 mg tablet 1-11 00:00: 00 05-12 23:59 :00 No [id number] 1 tablet BEDTIME 1 tablet BEDTIME (route: oral) Med Classific ation: Central Nervous System Agents aripiprazol e 5 mg tablet 4-05 00:00: 00 07-09 23:59 :00 No [id number] 1 tablet DAILY 1 tablet DAILY (route: oral) Med Classific ation: Central Nervous System Agents olanzapine 5 mg tablet -05 00:00: 00 07-09 23:59 :00 No [id number] 1 tablet EVERY AM 1 tablet EVERY AM (route: oral) Med Classific ation: Central Nervous System Agents aripiprazol e 10 mg tablet 6-04 00:00: 00 Yes [id number] 1 tablet DAILY 1 tablet DAILY (route: oral) Med Classific ation: Central Nervous System Agents clonazepam 0.5 mg tablet 2022-02-20 00:00: 00 Yes [id number] 1 tablet EVERY PM 1 tablet EVERY PM (route: oral) Med Classific ation: Central Nervous System Agents escitalopra m 10 mg tablet 2022-02- 00:00: 00 12-22 23:59 :00 No [id number] 1 tablet EVERY AM 1 tablet EVERY AM (route: oral) Med Classific ation: Central Nervous System Agents ferrous sulfate 324 mg (65 mg iron) tablet,nancy yed release 2022-02 00:00: 00 Yes [id number] 1 tablet 2 TIMES DAILY 1 tablet 2 TIMES DAILY (route: oral) Med Classific ation: Electroly te Balance-N utritiona l Products gabapentin 300 mg capsule 2022-02- 00:00: 00 Yes [id number] 1 capsule 2 TIMES DAILY 1 capsule 2 TIMES DAILY (route: oral) Med Classific ation: Central Nervous System Agents omeprazole 40 mg capsule,del ayed release 2022-02 00:00: 00 Yes [id number] 1 capsule EVERY AM 1 capsule EVERY AM (route: oral) Med Classific ation: Gastroint estinal Therapy Agents trazodone 150 mg tablet 2022-02 2- 00:00: 00 04-03 23:59 :00 No [id number] 2 tablet BEDTIME 2 tablet BEDTIME (route: oral) Med Classific ation: Central Nervous System Agents zolpidem 10 mg tablet 2- 00:00: 00 Yes [id number] 1 tablet BEDTIME 1 tablet BEDTIME (route: oral) Med Classific ation: Central Nervous System Agents escitalopra m 5 mg tablet 6-06 00:00: 00 12-22 23:59 :00 No [id number] 1 tablet EVERY AM 1 tablet EVERY AM (route: oral) Med Classific ation: Central Nervous System Agents escitalopra m 20 mg tablet 2023-02 1-13 00:00: 00 Yes [id number] 1 tablet EVERY AM 1 tablet EVERY AM (route: oral) Med Classific ation: Central Nervous System Agents tizanidine 4 mg tablet 1-24 00:00: 00 Yes [id number] 1 tablet BEDTIME 1 tablet BEDTIME (route: [...] AWARENESS FOR SAFETY AND WILL NOTIFY CLINICAL SIEVE REPAIRER AND PHYSICIAN/PROVIDER WITH ANY CHANGE IN CONDITION. [code = SKILLED NURSE WILL MAINTAIN SITUATIONAL AWARENESS FOR SAFETY AND WILL NOTIFY CLINICAL SIEVE REPAIRER AND PHYSICIAN/PROVIDER WITH ANY CHANGE IN CONDITION.] [...] CARE WILL BE ESTABLISHED THAT MEETS PATIENT'S RETIREMENT NEEDS AND INCLUDES PATIENT GOAL FOR HOME [...] End Date/Time Encounter Type Admission Type Attending [facility] Care Department Encounter ID Discharge Date Discharge Status Discharge Condition Discharge Reason Percent Goals Met 2020-05-25 00:00:00 2024-05-03 00:00:00 Outpatient RECERTIFIC ATION ZORAN JUAREZ [facility] [id number] 4.00
== END 2024-03-11 10:33 | disposition home or self-care (01) ==
PROVIDERS: PCP Internal Medicine; Visit Provider Internal Medicine
DX: M62.830 Muscle spasm of back (principal); E66.01 Morbid (severe) obesity due to excess calories; Z68.41 Body mass index [BMI] 40.0-44.9, adult

== ENCOUNTER → 2024-03-11 09:30 | Outpatient (BNVA) | payer OTHER, SELFPAY | PROVIDERS: PCP Internal Medicine; Visit Provider Internal Medicine | DX: E66.01 Morbid (severe) obesity due to excess calories (principal); M62.830 Muscle spasm of back | CPT/HCPCS: 96127; 99212 ==

== ENCOUNTER → 2024-06-07 09:24 | Outpatient (BNVA) | payer OTHER, SELFPAY | PROVIDERS: PCP Internal Medicine; Visit Provider Internal Medicine | DX: Z13.89 Encounter for screening for other disorder (principal) ==

== ENCOUNTER 2024-07-08 10:16 | Outpatient (AMB) | payer OTHER, SELFPAY ==
--- NOTE | 2024-07-08 10:19 | A.OFFPC_ITS ---
Vital Signs 07/08/24 10:20 Height 5 ft 3 in Weight 239 lb BMI 42.3 BP 118/90 H Blood Pressure Location Lt brachial Position Sitting Respiration 16 Pulse 110 H Pulse Source Pulse Oximeter Temp 97.7 F Temp Source Oral Pulse Oximetry (%) 96 Oxygen Delivery Method Room Air Intake Visit Reasons: discuss wgt Intake Note: Pt is here today to discuss wgt loss option: Phentermine not affective and wants to see if another type of oral med Allergies NSAIDS (Non-Steroidal Anti-Inflamma [NSAIDS (NON-STEROIDAL ANTI-INFLAMMA] Allergy (Intermediate, Verified 07/08/24 10:45) RASH aspirin [ASPIRIN] Allergy (Mild, Verified 07/08/24 10:45) HIVES Medication List - Last Reconciled 07/08/24 by Arielle Jon MD acetaminophen (Tylenol) 650 mg (2 x 325 mg) PO QID PRN aripiprazole mg PO DAILY clonazepam 1 tab PO DAILY PRN escitalopram oxalate mg PO DAILY ferrous sulfate 324 mg PO BID gabapentin 300 mg PO BID haloperidol 1 tab PO BEDTIME ibuprofen (Motrin IB) 200 mg PO Q6H PRN olanzapine 5 mg PO DAILY omeprazole 20 mg PO DAILY tizanidine 4 mg PO BEDTIME PRN zolpidem 10 mg PO BEDTIME PRN Tobacco use date assessed: 07/08/24 Dental Screening Dental Screen Date: 03/11/24 HPI discuss wgt HPI Details 54-year-old lady with history of morbid obesity, nephrolithiasis, schizoaffective disorder, gastritis and history of alcohol abuse, here today to discuss other treatment options for weight loss. She has been placed on phentermine, but was unable to tolerate taking the medication due to palpitations and headache she also has not been able to lose weight, been trying to follow healthy diet, but unable to exercise due to chronic low back pain and muscle spasm, worse ever since she started gaining the weight [facility] Medical History Vaccination declined Morbid obesity Nephrolithiasis Bladder wall thickening Recurrent UTI History of COVID-19 Cirrhosis of liver Bipolar 1 disorder Depression with anxiety Vitamin D deficiency Alcohol abuse Anemia Surgical History History of esophagogastroduodenoscopy (EGD) Hx of section Hx laparoscopic cholecystectomy Family History Sister Breast cancer Substance use disorder Father Substance use disorder Paternal Aunt Substance use disorder Other Unknown family medical history Social History Household Members: Other Household Members Other:: 2 sisters and teenage children Housing: Apartment Do you presently have visiting nurse or other home services: No Alcohol intake: never Comment: pt resting with eyed closed Patient Tobacco Use Status: Former Tobacco user Cigarette Packs Per Day: 0 Cigarettes Per Day: 1 e-Cigarette/Vaping Use: Never Used Second Hand Smoke Exposure: Yes service: No Current occupational status: unemployed Sexual orientation: Straight/Heterosexual Cognitive needs: No Hearing needs: No Vision needs: No Questionnaire Thrive Questionnaire Date Thrive assessed: 03/11/24 BRYCE-7 AMB Questionnaire BRYCE-7 Date BRYCE - 7 assessed: 03/11/24 (patient declined ) Source: Developed by Drs. Kana Ohara, Juliet Leonardo, Aditya Alejandro and colleagues, with an educational kaylynn from [employer]. Review of Systems Const All systems reviewed & are unremarkable except as noted in HPI and below Physical exam (Primary Care) Vital Signs: Last Vital Signs Temp 97.7 F 07/08/24 10:20 Pulse 110 H 07/08/24 10:20 Resp 16 07/08/24 10:20 BP 118/90 H 07/08/24 10:20 Pulse Ox 96 07/08/24 10:20 Oxygen Delivery Method Room Air 07/08/24 10:20 BMI result Body Mass Index 42.3 Tobacco/Smoking Status: Tobacco use Status Tobacco use date assessed 07/08/24 07/08/24 10:29 Patient Tobacco Use Status Former Tobacco user 07/08/24 10:29 e-Cigarette/Vaping Use Never Used 07/08/24 10:29 Thrive Assessment: Date of Thrive Assessment Date Thrive assessed 03/11/24 07/08/24 10:29 Const Other: Awake, alert, flat affect, ambulatory with normal gait HENMT Mouth: Normal oral and palatal mucosa present, oropharynx normal and moist mucous membranes Eyes General: appearance normal, both eyes and all related structures Neck Neck: Yes full ROM, Yes no lymphadenopathy and Yes supple Resp Auscultation: clear to auscultation bilaterally Cardio Other: S1-S2 present regular rate and rhythm GI Palpation (GI): Soft to palpation, nontender and no guarding Auscultation: normal bowel sounds Back/Spine/Pelvis Thoracic/Lumbar Spine: thoraco-lumbar ROM normal, straight leg raise negative bilaterally and paraspinal muscle tenderness (Lumbar area bilateral) Neuro General: moves all extremities, no focal motor deficits and CN's II-XI intact bilaterally Extrem General: Yes full ROM, Yes no joint enlargement, Yes no pedal edema and Yes normal gait Coding Level of Care Code Est Pt Level 4 (53908) Diagnoses Morbid obesity E66.01 Bilateral low back pain without sciatica, unspecified chronicity M54.50 Back pain laterality: bilateral Chronicity: unspecified Sciatica presence: without sciatica Assessment & Plan Assessment & Plan (1) Morbid obesity: Code(s): E66.01 - Morbid (severe) obesity due to excess calories Category: Medical Plan: Unable to tolerate phentermine, has been trying to adhere to healthy eating habits but unable to do any regular exercise due to chronic low back pain. Will refer to [place] [facility] to discuss other treatment options for helping with weight loss (2) Lumbago: Code(s): M54.50 - Low back pain, unspecified Qualifiers: Back pain laterality: bilateral Chronicity: unspecified Sciatica presence: without sciatica Qualified Code(s): M54.50 - Low back pain, unspecified Plan: Prescription sent for tizanidine 4 mg per tablet to take 1/2-1 tablet only as needed for painful muscle spasms, patient advised to take it only as needed. Takes Motrin as needed for muscle pain Orders: Referrals Medical Weight Management Referral E66.01 - Morbid (severe) obesity due to excess calories Medications: Refilled tizanidine 4 mg PO BEDTIME PRN 14 tabs 0RF muscle spasticity
[2024-07-08 10:20] VITALS: BP 118/90; PULSE 110; RESP 16; TEMP 36.5; O2SAT 96; BMI 42.3
--- OUTSIDE RECORDS SUMMARY | 2024-07-08 10:35 | XMS_ITS | Clinical Summary ---
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 Name Role Phone Unavailable Primary Care Provider Unavailabl e Social History Tobacco Use Types Packs/Day Years Used Date Smoking Tobacco: Never Assessed Comments Unknown Sex and Gender Information Value Date Recorded Sex Assigned at Not on file Legal Sex Female 5:36 AM EST Gender Identity Not on file Sexual Orientation Not on file Plan of Treatment Health Maintenance Due Date Last Done Comments Breast Cancer Screening 1970 DTaP,Tdap,and Td Vaccines (1 - Tdap) 05/21/1990 Hepatitis B Vaccines (1 of 3 - 19+ 3-dose series) 05/21/1990 Cervical Cancer Screening: P ap Smear 05/21/1992 Pneumococcal Vaccine: 50+ Ye ars (1 of 1 - PCV) 05/21/2021 Zoster Vaccines (1 of 2) 05/21/2021 COVID-19 Vaccine ( - 2023-2 5 season) 2023 Influenza Vaccine (Season Ended) 2024 HIB Vaccines Aged Out No longer eligi [...] patient's age to complete this topic Meningococcal B Vaccine Aged Out No l onger eligible based on patient's age to complete [...]
== END 2024-07-08 11:27 | disposition home or self-care (01) ==
LOC: HO.HMCC 10:16
PROVIDERS: PCP Internal Medicine; Visit Provider Internal Medicine
DX: M54.50 Low back pain, unspecified (principal); E66.01 Morbid (severe) obesity due to excess calories; Z68.41 Body mass index [BMI] 40.0-44.9, adult

== ENCOUNTER → 2024-07-08 10:16 | Outpatient (BNVA) | payer OTHER, SELFPAY | PROVIDERS: PCP Internal Medicine; Visit Provider Internal Medicine | DX: E66.01 Morbid (severe) obesity due to excess calories (principal); Z68.41 Body mass index [BMI] 40.0-44.9, adult; M54.50 Low back pain, unspecified | CPT/HCPCS: 99212 ==